=== PATIENT | male | born 1955 | race Caucasian/White ===

== ENCOUNTER 2024-06-14 09:12 | Emergency (ER) | payer BC, MEDICARE, SELFPAY ==
[2024-06-14 09:16] VITALS: BP 156/95; PULSE 83; PULSE 86; RESP 19; TEMP 36.5; O2SAT 95; O2SAT 98; BMI 27.3
--- NOTE | 2024-06-14 09:51 | PD.EDAMS ---
Altered Mental Status RME/HPI General Chief Complaint: Altered Mental Status Stated Complaint: AMS Arrival date/time: 06/14/24 09:12 RME / HPI RME / HPI narrative: 69 year old male with history of vascular dementia, CVA 01/2021, heart attack in 2015, s/p 3 stents presents to the ED BIBA from home for evaluation of altered mental status. Per , patient was at his usual state of health Thursday and went to visit his sisters for the weekend. states the patient returned home and noticed the patient was congested, coughing, complained of body aches and chills otherwise conversive. Also noted patient at baseline patient shuffles however noted 2 days ago Thursday he was walking very slowly. states this morning the patient appeared very confused and couldn't remember her name, prompting calling 911. Denies any falls or head injury. No other symptoms reported. Related Data Home Medications ?Medication ?Instructions ?Recorded ?Confirmed atorvastatin 80 mg tablet 80 mg PO QDAY 06/02/19 11/25/19 carvedilol 6.25 mg tablet 6.25 mg PO BID 06/02/19 11/25/19 clopidogrel 75 mg tablet (Plavix) 75 mg PO QDAY 06/02/19 11/25/19 empagliflozin 10 mg tablet 10 mg PO QDAY 06/02/19 11/25/19 (Jardiance) glipizide 2.5 mg tablet, extended 2.5 mg PO QDAY 06/02/19 11/25/19 release 24 hr insulin glargine 100 unit/mL (3 10 unit subcut QDAY 06/02/19 11/25/19 mL) subcutaneous pen (Lantus Solostar U-100 Insulin) lisinopril 10 mg tablet 10 mg PO QDAY 06/02/19 11/25/19 metformin 500 mg tablet 500 mg PO BID 06/02/19 11/25/19 tamsulosin 0.4 mg capsule 0.4 mg PO QDAY 06/02/19 11/25/19 Allergies Allergy/AdvReac Type Severity Reaction Status Date / Time NKA* Allergy Uncoded 06/14/24 09:22 Review of Systems Review of Systems ROS Unobtainable: unobtainable due to mental status (Patient confused ) Past Medical History Past Medical History CARDIAC: Negative Congestive Heart Failure RESPIRATORY: Negative Chronic Obstructive Pulmonary Disease (COPD) GENITOURINARY: Negative Renal Disease ENDOCRINE: Positive Diabetes Mellitus Type 2; Negative Diabetes Mellitus Type 1 Social History SMOKING STATUS: Former smoker ED Exam Narrative Physical exam: Physical Exam: General: The vital signs were reviewed. Patient alert awake cooperative does know his age date and does not recognize or is unable to call his by her name. Otherwise the patient is non-toxic, in no apparent distress and appears healthy with a patent airway, no respiratory distress and has no apparent circulatory problems. Head & Scalp: Normocephalic, atraumatic. Face: Appears normal and is without lesions, deformity. Ears: Left external pinna appears normal. Right external pinna appears normal. Eyes: The sclera is anicteric. No obvious photophobia. The Left and Right Orbit/Lid/Conjunctiva appears normal without swelling, discoloration or injection. Nose: The nose is without deformity, discharge or tenderness; Throat: Appears normal. The mucous membranes are pink and moist without exudates, redness or mass seen. The tongue appears normal. Neck: The neck is supple and no apparent mass or adenopathy. Chest: The chest wall is normal in size and symmetry and has no chest wall tenderness or crepitus. The patient displays normal ventilator effort without retractions, accessory muscle use and has adequate air movement bilaterally with no wheezes and no rales. Cardiovascular: Regular rate and rhythm; No murmurs, rubs, or gallops; Gastrointestinal: The abdomen appears normal. No obvious hernias or mass. The abdomen is soft and benign, non-distended, with no pain, no guarding and no rebound tenderness. Bowel sounds are present and normal sounding. No CVA tenderness. Genitourinary: Back/Spine: Normal Spektor nontender Extremities/Musculoskeletal/lymphatic: The bilateral upper and lower extremities are warm. There is no evidence of arterial insufficiency. There is no evidence of venous insufficiency/edema. The patient spontaneously moves bilateral upper and lower extremities with no pain and no limitation of movement. There is no apparent, injury or trauma. Skin: The skin is warm, dry and intact. No rashes. No petechia. No purpura. No abnormal bruising. The color is appropriate with no cyanosis. Mental status/Psychiatric: Mental status is appropriate for age. The patient has no apparent delusions, visual hallucinations, no apparent audible hallucinations. The patient has no apparent suicidal thoughts/ideation and no apparent homicidal thoughts/ideation. Neurological: The patient is awake, alert, interactive, cordial, cooperative and is oriented to name and situation. The patient follows commands and answers historical question with no impairment. There is no visual disturbance apparent. The pupils are equal and reactive bilaterally with normal eye movements and no diplopia The bilateral upper and lower extremities have normal strength, normal range of motion and normal functioning. The gait, station and balance appear to be baseline with no acute change Course Quality Measures none Orders Category Date Time Status Bedside COVID-19 Antigen Test NOW Care 06/14/24 10:18 Active Bedside Influenza A&B Antigen Test NOW Care 06/14/24 10:18 Completed EKG (ED ONLY) *Do not use* NOW Care 06/14/24 10:13 Completed Home Health Referral Routine Cons 06/14/24 16:[address] head/brain wo con Stat Exams 06/14/24 10:13 Completed EKG (ED Only) Stat Exams 06/14/24 10:13 Draft XR chest 1V portable Stat Exams 06/14/24 10:13 Completed Alcohol, Blood Medical Stat Lab 06/14/24 10:41 Completed Ammonia Stat Lab 06/14/24 10:41 Completed B-Type Natriuretic Peptide Stat Lab 06/14/24 10:41 Completed Blood Culture (Lab) Stat Lab 06/14/24 10:35 Received CBC Stat Lab 06/14/24 10:41 Completed Comprehensive Metabolic Panel Stat Lab 06/14/24 10:41 Completed Drug Screen,Urine Stat Lab 06/14/24 11:20 Completed Lactate (Lactic Acid) Stat Lab 06/14/24 10:41 Completed Procalcitonin Stat Lab 06/14/24 10:41 Completed Prothrombin Time with INR Stat Lab 06/14/24 10:41 Completed RSV [Respiratory Syncytial Virus Ag] Stat Lab 06/14/24 11:41 Completed Strep A Rapid Stat Lab 06/14/24 11:41 Completed Troponin I Stat Lab 06/14/24 10:41 Completed Troponin I Stat Lab 06/14/24 15:28 Completed Type and Screen Stat Lab 06/14/24 10:41 Completed Urinalysis Stat Lab 06/14/24 12:20 Completed Urinalysis, C/S if Indicated Stat Lab 06/14/24 12:20 Completed Venous Blood Gas Stat Lab 06/14/24 10:41 Completed Vital Signs Vital signs: Vital Signs Temperature 97.7 F 06/14/24 09:16 Pulse Rate 83 06/14/24 09:16 Respiratory Rate 19 06/14/24 09:16 Blood Pressure 156/95 H 06/14/24 09:16 Pulse Oximetry (%) 95 06/14/24 09:16 Oxygen Delivery Method Room Air 06/14/24 09:16 Pulse ox is 95% on room air which is adequate. Altered Mental Status MDM Narrative MDM Narrative:: IJulita, am scribing for and in the presence of Dr. Ag. Patient is 69-year-old who is brought in by per EMS as also was noted to be walking funny for the last 2 days. Got history of CVA in 2020 has a history of vascular dementia diagnosed in January [address] Amador's been involved in his care. Has history of stents. Also noted 2 days ago he had some cough and congestion and bodyaches uncertain if he is coming down with the flu per the . Patient has no complaints or problems is cordial smiling Patient had extensive workup and actually has improved his mental status with a sense he recognizes and knows his name clearly has a fluctuating characteristic to the cognition. Medical workup reveals a white count of 7.4 hemoglobin of 16.5 PT/INR normal venous blood gas was normal electrolytes were normal BUN 21 creatinine 1.3. Sugar was elevated 394. Lactic acid was 1.9. Total bilirubin was slightly elevated 2.5 of unknown etiology. No transaminases were negative. There is no liver injury does not drink. Ammonia was negative troponin first only slightly above the negative range the second 1 was done and is normal at 0.037. BNP slightly elevated to 55 there is a known history of some mild congestive heart failure. Procalcitonin was negative. Urinalysis came back with 3 red cells and 1 white cells essentially negative. Urine drug screen was negative ethyl alcohol is negative RSV and group A strep were negative influenza was negative COVID was negative. Despite the mental status fluctuating returning back to baseline he still demented. Head CT was done which essentially is negative there is no acute chest x-ray reveals a big heart some vascular redistribution no consolidating pneumonia is seen. And the bilateral nodular appearances are probably chronic. 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 Son came and was concern for the patient and there is a little disagreement between the and the son who is a stepson for the current and that she thinks she needs more help in the home was wonder if the patient could be admitted to rehab. Or at least daycare so she could work and then have someone watch him because it is clear he should not be left alone. I spoke with manager social work several times they went in 1 time and did an assessment and were going arrange for home health services which were ordered. But went back in and when the son was gone and she still feeling a little overwhelmed social service can go back and and discussed with them other options. Also the brought up going to the daycare center that can open up in [place] this next week. Patient data External records reviewed:: [facility] previous records (I reviewed outpatient chart from 11/25/2019) and EMS form Clinical information provided by:: EMS and spouse Social determinants that could affect healthcare access:: none Patient has the following chronic illnesses:: vascular dementia, CVA 01/2021, heart attack in 2016, s/p 3 stents How is presenting disease/condition affected by chronic disease/condition?: exacerbated by Evaluation data The following diagnostics were reviewed and interpreted by me:: lab results, radiology exam(s) and EKG tracing(s) (Sinus rhythm, rate 87, no STEMI) Lab and/or radiology exams considered but not ordered:: None Interpretation Summary: Ordering Physician: Erwin Ag MD Date of Service: 06/14/24 Procedure(s): XR chest 1V portable Accession Number(s): [id number] cc: Francois Thompson MD; Erwin Ag MD; Kendrick Rose MD~ EXAMINATION: XR chest 1V portable ORDERING PROVIDER: Erwin Ag MD HISTORY: CHEST PAIN TECHNIQUE: Single portable AP radiograph of the chest. COMPARISON: None. FINDINGS: Lines and Tubes: Overlying monitoring leads. Lungs: Mildly hyperinflated. Reticular nodular interstitial markings. No consolidation. Pleura: No pneumothorax or large pleural effusion. Cardiomediastinal Silhouette: Moderate cardiomegaly. Uncoiled aorta. Calcifications aortic arch. Soft Tissues/Bones: Moderate bony degenerative changes. IMPRESSION: Reticular nodular interstitial markings favored to represent chronic lung disease on background emphysematous changes. Viral or atypical pneumonia could have a similar appearance. Dictated By: Francois Thompson MD Signed By: <Electronically signed by Francois Thompson MD in OV> 06/14/24 1124 Ordering Physician: Erwin Ag MD Date of Service: 06/14/24 Procedure(s): CT head/brain wo con Accession Number(s): [id number] cc: Erwin Ag MD; César Dela Cruz MD; Kendrick Rose MD~ Examination: CT brain head without contrast. 2-D sagittal coronal reconstructions Date and time of exam:June 14, 2024 1019 hrs. Indications: Loss of consciousness episode today CTDI: vol (mGy):51 DLP: (mGycm):1074 Technique: Multiple CT axial sections of the brain have been obtained, 5 mm slice thickness. Contrast has not been administered. 2-D sagittal, coronal reconstructions have been obtained Low dose protocols were performed. One or more of the following dose reduction techniques were used; automated exposure control, adjustment of the mA and/or KV according to patient size, use of iterative reconstruction technique. Findings: No significant ventricular enlargement. Encephalomalacia left temporal left occipital lobe Intra-axial or extra-axial hemorrhage density is not seen. No mass effect or midline shift Basal cisterns are not remarkable. Fourth ventricle is midline. Cranial vault intact. Impression: Negative for acute hemorrhage, mass effect or midline shift As clinically warranted, consider brain MRI follow-up without contrast Dictated By: César Dela Cruz MD Signed By: <Electronically signed by César Dela Cruz MD in OV> 06/14/24 1050 Medications / Prescriptions Medications or Prescriptions considered but not ordered:: None Medication administrations:: None Consultations Consultation(s) initiated? (list below): Yes Consultation #1 (Physician, Specialty, Details): I spoke with patients neurologist Dr. Amador as noted above. Diagnosis Differential diagnosis altered mental status: altered mental status, delirium, dementia, hypoglycemia, hyponatremia, subarachnoid hemorrhage, sepsis and other (Viral illness) Most likely diagnosis given after review of the tests above:: Exacerbation of dementia and fluctuating mental status associated with it. No acute illness was found. Brain MRI may be needed as an outpatient. Admission Indicated Admission indicated?: not indicated Admission Request Was there a request for admission?: No Disposition Plan Disposition Plan: Discharge ( and son are going arrange for further in-home services and/or daycare as the patient has reached a point it is caught in a client where he needs more supervision. Also they were instructed the patient should not be driving.) Discharge Attestation Discharge Attestation: The patient and all family members were given an opportunity to ask questions and understood the discharge instructions. Discharge instructions specifically effects, indications for sooner follow up or return to the emergency department, and the expected course of current diagnosis. Patient condition: Stable Discharge Plan Plan Patient Disposition: HOME (Self Care) Prescriptions/Referrals Prescriptions/Med Rec: No Action atorvastatin 80 mg tablet 80 mg PO QDAY clopidogrel [Plavix] 75 mg tablet 75 mg PO QDAY carvedilol 6.25 mg tablet 6.25 mg PO BID metformin 500 mg tablet 500 mg PO BID lisinopril 10 mg tablet 10 mg PO QDAY glipizide 2.5 mg tablet extended release 24hr 2.5 mg PO QDAY Jardiance 10 mg tablet 10 mg PO QDAY tamsulosin 0.4 mg capsule 0.4 mg PO QDAY Lantus Solostar U-100 Insulin 100 unit/mL (3 mL) insulin pen 10 unit SC QDAY Referrals: Kendrick Rose MD [Primary Care Provider] - In 1 week Problem List Clinical Impression: Cognitive decline, Dementia, Congestive heart failure, Elevated bilirubin Patient/Caregiver Discharge Instructions Additional Instructions: As we discussed there are multiple issues going on today. She we know the medical workup today revealed a head CT which was negative chest x-ray with evidence of mild congestive heart failure. Swabs for influenza COVID and RSV were negative. Your CBC and CHEM panels were essentially negative other than the bilirubin slightly elevated. Continue to get care for your diabetes as the sugar was somewhat elevated today and have your doctor address the medical management for the diabetes. Initially the cognitive that was observed in the confusion is most likely related to his dementia as we see no evidence of infection or any delirium at this time. As we know he spontaneously improved without us doing anything. Dr. Amador needs to follow-up as we discussed and she is aware and make an appointment get seen in the next 3 to 5 days. If you are getting worse before then please return for reevaluation. It is clear the patient should not be driving and should be accompanied 24 hours a day as he clearly has cognitive and confusional issues related to the dementia As we discussed his total bilirubin slightly elevated at 2.5 and it is unclear why this is elevated. As we discussed we will have this follow-up with the regular doctor for recheck and if it is continuing to go up then further medical workup can be done as an outpatient. Talk with your neurologist and seek daycare and/or home health as was discussed. Dr. Amador can facilitate that for you. Again if you are getting worse in any way please return for reevaluation. Print Language: New Zealander Stand Alone Forms: [facility] Award Info., Patient Portal Info Letter
--- NOTE | 2024-06-14 10:13 | EKG_ITS ---
[facility] Test Date: 2024-06-14 Pat Name: MATTHEW JOHNSON Department: Room: - Gender: Male Development Lead: : 1955 Requested By: Erwin Ag Order Number: [id number] Reading MD: Erwin Ag Measurements Intervals [place] Rate: 87 P: 87 OR: 159 QRS: 3 QRSD: 133 T: 64 QT: 393 QTc: 474 Interpretive Statements SINUS RHYTHM INTRAVENTRICULAR CONDUCTION DELAY [130+ ms QRS DURATION] No previous ECG available for comparison /store/S0/[id number].pdf
--- NOTE | 2024-06-14 10:13 | XR_ITS ---
Examination: CT brain head without contrast. 2-D sagittal coronal reconstructions Date and time of exam:June 14, 2024 1019 hrs. Indications: Loss of consciousness episode today CTDI: vol (mGy):51 DLP: (mGycm):1074 Technique: Multiple CT axial sections of the brain have been obtained, 5 mm slice thickness. Contrast has not been administered. 2-D sagittal, coronal reconstructions have been obtained Low dose protocols were performed. One or more of the following dose reduction techniques were used; automated exposure control, adjustment of the mA and/or KV according to patient size, use of iterative reconstruction technique. Findings: No significant ventricular enlargement. Encephalomalacia left temporal left occipital lobe Intra-axial or extra-axial hemorrhage density is not seen. No mass effect or midline shift Basal cisterns are not remarkable. Fourth ventricle is midline. Cranial vault intact. Impression: Negative for acute hemorrhage, mass effect or midline shift As clinically warranted, consider brain MRI follow-up without contrast
--- NOTE | 2024-06-14 10:13 | XR_ITS ---
EXAMINATION: XR chest 1V portable ORDERING PROVIDER: Erwin Ag MD HISTORY: CHEST PAIN TECHNIQUE: Single portable AP radiograph of the chest. COMPARISON: None. FINDINGS: Lines and Tubes: Overlying monitoring leads. Lungs: Mildly hyperinflated. Reticular nodular interstitial markings. No consolidation. Pleura: No pneumothorax or large pleural effusion. Cardiomediastinal Silhouette: Moderate cardiomegaly. Uncoiled aorta. Calcifications aortic arch. Soft Tissues/Bones: Moderate bony degenerative changes. IMPRESSION: Reticular nodular interstitial markings favored to represent chronic lung disease on background emphysematous changes. Viral or atypical pneumonia could have a similar appearance.
[2024-06-14 10:56] LABS: Base Excess, Venous 0 (-3-3); Lactate (Lactic Acid) 1.9 mMol/L (0.4-2.0); O2 Saturation, Venous 54 % (96-97); PCO2, Venous 42 mmHg (36-56); PO2, Venous 27 mmHg (15-58); pH, Venous 7.39 (7.33-7.66)
[2024-06-14 11:01] LABS: Basophils % (Auto) 0 % (0-2.5); Eosinophils # (Auto) 0.1 Thou/mm3 (0.0-0.5); Eosinophils % (Auto) 1 % (0-10); Hematocrit 48.6 % (41.0-53.0); Hemoglobin 16.5 g/dL (13.5-16.0); Immature Granulocytes % (Auto) 0 % (0-0); Immature Granulocytes Auto 0.02 Thou/mm3 (0.00-0.00); Lymphocytes # (Auto) 0.8 Thou/mm3 (1.0-4.8); Lymphocytes % (Auto) 11 % (10-50); Mean Corpuscular Volume 91 fL (80-100); Monocytes # (Auto) 0.6 Thou/mm3 (0.0-0.8); Monocytes % (Auto) 9 % (0-12); Neutrophils # (Auto) 5.8 Thou/mm3 (1.8-7.7); Neutrophils % (Auto) 79 % (37-80); Nucleated Red Blood Cell % 0 /100 WBC (0); Platelet Count 208 Thou/mm3 (140-440); RDW Standard Deviation 44.1 fL (35.1-43.9); Red Blood Count 5.33 Miln/mm3 (4.50-5.90); White Blood Count 7.4 Thou/mm3 (3.8-10.6)
[2024-06-14 11:13] LABS: Prothrombin Time 10.7 Seconds (9.0-12.2)
--- NOTE | 2024-06-14 11:14 | PC.NURSE ---
PT AMBULATED WELL W/THIS RN AND FELLOW LIEUTENANT FIRE FIGHTER
[2024-06-14 11:20] LABS: Ammonia < 10 uMol/L (11-32)
[2024-06-14 11:23] LABS: B-Type Natriuretic Peptide 255 pg/mL (0-100)
[2024-06-14 11:38] LABS: Alanine Aminotransferase 13 U/L (10-49); Albumin, Serum 4.5 gm/dL (3.4-4.8); Albumin/Globulin Ratio 1.5 (1.2-2.2); Alcohol, Blood Medical < 3.0 mg/dL (0-10.0); Alkaline Phosphatase 80 U/L (46-116); Anion Gap 11 (7-16); Aspartate Amino Transferase < 8 U/L (0-34); BUN/Creatinine Ratio 16 Ratio (12-20); Bilirubin,Total 2.5 mg/dL (0.3-1.2); Blood Urea Nitrogen 21 mg/dL (9-23); Calcium 9.8 mg/dL (8.3-10.6); Calcium (Corrected) 9.8 mg/dL (8.5-10.1); Carbon Dioxide 26.1 mMol/L (20.0-31.0); Chloride 100 mMol/L (98-107); Creatinine (Component) 1.3 mg/dL (0.6-1.3); Estimated Creatinine Clearance 53.4 mL/min (>60); Glucose 394 mg/dL (74-106); Osmolality,Calculated 292 (275-295); Potassium 4.9 mMol/L (3.4-5.1); Procalcitonin 0.21 ng/ml (0.0-0.49); Sodium 137 mMol/L (136-145); Total Protein 7.5 gm/dL (5.7-8.2); eGFR 59 See Note
[2024-06-14 11:44] LABS: Troponin I 0.046 ng/mL (0.0-0.045)
[2024-06-14 12:02] LABS: Respiratory Syncytial Virus Ag Negative (Negative); Strep A Rapid Negative (Negative)
--- NOTE | 2024-06-14 12:05 | PC.NURSE ---
PT TIFFANIE FROM HOME, SON CALLED BECAUSE PT SOUNDED CONFUSED ON THE PHONE. PER PT WAS AT HIS SISTERS HOUSE THURSDAY AND THURSDAY, AND ON THURSDAY HE WAS WALKING SLOWER, NORMALLY SHUFFLES AT BASELINE, AND WAS COMPLAINING OF A HEADACHE, BUT THOUGHT HE HAD THE FLU BECAUSE ACCORDING TO HER HE NEVER HAS HEADACHES AND HAD SOME CONGESTION. PT DOES HAVE HX OF STROKE, PER NO RESIDUAL, PT DOES HAVE VASCULAR DEMENTIA
[2024-06-14 12:34] LABS: Collection Type, Urine Clean Catch; Squamous Epithelial Cell,Urine 0 /hpf (0-5)
[2024-06-14 12:49] LABS: Bacteria,Urine Rare; Bilirubin,Urine Negative (Negative); Blood,Urine Negative (Negative); Clarity,Urine Clear (Clear/Hazy); Color,Urine Lt-Yellow (Lt Yel-Yel); Culture Indicated,Urine Not Indicated; Glucose, Urine 4+ (Negative); Hyaline Casts,Urine < 1 /hpf (0-1); Ketones,Urine 1+ (Negative); Leukocyte Esterase,Urine Negative (Negative); Nitrite,Urine Negative (Negative); Protein,Urine 1+ (Neg - Trace); RBC,Urine 3 /hpf (0-3); Specific Gravity,Urine 1.021 (1.001-1.035); Urobilinogen,Urine Negative mg/dL (0.0-1.0); WBC,Urine < 1 /hpf (0-5)
[2024-06-14 12:50] LABS: Amphetamine/Methamp Scrn,U Negative (Negative); Barbiturate Screen,Urine Negative (Negative); Benzodiazepines Screen,Urine Negative (Negative); Benzoylecgonine Screen, Ur Negative (Negative); Fentanyl Screen,Urine Negative (Negative); Opiate Screen,Urine Negative (Negative); THC Screen,Urine Negative (Negative)
--- NOTE | 2024-06-14 13:22 | PC.NURSE ---
SPOKE WITH SON TUAN WHO IS AT BEDSIDE CURRENTLY, SON REQUEST THAT WE CALL HIM WITH UPDATES, OR THAT WE CAN UPDATE HIM IF HE CALLS. THIS RN ASKED PT IF THAT IS OK WITH HIM AND HE CONFIRMED HE WOULD LIKE HIM TO HAVE ACCESS TO HIS INFORMATION
--- NOTE | 2024-06-14 13:23 | PC.NURSE ---
TONY GOLD PHONE NUMBER IS [phone], SPOKE W/REGISTRATION TO FIX SONS NUMBER IN CONTACTS.
--- NOTE | 2024-06-14 13:34 | PC.NURSE ---
SON CAME UP TO THIS RN AND REQUEST THAT CARDIAC CATH TECHNICIAN TALK TO THEM ABOUT POSSIBLE HOME HEALTH, CONTACTED SW, WHO WILL COME TALK TO PT AND SON.
--- NOTE | 2024-06-14 14:20 | PC.SS ---
Addendum entered by LIANE Beckman 06/14/24 17:05: ASW met at bed side with patient and Talisha to discuss the discharge plan. Patient's , Talisha informs she and patient would like to return home and decline home health needs at this time. Patient's informs she will be home to help patient with his home care. Talisha also considering connecting the patient to halfway, however informed she will do so following patient's discharge. Updated Dr. Hemphill. Original Note: ASW met at bed side with patient and patient's , Talisha Palacio and patient's son Aidan. Family is requesting home health to follow up with patient for nursing needs. No preferred agency. Confirmed home address and emergency contact number for Talisha. Notified MD of need for home health order.
[2024-06-14 15:53] LABS: Troponin I 0.037 ng/mL (0.0-0.045)
--- NOTE | 2024-06-14 17:05 | PC.NURSE ---
ATTEMPTED TO CALL SON AT THIS TIME TO NOTIFY OF DISCHARGE AND PROVIDE UPDATE ON RESULTS, NO ANSWER AT THIS TIME, PT IS DISCHARGED
--- NOTE | 2024-06-15 16:20 | PC.CC ---
Addendum entered by Larisa Vega RN 06/15/24 16:29: SOC is 06/17/24 Addendum entered by Larisa Vega RN 06/15/24 16:28: Pt is booked with [facility] Note: Referrals sent to all agencies
== END 2024-06-14 17:07 | disposition home health service (06) ==
PROVIDERS: Emergency Provider Emergency Medicine; PCP Urology
DX: F01.50 Vascular dementia, unspecified severity, without behavioral disturbance, psychotic disturbance, mood disturbance, and anxiety (principal); I50.9 Heart failure, unspecified; R41.89 Other symptoms and signs involving cognitive functions and awareness; I25.2 Old myocardial infarction
CPT/HCPCS: 36415; 70450; 71045; 80053; 80307; 80320; 81001; 82140; 82803; 83605; 83880; 84145; 84484; 85025; 85610; 86850; 86900; 86901; 87040; 87400; 87634; 87651; 87811; 93005; 99284; G0480

== ENCOUNTER 2024-06-16 14:19 | Inpatient (IN) | payer MEDICARE, BC, SELFPAY ==
[2024-06-16] VITALS (8 sets, daily range): BP systolic 124–153; BP diastolic 72–96; PULSE 71–90; RESP 16–96; TEMP 36.6–36.8; O2SAT 94–98; BMI 27.8
--- NOTE | 2024-06-16 14:34 | PC.NURSE ---
PT COMES FROM MRI, RADIOLOGIST CALLED AND SAID MRI IS SUSPICIOUS FOR STROKE. PT HERE THURSDAY FOR CONFUSION, PER AT BEDSIDE STATES LAST KNOWN WELL WAS 1000PM ON THURSDAY NIGHT. PER PATIENT HAS PROGRESSIVELY GOTTEN WORSE, NOW SLURRED SPEECH, CAN'T FEED HIMSELF, AND HAS INCREASED CONFUSION, GARBLED SPEECH. PATIENT HAVING TROUBLE GETTING INTO GURNEY WHEN TRANSFERRING TO GURNEY FROM WHEELCHAIR. DR. AZEVEDO AWARE OF PATIENT STATUS,.
--- NOTE | 2024-06-16 15:41 | PD.EDAMS ---
Altered Mental Status RME/HPI General Chief Complaint: Altered Mental Status Stated Complaint: ABNORMAL MRI Arrival date/time: 06/16/24 14:19 RME / HPI RME / HPI narrative: DR. JURADO MAIN ED EVALUATION: 69 year old male with past medical history significant for previous stroke 01/2021 and vascular dementia presents to the Emergency Department accompanied by his sent by Dr. Amador for abnormal MRI. Per , they were seen here 06/14/24 for the same symptoms of altered mental status, face numbness, and slurred speech. Patient unable to provide information, history from . Related Data Home Medications ?Medication ?Instructions ?Recorded ?Confirmed atorvastatin 80 mg tablet 80 mg PO QDAY 06/02/19 11/25/19 carvedilol 6.25 mg tablet 6.25 mg PO BID 06/02/19 11/25/19 clopidogrel 75 mg tablet (Plavix) 75 mg PO QDAY 06/02/19 11/25/19 empagliflozin 10 mg tablet 10 mg PO QDAY 06/02/19 11/25/19 (Jardiance) glipizide 2.5 mg tablet, extended 2.5 mg PO QDAY 06/02/19 11/25/19 release 24 hr insulin glargine 100 unit/mL (3 10 unit subcut QDAY 06/02/19 11/25/19 mL) subcutaneous pen (Lantus Solostar U-100 Insulin) lisinopril 10 mg tablet 10 mg PO QDAY 06/02/19 11/25/19 metformin 500 mg tablet 500 mg PO BID 06/02/19 11/25/19 tamsulosin 0.4 mg capsule 0.4 mg PO QDAY 06/02/19 11/25/19 Allergies Allergy/AdvReac Type Severity Reaction Status Date / Time No Known Allergies Allergy Unverified 06/16/24 16:40 Review of Systems Review of Systems ROS Unobtainable: unobtainable due to mental status Past Medical History Past Medical History NEUROLOGIC: Positive Cerebrovascular Accident (2020, NO DEFICITS) CARDIAC: Positive Myocardial Infarction, Hypercholesterolemia and Hypertension GENITOURINARY: Positive Benign Prostatic Hyperplasia ENDOCRINE: Positive Diabetes Mellitus Type 2 Surgical History SURGICAL: Positive Coronary Stent (3 STENTS) Social History SMOKING STATUS: Former smoker SUBSTANCE USE: does not use ALCOHOL: Never ED Exam Narrative Physical exam: GENERAL APPEARANCE: Patient appears confused, nonsensical speech VITALS: All vitals were reviewed and the pulse ox is 94% on room air, which is normal according to my interpretation. HEENT: Normocephalic, atraumatic; pupils equal, round, reactive to light; EOMI; mucous membranes pink, moist; oropharynx clear NECK: Supple LUNGS: CTABL; no wheezes, no rales, no rhonchi HEART: Regular rate, regular rhythm; normal S1, S2; no murmurs ABDOMEN: non distended; normal BS; soft, no tenderness, no guarding, no rebound; no masses, no organomegaly, no hernia BACK: no CVA tenderness EXTREMITIES: atraumatic; no edema NEUROLOGIC: Patient appears confused, nonsensical speech SKIN: warm, dry, normal color; no rashes Course Quality Measures none Orders Category Date Time Status Customer Experience Analyst Q2HR Care 06/16/24 14:32 Active CBC AM DRAW Lab 06/17/24 05:00 Ordered CBC AM DRAW Lab 06/18/24 05:00 Ordered CBC AM DRAW Lab 06/19/24 05:00 Ordered CBC AM DRAW Lab 06/20/24 05:00 Ordered CBC Routine Lab 06/16/24 15:45 Completed CMP [Comprehensive Metabolic Panel] AM DRAW Lab 06/17/24 05:00 Ordered CMP [Comprehensive Metabolic Panel] AM DRAW Lab 06/18/24 05:00 Ordered CMP [Comprehensive Metabolic Panel] AM DRAW Lab 06/19/24 05:00 Ordered CMP [Comprehensive Metabolic Panel] AM DRAW Lab 06/20/24 05:00 Ordered CMP [Comprehensive Metabolic Panel] Routine Lab 06/16/24 15:45 Completed Mag [Magnesium] AM DRAW Lab 06/17/24 05:00 Ordered Mag [Magnesium] AM DRAW Lab 06/18/24 05:00 Ordered Mag [Magnesium] AM DRAW Lab 06/19/24 05:00 Ordered Mag [Magnesium] AM DRAW Lab 06/20/24 05:00 Ordered Magnesium Routine Lab 06/16/24 15:45 Completed Phosphorous AM DRAW Lab 06/17/24 05:00 Ordered Phosphorous AM DRAW Lab 06/18/24 05:00 Ordered Phosphorous AM DRAW Lab 06/19/24 05:00 Ordered Phosphorous AM DRAW Lab 06/20/24 05:00 Ordered Phosphorous Routine Lab 06/16/24 15:45 Completed Prothrombin Time with INR Stat Lab 06/16/24 15:45 Completed Urinalysis Stat Lab 06/16/24 16:09 Completed Vital Signs Vital signs: Vital Signs Temperature 98.1 F 06/16/24 14:25 Pulse Rate 73 06/16/24 14:25 Respiratory Rate 16 06/16/24 14:25 Blood Pressure 124/72 06/16/24 14:25 Pulse Oximetry (%) 98 06/16/24 14:25 Oxygen Delivery Method Room Air 06/16/24 14:25 Altered Mental Status MDM Narrative MDM Narrative:: IMamie am scribing for and in the presence of Dr. Jurado. Patient data External records reviewed:: [facility] previous records (Reviewed last ED visit dated 06/14/24, discharged with the following: Cognitive decline) Clinical information provided by:: spouse () Social determinants that could affect healthcare access:: none Patient has the following chronic illnesses:: previous stroke 01/2021 and vascular dementia How is presenting disease/condition affected by chronic disease/condition?: exacerbated by Evaluation data The following diagnostics were reviewed and interpreted by me:: lab results Lab and/or radiology exams considered but not ordered:: none Interpretation Summary: Procedure(s): MR brain wwo MRA brn wo mario galeano Accession Number(s): [id number] cc: Francois Thompson MD; DAVID HENRY; Kristofer Amador MD~ EXAMINATION: MR brain wwo MRA ramez galeano ORDERING PROVIDER: Kristofer Amador MD HISTORY: Headaches, dizziness, right-sided numbness and weakness, right-sided vision loss x3 days. History of cerebrovascular incident 2020. TECHNIQUE: Multiplanar multisequence magnetic resonance images were obtained of the brain and neck with and without IV contrast. Vascular imaging was performed of the neck and head through the [place]. Imaging is motion degraded. COMPARISON: 06/14/2024, CT head. FINDINGS: Large area of restricted diffusion involving most of the remaining left occipital lobe, with extension into the posterior medial inferior temporal lobe. Additional foci of restricted diffusion involving the left thalamus and internal capsule. Again seen is significant encephalomalacia involving the peripheral aspect of the left occipital and temporal lobes, with associated cortical/subcortical susceptibility and cortical enhancement. There is an additional focus of abnormal susceptibility involving the right semicentrum ovale, likely representing an area of microhemorrhage. There is prominence of the right parieto-occipital sulcus, without adjacent abnormal T2 signal, which may be due to atrophy. There is no mass effect or midline shift. No extra-axial fluid collection is identified. There is advanced global cerebral atrophy with resultant prominence of the sulci and ventricles. Extensive periventricular and subcortical white matter T2/FLAIR hyperintensities are seen. No enhancing mass is identified. Orbits are grossly unremarkable. There is extensive mucosal paranasal inflammatory sinus disease primarily affecting a common sphenoid paranasal sinus. There is a moderate amount of fluid in the right mastoid air cells. Anterior, middle, and right posterior cerebral arteries are proximally patent without large aneurysm visualized. Anterior communicating artery is seen. The patient's right posterior communicating artery is dominant. Small left posterior communicating artery is present. The left posterior cerebral artery is not visible from its origin (P1) distally. Bilateral superior cerebellar arteries are proximally patent. Anterior inferior cerebral arteries are proximally identified. The patient is left vertebral artery dominant, with the right vertebral artery being extremely diminutive, and possibly terminating as a posterior inferior cerebellar artery. The proximal left posterior inferior cerebellar artery is identified. No basilar tip aneurysm is seen. Imaging of the neck is limited due to patient motion and coronal views only. Cervical vertebral and carotid arteries are tortuous. Left vertebral artery is again seen to be dominant. Potential stenosis is not well evaluated given lack of axial and sagittal imaging. IMPRESSION: 1. Proximal occlusion of the left posterior cerebral artery resulting in ischemia of most of the remaining left occipital and posterior medial temporal lobes, as well as portions of the left thalamus and internal capsule. 2. Encephalomalacia from old left occipital/temporal infarction. 3. Extensive global parenchymal volume loss and chronic small vessel ischemic changes. 4. Small focus of susceptibility right semicentrum ovale may represent area of microhemorrhage. 5. Partial right mastoid air cell effusion. Recommend correlation with history and physical exam to exclude mastoiditis. This case was discussed with the emergency room at 2:08 PM 06/16/2024, and patient was taken to the emergency room by radiology staff at 2:10 PM 06/16/2024. Dictated By: Francois Thompson MD Medications / Prescriptions Medications or Prescriptions considered but not ordered:: none Medication administrations:: Medication Administration History Acetaminophen (Acetaminophen 325 Mg Tablet) 650 mg PO Q6H PRN PRN Reason: Fever >100.3 or pain 1-3 Stop: 07/16/24 16:32 Albuterol/Ipratropium (Albuterol/Ipratropium (Duoneb) Rt [place]thea 3 Ml Nebu) 3 ml INH Q6HR PRN PRN Reason: SHORTNESS OF BREATH OR WHEEZE Stop: 07/16/24 16:32 Dextrose (Dextrose 50%-Water Inj 50 Ml Syringe) 25 ml IV Q15MIN PRN PRN Reason: BG 50-70 responsive npo pt Stop: 07/16/24 17:03 Dextrose (Dextrose 50%-Water Inj 50 Ml Syringe) 50 ml IV Q15MIN PRN PRN Reason: BG <50 OR BG <70 & pt unresponsive Stop: 07/16/24 17:03 Glucagon (Glucagon Inj 1 Mg Vial) 1 mg IM Q15MIN PRN PRN Reason: BG <70, and no IV access Heparin Sodium (Porcine) (Heparin Sod Inj 5000 Unit/Ml Vial) 5,000 unit SC Q12HR RAYMON Stop: 06/30/24 20:59 Insulin Human Lispro (Insulin Lispro (Admelog) 1 Unit/0.01 Ml Unit) 0 unit SC AC RAYMON; Protocol Stop: 07/17/24 07:29 Ondansetron HCl (Ondansetron Inj 2 Mg/Ml Inj 2 Ml) 4 mg IV Q6H PRN; Protocol PRN Reason: NAUSEA OR VOMITING Stop: 07/16/24 16:32 Sennosides (Senna Tablet) 1 tab PO BID PRN; Protocol PRN Reason: CONSTIPATION Stop: 07/16/24 16:32 see above Consultations Consultation(s) initiated? (list below): Yes Consultation #1 (Physician, Specialty, Details): Discussed test HPI, PMHx, lab, radiology results and/or management with hospitalist. Will admit for further evaluation and management. Accepts patient for admission. Time: 16:30 Diagnosis Most likely diagnosis given after review of the tests above:: Acute CVA Admission Indicated Admission indicated?: indicated Admission Request Was there a request for admission?: Yes Admission Attestation Admission request attestation: Discussed case with [] from Hospitalist service regarding admission. Discussed patients ED course, exam findings, labs, and radiology results. The Hospitalist [agrees,declines] to accept the patient for admission. Disposition Plan Disposition Plan: Admit Discharge Plan Plan Patient Disposition: Admit Acute Care w/in Hospital Problem List Clinical Impression: Acute cerebrovascular accident (CVA)
[2024-06-16 16:11] LABS: Basophils # (Auto) 0.1 Thou/mm3 (0.0-0.2); Basophils % (Auto) 1 % (0-2.5); Eosinophils # (Auto) 0.1 Thou/mm3 (0.0-0.5); Eosinophils % (Auto) 2 % (0-10); Hematocrit 44.6 % (41.0-53.0); Hemoglobin 15.1 g/dL (13.5-16.0); Immature Granulocytes % (Auto) 0 % (0-0); Immature Granulocytes Auto 0.02 Thou/mm3 (0.00-0.00); Lymphocytes # (Auto) 1.1 Thou/mm3 (1.0-4.8); Lymphocytes % (Auto) 16 % (10-50); Mean Corpuscular HGB Conc 33.9 g/dl (31.0-37.0); Mean Corpuscular Hemoglobin 30.8 pg (25.0-35.0); Mean Corpuscular Volume 91 fL (80-100); Monocytes # (Auto) 0.7 Thou/mm3 (0.0-0.8); Monocytes % (Auto) 10 % (0-12); Neutrophils # (Auto) 4.7 Thou/mm3 (1.8-7.7); Neutrophils % (Auto) 71 % (37-80); Nucleated Red Blood Cell % 0 /100 WBC (0); Platelet Count 202 Thou/mm3 (140-440); White Blood Count 6.6 Thou/mm3 (3.8-10.6)
[2024-06-16 16:34] LABS: Prothrombin Time 10.9 Seconds (9.0-12.2)
[2024-06-16 16:38] LABS: Collection Type, Urine Clean Catch
[2024-06-16 16:52] LABS: Bilirubin,Urine Negative (Negative); Blood,Urine Negative (Negative); Clarity,Urine Clear (Clear/Hazy); Color,Urine Yellow (Lt Yel-Yel); Glucose, Urine 4+ (Negative); Ketones,Urine 1+ (Negative); Leukocyte Esterase,Urine Negative (Negative); Nitrite,Urine Negative (Negative); Protein,Urine 2+ (Neg - Trace); RBC,Urine 1 /hpf (0-3); Specific Gravity,Urine 1.037 (1.001-1.035); Squamous Epithelial Cell,Urine < 1 /hpf (0-5); Urobilinogen,Urine Negative mg/dL (0.0-1.0); WBC,Urine 2 /hpf (0-5)
[2024-06-16 16:56] LABS: Alanine Aminotransferase 11 U/L (10-49); Albumin, Serum 4.2 gm/dL (3.4-4.8); Albumin/Globulin Ratio 1.3 (1.2-2.2); Alkaline Phosphatase 68 U/L (46-116); Anion Gap 14 (7-16); Aspartate Amino Transferase 17 U/L (0-34); BUN/Creatinine Ratio 18 Ratio (12-20); Bilirubin,Total 1.6 mg/dL (0.3-1.2); Blood Urea Nitrogen 23 mg/dL (9-23); Calcium 9.8 mg/dL (8.3-10.6); Calcium (Corrected) 9.8 mg/dL (8.5-10.1); Carbon Dioxide 22.9 mMol/L (20.0-31.0); Chloride 99 mMol/L (98-107); Creatinine (Component) 1.3 mg/dL (0.6-1.3); Estimated Creatinine Clearance 60.9 mL/min (>60); Globulin 3.2 gm/dL (2.3-3.5); Glucose 356 mg/dL (74-106); Osmolality,Calculated 289 (275-295); Phosphorous 3.2 mg/dL (2.4-5.1); Potassium 4.1 mMol/L (3.4-5.1); Sodium 136 mMol/L (136-145); Total Protein 7.4 gm/dL (5.7-8.2); eGFR 59 See Note
--- NOTE | 2024-06-16 16:57 | ESHP_ITS ---
<Statement entered by Mariella Rosario MD - 06/17/24 08:03> Patient was seen and examined by me personally. I have directly supervised and reviewed documentation by the team resident and agree with its findings with any exceptions or additional findings as below. Plan of care was discussed with the attending, Dr. Barnhart. New admission today. Patient is a 69-year-old male with a previous medical history of vascular dementia, status post CVA, multiple TIAs, hypertension, diabetes, hyperlipidemia, CAD status post PCI with stent placement, BPH who was brought to the ED 06/16/2024 due to altered mental status, LKN time on Tuesday 06/13 at 10 pm. Patient was seen in ED on 06/14 and discharged to follow with Dr. Amador. While he was getting outpatient MRI today he was instructed to go to the ED based on findings. Patient is confused, appears to lack some language comprehension. Otherwise no other focal neurological deficits. Patient will be admitted for further management and treatment of subacute stroke, with Dr. Amador to follow, repeat head CT in AM to monitor for hemorrhagic conversion, continue Plavix, statin, physical therapy and speech evaluation, and CHARMAINE. Mariella Rosario, PGY-2 Documentation for date of: 06/16/24 HPI History of Present Illness Chief complaint: altered mental status History of present illness: The patient is a 69-year-old male with a previous medical history of vascular dementia, status post CVA, multiple TIAs, hypertension, diabetes, hyperlipidemia, CAD status post PCI with stent placement, BPH who was brought to the ED due to altered mental status, LKN time >24 hours. Due to patient confusion history taken is limited. History was received from the patient's and from chart review. According to the patient had a stroke in 2020, from which she recovered and was able to write, do calculations, cooks his own food and drive. He also had multiple TIAs. He is following up with Dr. Amador for vascular dementia. The symptoms started on Thursday morning when he became more confused, he was not able to swallow liquid food, started having altered mental status, slurred speech, face numbness, to walk slowly and could not remember her name. She called 911 and he was brought to the ED on 06/14/2024. Head CT was negative for acute hemorrhage, mass effect or midline shift. Encephalomalacia of left temporal and left occipital lobe was noted. Patient was discharged from the ED. 06/[address] patient had visit with Dr[address] Amador and he was referred back to the ED again. MRI of the brain was done, showed a proximal occlusion of the left posterior cerebral artery and ischemia of the remaining left occipital and posterior medial temporal lobes, portions of the left thalamus and internal capsule. Small focus of susceptibility right in the centrum semiovale?possible microhemorrhage. EKG showed sinus rhythm. 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 She was not sure about him being diagnosed with Afib earlier. Dr. Amador was consulted, recommended repeat CT in the morning, CHARMAINE and starting anticoagulation therapy, aggressive blood pressure control. Social history: reports living with his , reports smoking for 20 years, quit 10 years ago, reports drinking alcohol 2-3 times a week. Med rec is pending. Review of Systems Review of Systems ROS Unobtainable: unobtainable due to mental status Past Medical History Past Medical History NEUROLOGIC: Positive Cerebrovascular Accident (2020, NO DEFICITS) CARDIAC: Positive Myocardial Infarction, Hypercholesterolemia and Hypertension GENITOURINARY: Positive Benign Prostatic Hyperplasia ENDOCRINE: Positive Diabetes Mellitus Type 2 Surgical History SURGICAL: Positive Coronary Stent (3 STENTS) Social History SMOKING STATUS: Former smoker SUBSTANCE USE: does not use ALCOHOL: Never Exam Vital Signs Temp Pulse Resp BP Pulse Ox O2 Del Method 97.8 F 77 18 135/72 H 94 L Room Air 06/16/24 16:26 06/16/24 16:26 06/16/24 16:26 06/16/24 16:26 06/16/24 16:26 06/16/24 16:26 Narrative Exam Physical Exam General: Awake and in no acute distress. Conversational and non-toxic appearing. Elements of motor and receptive aphasia. HEENT: Normocephalic, atraumatic, mucous membranes moist. Heart: Regular rate and rhythm, no murmurs. Lungs: Clear to auscultation with no wheezing or crackles. Abdomen: Soft, nondistended, nontender, positive bowel sounds. ?No guarding or rebound tenderness. Neurologic: Alert and oriented x2 (not oriented in place), right hemianopsia, negative frontal release signs, strength 5/5, finger to nose probe: apraxia, and patient able to move all 4 extremities. Extremities: No edema. Skin: No rash or ecchymoses. Results: Labs 06/17/24 05:35 06/17/24 05:35 Labs: Short CBC 06/16/24 Range/Units 15:45 WBC 6.6 (3.8-10.6) Thou/mm3 Hgb 15.1 (13.5-16.0) g/dL Hct 44.6 (41.0-53.0) % Plt Count 202 (140-440) Thou/mm3 Quality Measures Quality Measures VTE prophylaxis Advance care planning discussed with:: spouse Medications Home Medications and Allergies Home Medications ?Medication ?Instructions ?Recorded ?Confirmed ?Type atorvastatin 80 mg tablet 80 mg PO QDAY 06/02/1911/24 History carvedilol 6.25 mg tablet 6.25 mg PO BID 06/02/1911/05 History clopidogrel 75 mg tablet (Plavix) 75 mg PO QDAY 11/25/19 History empagliflozin 10 mg tablet 10 mg PO QDAY 06/02/1911/05 History (Jardiance) glipizide 2.5 mg tablet, extended 2.5 mg PO QDAY 06/0211/25/19 History release 24 hr insulin glargine 100 unit/mL (3 10 unit subcut QDAY 11/25/19 History mL) subcutaneous pen (Lantus Solostar U-100 Insulin) lisinopril 10 mg tablet 10 mg PO QDAY 06/02/1911/24 History metformin 500 mg tablet 500 mg PO BID 06/02/1911/24 History tamsulosin 0.4 mg capsule 0.4 mg PO QDAY 06/02/1911/05 History Allergies Allergy/AdvReac Type Severity Reaction Status Date / Time No Known Allergies Allergy Unverified 06/16/24 16:40 Visit Medications Acetaminophen (Acetaminophen 325 Mg Tablet) 650 mg PO Q6H PRN PRN Reason: Fever >100.3 or pain 1-3 Stop: 07/16/24 16:32 Albuterol/Ipratropium (Albuterol/Ipratropium (Duoneb) Rt [place] 3 Ml Nebu) 3 ml INH Q6HR PRN PRN Reason: SHORTNESS OF BREATH OR WHEEZE Stop: 07/16/24 16:32 Heparin Sodium (Porcine) (Heparin Sod Inj 5000 Unit/Ml Vial) 5,000 unit SC Q12HR RAYMON Stop: 06/30/24 20:59 Ondansetron HCl (Ondansetron Inj 2 Mg/Ml Inj 2 Ml) 4 mg IV Q6H PRN; Protocol PRN Reason: NAUSEA OR VOMITING Stop: 07/16/24 16:32 Sennosides (Senna Tablet) 1 tab PO BID PRN; Protocol PRN Reason: CONSTIPATION Stop: 07/16/24 16:32 Assessment & Plan Plan The patient is a 69-year-old male with a previous medical history of vascular dementia, status post CVA, multiple TIAs, hypertension, diabetes, hyperlipidemia, CAD status post PCI with stent placement, BPH who was brought to the ED due to altered mental status and was admitted for the acute stroke. #Acute CVA #Valcular dementia #Cognitive deficit #Right sided hemianopsia? Patient's reported that on Thursday morning patient started having altered mental status, slurred speech, face numbness. He has a history of previous stroke, TIAs and diagnosed with vascular dementia. DDx: Atherothrombotic versus embolic stroke Plan: ?Telemetry ? Head of bed elevation 30 degrees ? Maintain euthymia and euglycemia ? Speech eval ? PT eval ? Neurologist consulted, appreciate recommendations ? Plavix 75 mg daily ? Blood pressure control ? Repeat CT head tomorrow ? TSH ordered ? A1c ordered ?Neurochecks every 4 hours ?TTE and CHARMAINE ordered ?Continue home atorvastatin 80 mg daily - will start PO medication after passing swallow screen #History of CAD, status post multiple stent placement #History of CHF #History if hypertension At this moment of time no signs on CHF exacerbation. Plan: - med rec is pending ?Continue home atorvastatin 80 mg daily - will start PO medication after passing swallow screen - labetalol 10 mg IV PRN if BP>160, hold if HR<60 #BPH - continue home tamsulosin Health maintenance: FEN: NPO until passing swallow screen DVT prophylaxis: heparin sc GI prophylaxis: none Dispo: telemetry CODE STATUS: DNR/DNI Plan of care discussed with attending Dr. Barnhart, PGY-[address] Rosario and PGY-[address] Grier. Cheryl Wallace MD, PGY 1. Attending Provider Attestation/Addendum I reviewed labs, imaging, EKG, home medications and prior available records. Face to face evaluation was performed by me. I have personally examined the patient and discussed assessment and plan with the IM team. I reviewed the resident note and agree with the plan with exceptions as below. Acute encephalopathy Acute CVA Vascular dementia CAD status post stenting Type 2 diabetes mellitus with hyperglycemia BPH Started Plavix and atorvastatin Every 4 hour neurochecks Obtain echocardiogram Consulted neurology Start sliding scale insulin and monitor fingersticks
[2024-06-16] MEDS: INSULIN GLARGINE (Lantus) 5 UNIT/0.05 ML (PER 5 UNITS) SC (18:21)
--- NOTE | 2024-06-16 18:53 | PD.RESCONSUL ---
HPI Data of Consult Requesting Physician: Alexandre Barnhart MD Admitting Provider: Alexandre Barnhart MD Attending Provider: Alexandre Barnhart MD Primary Care Provider: Physician No Primary/Family Consult Narrative History of present illness: Mr. Herzog is a 69-year-old male with past medical history of vascular dementia, status post CVA, multiple TIAs, hypertension, diabetes mellitus, hyperlipidemia, coronary artery disease status post PCI with stent placement and BPH who presented to [facility] emergency department accompanied by his , patient was sent by Dr. Amador secondary to abnormal MRI. Most of the history is obtained from patient's chart as patient is confused unable to provide history has difficulty word finding. According to patient's patient had a stroke in 2020 from which he recovered and was able to write, do calculation cook and drive. Patient has multiple TIAs and is following neurology for vascular dementia. Per patient's his symptoms started on Thursday when he was more confused unable to swallow had altered mental status slurred speech facial numbness was walking slowly and could not remember her name. During emergency department on 06/14/2024, per patient's he was in his usual state of health on Thursday, went to visit his sister over the weekend, post returning home patient was congested coughing complaining of bodyaches and chills, per patient was confused could not remember her name and she called EMS. Eventually in the ED patient had improved mentation recognized ED workup was unremarkable and was discharged home with a diagnosis of exacerbation of dementia/fluctuating mentation. Patient was instructed to follow-up with neurologist post ED discharge. Post ED discharge patient was seen by neurologist and patient was referred back to emergency department post MRI of the brain was done which showed proximal occlusion of left posterior cerebral artery and ischemia of remaining left occipital and posterior medial temporal lobes, portions of the left thalamus and internal capsule. Small focus of susceptibility right and the centrum semiovale?possible microhemorrhage. Hence patient was admitted for acute CVA workup. 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 ED Course: ED Vitals: On presentation in ED vitals significant for blood pressure 124/72, heart rate 73, respiratory rate 16, temp 98.1, O2 sat 98 ED Labs: ED labs significant for WBC 6.6, hemoglobin 15.1, platelet 222, PT 10.9, INR 1.0, sodium 136, potassium 4.1, chloride 99, venous CO2 22.9, BUN 23, creatinine 1.3, GFR 59, glucose 256, calcium 9.8, phosphorus 3.2, magnesium 2.0, bilirubin 1.6, AST 17, ALT 11, total protein 7.4, albumin 4.2. Urine analysis shows specific gravity 1.037, urine protein 2+, urine glucose 4+, urine ketones 1+, negative for bacteria urine nitrite and leukocyte esterase ED Imaging: No imaging done in ED, MRI ordered outpatient by neurologist done earlier in a.m. today showed Proximal occlusion of the left posterior cerebral artery resulting in ischemia of most of the remaining left occipital and posterior medial temporal lobes, as well as portions of the left thalamus and internal capsule. Encephalomalacia from old left occipital/temporal infarction. Extensive global parenchymal volume loss and chronic small vessel ischemic changes. Small focus of susceptibility right semicentrum ovale may represent area of microhemorrhage. ED Treatment: ED physician discussed case with radiology and neurologist who recommended admission for further workup. Patient admitted for acute CVA workup, cardiology consulted for TTE and possible CHARMAINE due to concern of embolic stroke to complete workup. cc:: cc: Alexandre Barnhart MD Review of Systems Review of Systems ROS Unobtainable: unobtainable due to mental status Past Medical History Past Medical History Comments PMH COMMENT: PMH: Positive for vascular dementia, status post CVA, multiple TIAs, hypertension, diabetes mellitus, hyperlipidemia, coronary artery disease status post PCI with stent placement and BPH PSHx: Status post PCI Allergies: No known drug and food allergies Social history: -Smoking:Positive smoking for 20 years, quit 10 years ago -Alcohol Use: Alcohol use 2-3 times a week -Illicit Drug Use: Denies -Martial Status: lives with Family History: Unremarkable family history Exam Vital Signs Temp Pulse Resp BP Pulse Ox O2 Del Method 97.8 F 88 16 142/84 H 96 Room Air 06/16/24 16:26 06/16/24 18:24 06/16/24 18:24 06/16/24 18:24 06/16/24 18:24 06/16/24 18:24 Narrative Exam Physical Exam General: Awake and in no acute distress. Conversational and non-toxic appearing. Confused at times, difficulty word finding. HEENT: Normocephalic, atraumatic, mucous membranes moist. Heart: Regular rate and rhythm, positive for systolic murmur. Lungs: Clear to auscultation with no wheezing or crackles. Abdomen: Soft, nondistended, nontender, positive bowel sounds. ?No guarding or rebound tenderness. Neurologic: Alert and oriented x2, patient able to move all 4 extremities. Extremities: No edema. Skin: No rash or ecchymoses. Results Labs 06/17/24 05:35 06/17/24 05:35 Labs: Short CBC 06/16/24 Range/Units 15:45 WBC 6.6 (3.8-10.6) Thou/mm3 Hgb 15.1 (13.5-16.0) g/dL Hct 44.6 (41.0-53.0) % Plt Count 202 (140-440) Thou/mm3 BMP 06/16/24 15:45 Sodium 136 Potassium 4.1 D Chloride 99 Carbon Dioxide 22.9 BUN 23 Creatinine 1.3 Glucose 356 H Calcium 9.8 Liver Function 06/16/24 Range/Units 15:45 Total Bilirubin 1.6 H D (0.3-1.2) mg/dL AST 17 (0-34) U/L ALT 11 (10-49) U/L Alkaline Phosphatase 68 (46-116) U/L Albumin 4.2 (3.4-4.8) gm/dL Urine 06/16/24 Range/Units 16:09 Urine Color Yellow (Lt Yel-Yel) Urine Clarity Clear (Clear/Hazy) Urine pH 6.0 (5.0-7.0) Ur Specific [place] 1.037 H (1.001-1.035) Urine Protein 2+ A (Neg - Trace) Urine Glucose (UA) 4+ A (Negative) Quality Measures Quality Measures VTE prophylaxis Advance care planning discussed with:: patient Medications Home Medications and Allergies Home Medications ?Medication ?Instructions ?Recorded ?Confirmed ?Type atorvastatin 80 mg tablet 80 mg PO QDAY 06/02/19 11/25/19 History carvedilol 6.25 mg tablet 6.25 mg PO BID 06/02/19 11/25/19 History clopidogrel 75 mg tablet (Plavix) 75 mg PO QDAY 06/02/19 11/25/19 History empagliflozin 10 mg tablet 10 mg PO QDAY 06/02/19 11/25/19 History (Jardiance) glipizide 2.5 mg tablet, extended 2.5 mg PO QDAY 06/02/19 11/25/19 History release 24 hr insulin glargine 100 unit/mL (3 10 unit subcut QDAY 06/02/19 11/25/19 History mL) subcutaneous pen (Lantus Solostar U-100 Insulin) lisinopril 10 mg tablet 10 mg PO QDAY 06/02/19 11/25/19 History metformin 500 mg tablet 500 mg PO BID 06/02/19 11/25/19 History tamsulosin 0.4 mg capsule 0.4 mg PO QDAY 06/02/19 11/25/19 History Allergies Allergy/AdvReac Type Severity Reaction Status Date / Time No Known Allergies Allergy Unverified 06/16/24 16:40 Visit Medications Acetaminophen (Acetaminophen 325 Mg Tablet) 650 mg PO Q6H PRN PRN Reason: Fever >100.3 or pain 1-3 Stop: 07/16/24 16:32 Albuterol/Ipratropium (Albuterol/Ipratropium (Duoneb) Rt Althea 3 Ml Nebu) 3 ml INH Q6HR PRN PRN Reason: SHORTNESS OF BREATH OR WHEEZE Stop: 07/16/24 16:32 Atorvastatin Calcium (Atorvastatin Calcium 20 Mg Tablet) 80 mg PO HS RAYMON Stop: 07/16/24 20:59 Clopidogrel Bisulfate (Clopidogrel Bisulfate 75 Mg Tablet) 75 mg PO QDAY RAYMON Stop: 07/17/24 08:59 Dextrose (Dextrose 50%-Water Inj 50 Ml Syringe) 25 ml IV Q15MIN PRN PRN Reason: BG 50-70 responsive npo pt Stop: 07/16/24 17:03 Dextrose (Dextrose 50%-Water Inj 50 Ml Syringe) 50 ml IV Q15MIN PRN PRN Reason: BG <50 OR BG <70 & pt unresponsive Stop: 07/16/24 17:03 Glucagon (Glucagon Inj 1 Mg Vial) 1 mg IM Q15MIN PRN PRN Reason: BG <70, and no IV access Heparin Sodium (Porcine) (Heparin Sod Inj 5000 Unit/Ml Vial) 5,000 unit SC Q12HR RAYMON Stop: 06/30/24 20:59 Insulin Human Lispro (Insulin Lispro (Admelog) 1 Unit/0.01 Ml Unit) 0 unit SC AC RAYMON; Protocol Stop: 07/17/24 07:29 Labetalol HCl (Labetalol Inj 5 Mg/Ml Vial 20 Ml) 10 mg IVP Q2HR PRN PRN Reason: SBP >160, hold if HR<60 Stop: 07/16/24 19:59 Ondansetron HCl (Ondansetron Inj 2 Mg/Ml Inj 2 Ml) 4 mg IV Q6H PRN; Protocol PRN Reason: NAUSEA OR VOMITING Stop: 07/16/24 16:32 Sennosides (Senna Tablet) 1 tab PO BID PRN; Protocol PRN Reason: CONSTIPATION Stop: 07/16/24 16:32 Tamsulosin HCl (Tamsulosin Hcl 0.4 Mg Capsule) 0.4 mg PO QDAY RAYMON Stop: 07/17/24 08:59 Discontinued Medications Insulin Glargine (Insulin Glargine (Lantus) 5 Unit/0.05 Ml (Per 5 Units)) 5 unit SC X1 ONE Stop: 06/16/24 17:25 Last Admin: 06/16/24 18:21 Dose: 5 unit Labetalol HCl (Labetalol Inj 5 Mg/Ml Vial 20 Ml) 10 mg IVP Q2HR PRN PRN Reason: SBP>180, hold if HR<60 Stop: 07/16/24 19:59 Assessment & Plan Plan Assessment and plan: Summary: Mr. Herzog is a 69-year-old male with past medical history of vascular dementia, status post CVA, multiple TIAs, hypertension, diabetes mellitus, hyperlipidemia, coronary artery disease status post PCI with stent placement and BPH who presented to [facility] emergency department accompanied by his , patient was sent by Dr. Amador secondary to abnormal MRI. Most of the history is obtained from patient's chart as patient is confused unable to provide history has difficulty word finding. MRI ordered outpatient by neurologist done earlier in a.m. today showed Proximal occlusion of the left posterior cerebral artery resulting in ischemia of most of the remaining left occipital and posterior medial temporal lobes, as well as portions of the left thalamus and internal capsule. Encephalomalacia from old left occipital/temporal infarction. Extensive global parenchymal volume loss and chronic small vessel ischemic changes. Small focus of susceptibility right semicentrum ovale may represent area of microhemorrhage. Patient admitted for acute CVA workup, cardiology consulted for TTE and possible CHARMAINE due to concern of embolic stroke to complete workup. #Acute CVA #Vascular dementia #History of CVA, multiple TIAs Patient initially evaluated in ED on 06/14 for acute confusion, symptoms resolved per ED physician's note and patient was discharged home with a diagnosis of exacerbation of dementia, underlying vascular dementia. Patient followed neurology outpatient for vascular dementia, was scheduled for a MRI earlier this morning which showed proximal occlusion of the left posterior cerebral artery resulting in ischemia of most of the remaining left occipital and posterior medial temporal lobes, as well as portions of the left thalamus and internal capsule. Encephalomalacia from old left occipital/temporal infarction. Extensive global parenchymal volume loss and chronic small vessel ischemic changes. Small focus of susceptibility right semicentrum ovale may represent area of microhemorrhage. Patient admitted for further workup per neurology recommendations for acute CVA, last known well time more than 24 hours. Patient does have history of CVA in the past, last one in 2020 and does endorse history of multiple TIAs. CT scan of the head was negative in ED on 06/14. Patient denies any kind of swallowing problems or any kind of esophageal interventions or previous surgeries. Patient denies any kind of gastric ulcers bleeding and any other hematemesis or hematochezia. Patient denies any issues with anesthesia previously. Patient explained all the risks, benefits and alternatives of CHARMAINE including the risk of perforation, bleeding, respiratory failure secondary to sedation, injury to teeth gums esophagus and stomach. Patient understands all risks and benefits and provided consent for the procedure. We will keep him n.p.o. overnight and plan for CHARMAINE in the morning. Recommendations: -Will obtain transthoracic echocardiogram, will consider transesophageal echocardiogram post TTE -Keep patient n.p.o. after midnight -Will discuss risks and benefits again with family in a.m., considering patient's waxing and waning mentation -Neurology is following patient closely for CVA continue management per neurology #Coronary artery disease, status post PCI History of CAD per chart review, patient follows Dr. Mejia Fitzgerald outpatient. Patient was prescribed Plavix per medication review. Continue Plavix #Hyperlipidemia Continue atorvastatin 80 mg at bedtime #Hypertension Pending med reconciliation, was prescribed metoprolol succinate recently per medication review. Currently on labetalol as needed for blood pressure control #Diabetes mellitus type 2 Patient on metformin and glipizide per medication review, pending med rec Follow hemoglobin A1c in a.m., management per primary team recommended strict glycemic control Patient's blood glucose on presentation was 356 #Benign prostate hyperplasia Management per primary team Thank you for the consult and allowing to participate in the care of the patient. Cardiology will continue to follow. Case discussed with Attending Dr. Vega. Lizzy Benjamin PGY1 Disclaimer: This note was dictated by speech recognition. Minor errors in director health may be present due to voice recognition software. Attending Provider Attestation/Addendum I have personally seen and examined the patient separately on the above date of service and discussed the plan of care with the resident. I reviewed the resident Dr. Lizzy Benjamin consultation progress note and agree with the resident findings and plan in the note above and have also edited the documentation to reflect my findings and plan. A 69-year-old male with a past medical history of CAD status post PCI to LCx as well as RCA in 2013 [STEMI presentation], history of CHF previously with an EF of around 40%, vascular dementia with history of stroke, multiple TIAs, uncontrolled type 2 diabetes mellitus, essential hypertension, hyper anemia, BPH, mild cognitive decline initially presented to the emergency department for abnormal MRI. Patient apparently presented to the hospital a few days ago for acute confusion and altered mental status as well as slurred speech and facial lumbar stenosis, was walking slowly and could not remember his name. Patient was apparently discharged from the ED in the CHARMAINE had an MRI of the brain done as outpatient which showed proximal occlusion of the left posterior cerebral artery and ischemia of remaining left occipital and posterior medial temporal lobes and portions of left thalamus and internal capsule. There was also small focus of susceptibility of right and centrum semiovale with possible microhemorrhage and patient was sent back to the hospital by neurologist for admission and requested for CHARMAINE given his recurrent CVA and CHARMAINE. Cardiology consulted for the workup of the CVA with CHARMAINE. No transthoracic echo was done at this point of time and is already ordered and will follow-up the results. Appropriate indication for CHARMAINE. Patient denies any kind of swallowing problems or any kind of esophageal interventions or previous surgeries. Patient denies any kind of gastric ulcers bleeding and any other hematemesis or hematochezia. Patient denies any issues with anesthesia previously. Patient explained all the risks, benefits and alternatives of CHARMAINE including the risk of perforation, bleeding, respiratory failure secondary to sedation, injury to teeth gums esophagus and stomach. Patient understands all risks and benefits and provided consent for the procedure. We will keep him n.p.o. overnight and plan for CHARMAINE in the morning. Aortic history of CAD status post PCI to LCx and RCA in 2013. Patient presented as a STEMI and had 100% occlusion of the proximal to mid LCx and as well as 90% occlusion of the distal RCA and had 2 stents placed. He did have a repeat cardiac cath in 2014 at [facility] did show moderate residual disease diffuse in the LAD, OM1 as well as the mid RCA. No other cardiac catheterization since then. Patient used to follow-up with Dr. Leena Cline. I reviewed the notes and he last followed up with them in 2021 looks like patient has been lost to follow-up since then. Recommend to continue Plavix 75 mg once daily along with aspirin 81 mg once daily given his CAD as well as CVA. Beta-susanne and high intensity statin to keep LDL less than 80. Regarding his CHF patient does have a history of EF of 40% but no new recent echo that has been noted. As per Recommendation from the last cardiology notes in 2021 he had mild systolic CHF. He was on Entresto and goal-directed medical therapy at that point of time but patient is not oriented the present point of time and unclear why. Strict input output Daily weights and 2 g sodium diet. Does not appear to be fluid overloaded at the present point of time and is not on any kind of diuretics. Will need GDMT with Entresto, beta-susanne, SGLT inhibitors. Uncontrolled diabetes mellitus-A1c elevated-30.6 and recommend aggressive control of diabetes mellitus given his moderate CAD and history of PCI previously. Aggressive control of blood pressure also recommended. Management of rest of the medical conditions as per primary team and other consultants. Thank you for the consult and allowing me to participate in the care of the patient. Cardiology will continue to follow. Darren Vega M.D. Interventional Cardiology
--- NOTE | 2024-06-16 19:47 | PC.NURSE ---
Admitting MD at the bedside.
--- NOTE | 2024-06-16 21:10 | PC.NURSE ---
MD Power notifed that patient passed his swallow screen in the ER. He said he will put a diet order in
[2024-06-16] MEDS: ATORVASTATIN CALCIUM 20 MG TABLET 80 MG PO (21:23)
[2024-06-16] MEDS: HEPARIN SOD INJ 5000 UNIT/ML VIAL SC (21:27)
--- NOTE | 2024-06-16 22:00 | PC.NURSE ---
Patient is confused. Unable to do med rec as patient does not know
[2024-06-16] MEDS: INSULIN LISPRO (AdmeLOG) 1 UNIT/0.01 ML UNIT SC (22:17)
--- NOTE | 2024-06-16 23:40 | PC.NURSE ---
MD Summers notified that patient is trying to get out of bed and combative with staff. He is also very confused and kept taking his shiftman off. said he will order a medication for him
[2024-06-16] MEDS: QUEtiapine FUMARATE 25 MG TABLET PO (23:52)
[2024-06-17] VITALS (23 sets, daily range): BP systolic 94–161; BP diastolic 64–85; PULSE 65–91; RESP 11–98; TEMP 36.1–37.2; O2SAT 92–98; BMI 27.8
--- NOTE | 2024-06-17 00:16 | PC.NURSE ---
Gilbert chandra was called at approximately 0016 due to patient being combative to staff. He removed all his clothing and ran out his room threatening staff. MD Summers was called to come to bedside. corporate tax managerDANNY Rodriguez and Substation Operator Apprentice Mai came to bedside.
[2024-06-17] MEDS: LORazepam 2 MG/ML VIAL 1 MG IVP ×2 (00:44→14:57)
--- NOTE | 2024-06-17 04:50 | PC.NURSE ---
MD Summers notified that patient is starting to get agitated and taking his leads off and clothes off. He is not letting me put his leads back on. said to give the standing order of 2.5 mg haldol
[2024-06-17] MEDS: HALOPERIDOL LACT INJ 5 MG/ML VIAL 2.5 MG IM (04:57)
[2024-06-17] MEDS: INSULIN LISPRO (AdmeLOG) 1 UNIT/0.01 ML UNIT SC ×4 (05:17→21:36)
[2024-06-17 06:22] LABS: Basophils % (Auto) 1 % (0-2.5); Eosinophils # (Auto) 0.1 Thou/mm3 (0.0-0.5); Eosinophils % (Auto) 1 % (0-10); Hematocrit 42.6 % (41.0-53.0); Hemoglobin 14.4 g/dL (13.5-16.0); Immature Granulocytes % (Auto) 0 % (0-0); Immature Granulocytes Auto 0.02 Thou/mm3 (0.00-0.00); Lymphocytes # (Auto) 1.3 Thou/mm3 (1.0-4.8); Lymphocytes % (Auto) 20 % (10-50); Mean Corpuscular HGB Conc 33.8 g/dl (31.0-37.0); Mean Corpuscular Volume 92 fL (80-100); Monocytes # (Auto) 0.8 Thou/mm3 (0.0-0.8); Monocytes % (Auto) 12 % (0-12); Neutrophils # (Auto) 4.3 Thou/mm3 (1.8-7.7); Neutrophils % (Auto) 66 % (37-80); Nucleated Red Blood Cell % 0 /100 WBC (0); Platelet Count 205 Thou/mm3 (140-440); RDW Standard Deviation 42.9 fL (35.1-43.9); Red Blood Count 4.65 Miln/mm3 (4.50-5.90); White Blood Count 6.6 Thou/mm3 (3.8-10.6)
[2024-06-17 06:49] LABS: Glucose Estimated Average 346 mg/dL (80-131); Hemoglobin A1C 13.7 % Hgb (4.8-6.0)
[2024-06-17 07:23] LABS: Alanine Aminotransferase 8 U/L (10-49); Albumin, Serum 3.9 gm/dL (3.4-4.8); Albumin/Globulin Ratio 1.3 (1.2-2.2); Alkaline Phosphatase 62 U/L (46-116); Anion Gap 14 (7-16); Aspartate Amino Transferase 10 U/L (0-34); BUN/Creatinine Ratio 17 Ratio (12-20); Bilirubin,Total 1.4 mg/dL (0.3-1.2); Blood Urea Nitrogen 17 mg/dL (9-23); Calcium 9.3 mg/dL (8.3-10.6); Calcium (Corrected) 9.4 mg/dL (8.5-10.1); Carbon Dioxide 23.4 mMol/L (20.0-31.0); Chloride 102 mMol/L (98-107); Estimated Creatinine Clearance 77.6 mL/min (>60); Globulin 2.9 gm/dL (2.3-3.5); Glucose 230 mg/dL (74-106); Magnesium 1.9 mg/dL (1.6-2.6); Osmolality,Calculated 286 (275-295); Phosphorous 3.2 mg/dL (2.4-5.1); Potassium 3.4 mMol/L (3.4-5.1); Sodium 139 mMol/L (136-145); Total Protein 6.8 gm/dL (5.7-8.2); eGFR > 60 See Note
--- NOTE | 2024-06-17 08:00 | XR_ITS ---
EXAMINATION: CT head/brain wo con ORDERING PROVIDER: Cheryl Wallace MD HISTORY: hemorrhagic transformation rule out TECHNIQUE: CT scanner was used in the volumetric, helical non-contrast acquisition of the head with 2-D and 3-D reformats created on a separate workstation and submitted for interpretation. Institutional dose reducing protocols were utilized. RADIATION DOSE: DLP 1064 mGy-cm COMPARISON: 06/16/2024, MR brain. 06/14/2024, CT head. FINDINGS: No acute intracranial hemorrhage, mass effect, or midline shift. There is evolving area of previously defined areas of ischemia involving the left occipital and posterior medial temporal lobes, as well as the left thalamus. Findings in the setting of known left posterior communicating artery occlusion seen 06/16/2024 MRA. This is on background of similar old encephalomalacia changes of the lateral aspects of the occipital lobe. Ventricles and basal cisterns preserved. Again seen are moderate to severe global parenchymal volume loss with extensive periventricular and subcortical white matter hypodensities. Orbits grossly unremarkable. Extensive paranasal inflammatory mucosal sinus disease in the paranasal sphenoid sinus with bony thickening indicative of chronic process. Again seen trace right mastoid air cell effusion. Moderate perivascular calcifications. Probable evolving small left posterior parietal scalp hematoma. Moderate right mild left temporomandibular joint degenerative changes. IMPRESSION: Evolving left posterior communicating artery distribution ischemic changes without acute intracranial hemorrhage, mass effect, or midline shift.
--- NOTE | 2024-06-17 08:05 | ECHO_ITS ---
Transesophageal Echo Report Ht (in): 71 Wt (lb): 200 Exam Location: [facility] Status: Inpatient Wildlife Control Agent: Orquidea Horan Indications: Procedure Performed: BP: 146 / 85 HR: 75 Technical Quality: Good MEASUREMENTS 2D ECHO LVOT Diameter 2.5 cm Aortic Root Diameter 3.5 cm DOPPLER AV Peak Velocity 281.0 cm/s AV Peak Gradient 31.6 mmHg MR Peak Velocity 532.0 cm/s MR Peak Gradient 113.2 mmHg TR Peak Velocity 200.0 cm/s TR Peak Gradient 16.0 mmHg (Male / Female) Normal Values Medications fentanyl & Versed FINDINGS Left Ventricle The left ventricular ejection fraction is severely decreased, estimated at 25-30%. Right Ventricle The right ventricle is normal in size and systolic function. Left Atrium The left atrium is normal by two-dimensional, color flow and Doppler imaging with no structural abnormalities, no thrombus formation present. Right Atrium The right atrium is normal by two-dimensional imaging, color flow and Doppler imaging with no structural abnormalities, no thrombus formation present. Atrial Appendages The left atrial appendage appears normal with no evidence for thrombus. appears normal with no evidence for thrombus. Atrial Septum The interatrial septum is normal to color flow Doppler and agitated saline imaging. Aorta The aorta is normal by two-dimensional, color flow and Doppler interrogation. Mitral Valve Moderate mitral regurgitation. Mitral annular calcification. Aortic Valve Moderate aortic valve stenosis. Tricuspid Valve There is mild tricuspid valve regurgitation. Pulmonic Valve The pulmonic valve is normal by two-dimensional, color flow and Doppler interrogation. There is no significant pulmonic valve regurgitation. Vessels The pulmonary artery appears normal. The inferior vena cava pulmonary and hepatic veins appear normal. Pericardium The pericardium is normal by two-dimensional imaging. There is no significant pericardial effusion. CONCLUSIONS Indication: Stroke-embolic Bubble study negative. No evidence of any PFO or ASD. No LA/AYAZ thrombus Severely reduced LV function with an EF of around 30 to 35%. Global hypokinesis. Mildly dilated LV. Normal RV size and function. Moderate aortic stenosis. Possibly underestimated due to the low ejection fraction and mostly low-flow low gradient severe aortic stenosis . Moderately calcified aortic valve. Mild MAC with moderate MR as well as mild TR. systolic blunting of pulmonary vein flow Darren Bellaumanbrennan (Electronically Signed) Final Date: 17 June 2024 20:05
[2024-06-17] MEDS: fentaNYL CIT INJ 50 mCg/ML AMP 2ML 75 MCG IVP (09:05)
[2024-06-17] MEDS: MIDAZOLAM INJ 1 MG/ML VIAL 2 ML 3 MG IV (09:05)
--- NOTE | 2024-06-17 09:35 | PC.SS ---
Follow up note: Neuro evalutation pending. CHARMAINE pending. Repeat head CT.
--- NOTE | 2024-06-17 10:27 | PCS.ST ---
Swallow evaluation attempted at 8:00, pt getting ready for procedure; at 10:20 pt has not come back yet from procedure.
[2024-06-17] MEDS: HEPARIN SOD INJ 5000 UNIT/ML VIAL SC ×2 (11:11→20:40)
[2024-06-17] MEDS: CLOPIDOGREL BISULFATE 75 MG TABLET PO (12:38)
[2024-06-17] MEDS: TAMSULOSIN HCL 0.4 MG CAPSULE PO (12:38)
--- NOTE | 2024-06-17 13:11 | PD.RESCONSUL ---
HPI Data of Consult Requesting Physician: Alexandre Barnhart MD Admitting Provider: Alexandre Barnhart MD Attending Provider: Alexandre Barnhart MD Primary Care Provider: Physician No Primary/Family Consult Narrative History of present illness: Patient is a 69-year-old male with a previous medical history of vascular dementia, status post CVA, multiple TIAs, hypertension, diabetes, hyperlipidemia, CAD status post PCI with stent placement, BPH who was brought to the ED due to altered mental status. Neurology consulted due to acute ischemic stroke noted on imaging. Patient seen and assessed at bedside this morning and is able to move all 4 extremities and ambulates with dragging his right lower extremity. Patient showing signs of aphasia, alexia, and agraphia. cc:: cc: Alexandre Barnhart MD Exam Vital Signs Temp Pulse Resp BP Pulse Ox O2 Del Method O2 Flow Rate 97.7 F 75 12 113/70 94 L Room Air 2 06/17/24 10:15 06/17/24 10:15 06/17/24 10:15 06/17/24 10:06/17/24 10:06/17/24 10:06/17/24 10:00 Narrative Exam General: Awake and in no acute distress. Conversational and non-toxic appearing. Confused at times, difficulty with word finding, reading, and writing. HEENT: Normocephalic, atraumatic, anicteric, EOMI Heart: Regular rate and rhythm, possible systolic murmur on auscultation. Lungs: Chest clear to auscultation bilaterally. Frequent coughs. Abdomen: Soft, nondistended, nontender, positive bowel sounds. ?No guarding or rebound tenderness. Neurologic: Alert and oriented x2, equal upper extremity strength. Slight weakness right lower extremity. Ambulates with right lower extremity dragging. Very slow [id number]. Patient able to move all 4 extremities. Extremities: No edema. Skin: No rash or ecchymoses. Results Labs 06/18/24 05:42 06/18/24 05:42 Labs: Short CBC 06/16/24 06/17/24 Range/Units 15:45 05:35 WBC 6.6 6.6 (3.8-10.6) Thou/mm3 Hgb 15.1 14.4 (13.5-16.0) g/dL Hct 44.6 42.6 (41.0-53.0) % Plt Count 202 205 (140-440) Thou/mm3 BMP 06/16/24 06/17/24 15:45 05:35 Sodium 136 139 Potassium 4.1 D 3.4 D Chloride 99 102 Carbon Dioxide 22.9 23.4 BUN 23 17 Creatinine 1.3 1.0 Glucose 356 H 230 H D Calcium 9.8 9.3 Liver Function 06/16/24 06/17/24 Range/Units 15:45 05:35 Total Bilirubin 1.6 H D 1.4 H (0.3-1.2) mg/dL AST 17 10 (0-34) U/L ALT 11 8 L (10-49) U/L Alkaline Phosphatase 68 62 (46-116) U/L Albumin 4.2 3.9 (3.4-4.8) gm/dL Urine 06/16/24 Range/Units 16:09 Urine Color Yellow (Lt Yel-Yel) Urine Clarity Clear (Clear/Hazy) Urine pH 6.0 (5.0-7.0) Ur Specific [place] 1.037 H (1.001-1.035) Urine Protein 2+ A (Neg - Trace) Urine Glucose (UA) 4+ A (Negative) Quality Measures Quality Measures VTE prophylaxis Advance care planning discussed with:: patient Medications Home Medications and Allergies Home Medications ?Medication ?Instructions ?Recorded ?Confirmed ?Type atorvastatin 80 mg tablet 80 mg PO QDAY 06/02/19 11/25/19 History carvedilol 6.25 mg tablet 6.25 mg PO BID 06/02/19 11/25/19 History clopidogrel 75 mg tablet (Plavix) 75 mg PO QDAY 06/02/19 11/25/19 History empagliflozin 10 mg tablet 10 mg PO QDAY 06/02/19 11/25/19 History (Jardiance) glipizide 2.5 mg tablet, extended 2.5 mg PO QDAY 06/02/19 11/25/19 History release 24 hr insulin glargine 100 unit/mL (3 10 unit subcut QDAY 06/02/19 11/25/19 History mL) subcutaneous pen (Lantus Solostar U-100 Insulin) lisinopril 10 mg tablet 10 mg PO QDAY 06/02/19 11/25/19 History metformin 500 mg tablet 500 mg PO BID 06/02/19 11/25/19 History tamsulosin 0.4 mg capsule 0.4 mg PO QDAY 06/02/19 11/25/19 History Allergies Allergy/AdvReac Type Severity Reaction Status Date / Time No Known Allergies Allergy Unverified 06/16/24 16:40 Visit Medications Acetaminophen (Acetaminophen 325 Mg Tablet) 650 mg PO Q6H PRN PRN Reason: Fever >100.3 or pain 1-3 Stop: 07/16/24 16:32 Albuterol/Ipratropium (Albuterol/Ipratropium (Duoneb) Rt [place] 3 Ml Nebu) 3 ml INH Q6HR PRN PRN Reason: SHORTNESS OF BREATH OR WHEEZE Stop: 07/16/24 16:32 Atorvastatin Calcium (Atorvastatin Calcium 20 Mg Tablet) 80 mg PO HS [facility] Stop: 07/16/24 20:59 Last Admin: 06/16/24 21:23 Dose: 80 mg Clopidogrel Bisulfate (Clopidogrel Bisulfate 75 Mg Tablet) 75 mg PO QDAY [facility] Stop: 07/17/24 08:59 Last Admin: 06/17/24 12:38 Dose: 75 mg Dextrose (Dextrose 50%-Water Inj 50 Ml Syringe) 25 ml IV Q15MIN PRN PRN Reason: BG 50-70 responsive npo pt Stop: 07/16/24 17:03 Dextrose (Dextrose 50%-Water Inj 50 Ml Syringe) 50 ml IV Q15MIN PRN PRN Reason: BG <50 OR BG <70 & pt unresponsive Stop: 07/16/24 17:03 Glucagon (Glucagon Inj 1 Mg Vial) 1 mg IM Q15MIN PRN PRN Reason: BG <70, and no IV access Heparin Sodium (Porcine) (Heparin Sod Inj 5000 Unit/Ml Vial) 5,000 unit SC Q12HR [facility] Stop: 06/30/24 20:59 Last Admin: 06/17/24 11:11 Dose: 5,000 unit Insulin Human Lispro (Insulin Lispro (Admelog) 1 Unit/0.01 Ml Unit) 0 unit SC Q6HR [facility]; Protocol Stop: 07/17/24 05:59 Last Admin: 06/17/24 11:21 Dose: 3 unit Labetalol HCl (Labetalol Inj 5 Mg/Ml Vial 20 Ml) 10 mg IVP Q2HR PRN PRN Reason: SBP >160, hold if HR<60 Stop: 07/16/24 19:59 Ondansetron HCl (Ondansetron Inj 2 Mg/Ml Inj 2 Ml) 4 mg IV Q6H PRN; Protocol PRN Reason: NAUSEA OR VOMITING Stop: 07/16/24 16:32 Sennosides (Senna Tablet) 1 tab PO BID PRN; Protocol PRN Reason: CONSTIPATION Stop: 07/16/24 16:32 Tamsulosin HCl (Tamsulosin Hcl 0.4 Mg Capsule) 0.4 mg PO QDAY [facility] Stop: 07/17/24 08:59 Last Admin: 06/17/24 12:38 Dose: 0.4 mg Discontinued Medications Fentanyl Citrate (Fentanyl Cit Inj 50 Mcg/Ml Amp 2ml) 75 mcg IVP X1 ONE Stop: 06/17/24 09:06 Last Admin: 06/17/24 09:05 Dose: 75 mcg Haloperidol Lactate (Haloperidol Lact Inj 5 Mg/Ml Vial) 2.5 mg IM X1 ONE Stop: 06/17/24 00:28 Last Admin: 06/17/24 04:57 Dose: 2.5 mg Insulin Glargine (Insulin Glargine (Lantus) 5 Unit/0.05 Ml (Per 5 Units)) 5 unit SC X1 ONE Stop: 06/16/24 17:25 Last Admin: 06/16/24 18:21 Dose: 5 unit Insulin Human Lispro (Insulin Lispro (Admelog) 1 Unit/0.01 Ml Unit) 0 unit SC AC [facility]; Protocol Stop: 07/17/24 07:29 Insulin Human Lispro (Insulin Lispro (Admelog) 1 Unit/0.01 Ml Unit) 0 unit SC ACHS [facility]; Protocol Stop: 07/16/24 21:44 Last Admin: 06/16/24 22:17 Dose: 4 unit Labetalol HCl (Labetalol Inj 5 Mg/Ml Vial 20 Ml) 10 mg IVP Q2HR PRN PRN Reason: SBP>180, hold if HR<60 Stop: 07/16/24 19:59 Lorazepam (Lorazepam 2 Mg/Ml Vial) 1 mg IVP X1 ONE Stop: 06/17/24 00:39 Last Admin: 06/17/24 00:44 Dose: 1 mg Lorazepam (Lorazepam 2 Mg/Ml Vial) 1 mg IVP X1 ONE Stop: 06/17/24 07:34 Midazolam HCl (Midazolam Inj 1 Mg/Ml Vial 2 Ml) 3 mg IV X1 ONE Stop: 06/17/24 09:06 Last Admin: 06/17/24 09:05 Dose: 3 mg Quetiapine Fumarate (Quetiapine Fumarate 25 Mg Tablet) 25 mg PO X1 ONE Stop: 06/16/24 23:43 Last Admin: 06/16/24 23:52 Dose: 25 mg Quetiapine Fumarate (Quetiapine Fumarate 25 Mg Tablet) 12.5 mg PO X1 ONE Stop: 06/17/24 00:46 Assessment & Plan Plan Patient is a 69-year-old male with a previous medical history of vascular dementia, status post CVA, multiple TIAs, hypertension, diabetes, hyperlipidemia, CAD status post PCI with stent placement, BPH who was brought to the ED due to altered mental status. Neurology consulted due to acute ischemic stroke noted on imaging. #Acute left occipital and posterior medial temporal lobes stroke, as well as portions of the left thalamus and internal capsule stroke Acute stroke noted on MRI Repeat CT shows no acute hemorrhages Patient needs better glycemic control, A1c 13.7 Continue with high-dose statin, aspirin 81 mg, and Plavix 75 mg for 21 days of dual antiplatelets Continue with PT and speech therapy CHARMAINE read pending #History of CAD, status post multiple stent placement #History of CHF #History if hypertension #BPH #Diabetes mellitus Continue management per primary team Case discussed with attending Dr Marjorie Bai MD PGY3 Attending Provider Attestation/Addendum I personally have seen and examined the patient at the bedside and I agree with resident's findings, assessment and plan of care. Continue to monitor his language and cognitive function closely. Follow-up with the transesophageal echocardiogram as it becomes available. Continue with aspirin Plavix and statin. Repeat CT head did not show any hemorrhagic transformation. Patient might need short-term rehab as an inpatient.
--- NOTE | 2024-06-17 13:30 | PCS.ST ---
Swallowing evaluation completed. Recommending dysphagia 2, thin liquids okay. 1:[address] to follow. See report for details.
--- NOTE | 2024-06-17 14:00 | PD.RESPRO ---
Documentation for date of: 06/17/24 Subjective Subjective Interval history: Patient was seen and examined by the bedside. Overnight patient was agitated, received quetiapine, lorazepam, haloperidol. In the morning patient patient was drowzy, alert, consent for CHARMAINE obtained from , discussed risks and benefits. Scheduled for CHARMAINE later today, will obtain TTE prior. reported mild dysphagia 2/2 stroke otherwise no stricture, ulcers. Will perform CHARMAINE later today. Exam Vital Signs Temp Pulse Resp BP Pulse Ox O2 Del Method O2 Flow Rate 97.0 F 78 19 161/80 H 94 L Room Air 2 06/17/24 12:00 06/17/24 12:00 06/17/24 12:00 06/17/24 12:00 06/17/24 12:00 06/17/24 12:06/17/24 10:00 Narrative Exam Physical Exam General: Awake and in no acute distress. Conversational and non-toxic appearing. Confused at times, difficulty word finding. HEENT: Normocephalic, atraumatic, mucous membranes moist. Heart: Regular rate and rhythm, positive for systolic murmur. Lungs: Clear to auscultation with no wheezing or crackles. Abdomen: Soft, nondistended, nontender, positive bowel sounds. ?No guarding or rebound tenderness. Neurologic: Alert and oriented x2, patient able to move all 4 extremities. Extremities: No edema. Skin: No rash or ecchymoses. Objective Labs 06/17/24 05:35 06/17/24 05:35 Labs: Laboratory Results - last 24 hr 06/16/24 06/16/24 06/17/24 15:45 16:09 05:35 WBC 6.6 6.6 RBC 4.90 4.65 Hgb 15.1 14.4 Hct 44.6 42.6 MCV 91 92 MCH 30.8 31.0 MCHC 33.9 33.8 RDW Std Deviation 43.0 42.9 Plt Count 202 205 Neut % (Auto) 71 66 Lymph % (Auto) 16 20 [place] % (Auto) 10 12 Eos % (Auto) 2 1 Baso % (Auto) 1 1 Neut # (Auto) 4.7 4.3 Lymph # (Auto) 1.1 1.3 [place] # (Auto) 0.7 0.8 Eos # (Auto) 0.1 0.1 Baso # (Auto) 0.1 0.0 Immature Gran # (Auto) 0.02 H 0.02 H Absolute Nucleated RBC 0.00 0.00 Immature Gran % 0 0 Nucleated RBC % 0 0 PT 10.9 INR 1.0 Sodium 136 139 Potassium 4.1 D 3.4 D Chloride 99 102 Carbon Dioxide 22.9 23.4 Anion Gap 14 14 BUN 23 17 Creatinine 1.3 1.0 Estim Creat Clear Calc 60.9 L 77.6 eGFR 59 L > 60 BUN/Creatinine Ratio 18 17 Glucose [address] Glu mg/dL 346 H Hemoglobin A1c 13.7 H Calculated Osmolality 289 286 Calcium 9.8 9.3 Corrected Calcium 9.8 9.4 Phosphorus 3.2 3.2 Magnesium 2.0 1.9 Total Bilirubin 1.6 H D 1.4 H AST 17 10 ALT 11 8 L Alkaline Phosphatase 68 62 Total Protein 7.4 6.8 Albumin 4.2 3.9 Globulin 3.2 2.9 Albumin/Globulin Ratio 1.3 1.3 TSH 0.90 Ur Collection Type Clean Catch Urine Color Yellow Urine Clarity Clear Urine pH 6.0 Ur Specific [place] 1.037 H Urine Protein 2+ A Urine Glucose (UA) 4+ A Urine Ketones 1+ A Urine Blood Negative Urine Nitrite Negative Urine Bilirubin Negative Urine Urobilinogen (Auto) Negative Ur Leukocyte Esterase Negative Urine RBC 1 Urine WBC 2 Ur Squamous Epith Cells < 1 Urine Bacteria None Quality Measures Quality Measures VTE prophylaxis Advance care planning discussed with:: patient Assessment & Plan Assessment Current Active Medications: Generic Name Dose Route Start Last Admin Trade Name Freq PRN Reason Stop Dose Admin Acetaminophen 650 mg 06/16/24 16:33 Acetaminophen 325 Mg Tablet PO 07/16/24 16:32 Q6H PRN Fever >100.3 or pain 1-3 Albuterol/Ipratropium 3 ml 06/16/24 16:33 Albuterol/Ipratropium (Duoneb) Rt Althea 3 Ml Nebu INH 07/16/24 16:32 Q6HR PRN SHORTNESS OF BREATH OR WHEEZE Atorvastatin Calcium 80 mg 06/16/24 21:00 06/16/24 21:23 Atorvastatin Calcium 20 Mg Tablet PO 07/16/24 20:59 80 mg HS RAYMON Administration Clopidogrel Bisulfate 75 mg 06/17/24 09:00 06/17/24 12:38 Clopidogrel Bisulfate 75 Mg Tablet PO 07/17/24 08:59 75 mg QDAY RAYMON Administration Dextrose 25 ml 06/16/24 17:04 Dextrose 50%-Water Inj 50 Ml Syringe IV 07/16/24 17:03 Q15MIN PRN BG 50-70 responsive npo pt Dextrose 50 ml 06/16/24 17:04 Dextrose 50%-Water Inj 50 Ml Syringe IV 07/16/24 17:03 Q15MIN PRN BG <50 OR BG <70 & pt unresponsive Glucagon 1 mg 06/16/24 17:04 Glucagon Inj 1 Mg Vial IM Q15MIN PRN BG <70, and no IV access Heparin Sodium (Porcine) 5,000 unit 06/16/24 21:00 06/17/24 11:11 Heparin Sod Inj 5000 Unit/Ml Vial SC 06/30/24 20:59 5,000 unit Q12HR RAYMON Administration Insulin Human Lispro 0 unit 06/17/24 06:00 06/17/24 11:21 Insulin Lispro (Admelog) 1 Unit/0.01 Ml Unit SC 07/17/24 05:59 3 unit Q6HR RAYMON Administration Protocol Labetalol HCl 10 mg 06/16/24 18:27 Labetalol Inj 5 Mg/Ml Vial 20 Ml IVP 07/16/24 19:59 Q2HR PRN SBP >160, hold if HR<60 Ondansetron HCl 4 mg 06/16/24 16:33 Ondansetron Inj 2 Mg/Ml Inj 2 Ml IV 07/16/24 16:32 Q6H PRN NAUSEA OR VOMITING Protocol Sennosides 1 tab 06/16/24 16:33 Senna Tablet PO 07/16/24 16:32 BID PRN CONSTIPATION Protocol Tamsulosin HCl 0.4 mg 06/17/24 09:00 06/17/24 12:38 Tamsulosin Hcl 0.4 Mg Capsule PO 07/17/24 08:59 0.4 mg QDAY RAYMON Administration Plan Assessment and plan: Summary: Mr. Herzog is a 69-year-old male with past medical history of vascular dementia, status post CVA, multiple TIAs, hypertension, diabetes mellitus, hyperlipidemia, coronary artery disease status post PCI with stent placement and BPH who presented to [facility] emergency department accompanied by his , patient was sent by Dr. Amador secondary to abnormal MRI. Most of the history is obtained from patient's chart as patient is confused unable to provide history has difficulty word finding. MRI ordered outpatient by neurologist done earlier in a.m. today showed Proximal occlusion of the left posterior cerebral artery resulting in ischemia of most of the remaining left occipital and posterior medial temporal lobes, as well as portions of the left thalamus and internal capsule. Encephalomalacia from old left occipital/temporal infarction. Extensive global parenchymal volume loss and chronic small vessel ischemic changes. Small focus of susceptibility right semicentrum ovale may represent area of microhemorrhage. Patient admitted for acute CVA workup, cardiology consulted for TTE and possible CHARMAINE due to concern of embolic stroke to complete workup. #Acute CVA #Vascular dementia #History of CVA, multiple TIAs Patient initially evaluated in ED on 06/14 for acute confusion, symptoms resolved per ED physician's note and patient was discharged home with a diagnosis of exacerbation of dementia, underlying vascular dementia. Patient followed neurology outpatient for vascular dementia, was scheduled for a MRI earlier this morning which showed proximal occlusion of the left posterior cerebral artery resulting in ischemia of most of the remaining left occipital and posterior medial temporal lobes, as well as portions of the left thalamus and internal capsule. Encephalomalacia from old left occipital/temporal infarction. Extensive global parenchymal volume loss and chronic small vessel ischemic changes. Small focus of susceptibility right semicentrum ovale may represent area of microhemorrhage. Patient admitted for further workup per neurology recommendations for acute CVA, last known well time more than 24 hours. Patient does have history of CVA in the past, last one in 2020 and does endorse history of multiple TIAs. CT scan of the head was negative in ED on 06/14. Patient denies any kind of swallowing problems or any kind of esophageal interventions or previous surgeries. Patient denies any kind of gastric ulcers bleeding and any other hematemesis or hematochezia. Patient denies any issues with anesthesia previously. Patient explained all the risks, benefits and alternatives of CHARMAINE including the risk of perforation, bleeding, respiratory failure secondary to sedation, injury to teeth gums esophagus and stomach. Patient understands all risks and benefits and provided consent for the procedure. Keep n.p.o. Recommendations: -Will obtain transthoracic echocardiogram, will consider transesophageal echocardiogram post TTE -Keep patient n.p.o. -Discussed risks and benefits with , provided consent for CHARMAINE -Neurology is following patient closely for CVA continue management per neurology #Coronary artery disease, status post PCI #Systolic Congestive heart failure, mild to moderate by history Per review of patient's records from [facility], patient has not seen Dr. Mejia Fitzgerald in the last 3 years, patient's last echocardiogram showed mild to moderate congestive heart failure. Patient presented with STEMI to [facility] in 2013 had two stents placed in left circumflex and two stents in RCA. Had follow up angiogram in 2014. Patient was on entersto initailly lost to follow up, currently on lisinopril 10mg Qday, Coreg 6.25 BIDWM, continue Recommendations: -Switch patient to enteresto for GDMT -Continue Coreg 6.25 BIDWM -Continue Aspirin and Plavix -Follow Echocardiogram results -Patient has acute CVA, will follow up outpatient in clinic post discharge in 1 week. #Hyperlipidemia Continue atorvastatin 80 mg at bedtime #Hypertension Patient on lisinopril 10mg Qday, Coreg 6.25 BIDWM, currently Transition from lisinopril to enteresto for GDMT #Diabetes mellitus type 2 Patient on metformin and glipizide per medication review, pending med rec A1c 13.7%, management per primary team recommended strict glycemic control Patient's blood glucose on presentation was 356 #Benign prostate hyperplasia Management per primary team Thank you for the consult and allowing to participate in the care of the patient. Cardiology will continue to follow. Case discussed with Attending Dr. Vega. Lizzy Benjamin PGY1 Disclaimer: This note was dictated by speech recognition. Minor errors in osteopathic physician may be present due to voice recognition software. Attending Provider Attestation/Addendum I have personally seen and examined the patient separately on the above date of service and discussed the plan of care with the resident. I reviewed the resident Dr. Lizzy Benjamin consultation progress note and agree with the resident findings and plan in the note above and have also edited the documentation to reflect my findings and plan. A 69-year-old male with a past medical history of CAD status post PCI to LCx as well as RCA in 2013 [STEMI presentation], history of CHF previously with an EF of around 40%, vascular dementia with history of stroke, multiple TIAs, uncontrolled type 2 diabetes mellitus, essential hypertension, hyper anemia, BPH, mild cognitive decline initially presented to the emergency department for abnormal MRI. Patient apparently presented to the hospital a few days ago for acute confusion and altered mental status as well as slurred speech and facial lumbar stenosis, was walking slowly and could not remember his name. Patient was apparently discharged from the ED in the CHARMAINE had an MRI of the brain done as outpatient which showed proximal occlusion of the left posterior cerebral artery and ischemia of remaining left occipital and posterior medial temporal lobes and portions of left thalamus and internal capsule. There was also small focus of susceptibility of right and centrum semiovale with possible microhemorrhage and patient was sent back to the hospital by neurologist for admission and requested for CHARMAINE given his recurrent CVA and CHARMAINE. Cardiology consulted for the workup of the CVA with CHARMAINE. No transthoracic echo was done at this point of time and is already ordered and will follow-up the results. Appropriate indication for CHARMAINE. Echo completed this morning showed severely reduced LV function with an EF of around 30% with severe global hypokinesis and mildly dilated LV with with diastolic dysfunction stage II. Normal RV size and function and RVSP mildly elevated at 35 mm of 3. Moderate aortic stenosis with a mean PG of 22 mmHg but is underestimated due to the low ejection fraction and mostly low-flow low gradient severe aortic stenosis with valve area of less than 1 cm?. Mild MAC with moderate MR as well as mild TR. CHARMAINE was also completed later today to rule out the embolic stroke that showed similar findings as the echocardiogram. Study was performed and was no evidence of PFO or ASD. There was no LA or AYAZ thrombus. Regarding his aortic stenosis-echo and CHARMAINE showed at least moderate aortic stenosis by pressure gradient but the valve area was less than 1 cm? indicating possibly underestimation of the attic stenosis and given the low ejection fraction. Patient mostly has low-flow low gradient severe . Will do further workup for the same which can be continued as outpatient. For now recommend afterload reduction. RegardingI have personally seen and examined the patient separately on the above date of service and discussed the plan of care with the resident. I reviewed the resident Dr. Lizzy Benjamin consultation progress note and agree with the resident findings and plan in the note above and have also edited the documentation to reflect my findings and plan. A 69-year-old male with a past medical history of CAD status post PCI to LCx as well as RCA in 2014 [STEMI presentation], history of CHF previously with an EF of around 40%, vascular dementia with history of stroke, multiple TIAs, uncontrolled type 2 diabetes mellitus, essential hypertension, hyper anemia, BPH, mild cognitive decline initially presented to the emergency department for abnormal MRI. Patient apparently presented to the hospital a few days ago for acute confusion and altered mental status as well as slurred speech and facial lumbar stenosis, was walking slowly and could not remember his name. Patient was apparently discharged from the ED in the CHARMAINE had an MRI of the brain done as outpatient which showed proximal occlusion of the left posterior cerebral artery and ischemia of remaining left occipital and posterior medial temporal lobes and portions of left thalamus and internal capsule. There was also small focus of susceptibility of right and centrum semiovale with possible microhemorrhage and patient was sent back to the hospital by neurologist for admission and requested for CHARMAINE given his recurrent CVA and CHARMAINE. Cardiology consulted for the workup of the CVA with CHARMAINE. No transthoracic echo was done at this point of time and is already ordered and will follow-up the results. Appropriate indication for CHARMAINE. Patient denies any kind of swallowing problems or any kind of esophageal interventions or previous surgeries. Patient denies any kind of gastric ulcers bleeding and any other hematemesis or hematochezia. Patient denies any issues with anesthesia previously. Patient explained all the risks, benefits and alternatives of CHARMAINE including the risk of perforation, bleeding, respiratory failure secondary to sedation, injury to teeth gums esophagus and stomach. Patient understands all risks and benefits and provided consent for the procedure. We will keep him n.p.o. overnight and plan for CHARMAINE in the morning. Aortic history of CAD status post PCI to LCx and RCA in 2013. Patient presented as a STEMI and had 100% occlusion of the proximal to mid LCx and as well as 90% occlusion of the distal RCA and had 2 stents placed. He did have a repeat cardiac cath in 2014 at [facility] did show moderate residual disease diffuse in the LAD, OM1 as well as the mid RCA. No other cardiac catheterization since then. Patient used to follow-up with Dr. Leena Cline. I reviewed the notes and he last followed up with them in 2021 looks like patient has been lost to follow-up since then. Recommend to continue Plavix 75 mg once daily along with aspirin 81 mg once daily given his CAD as well as CVA. Beta-susanne and high intensity statin to keep LDL less than 80. Patient now has severe systolic congestive heart failure with an EF of around 30% in June 2024. As per recommendation from the last cardiology notes in 2021 he had mild systolic CHF. He was on Entresto and goal-directed medical therapy at that point of time but patient is not oriented the present point of time and unclear why. Strict input output Daily weights and 2 g sodium diet. Does not appear to be fluid overloaded at the present point of time and is not on any kind of diuretics. Will need GDMT with Entresto, beta-susanne, SGLT inhibitors. Uncontrolled diabetes mellitus-A1c elevated-30.6 and recommend aggressive control of diabetes mellitus given his moderate CAD and history of PCI previously. Aggressive control of blood pressure also recommended. Management of rest of the medical conditions as per primary team and other consultants. Thank you for the consult and allowing me to participate in the care of the patient. Cardiology will continue to follow. Darren Vega M.D. Interventional Cardiology history of CAD status post PCI to LCx and RCA in 2013. Patient presented as a STEMI and had 100% occlusion of the proximal to mid LCx and as well as 90% occlusion of the distal RCA and had 2 stents placed. He did have a repeat cardiac cath in 2014 at [facility] did show moderate residual disease diffuse in the LAD, OM1 as well as the mid RCA. No other cardiac catheterization since then. Patient used to follow-up with Dr. Leena Cline. I reviewed the notes and he last followed up with them in 2021 looks like patient has been lost to follow-up since then. Recommend to continue Plavix 75 mg once daily along with aspirin 81 mg once daily given his CAD as well as CVA. Beta-susanne and high intensity statin to keep LDL less than 80. Regarding his CHF patient does have a history of EF of 40% but no new recent echo that has been noted. As per Recommendation from the last cardiology notes in 2021 he had mild systolic CHF. He was on Entresto and goal-directed medical therapy at that point of time but patient is not oriented the present point of time and unclear why. Strict input output Daily weights and 2 g sodium diet. Does not appear to be fluid overloaded at the present point of time and is not on any kind of diuretics. Will need GDMT with Entresto, beta-susanne, SGLT inhibitors. Uncontrolled diabetes mellitus-A1c elevated-30.6 and recommend aggressive control of diabetes mellitus given his moderate CAD and history of PCI previously. Aggressive control of blood pressure also recommended. Management of rest of the medical conditions as per primary team and other consultants. Thank you for the consult and allowing me to participate in the care of the patient. Cardiology will continue to follow. Darren Vega M.D. Interventional Cardiology
--- NOTE | 2024-06-17 16:29 | ESPR_ITS ---
<Statement entered by Mariella Rosario MD - 06/18/24 06:22> Patient was seen and examined by me personally. I have directly supervised and reviewed documentation by the team resident and agree with its findings with any exceptions or additional findings as below. Plan of care was discussed with the attending, Dr. Barnhart. Overnight, the patient was very confused and agitated, unable to be redirected. He was given quetiapine 25 mg, lorazepam 1 mg, and haloperidol 2.5 mg at different points through the night. This morning patient was found sleeping in bed, slightly restless when aroused and confused. No new focal neurologic deficits. CHARMAINE was completed this morning, awaiting report. Repeat CT head was done which showed some interval ischemic change of the posterior communicating artery distribution. Pending Neuro recommendations for discharge. Patient to continue aspirin, Plavix, statin. Restarted patient's home carvedilol and lisinopril today. Mariella Rosario, PGY-2 Documentation for date of: 06/17/24 Subjective Subjective Interval history: Patient was seen and examined by the bedside. Overnight patient was agitated, received quetiapine, lorazepam, haloperidol. In the morning patient had a CHARMAINE done and head CT. Head CT was negative for acute bleeding, showed posterior communicating artery distribution ischemic changes. Pending CHARMAINE report. Patient was seen sleeping in the bed. Exam Vital Signs Temp Pulse Resp BP Pulse Ox O2 Del Method O2 Flow Rate 97.0 F 78 19 161/80 H 94 L Room Air 2 06/17/24 12:00 06/17/24 12:00 06/17/24 12:06/17/24 12:00 06/17/24 12:00 06/17/24 12:06/17/24 10:00 Narrative Exam Physical Exam General: Sleeping in the bed. HEENT: Normocephalic, atraumatic, mucous membranes moist. Heart: Regular rate and rhythm, no murmurs. Lungs: Diffuse wheezing. Abdomen: Soft, nondistended, nontender, positive bowel sounds. ?No guarding or rebound tenderness. Neurologic: Restricted due to patient sleeping. Extremities: No edema. Skin: No rash or ecchymoses. Objective Labs 06/18/24 05:42 06/18/24 05:42 Labs: Laboratory Results - last 24 hr 03/06/16/24 06/17/24 15:45 16:09 05:35 WBC 6.6 6.6 RBC 4.90 4.65 Hgb 15.1 14.4 Hct 44.6 42.6 MCV 91 92 MCH 30.8 31.0 MCHC 33.9 33.8 RDW Std Deviation 43.0 42.9 Plt Count 202 205 Neut % (Auto) 71 66 Lymph % (Auto) 16 20 [place] % (Auto) 10 12 Eos % (Auto) 2 1 Baso % (Auto) 1 1 Neut # (Auto) 4.7 4.3 Lymph # (Auto) 1.1 1.3 [place] # (Auto) 0.7 0.8 Eos # (Auto) 0.1 0.1 Baso # (Auto) 0.1 0.0 Immature Gran # (Auto) 0.02 H 0.02 H Absolute Nucleated RBC 0.00 0.00 Immature Gran % 0 0 Nucleated RBC % 0 0 PT 10.9 INR 1.0 Sodium 136 139 Potassium 4.1 D 3.4 D Chloride 99 102 Carbon Dioxide 22.9 23.4 Anion Gap 14 14 BUN 23 17 Creatinine 1.3 1.0 Estim Creat Clear Calc 60.9 L 77.6 eGFR 59 L > 60 BUN/Creatinine Ratio 18 17 Glucose [address] Glu mg/dL 346 H Hemoglobin A1c 13.7 H Calculated Osmolality 289 286 Calcium 9.8 9.3 Corrected Calcium 9.8 9.4 Phosphorus 3.2 3.2 Magnesium 2.0 1.9 Total Bilirubin 1.6 H D 1.4 H AST 17 10 ALT 11 8 L Alkaline Phosphatase 68 62 Total Protein 7.4 6.8 Albumin 4.2 3.9 Globulin 3.2 2.9 Albumin/Globulin Ratio 1.3 1.3 TSH 0.90 Ur Collection Type Clean Catch Urine Color Yellow Urine Clarity Clear Urine pH 6.0 Ur Specific [place] 1.037 H Urine Protein 2+ A Urine Glucose (UA) 4+ A Urine Ketones 1+ A Urine Blood Negative Urine Nitrite Negative Urine Bilirubin Negative Urine Urobilinogen (Auto) Negative Ur Leukocyte Esterase Negative Urine RBC 1 Urine WBC 2 Ur Squamous Epith Cells < 1 Urine Bacteria None Quality Measures Quality Measures VTE prophylaxis Advance care planning discussed with:: spouse Assessment & Plan Assessment Current Active Medications: Generic Name Dose Route Start Last Admin Trade Name Freq PRN Reason Stop Dose Admin Acetaminophen 650 mg 03/13/25 16:33 Acetaminophen 325 Mg Tablet PO 07/16/24 16:32 Q6H PRN Fever >100.3 or pain 1-3 Albuterol/Ipratropium 3 ml 06/16/24 16:33 Albuterol/Ipratropium (Duoneb) Rt Althea 3 Ml Nebu INH 07/16/24 16:32 Q6HR PRN SHORTNESS OF BREATH OR WHEEZE Atorvastatin Calcium 80 mg 06/16/24 21:00 06/16/24 21:23 Atorvastatin Calcium 20 Mg Tablet PO 07/16/24 20:59 80 mg HS RAYMON Administration Clopidogrel Bisulfate 75 mg 06/17/24 09:00 06/17/24 12:38 Clopidogrel Bisulfate 75 Mg Tablet PO 07/17/24 08:59 75 mg QDAY RAYMON Administration Dextrose 25 ml 06/16/24 17:04 Dextrose 50%-Water Inj 50 Ml Syringe IV 07/16/24 17:03 Q15MIN PRN BG 50-70 responsive npo pt Dextrose 50 ml 06/16/24 17:04 Dextrose 50%-Water Inj 50 Ml Syringe IV 07/16/24 17:03 Q15MIN PRN BG <50 OR BG <70 & pt unresponsive Glucagon 1 mg 06/16/24 17:04 Glucagon Inj 1 Mg Vial IM Q15MIN PRN BG <70, and no IV access Heparin Sodium (Porcine) 5,000 unit 06/16/24 21:00 06/17/24 11:11 Heparin Sod Inj 5000 Unit/Ml Vial SC 06/30/24 20:59 5,000 unit Q12HR RAYMON Administration Insulin Human Lispro 0 unit 06/17/24 06:00 06/17/24 11:21 Insulin Lispro (Admelog) 1 Unit/0.01 Ml Unit SC 07/17/24 05:59 3 unit Q6HR RAYMON Administration Protocol Labetalol HCl 10 mg 06/16/24 18:27 Labetalol Inj 5 Mg/Ml Vial 20 Ml IVP 07/16/24 19:59 Q2HR PRN SBP >160, hold if HR<60 Ondansetron HCl 4 mg 06/16/24 16:33 Ondansetron Inj 2 Mg/Ml Inj 2 Ml IV 07/16/24 16:32 Q6H PRN NAUSEA OR VOMITING Protocol Sennosides 1 tab 06/16/24 16:33 Senna Tablet PO 07/16/24 16:32 BID PRN CONSTIPATION Protocol Tamsulosin HCl 0.4 mg 06/17/24 09:00 06/17/24 12:38 Tamsulosin Hcl 0.4 Mg Capsule PO 07/17/24 08:59 0.4 mg QDAY RAYMON Administration Plan The patient is a 69-year-old male with a previous medical history of vascular dementia, status post CVA, multiple TIAs, hypertension, diabetes, hyperlipidemia, CAD status post PCI with stent placement, BPH who was brought to the ED due to altered mental status and was admitted for the acute stroke. #Acute CVA #Valcular dementia #Cognitive deficit #Right sided hemianopsia? Patient's reported that on Thursday morning patient started having altered mental status, slurred speech, face numbness. He has a history of previous stroke, TIAs and diagnosed with vascular dementia. DDx: Atherothrombotic versus embolic stroke 06/17/2024: A1c 13.7% TSH 0.90. Head CT was negative for acute bleeding, showed posterior communicating artery distribution ischemic changes. Speech eval recommended dysphagia 2 diet. Plan: ?Telemetry ? Head of bed elevation 30 degrees ? Maintain euthermia and euglycemia ? PT eval pending ? Neurologist consulted, appreciate recommendations ? Blood pressure control ?Neurochecks every 4 hours ?TTE and CHARMAINE ordered ?Continue home atorvastatin 80 mg daily ? Plavix 75 mg daily - Aspirin 81 mg qday #History of CAD, status post multiple stent placement #History of CHF #History if hypertension At this moment of time no signs on CHF exacerbation. Plan: - med rec is pending ?Continue home atorvastatin 80 mg daily - labetalol 10 mg IV PRN if BP>160, hold if HR<60 - carvedilol 6.25 mg BID - Lisinopril 10 mg qday #BPH - continue home tamsulosin #Type 2 diabetes 06/17/2024: A1c 13.7% Plan: - sliding scale insulin - hypoglycemia protocol in place Health maintenance: FEN: Dysphagia 2 cardiac DVT prophylaxis: heparin sc GI prophylaxis: none Dispo: telemetry CODE STATUS: DNR/DNI Plan of care discussed with attending Dr. Barnhart, PGY-[address] Rosario. Cheryl Wallace MD, PGY 1. Attending Provider Attestation/Addendum I reviewed labs, imaging, EKG, home medications and prior available records. Face to face evaluation was performed by me. I have personally examined the patient and discussed assessment and plan with the IM team. I reviewed the resident note and agree with the plan with exceptions as below. Acute encephalopathy Acute CVA Vascular dementia CAD status post stenting Type 2 diabetes mellitus with hyperglycemia BPH Repeat CT head showed evolving CVA but no interval bleeding Started Plavix and atorvastatin Every 4 hour neurochecks Obtain echocardiogram Consulted cardiology for CHARMAINE Consulted neurology Start sliding scale insulin and monitor fingersticks
--- NOTE | 2024-06-17 16:37 | ECHO_ITS ---
Transthoracic Echo Report Ht (in): 71 Wt (lb): 200 Exam Location: [employer] [facility] Status: Inpatient School Services Officer: JALEN Esqueda^^^^ Indications: Procedure Performed: BP: 146 / 71 HR: 75 Technical Quality: Fair MEASUREMENTS (Male / Female) Normal Values 2D ECHO LV Diastolic Diameter PLAX 5.9 cm 4.2 - 5.9 / 3.9 - 5.3 cm LV Systolic Diameter PLAX 5.4 cm IVS Diastolic Thickness 1.0 cm 0.6 - 1.0 / 0.6 - 0.9 cm LVPW Diastolic Thickness 0.8 cm 0.6 - 1.0 / 0.6 - 0.9 cm LV Relative Wall Thickness 0.3 LVOT Diameter 1.8 cm Aortic Root Diameter 3.5 cm LA Systolic Diameter LX 2.7 cm 3.0 - 4.0 / 2.7 - 3.8 cm LV Ejection Fraction MOD BP 30.4 % >= 55 % LV Cardiac Index MOD BP 2443.6 cm?/min?m? LV Ejection Fraction MOD 4C 30.1 % LV Cardiac Index MOD 4C 2792.7 cm?/min?m? LV Ejection Fraction 4C AL 31.9 % LV Cardiac Index 4C AL 3069.8 cm?/min?m? LV Ejection Fraction MOD 2C 34.2 % LV Cardiac Index MOD 2C 2338.8 cm?/min?m? LV Ejection Fraction 2C AL 35.0 % LV Cardiac Index 2C AL 2481.7 cm?/min?m? LA Volume Index 38.9 cm?/m? 16 - 28 cm?/m? DOPPLER AV Peak Velocity 240.8 cm/s AV Peak Gradient 23.2 mmHg AV Mean Gradient 16.8 mmHg AV Velocity Time Integral 57.6 cm LVOT Peak Velocity 72.4 cm/s LVOT Peak Gradient 2.1 mmHg LVOT Velocity Time Integral 16.7 cm LVOT Cardiac Index 1483.5 cm?/min?m? AV Area Cont Eq vti 0.7 cm? AV Area Cont Eq pk 0.8 cm? MV Area PHT 4.7 cm? MR Peak Velocity 513.0 cm/s MR Peak Gradient 105.3 mmHg Mitral E Point Velocity 64.2 cm/s Mitral A Point Velocity 53.9 cm/s Mitral E to A Ratio 1.2 LV E' Lateral Velocity 6.8 cm/s Mitral E to LV E' Lateral Ratio 9.4 LV E' Septal Velocity 4.3 cm/s Mitral E to LV E' Septal Ratio 14.8 TR Peak Velocity 361.0 cm/s TR Peak Gradient 52.1 mmHg PV Peak Velocity 112.0 cm/s PV Peak Gradient 5.0 mmHg RVOT Peak Velocity 65.0 cm/s FINDINGS Left Ventricle The left ventricular ejection fraction is severely decreased, estimated at 25- 30%. There is grade II diastolic dysfunction of the left ventricle (pseudonormal filling pattern). Right Ventricle The right ventricle is normal in size and systolic function. The estimated right ventricular systolic pressure, 20 mmHg. Left Atrium The left atrium is normal by two-dimensional, color flow and Doppler imaging with no structural abnormalities, no thrombus formation present. Right Atrium The right atrium is normal by two-dimensional imaging, color flow and Doppler imaging with no structural abnormalities, no thrombus formation present. Atrial Septum The interatrial septum appears normal with no evidence of a shunt. Aorta The aorta is normal by two-dimensional, color flow and Doppler interrogation. Mitral Valve Moderate mitral regurgitation. Mild mitral annular calcification. Aortic Valve Moderate aortic valve stenosis, mean gradient 16.8 mmHg, DANTE 0.74 cm?. Tricuspid Valve There is mild tricuspid valve regurgitation. Pulmonic Valve Mild pulmonic valve regurgitation. Vessels The pulmonary artery appears normal. The inferior vena cava pulmonary and hepatic veins appear normal. Pericardium The pericardium is normal by two-dimensional imaging. There is no significant pericardial effusion. CONCLUSIONS Indication: Stroke-embolic No bubble study done. CHARMAINE recommended to rule out any cardiac source. Severely reduced LV function with an EF of around 30 to 35%. Global hypokinesis. Mildly dilated LV. Diastolic dysfunction stage II. Normal RV size and function. RVSP mildly elevated at 35 mmHg. Moderate aortic stenosis with a mean PG of 22 mm hg. Possibly underestimated due to the low ejection fraction and mostly low-flow low gradient severe aortic stenosis as a DANTE is less than 1 cm?. Moderately calcified aortic valve. Mild MAC with moderate MR as well as mild TR. Darren Vega (Electronically Signed) Final Date: 17 June 2024 19:58
--- NOTE | 2024-06-17 19:41 | PC.NURSE ---
Notified Dr Randolph that patient was becoming more agitated and combative with the sitter. Dr Randolph wants to wait until patients pm order of Seroquel. Dr Randolph also aware that patient is refusing heart monitor. No new orders given, other than contacting MD if patient refuses Seroquel or agitation increases.
--- NOTE | 2024-06-17 20:30 | PC.NURSE ---
PT TRANSFERRED FROM ROOM 278 TO 270. PT IS CALM AND COOPERATIVE AT THIS TIME. SITTER REMAINS
[2024-06-17] MEDS: ATORVASTATIN CALCIUM 20 MG TABLET 80 MG PO (20:40)
[2024-06-17] MEDS: QUEtiapine FUMARATE 25 MG TABLET PO (20:40)
[2024-06-18] VITALS (13 sets, daily range): BP systolic 101–131; BP diastolic 60–86; PULSE 80–87; RESP 16–92; TEMP 36.1–36.8; O2SAT 91–95
[2024-06-18 06:13] LABS: Basophils # (Auto) 0.1 Thou/mm3 (0.0-0.2); Basophils % (Auto) 1 % (0-2.5); Eosinophils # (Auto) 0.1 Thou/mm3 (0.0-0.5); Eosinophils % (Auto) 2 % (0-10); Hematocrit 44.7 % (41.0-53.0); Immature Granulocytes % (Auto) 0 % (0-0); Immature Granulocytes Auto 0.03 Thou/mm3 (0.00-0.00); Lymphocytes # (Auto) 1.7 Thou/mm3 (1.0-4.8); Lymphocytes % (Auto) 23 % (10-50); Mean Corpuscular HGB Conc 33.6 g/dl (31.0-37.0); Mean Corpuscular Hemoglobin 30.6 pg (25.0-35.0); Mean Corpuscular Volume 91 fL (80-100); Monocytes # (Auto) 0.8 Thou/mm3 (0.0-0.8); Monocytes % (Auto) 11 % (0-12); Neutrophils # (Auto) 4.7 Thou/mm3 (1.8-7.7); Neutrophils % (Auto) 64 % (37-80); Nucleated Red Blood Cell % 0 /100 WBC (0); Platelet Count 219 Thou/mm3 (140-440); White Blood Count 7.4 Thou/mm3 (3.8-10.6)
[2024-06-18 07:07] LABS: Alanine Aminotransferase < 7 U/L (10-49); Albumin/Globulin Ratio 1.3 (1.2-2.2); Alkaline Phosphatase 69 U/L (46-116); Anion Gap 12 (7-16); Aspartate Amino Transferase 17 U/L (0-34); BUN/Creatinine Ratio 9 Ratio (12-20); Bilirubin,Total 1.5 mg/dL (0.3-1.2); Blood Urea Nitrogen 12 mg/dL (9-23); Calcium 9.7 mg/dL (8.3-10.6); Calcium (Corrected) 9.7 mg/dL (8.5-10.1); Chloride 103 mMol/L (98-107); Creatinine (Component) 1.3 mg/dL (0.6-1.3); Estimated Creatinine Clearance 59.7 mL/min (>60); Globulin 3.1 gm/dL (2.3-3.5); Glucose 234 mg/dL (74-106); Magnesium 1.9 mg/dL (1.6-2.6); Osmolality,Calculated 285 (275-295); Potassium 3.6 mMol/L (3.4-5.1); Sodium 139 mMol/L (136-145); Total Protein 7.1 gm/dL (5.7-8.2); eGFR 59 See Note
[2024-06-18] MEDS: CLOPIDOGREL BISULFATE 75 MG TABLET PO (08:15)
[2024-06-18] MEDS: ASPIRIN EC 81 MG TABEC PO (08:15)
[2024-06-18] MEDS: Lisinopril 2.5 MG TABLET 10 MG PO (08:16)
[2024-06-18] MEDS: TAMSULOSIN HCL 0.4 MG CAPSULE PO (08:16)
[2024-06-18] MEDS: carVEDILOL 3.125 MG TABLET 6.25 MG PO ×2 (08:17→17:45)
[2024-06-18] MEDS: HEPARIN SOD INJ 5000 UNIT/ML VIAL SC ×2 (08:18→20:44)
[2024-06-18] MEDS: INSULIN LISPRO (AdmeLOG) 1 UNIT/0.01 ML UNIT SC ×4 (08:23→20:45)
--- NOTE | 2024-06-18 09:49 | PD.RESPRO ---
Documentation for date of: 06/18/24 Subjective Subjective Interval history: Patient seen and examined at bedside. Repeat CT scan of head showed evolving left posterior communicating artery distribution ischemic changes. TTE shows severely reduced LV function with an EF of around 30 to 35%. Global hypokinesis. Mildly dilated LV. Diastolic dysfunction stage II. Normal RV size and function. RVSP mildly elevated at 35 mmHg. Moderate aortic stenosis with a mean PG of 22 mm hg. Possibly underestimated due to the low ejection fraction and mostly low-flow low gradient severe aortic stenosis as a DANTE is less than 1 cm?. Moderately calcified aortic valve.Mild MAC with moderate MR as well as mild TR. CHARMAINE shows severely reduced LV function with an EF of around 30 to 35%. Global hypokinesis. Mildly dilated LV. Normal RV size and function. Moderate aortic stenosis. Possibly underestimated due to the low ejection fraction and mostly low-flow low gradient severe aortic stenosis . Moderately calcified aortic valve. Mild MAC with moderate MR as well as mild TR. systolic blunting of pulmonary vein flow. Patient has significant HFrEF, EF 30 to 35%, diastolic dysfunction, combined systolic and diastolic heart failure, has poor outpatient follow ups, patient needs to be on GDMT outpatient and needs close cardiology follow up. Exam Vital Signs Temp Pulse Resp BP Pulse Ox O2 Del Method O2 Flow Rate 97.7 F 87 17 131/80 H 94 L Room Air 2 06/18/24 07:45 06/18/24 08:39 06/18/24 08:39 06/18/24 08:17 06/18/24 07:45 06/18/24 07:45 06/17/24 10:00 Narrative Exam Physical Exam General: Awake and in no acute distress. Conversational and non-toxic appearing. Confused at times, difficulty word finding. HEENT: Normocephalic, atraumatic, mucous membranes moist. Heart: Regular rate and rhythm, positive for systolic murmur. Lungs: Clear to auscultation with no wheezing or crackles. Abdomen: Soft, nondistended, nontender, positive bowel sounds. ?No guarding or rebound tenderness. Neurologic: Alert and oriented x2, patient able to move all 4 extremities. Extremities: No edema. Skin: No rash or ecchymoses. Objective Labs 06/19/24 05:13 06/19/24 05:13 Labs: Laboratory Results - last 24 hr 06/18/24 05:42 WBC 7.4 RBC 4.90 Hgb 15.0 Hct 44.7 MCV 91 MCH 30.6 MCHC 33.6 RDW Std Deviation 43.0 Plt Count 219 Neut % (Auto) 64 Lymph % (Auto) 23 [place] % (Auto) 11 Eos % (Auto) 2 Baso % (Auto) 1 Neut # (Auto) 4.7 Lymph # (Auto) 1.7 [place] # (Auto) 0.8 Eos # (Auto) 0.1 Baso # (Auto) 0.1 Immature Gran # (Auto) 0.03 H Absolute Nucleated RBC 0.00 Immature Gran % 0 Nucleated RBC % 0 Sodium 139 Potassium 3.6 Chloride 103 Carbon Dioxide 24.0 Anion Gap 12 BUN 12 Creatinine 1.3 Estim Creat Clear Calc 59.7 L eGFR 59 L BUN/Creatinine Ratio 9 L Glucose 234 H Calculated Osmolality 285 Calcium 9.7 Corrected Calcium 9.7 Phosphorus 4.0 Magnesium 1.9 Total Bilirubin 1.5 H AST 17 ALT < 7 L Alkaline Phosphatase 69 Total Protein 7.1 Albumin 4.0 Globulin 3.1 Albumin/Globulin Ratio 1.3 Quality Measures Quality Measures VTE prophylaxis Advance care planning discussed with:: patient Assessment & Plan Assessment Current Active Medications: Generic Name Dose Route Start Last Admin Trade Name Freq PRN Reason Stop Dose Admin Acetaminophen 650 mg 06/16/24 16:33 Acetaminophen 325 Mg Tablet PO 07/16/24 16:32 Q6H PRN Fever >100.3 or pain 1-3 Aspirin 81 mg 06/17/24 17:00 06/18/24 08:15 Aspirin Ec 81 Mg Tabec PO 07/17/24 16:59 81 mg QDAY RAYMON Administration Atorvastatin Calcium 80 mg 06/16/24 21:00 06/17/24 20:40 Atorvastatin Calcium 20 Mg Tablet PO 07/16/24 20:59 80 mg HS RAYMON Administration Carvedilol 6.25 mg 06/17/24 16:45 06/18/24 08:17 Carvedilol 3.125 Mg Tablet PO 07/17/24 16:44 6.25 mg BIDWM RAYMON Administration Clopidogrel Bisulfate 75 mg 06/17/24 09:00 06/18/24 08:15 Clopidogrel Bisulfate 75 Mg Tablet PO 07/17/24 08:59 75 mg QDAY RAYMON Administration Dextrose 25 ml 06/16/24 17:04 Dextrose 50%-Water Inj 50 Ml Syringe IV 07/16/24 17:03 Q15MIN PRN BG 50-70 responsive npo pt Dextrose 50 ml 06/16/24 17:04 Dextrose 50%-Water Inj 50 Ml Syringe IV 07/16/24 17:03 Q15MIN PRN BG <50 OR BG <70 & pt unresponsive Glucagon 1 mg 06/16/24 17:04 Glucagon Inj 1 Mg Vial IM Q15MIN PRN BG <70, and no IV access Heparin Sodium (Porcine) 5,000 unit 06/16/24 21:00 06/18/24 08:18 Heparin Sod Inj 5000 Unit/Ml Vial SC 06/30/24 20:59 5,000 unit Q12HR RAYMON Administration Insulin Human Lispro 0 unit 06/18/24 08:30 06/18/24 08:23 Insulin Lispro (Admelog) 1 Unit/0.01 Ml Unit SC 07/17/24 21:29 3 unit ACHS RAYMON Administration Protocol Labetalol HCl 10 mg 06/16/24 18:27 Labetalol Inj 5 Mg/Ml Vial 20 Ml IVP 07/16/24 19:59 Q2HR PRN SBP >160, hold if HR<60 Levalbuterol HCl 0.63 mg 06/17/24 16:43 Levalbuterol Rt 0.63 Mg/3 Ml Nebu INH 07/17/24 16:42 Q8HR PRN WHEEZING Lisinopril 10 mg 06/17/24 16:45 06/18/24 08:16 Lisinopril 2.5 Mg Tablet PO 07/17/24 16:44 10 mg QDAY RAYMON Administration Ondansetron HCl 4 mg 06/16/24 16:33 Ondansetron Inj 2 Mg/Ml Inj 2 Ml IV 07/16/24 16:32 Q6H PRN NAUSEA OR VOMITING Protocol Quetiapine Fumarate 25 mg 06/17/24 21:00 06/17/24 20:40 Quetiapine Fumarate 25 Mg Tablet PO 07/17/24 20:59 25 mg HS RAYMON Administration Sennosides 1 tab 06/16/24 16:33 Senna Tablet PO 07/16/24 16:32 BID PRN CONSTIPATION Protocol Tamsulosin HCl 0.4 mg 06/17/24 09:00 06/18/24 08:16 Tamsulosin Hcl 0.4 Mg Capsule PO 07/17/24 08:59 0.4 mg QDAY RAYMON Administration Plan Assessment and plan: Summary: Mr. 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 Amador secondary to abnormal MRI. Most of the history is obtained from patient's chart as patient is confused unable to provide history has difficulty word finding. MRI ordered outpatient by neurologist done earlier in a.m. today showed Proximal occlusion of the left posterior cerebral artery resulting in ischemia of most of the remaining left occipital and posterior medial temporal lobes, as well as portions of the left thalamus and internal capsule. Encephalomalacia from old left occipital/temporal infarction. Extensive global parenchymal volume loss and chronic small vessel ischemic changes. Small focus of susceptibility right semicentrum ovale may represent area of microhemorrhage. Patient admitted for acute CVA workup, cardiology consulted for TTE and possible CHARMAINE due to concern of embolic stroke to complete workup. #Acute CVA #Vascular dementia #History of CVA, multiple TIAs Patient initially evaluated in ED on 06/14 for acute confusion, symptoms resolved per ED physician's note and patient was discharged home with a diagnosis of exacerbation of dementia, underlying vascular dementia. Patient followed neurology outpatient for vascular dementia, was scheduled for a MRI earlier this morning which showed proximal occlusion of the left posterior cerebral artery resulting in ischemia of most of the remaining left occipital and posterior medial temporal lobes, as well as portions of the left thalamus and internal capsule. Encephalomalacia from old left occipital/temporal infarction. Extensive global parenchymal volume loss and chronic small vessel ischemic changes. Small focus of susceptibility right semicentrum ovale may represent area of microhemorrhage. Patient admitted for further workup per neurology recommendations for acute CVA, last known well time more than 24 hours. Patient does have history of CVA in the past, last one in 2020 and does endorse history of multiple TIAs. CT scan of the head was negative in ED on 06/14. Repeat CT scan of head showed evolving left posterior communicating artery distribution ischemic changes. TTE shows severely reduced LV function with an EF of around 30 to 35%. Global hypokinesis. Mildly dilated LV. Diastolic dysfunction stage II. Normal RV size and function. RVSP mildly elevated at 35 mmHg. Moderate aortic stenosis with a mean PG of 22 mm hg. Possibly underestimated due to the low ejection fraction and mostly low-flow low gradient severe aortic stenosis as a DANTE is less than 1 cm?. Moderately calcified aortic valve.Mild MAC with moderate MR as well as mild TR. CHARMAINE shows severely reduced LV function with an EF of around 30 to 35%. Global hypokinesis. Mildly dilated LV. Normal RV size and function. Moderate aortic stenosis. Possibly underestimated due to the low ejection fraction and mostly low-flow low gradient severe aortic stenosis . Moderately calcified aortic valve. Mild MAC with moderate MR as well as mild TR. systolic blunting of pulmonary vein flow. Recommendations: -Bubble study negative. No evidence of any PFO or ASD. 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 Patient presented as a STEMI and had 100% occlusion of the proximal to mid LCx and as well as 90% occlusion of the distal RCA and had 2 stents placed. He did have a repeat cardiac cath in 2014 at [facility] did show moderate residual disease diffuse in the LAD, OM1 as well as the mid RCA. No other cardiac catheterization since then. Patient used to follow-up with Dr. Fitzgerald in [place]. Per chart review he last followed up with them in 2021 looks like patient has been lost to follow-up since then. Regarding his CHF patient does have a history of EF of 40% but no new recent echo that has been noted. As per Recommendation from the last cardiology notes in 2021 he had mild systolic CHF. He was on Entresto and goal-directed medical therapy at that point of time but patient is not oriented the present point of time and unclear why. Strict input output Daily weights and 2 g sodium diet. Does not appear to be fluid overloaded at the present point of time and is not on any kind of diuretics. Will need GDMT with Entresto, beta-susanne, SGLT inhibitors. Aortic stenosis-echo and CHARMAINE showed at least moderate aortic stenosis by pressure gradient but the valve area was less than 1 cm? indicating possibly underestimation of the aortic stenosis and given the low ejection fraction. Patient mostly has low-flow low gradient severe . TTE shows severely reduced LV function with an EF of around 30 to 35%. Global hypokinesis. Mildly dilated LV. Diastolic dysfunction stage II. Normal RV size and function. RVSP mildly elevated at 35 mmHg. Moderate aortic stenosis with a mean PG of 22 mm hg. Possibly underestimated due to the low ejection fraction and mostly low-flow low gradient severe aortic stenosis as a DANTE is less than 1 cm?. Moderately calcified aortic valve.Mild MAC with moderate MR as well as mild TR. CHARMAINE shows severely reduced LV function with an EF of around 30 to 35%. Global hypokinesis. Mildly dilated LV. Normal RV size and function. Moderate aortic stenosis. Possibly underestimated due to the low ejection fraction and mostly low-flow low gradient severe aortic stenosis . Moderately calcified aortic valve. Mild MAC with moderate MR as well as mild TR. systolic blunting of pulmonary vein flow. Recommendations: -Switch patient to Enteresto for GDMT -Continue Coreg 6.25 BIDWM -Continue Atorvastatin, Aspirin and Plavix -Patient has acute CVA, will follow up outpatient in clinic post discharge in 1 week. -For aortic stenosis, will do further workup for the same which can be continued as outpatient. For now recommend afterload reduction. -Strict input output Daily weights and 2 g sodium diet. #Hyperlipidemia Lipid panel shows triglycerides 147, cholesterol 131, LDL 64, HDL 38 Continue atorvastatin 80 mg at bedtime #Hypertension Patient on lisinopril 10mg qday, Coreg 6.25 BIDWM, currently Transition from lisinopril to enteresto for GDMT. #Diabetes mellitus type 2 Patient on metformin and glipizide per medication review, pending med rec Hgb A1c 13.7%, management per primary team recommended strict glycemic control Patient's blood glucose on presentation was 356 #Benign prostate hyperplasia Management per primary team Thank you for the consult and allowing to participate in the care of the patient. Cardiology will continue to follow. Case discussed with Attending Dr. Vega. Lizzy Benjamin PGY1 Disclaimer: This note was dictated by speech recognition. Minor errors in recovery assistant may be present due to voice recognition software. Attending Provider Attestation/Addendum I have personally seen and examined the patient separately on the above date of service and discussed the plan of care with the resident. I reviewed the resident Dr. Lizzy Benjamin consultation progress note and agree with the resident findings and plan in the note above and have also edited the documentation to reflect my findings and plan. Darren Vega M.D. Interventional Cardiology
[2024-06-18] MEDS: INSULIN GLARGINE (Lantus) 5 UNIT/0.05 ML (PER 5 UNITS) 10 UNIT SC (12:37)
--- NOTE | 2024-06-18 15:30 | ESPR_ITS ---
Documentation for date of: 06/18/24 Subjective Subjective Interval history: Patient was seen and examined by the bedside. No acute overnight events. Patient continues to have elements of aphasia, right sided hemianopsia. follow-commands. Resting comfortably in the bed. Pending PT recommendations. Due to condition, patient will need SNF placement. Exam Vital Signs Temp Pulse Resp BP Pulse Ox O2 Del Method O2 Flow Rate 97.8 F 80 22 H 101/60 95 Room Air 2 06/18/24 12:00 06/18/24 12:00 06/18/24 12:00 06/18/24 12:06/18/24 12:06/18/24 12:06/18/24 12:00 Narrative Exam Physical Exam General: Awake and in no acute distress. Conversational and non-toxic appearing. Elements of aphasia. HEENT: Normocephalic, atraumatic, mucous membranes moist. Heart: Regular rate and rhythm, no murmurs. Lungs: Clear to auscultation with no wheezing or crackles. Abdomen: Soft, nondistended, nontender, positive bowel sounds. ?No guarding or rebound tenderness. Neurologic: Alert and oriented x1, right sided hemianopsia, and patient able to move all 4 extremities. Extremities: No edema. Skin: No rash or ecchymoses. Objective Labs 06/19/24 05:13 06/19/24 05:13 Labs: Laboratory Results - last 24 hr 06/18/24 05:42 WBC 7.4 RBC 4.90 Hgb 15.0 Hct 44.7 MCV 91 MCH 30.6 MCHC 33.6 RDW Std Deviation 43.0 Plt Count 219 Neut % (Auto) 64 Lymph % (Auto) 23 [place] % (Auto) 11 Eos % (Auto) 2 Baso % (Auto) 1 Neut # (Auto) 4.7 Lymph # (Auto) 1.7 [place] # (Auto) 0.8 Eos # (Auto) 0.1 Baso # (Auto) 0.1 Immature Gran # (Auto) 0.03 H Absolute Nucleated RBC 0.00 Immature Gran % 0 Nucleated RBC % 0 Sodium 139 Potassium 3.6 Chloride 103 Carbon Dioxide 24.0 Anion Gap 12 BUN 12 Creatinine 1.3 Estim Creat Clear Calc 59.7 L eGFR 59 L BUN/Creatinine Ratio 9 L Glucose 234 H Calculated Osmolality 285 Calcium 9.7 Corrected Calcium 9.7 Phosphorus 4.0 Magnesium 1.9 Total Bilirubin 1.5 H AST 17 ALT < 7 L Alkaline Phosphatase 69 Total Protein 7.1 Albumin 4.0 Globulin 3.1 Albumin/Globulin Ratio 1.3 Quality Measures Quality Measures VTE prophylaxis Advance care planning discussed with:: spouse Assessment & Plan Assessment Current Active Medications: Generic Name Dose Route Start Last Admin Trade Name Freq PRN Reason Stop Dose Admin Acetaminophen 650 mg 06/16/24 16:33 Acetaminophen 325 Mg Tablet PO 07/16/24 16:32 Q6H PRN Fever >100.3 or pain 1-3 Aspirin 81 mg 06/17/24 17:00 06/18/24 08:15 Aspirin Ec 81 Mg Tabec PO 07/17/24 16:59 81 mg QDAY RAYMON Administration Atorvastatin Calcium 80 mg 06/16/24 21:00 06/17/24 20:40 Atorvastatin Calcium 20 Mg Tablet PO 07/16/24 20:59 80 mg HS RAYMON Administration Carvedilol 6.25 mg 06/17/24 16:45 06/18/24 08:17 Carvedilol 3.125 Mg Tablet PO 07/17/24 16:44 6.25 mg BIDWM RAYMON Administration Clopidogrel Bisulfate 75 mg 06/17/24 09:00 06/18/24 08:15 Clopidogrel Bisulfate 75 Mg Tablet PO 07/17/24 08:59 75 mg QDAY RAYMON Administration Dextrose 25 ml 06/16/24 17:04 Dextrose 50%-Water Inj 50 Ml Syringe IV 07/16/24 17:03 Q15MIN PRN BG 50-70 responsive npo pt Dextrose 50 ml 06/16/24 17:04 Dextrose 50%-Water Inj 50 Ml Syringe IV 07/16/24 17:03 Q15MIN PRN BG <50 OR BG <70 & pt unresponsive Glucagon 1 mg 06/16/24 17:04 Glucagon Inj 1 Mg Vial IM Q15MIN PRN BG <70, and no IV access Heparin Sodium (Porcine) 5,000 unit 06/16/24 21:00 06/18/24 08:18 Heparin Sod Inj 5000 Unit/Ml Vial SC 06/30/24 20:59 5,000 unit Q12HR RAYMON Administration Insulin Human Lispro 0 unit 06/18/24 08:30 06/18/24 12:38 Insulin Lispro (Admelog) 1 Unit/0.01 Ml Unit SC 07/17/24 21:29 4 unit ACHS RAYMON Administration Protocol Labetalol HCl 10 mg 06/16/24 18:27 Labetalol Inj 5 Mg/Ml Vial 20 Ml IVP 07/16/24 19:59 Q2HR PRN SBP >160, hold if HR<60 Levalbuterol HCl 0.63 mg 06/17/24 16:43 Levalbuterol Rt 0.63 Mg/3 Ml Nebu INH 07/17/24 16:42 Q8HR PRN WHEEZING Lisinopril 10 mg 06/17/24 16:45 06/18/24 08:16 Lisinopril 2.5 Mg Tablet PO 07/17/24 16:44 10 mg QDAY RAYMON Administration Ondansetron HCl 4 mg 06/16/24 16:33 Ondansetron Inj 2 Mg/Ml Inj 2 Ml IV 07/16/24 16:32 Q6H PRN NAUSEA OR VOMITING Protocol Quetiapine Fumarate 25 mg 06/17/24 21:00 06/17/24 20:40 Quetiapine Fumarate 25 Mg Tablet PO 07/17/24 20:59 25 mg HS RAYMON Administration Sennosides 1 tab 06/16/24 16:33 Senna Tablet PO 07/16/24 16:32 BID PRN CONSTIPATION Protocol Tamsulosin HCl 0.4 mg 06/17/24 09:00 06/18/24 08:16 Tamsulosin Hcl 0.4 Mg Capsule PO 07/17/24 08:59 0.4 mg QDAY RAYMON Administration Plan The patient is a 69-year-old male with a previous medical history of vascular dementia, status post CVA, multiple TIAs, hypertension, diabetes, hyperlipidemia, CAD status post PCI with stent placement, BPH who was brought to the ED due to altered mental status and was admitted for the acute stroke. #Acute CVA #Valcular dementia #Cognitive deficit #Right sided hemianopsia Patient's reported that on Thursday morning patient started having altered mental status, slurred speech, face numbness. He has a history of previous stroke, TIAs and diagnosed with vascular dementia. DDx: Atherothrombotic versus embolic stroke 06/17/2024: A1c 13.7% TSH 0.90. Head CT was negative for acute bleeding, showed posterior communicating artery distribution ischemic changes. Speech eval recommended dysphagia 2 diet. TTE showed ejection fraction 50 to 55%. Global hypokinesis. Stage II diastolic dysfunction. Moderate aortic stenosis. CHARMAINE: Ejection fraction 30 to 35%. No evidence for PFO or ASD. No left atrial or left atrial appendage thrombus. Moderate aortic stenosis. Plan: ?Telemetry ? Head of bed elevation 30 degrees ? Maintain euthermia and euglycemia ? Neurologist consulted, appreciate recommendations ? Blood pressure control ?Neurochecks every 4 hours ?Continue home atorvastatin 80 mg daily ? Plavix 75 mg daily - Aspirin 81 mg qday - After discharge, follow-up with Dr. Amador in 2 weeks #History of CAD, status post multiple stent placement #History of CHF #History if hypertension At this moment of time no signs on CHF exacerbation. Plan: - med rec is pending ?Continue home atorvastatin 80 mg daily - labetalol 10 mg IV PRN if BP>160, hold if HR<60 - carvedilol 6.25 mg BID - Lisinopril 10 mg qday #BPH - continue home tamsulosin #Type 2 diabetes 06/17/2024: A1c 13.7% Plan: - sliding scale insulin - Glargine 10 U sc once - hypoglycemia protocol in place Health maintenance: FEN: Dysphagia 2 cardiac DVT prophylaxis: heparin sc GI prophylaxis: none Dispo: telemetry CODE STATUS: DNR/DNI Plan of care discussed with attending Dr. Barnhart, PGY-[address] Grier. Cheryl Wallace MD, PGY 1. --- ATTESTATION: I saw and examined the patient this morning, and I agree with current management stated by the resident. Will continue to monitor patient during their stay. Disclaimer: Despite multiple revisions, due to the dictation software being used, the document bellow may not be free of grammatical errors including phonetic/typographic errors. However, this does not deter from our commitment to providing health care in the patient's best interest in mind. Dr. Obed Grier, PGY-3 Attending Provider Attestation/Addendum I reviewed labs, imaging, EKG, home medications and prior available records. Face to face evaluation was performed by me. I have personally examined the patient and discussed assessment and plan with the IM team. I reviewed the resident note and agree with the plan with exceptions as below. Acute encephalopathy Acute CVA Vascular dementia CAD status post stenting Type 2 diabetes mellitus with hyperglycemia BPH Repeat CT head showed evolving CVA but no interval bleeding Started Plavix and atorvastatin Every 4 hour neurochecks Obtain echocardiogram: Showed reduced EF of 35% and negative bubble study. Also showed moderate Consulted cardiology for CHARMAINE: Also showed reduced EF of about 30 to 35%. No thrombus found in LA or AYAZ Consulted neurology Start sliding scale insulin and monitor fingersticks Follow-up PT evaluation
[2024-06-18] MEDS: SENNA TABLET 1 TAB PO (17:45)
--- NOTE | 2024-06-18 19:00 | PC.NURSE ---
AT BEDSIDE, UPSET THAT PT'S SON TUAN IS POC. STATES THAT SHE IS HIS , LIVES WITH HIM, AND PROVIDES HIS INSURANCE AND STATES THAT SHE SHOULD BE POC BEFORE SON. DISPENSARY CLERK, ABDI AND ARTURO AT BEDSIDE SPEAKING WITH . POC UPDATED TO VIVIAN.
[2024-06-18] MEDS: ATORVASTATIN CALCIUM 20 MG TABLET 80 MG PO (20:44)
[2024-06-18] MEDS: QUEtiapine FUMARATE 25 MG TABLET PO (20:45)
--- NOTE | 2024-06-18 20:51 | VVPN_ITS ---
Telemedicine visit statement This visit was conducted with the use of phone was obtained on 06/18/24 at 2051. Documentation for date of: 06/18/24 Subjective Subjective Interval history: Patient is in telemetry. His mental status and language function and coordination on the right hemibody all have improved, close to baseline. Virtual exam Vital Signs Temp Pulse Resp BP Pulse Ox O2 Del Method O2 Flow Rate 97.8 F 84 18 122/74 95 Room Air 2 06/18/24 20:00 06/18/24 20:00 06/18/24 20:00 06/18/24 20:00 06/18/24 20:00 06/18/24 20:00 06/18/24 12:00 Objective Labs 06/18/24 05:42 06/18/24 05:42 Labs: Laboratory Results - last 24 hr 06/18/24 05:42 WBC 7.4 RBC 4.90 Hgb 15.0 Hct 44.7 MCV 91 MCH 30.6 MCHC 33.6 RDW Std Deviation 43.0 Plt Count 219 Neut % (Auto) 64 Lymph % (Auto) 23 [place] % (Auto) 11 Eos % (Auto) 2 Baso % (Auto) 1 Neut # (Auto) 4.7 Lymph # (Auto) 1.7 [place] # (Auto) 0.8 Eos # (Auto) 0.1 Baso # (Auto) 0.1 Immature Gran # (Auto) 0.03 H Absolute Nucleated RBC 0.00 Immature Gran % 0 Nucleated RBC % 0 Sodium 139 Potassium 3.6 Chloride 103 Carbon Dioxide 24.0 Anion Gap 12 BUN 12 Creatinine 1.3 Estim Creat Clear Calc 59.7 L eGFR 59 L BUN/Creatinine Ratio 9 L Glucose 234 H Calculated Osmolality 285 Calcium 9.7 Corrected Calcium 9.7 Phosphorus 4.0 Magnesium 1.9 Total Bilirubin 1.5 H AST 17 ALT < 7 L Alkaline Phosphatase 69 Total Protein 7.1 Albumin 4.0 Globulin 3.1 Albumin/Globulin Ratio 1.3 Assessment & Plan Assessment Patient is a 69-year-old male with a previous medical history of vascular dementia, status post CVA, multiple TIAs, hypertension, diabetes, hyperlipidemia, CAD status post PCI with stent placement, BPH who was brought to the ED due to altered mental status. Neurology consulted due to acute ischemic stroke noted on imaging. #Acute left occipital and posterior medial temporal lobes stroke, as well as portions of the left thalamus and internal capsule stroke he does have vascular dementia at baseline from the previous left MCA ischemic infarction Acute stroke noted on MRI Repeat CT shows no acute hemorrhages Patient needs better glycemic control, A1c 13.7 Continue with high-dose statin, aspirin 81 mg, and Plavix 75 mg for 21 days of dual antiplatelets Continue with PT and speech therapy CHARMAINE: Bubble study negative. No evidence of any PFO or ASD. No LA/AYAZ thrombus Severely reduced LV function with an EF of around 30 to 35%. Global hypokinesis. Mildly dilated LV. Normal RV size and function. Moderate aortic stenosis. Possibly underestimated due to the low ejection fraction and mostly low-flow low gradient severe aortic stenosis . Moderately calcified aortic valve. Mild MAC with moderate MR as well as mild TR. systolic blunting of pulmonary vein flow Needs short-term rehab placement. #History of CAD, status post multiple stent placement #History of CHF #History if hypertension #BPH #Diabetes mellitus Continue management per primary team
[2024-06-18] MEDS: LEVALBUTEROL RT 0.63 MG/3 ML NEBU INH (20:55)
[2024-06-19] VITALS (11 sets, daily range): BP systolic 92–125; BP diastolic 54–76; PULSE 67–80; RESP 15–20; TEMP 36.1–36.4; O2SAT 95–97
[2024-06-19 05:59] LABS: Basophils % (Auto) 1 % (0-2.5); Eosinophils # (Auto) 0.2 Thou/mm3 (0.0-0.5); Eosinophils % (Auto) 3 % (0-10); Hematocrit 43.5 % (41.0-53.0); Hemoglobin 14.5 g/dL (13.5-16.0); Immature Granulocytes % (Auto) 0 % (0-0); Immature Granulocytes Auto 0.03 Thou/mm3 (0.00-0.00); Lymphocytes # (Auto) 1.8 Thou/mm3 (1.0-4.8); Lymphocytes % (Auto) 24 % (10-50); Mean Corpuscular HGB Conc 33.3 g/dl (31.0-37.0); Mean Corpuscular Hemoglobin 30.6 pg (25.0-35.0); Mean Corpuscular Volume 92 fL (80-100); Monocytes # (Auto) 0.8 Thou/mm3 (0.0-0.8); Monocytes % (Auto) 11 % (0-12); Neutrophils # (Auto) 4.5 Thou/mm3 (1.8-7.7); Neutrophils % (Auto) 61 % (37-80); Nucleated Red Blood Cell % 0 /100 WBC (0); Platelet Count 217 Thou/mm3 (140-440); RDW Standard Deviation 42.6 fL (35.1-43.9); Red Blood Count 4.74 Miln/mm3 (4.50-5.90); White Blood Count 7.4 Thou/mm3 (3.8-10.6)
[2024-06-19 06:39] LABS: Alanine Aminotransferase 9 U/L (10-49); Albumin, Serum 3.8 gm/dL (3.4-4.8); Albumin/Globulin Ratio 1.4 (1.2-2.2); Alkaline Phosphatase 63 U/L (46-116); Anion Gap 12 (7-16); Aspartate Amino Transferase 17 U/L (0-34); BUN/Creatinine Ratio 15 Ratio (12-20); Bilirubin,Total 1.4 mg/dL (0.3-1.2); Blood Urea Nitrogen 19 mg/dL (9-23); Calcium 9.5 mg/dL (8.3-10.6); Calcium (Corrected) 9.7 mg/dL (8.5-10.1); Carbon Dioxide 25.9 mMol/L (20.0-31.0); Chloride 101 mMol/L (98-107); Creatinine (Component) 1.3 mg/dL (0.6-1.3); Estimated Creatinine Clearance 59.7 mL/min (>60); Globulin 2.8 gm/dL (2.3-3.5); Glucose 228 mg/dL (74-106); Magnesium 1.8 mg/dL (1.6-2.6); Osmolality,Calculated 286 (275-295); Potassium 3.8 mMol/L (3.4-5.1); Sodium 139 mMol/L (136-145); Total Protein 6.6 gm/dL (5.7-8.2); eGFR 59 See Note
--- NOTE | 2024-06-19 07:33 | PC.NURSE ---
DR. COWAN MADE AWARE OF BLADDER SCAN OF 560 ML. PREVIOUS SHIFT, PT DID NOT VOID THROUGHOUT THE NIGHT AND VOIDED BY [id number]. ATTEMTED TO HAVE PT VOID IN URINAL BUT STATED GIVE ME A MINUTE, I'LL PEE IN A BIT . WOULD LIKE TO WAIT TO SEE IF PT VOIDS ON HIS OWN FOR NOW
[2024-06-19] MEDS: INSULIN LISPRO (AdmeLOG) 1 UNIT/0.01 ML UNIT SC ×4 (07:44→21:08)
[2024-06-19] MEDS: CLOPIDOGREL BISULFATE 75 MG TABLET PO (08:26)
[2024-06-19] MEDS: TAMSULOSIN HCL 0.4 MG CAPSULE PO (08:26)
[2024-06-19] MEDS: carVEDILOL 3.125 MG TABLET 6.25 MG PO ×2 (08:26→17:13)
[2024-06-19] MEDS: SACUBITRIL 24 MG/VALSARTAN 26 MG TABLET 1 TAB PO ×2 (08:26→21:08)
[2024-06-19] MEDS: HEPARIN SOD INJ 5000 UNIT/ML VIAL SC ×2 (08:26→21:08)
[2024-06-19] MEDS: ASPIRIN EC 81 MG TABEC PO (08:26)
--- NOTE | 2024-06-19 09:40 | PD.RESPRO ---
Documentation for date of: 06/19/24 Subjective Subjective Interval history: Patient seen and examined at bedside. Resting comfortably in bed. Patient on sacubitril/valsartan twice daily, Coreg 6.25 twice daily aspirin 81 mg, Plavix 75 mg currently. Considering patient's uncontrolled diabetes can be started on SGLT2 inhibitor will follow patient outpatient to optimize GDMT. Patient recommended to follow-up with cardiology in 1 week post discharge. Patient is anticipated discharge to rehab facility today. Exam Vital Signs Temp Pulse Resp BP Pulse Ox O2 Del Method O2 Flow Rate 97.0 F 79 20 125/76 96 Room Air 2 06/19/24 08:00 06/19/24 08:26 06/19/24 08:00 06/19/24 08:26 06/19/24 08:00 06/19/24 08:00 06/18/24 12:00 Narrative Exam Physical Exam General: Awake and in no acute distress. Conversational and non-toxic appearing. HEENT: Normocephalic, atraumatic, mucous membranes moist. Heart: Regular rate and rhythm, positive for systolic murmur. Lungs: Clear to auscultation with no wheezing or crackles. Abdomen: Soft, nondistended, nontender, positive bowel sounds. ?No guarding or rebound tenderness. Neurologic: Alert and oriented x3, patient able to move all 4 extremities. Extremities: No edema. Skin: No rash or ecchymoses. Objective Labs 06/19/24 05:13 06/19/24 05:13 Labs: Laboratory Results - last 24 hr 06/19/24 05:13 WBC 7.4 RBC 4.74 Hgb 14.5 Hct 43.5 MCV 92 MCH 30.6 MCHC 33.3 RDW Std Deviation 42.6 Plt Count 217 Neut % (Auto) 61 Lymph % (Auto) 24 [place] % (Auto) 11 Eos % (Auto) 3 Baso % (Auto) 1 Neut # (Auto) 4.5 Lymph # (Auto) 1.8 [place] # (Auto) 0.8 Eos # (Auto) 0.2 Baso # (Auto) 0.0 Immature Gran # (Auto) 0.03 H Absolute Nucleated RBC 0.00 Immature Gran % 0 Nucleated RBC % 0 Sodium 139 Potassium 3.8 Chloride 101 Carbon Dioxide 25.9 Anion Gap 12 BUN 19 Creatinine 1.3 Estim Creat Clear Calc 59.7 L eGFR 59 L BUN/Creatinine Ratio 15 Glucose 228 H Calculated Osmolality 286 Calcium 9.5 Corrected Calcium 9.7 Phosphorus 4.0 Magnesium 1.8 Total Bilirubin 1.4 H AST 17 ALT 9 L Alkaline Phosphatase 63 Total Protein 6.6 Albumin 3.8 Globulin 2.8 Albumin/Globulin Ratio 1.4 Quality Measures Quality Measures VTE prophylaxis Advance care planning discussed with:: patient Assessment & Plan Assessment Current Active Medications: Generic Name Dose Route Start Last Admin Trade Name Freq PRN Reason Stop Dose Admin Acetaminophen 650 mg 06/16/24 16:33 Acetaminophen 325 Mg Tablet PO 07/16/24 16:32 Q6H PRN Fever >100.3 or pain 1-3 Aspirin 81 mg 06/17/24 17:00 06/19/24 08:26 Aspirin Ec 81 Mg Tabec PO 07/17/24 16:59 81 mg QDAY RAYMON Administration Atorvastatin Calcium 80 mg 06/16/24 21:00 06/18/24 20:44 Atorvastatin Calcium 20 Mg Tablet PO 07/16/24 20:59 80 mg HS RAYMON Administration Carvedilol 6.25 mg 06/17/24 16:45 06/19/24 08:26 Carvedilol 3.125 Mg Tablet PO 07/17/24 16:44 6.25 mg BIDWM RAYMON Administration Clopidogrel Bisulfate 75 mg 06/17/24 09:00 06/19/24 08:26 Clopidogrel Bisulfate 75 Mg Tablet PO 07/17/24 08:59 75 mg QDAY RAYMON Administration Dextrose 25 ml 06/16/24 17:04 Dextrose 50%-Water Inj 50 Ml Syringe IV 07/16/24 17:03 Q15MIN PRN BG 50-70 responsive npo pt Dextrose 50 ml 06/16/24 17:04 Dextrose 50%-Water Inj 50 Ml Syringe IV 07/16/24 17:03 Q15MIN PRN BG <50 OR BG <70 & pt unresponsive Glucagon 1 mg 06/16/24 17:04 Glucagon Inj 1 Mg Vial IM Q15MIN PRN BG <70, and no IV access Heparin Sodium (Porcine) 5,000 unit 06/16/24 21:00 06/19/24 08:26 Heparin Sod Inj 5000 Unit/Ml Vial SC 06/30/24 20:59 5,000 unit Q12HR RAYMON Administration Insulin Human Lispro 0 unit 06/18/24 08:30 06/19/24 07:44 Insulin Lispro (Admelog) 1 Unit/0.01 Ml Unit SC 07/17/24 21:29 4 unit ACHS RAYMON Administration Protocol Labetalol HCl 10 mg 06/16/24 18:27 Labetalol Inj 5 Mg/Ml Vial 20 Ml IVP 07/16/24 19:59 Q2HR PRN SBP >160, hold if HR<60 Levalbuterol HCl 0.63 mg 06/17/24 16:43 06/18/24 20:55 Levalbuterol Rt 0.63 Mg/3 Ml Nebu INH 07/17/24 16:42 0.63 mg Q8HR PRN Administration WHEEZING Ondansetron HCl 4 mg 06/16/24 16:33 Ondansetron Inj 2 Mg/Ml Inj 2 Ml IV 07/16/24 16:32 Q6H PRN NAUSEA OR VOMITING Protocol Quetiapine Fumarate 25 mg 06/17/24 21:00 06/18/24 20:45 Quetiapine Fumarate 25 Mg Tablet PO 07/17/24 20:59 25 mg HS RAYMON Administration Sacubitril/Valsartan 1 tab 06/19/24 09:00 06/19/24 08:26 Sacubitril 24 Mg/Valsartan 26 Mg Tablet PO 07/19/24 08:59 1 tab BID RAYMON Administration Sennosides 1 tab 06/16/24 16:33 06/18/24 17:45 Senna Tablet PO 07/16/24 16:32 1 tab BID PRN Administration CONSTIPATION Protocol Tamsulosin HCl 0.4 mg 06/17/24 09:00 06/19/24 08:26 Tamsulosin Hcl 0.4 Mg Capsule PO 07/17/24 08:59 0.4 mg QDAY RAYMON Administration Plan Assessment and plan: Summary: Mr. 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 Thiagarajan secondary to abnormal MRI. Most of the history is obtained from patient's chart as patient is confused unable to provide history has difficulty word finding. MRI ordered outpatient by neurologist done earlier in a.m. today showed Proximal occlusion of the left posterior cerebral artery resulting in ischemia of most of the remaining left occipital and posterior medial temporal lobes, as well as portions of the left thalamus and internal capsule. Encephalomalacia from old left occipital/temporal infarction. Extensive global parenchymal volume loss and chronic small vessel ischemic changes. Small focus of susceptibility right semicentrum ovale may represent area of microhemorrhage. Patient admitted for acute CVA workup, cardiology consulted for TTE and possible CHARMAINE due to concern of embolic stroke to complete workup. #Acute CVA #Vascular dementia #History of CVA, multiple TIAs Patient initially evaluated in ED on 06/14 for acute confusion, symptoms resolved per ED physician's note and patient was discharged home with a diagnosis of exacerbation of dementia, underlying vascular dementia. Patient followed neurology outpatient for vascular dementia, was scheduled for a MRI earlier this morning which showed proximal occlusion of the left posterior cerebral artery resulting in ischemia of most of the remaining left occipital and posterior medial temporal lobes, as well as portions of the left thalamus and internal capsule. Encephalomalacia from old left occipital/temporal infarction. Extensive global parenchymal volume loss and chronic small vessel ischemic changes. Small focus of susceptibility right semicentrum ovale may represent area of microhemorrhage. Patient admitted for further workup per neurology recommendations for acute CVA, last known well time more than 24 hours. Patient does have history of CVA in the past, last one in 2020 and does endorse history of multiple TIAs. CT scan of the head was negative in ED on 06/14. Repeat CT scan of head showed evolving left posterior communicating artery distribution ischemic changes. TTE shows severely reduced LV function with an EF of around 30 to 35%. Global hypokinesis. Mildly dilated LV. Diastolic dysfunction stage II. Normal RV size and function. RVSP mildly elevated at 35 mmHg. Moderate aortic stenosis with a mean PG of 22 mm hg. Possibly underestimated due to the low ejection fraction and mostly low-flow low gradient severe aortic stenosis as a DANTE is less than 1 cm?. Moderately calcified aortic valve.Mild MAC with moderate MR as well as mild TR. CHARMAINE shows severely reduced LV function with an EF of around 30 to 35%. Global hypokinesis. Mildly dilated LV. Normal RV size and function. Moderate aortic stenosis. Possibly underestimated due to the low ejection fraction and mostly low-flow low gradient severe aortic stenosis . Moderately calcified aortic valve. Mild MAC with moderate MR as well as mild TR. systolic blunting of pulmonary vein flow. Recommendations: -Bubble study negative. No evidence of any PFO or ASD. 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 Patient presented as a STEMI and had 100% occlusion of the proximal to mid LCx and as well as 90% occlusion of the distal RCA and had 2 stents placed. He did have a repeat cardiac cath in 2014 at [facility] did show moderate residual disease diffuse in the LAD, OM1 as well as the mid RCA. No other cardiac catheterization since then. Patient used to follow-up with Dr. Fitzgerald in [place]. Per chart review he last followed up with them in 2021 looks like patient has been lost to follow-up since then. Regarding his CHF patient does have a history of EF of 40% but no new recent echo that has been noted. As per Recommendation from the last cardiology notes in 2021 he had mild systolic CHF. He was on Entresto and goal-directed medical therapy at that point of time but patient is not oriented the present point of time and unclear why. Strict input output Daily weights and 2 g sodium diet. Does not appear to be fluid overloaded at the present point of time and is not on any kind of diuretics. Will need GDMT with Entresto, beta-susanne, SGLT inhibitors. Aortic stenosis-echo and CHARMAINE showed at least moderate aortic stenosis by pressure gradient but the valve area was less than 1 cm? indicating possibly underestimation of the aortic stenosis and given the low ejection fraction. Patient mostly has low-flow low gradient severe . TTE shows severely reduced LV function with an EF of around 30 to 35%. Global hypokinesis. Mildly dilated LV. Diastolic dysfunction stage II. Normal RV size and function. RVSP mildly elevated at 35 mmHg. Moderate aortic stenosis with a mean PG of 22 mm hg. Possibly underestimated due to the low ejection fraction and mostly low-flow low gradient severe aortic stenosis as a DANTE is less than 1 cm?. Moderately calcified aortic valve.Mild MAC with moderate MR as well as mild TR. CHARMAINE shows severely reduced LV function with an EF of around 30 to 35%. Global hypokinesis. Mildly dilated LV. Normal RV size and function. Moderate aortic stenosis. Possibly underestimated due to the low ejection fraction and mostly low-flow low gradient severe aortic stenosis . Moderately calcified aortic valve. Mild MAC with moderate MR as well as mild TR. systolic blunting of pulmonary vein flow. Recommendations: -Switch patient to [facility] for GDMT -Continue Coreg 6.25 BIDWM -Continue Atorvastatin, Aspirin and Plavix -Patient has acute CVA, will follow up outpatient in clinic post discharge in 1 week. -Will consider starting patient on SGLT2 inhibitors for GDMT -For aortic stenosis, will do further workup for the same which can be continued as outpatient. For now recommend afterload reduction. -Strict input output Daily weights and 2 g sodium diet. #Hyperlipidemia Lipid panel shows triglycerides 147, cholesterol 131, LDL 64, HDL 38 Continue atorvastatin 80 mg at bedtime #Hypertension Patient on lisinopril 10mg qday, Coreg 6.25 BIDWM, currently Transition from lisinopril to enteresto for GDMT. #Diabetes mellitus type 2 Patient on metformin and glipizide per medication review, pending med rec Hgb A1c 13.7%, management per primary team recommended strict glycemic control Patient's blood glucose on presentation was 356 #Benign prostate hyperplasia Management per primary team Thank you for the consult and allowing to participate in the care of the patient. Cardiology will continue to follow. Case discussed with Attending Dr. Vega. Lizzy Benjamin PGY1 Disclaimer: This note was dictated by speech recognition. Minor errors in rock worker may be present due to voice recognition software. Attending Provider Attestation/Addendum I reviewed the resident Dr. Lizzy Benjamin consultation progress note and agree with the resident findings and plan in the note above and have also edited the documentation to reflect my findings and plan. Darren Vega M.D. Interventional Cardiology
--- NOTE | 2024-06-19 16:21 | ESPR_ITS ---
<Statement entered by Mariella Rosario MD - 06/20/24 07:43> Patient was seen and examined by me personally. I have directly supervised and reviewed documentation by the team resident and agree with its findings with any exceptions or additional findings as below. Plan of care was discussed with the attending, Dr. Barnhart. Patient remained calm overnight. Pending PT evaluation and patient will need SNF placement for discharge. Mariella Rosario, PGY-2 Documentation for date of: 06/19/24 Subjective Subjective Interval history: Patient was seen and examined by the bedside. No acute overnight events. Patient is AOx2, not oriented in place, resting comfortable in bed. Elements of aphasia. Blood pressure is in the normal range. Bladder scan in the AM showed 500 ml of fluid, patient was able to urinate 200 ml. Ordered straight cath a needed. Neurologist Dr. Amador is following the patient. PT assessment pending for SNF placement. Exam Vital Signs Temp Pulse Resp BP Pulse Ox O2 Del Method O2 Flow Rate 96.9 F 69 15 109/60 95 Room Air 2 06/19/24 15:58 06/19/24 15:58 06/19/24 15:58 06/19/24 15:58 06/19/24 15:58 06/19/24 15:58 06/18/24 12:00 Narrative Exam Physical Exam General: Awake and in no acute distress. Conversational and non-toxic appearing. Elements of aphasia. HEENT: Normocephalic, atraumatic, mucous membranes moist. Heart: Regular rate and rhythm, no murmurs. Lungs: Clear to auscultation with no wheezing or crackles. Abdomen: Soft, nondistended, nontender, positive bowel sounds. ?No guarding or rebound tenderness. Neurologic: Alert and oriented x1, right sided hemianopsia, and patient able to move all 4 extremities. Extremities: No edema. Skin: No rash or ecchymoses. Objective Labs 06/20/24 05:17 06/20/24 05:17 Labs: Laboratory Results - last 24 hr 06/19/24 05:13 WBC 7.4 RBC 4.74 Hgb 14.5 Hct 43.5 MCV 92 MCH 30.6 MCHC 33.3 RDW Std Deviation 42.6 Plt Count 217 Neut % (Auto) 61 Lymph % (Auto) 24 [place] % (Auto) 11 Eos % (Auto) 3 Baso % (Auto) 1 Neut # (Auto) 4.5 Lymph # (Auto) 1.8 [place] # (Auto) 0.8 Eos # (Auto) 0.2 Baso # (Auto) 0.0 Immature Gran # (Auto) 0.03 H Absolute Nucleated RBC 0.00 Immature Gran % 0 Nucleated RBC % 0 Sodium 139 Potassium 3.8 Chloride 101 Carbon Dioxide 25.9 Anion Gap 12 BUN 19 Creatinine 1.3 Estim Creat Clear Calc 59.7 L eGFR 59 L BUN/Creatinine Ratio 15 Glucose 228 H Calculated Osmolality 286 Calcium 9.5 Corrected Calcium 9.7 Phosphorus 4.0 Magnesium 1.8 Total Bilirubin 1.4 H AST 17 ALT 9 L Alkaline Phosphatase 63 Total Protein 6.6 Albumin 3.8 Globulin 2.8 Albumin/Globulin Ratio 1.4 Quality Measures Quality Measures VTE prophylaxis Advance care planning discussed with:: spouse Assessment & Plan Assessment Current Active Medications: Generic Name Dose Route Start Last Admin Trade Name Freq PRN Reason Stop Dose Admin Acetaminophen 650 mg 06/16/24 16:33 Acetaminophen 325 Mg Tablet PO 07/16/24 16:32 Q6H PRN Fever >100.3 or pain 1-3 Aspirin 81 mg 06/17/24 17:00 06/19/24 08:26 Aspirin Ec 81 Mg Tabec PO 07/17/24 16:59 81 mg QDAY RAYMON Administration Atorvastatin Calcium 80 mg 06/16/24 21:00 06/18/24 20:44 Atorvastatin Calcium 20 Mg Tablet PO 07/16/24 20:59 80 mg HS RAYMON Administration Carvedilol 6.25 mg 06/17/24 16:45 06/19/24 08:26 Carvedilol 3.125 Mg Tablet PO 07/17/24 16:44 6.25 mg BIDWM RAYMON Administration Clopidogrel Bisulfate 75 mg 06/17/24 09:00 06/19/24 08:26 Clopidogrel Bisulfate 75 Mg Tablet PO 07/17/24 08:59 75 mg QDAY RAYMON Administration Dextrose 25 ml 06/16/24 17:04 Dextrose 50%-Water Inj 50 Ml Syringe IV 07/16/24 17:03 Q15MIN PRN BG 50-70 responsive npo pt Dextrose 50 ml 06/16/24 17:04 Dextrose 50%-Water Inj 50 Ml Syringe IV 07/16/24 17:03 Q15MIN PRN BG <50 OR BG <70 & pt unresponsive Glucagon 1 mg 06/16/24 17:04 Glucagon Inj 1 Mg Vial IM Q15MIN PRN BG <70, and no IV access Heparin Sodium (Porcine) 5,000 unit 06/16/24 21:00 06/19/24 08:26 Heparin Sod Inj 5000 Unit/Ml Vial SC 06/30/24 20:59 5,000 unit Q12HR RAYMON Administration Insulin Human Lispro 0 unit 06/18/24 08:30 06/19/24 12:02 Insulin Lispro (Admelog) 1 Unit/0.01 Ml Unit SC 07/17/24 21:29 4 unit ACHS RAYMON Administration Protocol Labetalol HCl 10 mg 06/16/24 18:27 Labetalol Inj 5 Mg/Ml Vial 20 Ml IVP 07/16/24 19:59 Q2HR PRN SBP >160, hold if HR<60 Levalbuterol HCl 0.63 mg 06/17/24 16:43 06/18/24 20:55 Levalbuterol Rt 0.63 Mg/3 Ml Nebu INH 07/17/24 16:42 0.63 mg Q8HR PRN Administration WHEEZING Ondansetron HCl 4 mg 06/16/24 16:33 Ondansetron Inj 2 Mg/Ml Inj 2 Ml IV 07/16/24 16:32 Q6H PRN NAUSEA OR VOMITING Protocol Quetiapine Fumarate 25 mg 06/17/24 21:00 06/18/24 20:45 Quetiapine Fumarate 25 Mg Tablet PO 07/17/24 20:59 25 mg HS RAYMON Administration Sacubitril/Valsartan 1 tab 06/19/24 09:00 06/19/24 08:26 Sacubitril 24 Mg/Valsartan 26 Mg Tablet PO 07/19/24 08:59 1 tab BID RAYMON Administration Sennosides 1 tab 06/16/24 16:33 06/18/24 17:45 Senna Tablet PO 07/16/24 16:32 1 tab BID PRN Administration CONSTIPATION Protocol Tamsulosin HCl 0.4 mg 06/17/24 09:00 06/19/24 08:26 Tamsulosin Hcl 0.4 Mg Capsule PO 07/17/24 08:59 0.4 mg QDAY RAYMON Administration Plan The patient is a 69-year-old male with a previous medical history of vascular dementia, status post CVA, multiple TIAs, hypertension, diabetes, hyperlipidemia, CAD status post PCI with stent placement, BPH who was brought to the ED due to altered mental status and was admitted for the acute stroke. #Acute CVA #Valcular dementia #Cognitive deficit #Right sided hemianopsia Patient's reported that on Thursday morning patient started having altered mental status, slurred speech, face numbness. He has a history of previous stroke, TIAs and diagnosed with vascular dementia. DDx: Atherothrombotic versus embolic stroke 06/17/2024: A1c 13.7% TSH 0.90. Head CT was negative for acute bleeding, showed posterior communicating artery distribution ischemic changes. Speech eval recommended dysphagia 2 diet. TTE showed ejection fraction 50 to 55%. Global hypokinesis. Stage II diastolic dysfunction. Moderate aortic stenosis. CHARMAINE: Ejection fraction 30 to 35%. No evidence for PFO or ASD. No left atrial or left atrial appendage thrombus. Moderate aortic stenosis. Plan: ?Telemetry ? Head of bed elevation 30 degrees ? Maintain euthermia and euglycemia ? Neurologist consulted, appreciate recommendations ? Blood pressure control ?Neurochecks every 4 hours ?Continue home atorvastatin 80 mg daily ? Plavix 75 mg daily - Aspirin 81 mg qday - After discharge, follow-up with Dr. Amador in 2 weeks - Physical therapy eval pending #History of CAD, status post multiple stent placement #History of CHF #History if hypertension At this moment of time no signs on CHF exacerbation. Plan: - med rec is pending ?Continue home atorvastatin 80 mg daily - labetalol 10 mg IV PRN if BP>160, hold if HR<60 - carvedilol 6.25 mg BID - Lisinopril 10 mg qday #BPH - continue home tamsulosin #Type 2 diabetes 06/17/2024: A1c 13.7% Plan: - sliding scale insulin - Glargine 10 U sc once - hypoglycemia protocol in place - patient will require insulin regimen adjustment on discharge Health maintenance: FEN: Dysphagia 2 cardiac DVT prophylaxis: heparin sc GI prophylaxis: none Dispo: telemetry CODE STATUS: DNR/DNI Plan of care discussed with attending Dr. Rosario, PGY-[address] Rosario and PGY-[address] Grier. Cheryl Wallace MD, PGY 1. Attending Provider Attestation/Addendum I reviewed labs, imaging, EKG, home medications and prior available records. Face to face evaluation was performed by me. I have personally examined the patient and discussed assessment and plan with the IM team. I reviewed the resident note and agree with the plan with exceptions as below. Acute encephalopathy Acute CVA Vascular dementia CAD status post stenting Type 2 diabetes mellitus with hyperglycemia BPH Repeat CT head showed evolving CVA but no interval bleeding Started Plavix and atorvastatin Every 4 hour neurochecks Obtain echocardiogram: Showed reduced EF of 35% and negative bubble study. Also showed moderate Consulted cardiology for CHARMAINE: Also showed reduced EF of about 30 to 35%. No thrombus found in LA or AYAZ Consulted neurology Start insulin therapy. Continue upon discharge along with oral agents. Monitor fingersticks Follow-up PT evaluation
--- NOTE | 2024-06-19 16:36 | PC.SS ---
Addendum entered by Donna Gaines 06/19/24 16:41: SS received call from patient's son Aidan. He requested SS contact [facility] at the time of discharge. He was unable to provide direct contact number for [facility] and explained patient has open case with [facility]PS. Primary medical surrogate decision maker: Talisha Palacio, spouse [phone]. Original Note: SS contacted patient?s spouse Talisha Palacio [phone] to complete initial assessment. Patient?s spouse Talisha confirmed patient?s demographic information. Talisha stated she is patient?s primary medical surrogate decision maker. Talisha explained patient resides with her in a house. Patient has been independent with ADL completion and utilized a walker to ambulate. Talisha stated patient?s right leg is weak and his knee twyla. Talisha stated patient struggles to ambulate due to losing vision on his right eye. [facility]acy[facility]. PCP: Brennen Rodriguez. Patient?s spouse Talisha is requesting patient be placed in SNF if he is weak; preferred choice is [facility]. Talisha expressed concern with patient?s safety, as he is confused and altered. Talisha stated if [facility] is unable to accept patient she is open to SNFs in [place]. SS informed Talisha referrals will be submitted and she will be notified with accepting SNFs. Discharge plan: SNF- preferred [facility] Primary medical surrogarte decision maker: Wayne
[2024-06-19] MEDS: ATORVASTATIN CALCIUM 20 MG TABLET 80 MG PO (21:08)
[2024-06-19] MEDS: QUEtiapine FUMARATE 25 MG TABLET PO (21:08)
[2024-06-20] VITALS (9 sets, daily range): BP systolic 95–119; BP diastolic 60–74; PULSE 66–81; RESP 16–94; TEMP 36.2–36.7; O2SAT 94–98; BMI 15.0; BMI 27.8
--- NOTE | 2024-06-20 00:13 | ESPR_ITS ---
Documentation for date of: 06/20/24 Subjective Subjective Interval history: Patient was seen in telemetry at the bedside with his family at the bedside. His mental status and language function has improved compared to admission to some extent but he still has aphasia, alexia and agraphia. Exam - Neurology Vital Signs Temp Pulse Resp BP Pulse Ox O2 Del Method O2 Flow Rate 97.0 F 76 20 100/54 L 97 Room Air 2 06/19/24 19:56 06/19/24 20:00 06/19/24 19:56 06/19/24 19:56 06/19/24 19:56 06/19/24 19:56 06/18/24 12:00 Narrative Exam GENERAL APPEARANCE: Well hydrated, well-nourished in no acute distress. HEENT: Normocephalic, atraumatic, extraocular movements intact. Pupils: Equal reacting to light and accommodation, tympanic membranes are bilaterally intact. There is no bulge or retraction. Throat without erythema or exudate. Moist oral mucosa. NECK: Supple, no JVD or bruits. CARDIOVASULAR: Heart: S1, S2 heard, regular without S3-S4 or murmur no rubs or gallops. LUNGS/CHEST: Clear to auscultation bilaterally. No rails, rhonchi, or wheezing. Normal inspection. ABDOMEN: Soft, nontender, with normal bowel sounds. No pulsatile masses. No rebound, rigidity, or guarding. Normal inspection and palpation. EXTREMITIES: Normal inspection and palpation. No edema, clubbing or cyanosis. SKIN: Warm and dry without rashes. Normal inspection. MUSCULOSKELETAL: No cervical, thoracic, lumbar or midline bony tenderness. Normal inspection. NEURO: Alert, awake and oriented x1. Cranial nerves: II through XII grossly intact. Speech and language: Significant aphasia noted. motor system: Tone and bulk: Normal: Strength: 5 out of 5 in all 4 extremities; No pronator drift noted. Deep tendon reflexes: 2+ bilaterally symmetrical. Plantar reflex: Downgoing bilaterally. Sensory system: Intact to all modalities of sensation bilaterally. Coordination: Intact to [id number] and [id number] test bilaterally. No ataxia, no dysmetria, or dysdiadochokinesia noted. No intention tremors noted. Gait: Not tested. No signs of meningeal irritation noted. PSYCHIATRIC: Normal mood and affect. Objective Labs 06/19/24 05:13 06/19/24 05:13 Labs: Laboratory Results - last 24 hr 06/19/24 05:13 WBC 7.4 RBC 4.74 Hgb 14.5 Hct 43.5 MCV 92 MCH 30.6 MCHC 33.3 RDW Std Deviation 42.6 Plt Count 217 Neut % (Auto) 61 Lymph % (Auto) 24 [place] % (Auto) 11 Eos % (Auto) 3 Baso % (Auto) 1 Neut # (Auto) 4.5 Lymph # (Auto) 1.8 [place] # (Auto) 0.8 Eos # (Auto) 0.2 Baso # (Auto) 0.0 Immature Gran # (Auto) 0.03 H Absolute Nucleated RBC 0.00 Immature Gran % 0 Nucleated RBC % 0 Sodium 139 Potassium 3.8 Chloride 101 Carbon Dioxide 25.9 Anion Gap 12 BUN 19 Creatinine 1.3 Estim Creat Clear Calc 59.7 L eGFR 59 L BUN/Creatinine Ratio 15 Glucose 228 H Calculated Osmolality 286 Calcium 9.5 Corrected Calcium 9.7 Phosphorus 4.0 Magnesium 1.8 Total Bilirubin 1.4 H AST 17 ALT 9 L Alkaline Phosphatase 63 Total Protein 6.6 Albumin 3.8 Globulin 2.8 Albumin/Globulin Ratio 1.4 Assessment & Plan Additional Assessment & Plan Additional Plan: Patient is a 69-year-old male with a previous medical history of vascular dementia, status post CVA, multiple TIAs, hypertension, diabetes, hyperlipidemia, CAD status post PCI with stent placement, BPH who was brought to the ED due to altered mental status. Neurology consulted due to acute ischemic stroke noted on imaging. #Acute left occipital and posterior medial temporal lobes stroke, as well as portions of the left thalamus and internal capsule stroke he does have vascular dementia at baseline from the previous left MCA ischemic infarction Acute stroke noted on MRI Repeat CT shows no acute hemorrhages Patient needs better glycemic control, A1c 13.7 Continue with high-dose statin, aspirin 81 mg, and Plavix 75 mg for 21 days of dual antiplatelets Continue with PT and speech therapy CHARMAINE: Bubble study negative. No evidence of any PFO or ASD. No LA/AYAZ thrombus Severely reduced LV function with an EF of around 30 to 35%. Global hypokinesis. Mildly dilated LV. Normal RV size and function. Moderate aortic stenosis. Possibly underestimated due to the low ejection fraction and mostly low-flow low gradient severe aortic stenosis . Moderately calcified aortic valve. Mild MAC with moderate MR as well as mild TR. systolic blunting of pulmonary vein flow Needs short-term rehab placement. #History of CAD, status post multiple stent placement #History of CHF #History if hypertension #BPH #Diabetes mellitus Continue management per primary team
--- NOTE | 2024-06-20 00:48 | PC.NURSE ---
CODE MARCIN INITIATED. PT OUT OF BED. AGITATED AND COMBATIVE, SWINGING HIS ARMS AT STAFF. ATTEMPTED TO REDIRECT PT BACK TO HIS ROOM. PT ATTEMPTING TO OPEN DOOR TO ROOM 271. SECURITY NOW AT BEDSIDE, GUIDED PT BACK TO BED. BILATERAL WRIST RESTRAINTS PLACED. DR. ZENDEJAS AT BEDSIDE ASSESSING PT. NEW ORDERS FOR IM HALDOL, WILL REASSESS AFTER MED GIVEN TO SEE IF PT REQUIRES RESTRAINTS POST ADMINISTRATIVE PROJECT COORDINATOR.
[2024-06-20] MEDS: HALOPERIDOL LACT INJ 5 MG/ML VIAL 2 MG IM (00:58)
[2024-06-20 05:49] LABS: Basophils % (Auto) 1 % (0-2.5); Eosinophils # (Auto) 0.2 Thou/mm3 (0.0-0.5); Eosinophils % (Auto) 4 % (0-10); Hematocrit 41.4 % (41.0-53.0); Hemoglobin 14.1 g/dL (13.5-16.0); Immature Granulocytes % (Auto) 0 % (0-0); Immature Granulocytes Auto 0.02 Thou/mm3 (0.00-0.00); Lymphocytes # (Auto) 1.5 Thou/mm3 (1.0-4.8); Lymphocytes % (Auto) 23 % (10-50); Mean Corpuscular HGB Conc 34.1 g/dl (31.0-37.0); Mean Corpuscular Hemoglobin 30.4 pg (25.0-35.0); Mean Corpuscular Volume 89 fL (80-100); Monocytes # (Auto) 0.7 Thou/mm3 (0.0-0.8); Monocytes % (Auto) 10 % (0-12); Neutrophils # (Auto) 4.2 Thou/mm3 (1.8-7.7); Neutrophils % (Auto) 63 % (37-80); Nucleated Red Blood Cell % 0 /100 WBC (0); Platelet Count 219 Thou/mm3 (140-440); RDW Standard Deviation 40.5 fL (35.1-43.9); Red Blood Count 4.64 Miln/mm3 (4.50-5.90); White Blood Count 6.7 Thou/mm3 (3.8-10.6)
[2024-06-20 06:40] LABS: Alanine Aminotransferase 8 U/L (10-49); Albumin, Serum 3.5 gm/dL (3.4-4.8); Albumin/Globulin Ratio 1.3 (1.2-2.2); Alkaline Phosphatase 58 U/L (46-116); Anion Gap 12 (7-16); Aspartate Amino Transferase 18 U/L (0-34); BUN/Creatinine Ratio 15 Ratio (12-20); Bilirubin,Total 1.5 mg/dL (0.3-1.2); Blood Urea Nitrogen 16 mg/dL (9-23); Calcium 8.7 mg/dL (8.3-10.6); Calcium (Corrected) 9.1 mg/dL (8.5-10.1); Carbon Dioxide 22.4 mMol/L (20.0-31.0); Chloride 101 mMol/L (98-107); Creatinine (Component) 1.1 mg/dL (0.6-1.3); Estimated Creatinine Clearance 70.5 mL/min (>60); Globulin 2.8 gm/dL (2.3-3.5); Glucose 277 mg/dL (74-106); Magnesium 1.6 mg/dL (1.6-2.6); Osmolality,Calculated 281 (275-295); Phosphorous 2.7 mg/dL (2.4-5.1); Potassium 3.6 mMol/L (3.4-5.1); Sodium 135 mMol/L (136-145); Total Protein 6.3 gm/dL (5.7-8.2); eGFR > 60 See Note
[2024-06-20] MEDS: INSULIN LISPRO (AdmeLOG) 1 UNIT/0.01 ML UNIT SC ×3 (07:26→20:09)
[2024-06-20] MEDS: carVEDILOL 3.125 MG TABLET 6.25 MG PO ×2 (07:31→17:04)
[2024-06-20] MEDS: CLOPIDOGREL BISULFATE 75 MG TABLET PO (08:10)
[2024-06-20] MEDS: TAMSULOSIN HCL 0.4 MG CAPSULE PO (08:10)
[2024-06-20] MEDS: ASPIRIN EC 81 MG TABEC PO (08:11)
[2024-06-20] MEDS: SACUBITRIL 24 MG/VALSARTAN 26 MG TABLET 1 TAB PO ×2 (08:11→20:13)
[2024-06-20] MEDS: HEPARIN SOD INJ 5000 UNIT/ML VIAL SC ×2 (08:11→20:10)
--- NOTE | 2024-06-20 09:21 | PD.RESPRO ---
Documentation for date of: 06/20/24 Subjective Subjective Interval history: Patient seen and examined at bedside. Patient is on GDMT, tolerating well, blood pressure is stable Patient is pending discharge to rehab facility. Exam Vital Signs Temp Pulse Resp BP Pulse Ox O2 Del Method O2 Flow Rate 97.7 F 81 18 119/74 94 L Room Air 2 06/20/24 08:00 06/20/24 08:00 06/20/24 08:00 06/20/24 08:00 06/20/24 08:00 06/20/24 08:00 06/18/24 12:00 Narrative Exam Physical Exam General: Awake and in no acute distress. Conversational and non-toxic appearing. HEENT: Normocephalic, atraumatic, mucous membranes moist. Heart: Regular rate and rhythm, positive for systolic murmur. Lungs: Clear to auscultation with no wheezing or crackles. Abdomen: Soft, nondistended, nontender, positive bowel sounds. ?No guarding or rebound tenderness. Neurologic: Alert and oriented x3, patient able to move all 4 extremities. Extremities: No edema. Skin: No rash or ecchymoses. Objective Labs 06/20/24 05:17 06/20/24 05:17 Labs: Laboratory Results - last 24 hr 06/20/24 05:17 WBC 6.7 RBC 4.64 Hgb 14.1 Hct 41.4 MCV 89 MCH 30.4 MCHC 34.1 RDW Std Deviation 40.5 Plt Count 219 Neut % (Auto) 63 Lymph % (Auto) 23 [place] % (Auto) 10 Eos % (Auto) 4 Baso % (Auto) 1 Neut # (Auto) 4.2 Lymph # (Auto) 1.5 [place] # (Auto) 0.7 Eos # (Auto) 0.2 Baso # (Auto) 0.0 Immature Gran # (Auto) 0.02 H Absolute Nucleated RBC 0.00 Immature Gran % 0 Nucleated RBC % 0 Sodium 135 L Potassium 3.6 Chloride 101 Carbon Dioxide 22.4 Anion Gap 12 BUN 16 Creatinine 1.1 Estim Creat Clear Calc 70.5 eGFR > 60 BUN/Creatinine Ratio 15 Glucose 277 H Calculated Osmolality 281 Calcium 8.7 Corrected Calcium 9.1 Phosphorus 2.7 Magnesium 1.6 Total Bilirubin 1.5 H AST 18 ALT 8 L Alkaline Phosphatase 58 Total Protein 6.3 Albumin 3.5 Globulin 2.8 Albumin/Globulin Ratio 1.3 Quality Measures Quality Measures VTE prophylaxis Advance care planning discussed with:: patient Assessment & Plan Assessment Current Active Medications: Generic Name Dose Route Start Last Admin Trade Name Freq PRN Reason Stop Dose Admin Acetaminophen 650 mg 06/16/24 16:33 Acetaminophen 325 Mg Tablet PO 07/16/24 16:32 Q6H PRN Fever >100.3 or pain 1-3 Aspirin 81 mg 06/17/24 17:00 06/20/24 08:11 Aspirin Ec 81 Mg Tabec PO 07/17/24 16:59 81 mg QDAY RAYMON Administration Atorvastatin Calcium 80 mg 06/16/24 21:00 06/19/24 21:08 Atorvastatin Calcium 20 Mg Tablet PO 07/16/24 20:59 80 mg HS RAYMON Administration Carvedilol 6.25 mg 06/17/24 16:45 06/20/24 07:31 Carvedilol 3.125 Mg Tablet PO 07/17/24 16:44 6.25 mg BIDWM RAYMON Administration Clopidogrel Bisulfate 75 mg 06/17/24 09:00 06/20/24 08:10 Clopidogrel Bisulfate 75 Mg Tablet PO 07/17/24 08:59 75 mg QDAY RAYMON Administration Dextrose 25 ml 06/16/24 17:04 Dextrose 50%-Water Inj 50 Ml Syringe IV 07/16/24 17:03 Q15MIN PRN BG 50-70 responsive npo pt Dextrose 50 ml 06/16/24 17:04 Dextrose 50%-Water Inj 50 Ml Syringe IV 07/16/24 17:03 Q15MIN PRN BG <50 OR BG <70 & pt unresponsive Glucagon 1 mg 06/16/24 17:04 Glucagon Inj 1 Mg Vial IM Q15MIN PRN BG <70, and no IV access Heparin Sodium (Porcine) 5,000 unit 06/16/24 21:00 06/20/24 08:11 Heparin Sod Inj 5000 Unit/Ml Vial SC 06/30/24 20:59 5,000 unit Q12HR RAYMON Administration Insulin Human Lispro 0 unit 06/18/24 08:30 06/20/24 07:26 Insulin Lispro (Admelog) 1 Unit/0.01 Ml Unit SC 07/17/24 21:29 5 unit ACHS RAYMON Administration Protocol Labetalol HCl 10 mg 06/16/24 18:27 Labetalol Inj 5 Mg/Ml Vial 20 Ml IVP 07/16/24 19:59 Q2HR PRN SBP >160, hold if HR<60 Levalbuterol HCl 0.63 mg 06/17/24 16:43 06/18/24 20:55 Levalbuterol Rt 0.63 Mg/3 Ml Nebu INH 07/17/24 16:42 0.63 mg Q8HR PRN Administration WHEEZING Ondansetron HCl 4 mg 06/16/24 16:33 Ondansetron Inj 2 Mg/Ml Inj 2 Ml IV 07/16/24 16:32 Q6H PRN NAUSEA OR VOMITING Protocol Quetiapine Fumarate 25 mg 06/17/24 21:00 06/19/24 21:08 Quetiapine Fumarate 25 Mg Tablet PO 07/17/24 20:59 25 mg HS RAYMON Administration Sacubitril/Valsartan 1 tab 06/19/24 09:00 06/20/24 08:11 Sacubitril 24 Mg/Valsartan 26 Mg Tablet PO 07/19/24 08:59 1 tab BID RAYMON Administration Sennosides 1 tab 06/16/24 16:33 06/18/24 17:45 Senna Tablet PO 07/16/24 16:32 1 tab BID PRN Administration CONSTIPATION Protocol Tamsulosin HCl 0.4 mg 06/17/24 09:00 06/20/24 08:10 Tamsulosin Hcl 0.4 Mg Capsule PO 07/17/24 08:59 0.4 mg QDAY RAYMON Administration Plan Assessment and plan: Summary: Mr. 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 Amador secondary to abnormal MRI. Most of the history is obtained from patient's chart as patient is confused unable to provide history has difficulty word finding. MRI ordered outpatient by neurologist done earlier in a.m. today showed Proximal occlusion of the left posterior cerebral artery resulting in ischemia of most of the remaining left occipital and posterior medial temporal lobes, as well as portions of the left thalamus and internal capsule. Encephalomalacia from old left occipital/temporal infarction. Extensive global parenchymal volume loss and chronic small vessel ischemic changes. Small focus of susceptibility right semicentrum ovale may represent area of microhemorrhage. Patient admitted for acute CVA workup, cardiology consulted for TTE and possible CHARMAINE due to concern of embolic stroke to complete workup. #Acute CVA #Vascular dementia #History of CVA, multiple TIAs Patient initially evaluated in ED on 06/14 for acute confusion, symptoms resolved per ED physician's note and patient was discharged home with a diagnosis of exacerbation of dementia, underlying vascular dementia. Patient followed neurology outpatient for vascular dementia, was scheduled for a MRI earlier this morning which showed proximal occlusion of the left posterior cerebral artery resulting in ischemia of most of the remaining left occipital and posterior medial temporal lobes, as well as portions of the left thalamus and internal capsule. Encephalomalacia from old left occipital/temporal infarction. Extensive global parenchymal volume loss and chronic small vessel ischemic changes. Small focus of susceptibility right semicentrum ovale may represent area of microhemorrhage. Patient admitted for further workup per neurology recommendations for acute CVA, last known well time more than 24 hours. Patient does have history of CVA in the past, last one in 2020 and does endorse history of multiple TIAs. CT scan of the head was negative in ED on 06/14. Repeat CT scan of head showed evolving left posterior communicating artery distribution ischemic changes. TTE shows severely reduced LV function with an EF of around 30 to 35%. Global hypokinesis. Mildly dilated LV. Diastolic dysfunction stage II. Normal RV size and function. RVSP mildly elevated at 35 mmHg. Moderate aortic stenosis with a mean PG of 22 mm hg. Possibly underestimated due to the low ejection fraction and mostly low-flow low gradient severe aortic stenosis as a DANTE is less than 1 cm?. Moderately calcified aortic valve.Mild MAC with moderate MR as well as mild TR. CHARMAINE shows severely reduced LV function with an EF of around 30 to 35%. Global hypokinesis. Mildly dilated LV. Normal RV size and function. Moderate aortic stenosis. Possibly underestimated due to the low ejection fraction and mostly low-flow low gradient severe aortic stenosis . Moderately calcified aortic valve. Mild MAC with moderate MR as well as mild TR. systolic blunting of pulmonary vein flow. Recommendations: -Bubble study negative. No evidence of any PFO or ASD. 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 Patient presented as a STEMI and had 100% occlusion of the proximal to mid LCx and as well as 90% occlusion of the distal RCA and had 2 stents placed. He did have a repeat cardiac cath in 2014 at [facility] did show moderate residual disease diffuse in the LAD, OM1 as well as the mid RCA. No other cardiac catheterization since then. Patient used to follow-up with Dr. Fitzgerald in [place]. Per chart review he last followed up with them in 2021 looks like patient has been lost to follow-up since then. Regarding his CHF patient does have a history of EF of 40% but no new recent echo that has been noted. As per Recommendation from the last cardiology notes in 2021 he had mild systolic CHF. He was on Entresto and goal-directed medical therapy at that point of time but patient is not oriented the present point of time and unclear why. Strict input output Daily weights and 2 g sodium diet. Does not appear to be fluid overloaded at the present point of time and is not on any kind of diuretics. Will need GDMT with Entresto, beta-susanne, SGLT inhibitors. Aortic stenosis-echo and CHARMAINE showed at least moderate aortic stenosis by pressure gradient but the valve area was less than 1 cm? indicating possibly underestimation of the aortic stenosis and given the low ejection fraction. Patient mostly has low-flow low gradient severe . TTE shows severely reduced LV function with an EF of around 30 to 35%. Global hypokinesis. Mildly dilated LV. Diastolic dysfunction stage II. Normal RV size and function. RVSP mildly elevated at 35 mmHg. Moderate aortic stenosis with a mean PG of 22 mm hg. Possibly underestimated due to the low ejection fraction and mostly low-flow low gradient severe aortic stenosis as a DANTE is less than 1 cm?. Moderately calcified aortic valve.Mild MAC with moderate MR as well as mild TR. CHARMAINE shows severely reduced LV function with an EF of around 30 to 35%. Global hypokinesis. Mildly dilated LV. Normal RV size and function. Moderate aortic stenosis. Possibly underestimated due to the low ejection fraction and mostly low-flow low gradient severe aortic stenosis . Moderately calcified aortic valve. Mild MAC with moderate MR as well as mild TR. systolic blunting of pulmonary vein flow. Recommendations: -Switch patient to Enteresto for GDMT -Continue Coreg 6.25 BIDWM -Continue Atorvastatin, Aspirin and Plavix -Patient has acute CVA, will follow up outpatient in clinic post discharge in 1 week. -Will consider starting patient on SGLT2 inhibitors for GDMT -For aortic stenosis, will do further workup for the same which can be continued as outpatient. For now recommend afterload reduction. -Strict input output Daily weights and 2 g sodium diet. #Hyperlipidemia Lipid panel shows triglycerides 147, cholesterol 131, LDL 64, HDL 38 Continue atorvastatin 80 mg at bedtime #Hypertension Patient on lisinopril 10mg qday, Coreg 6.25 BIDWM, currently Transition from lisinopril to enteresto for GDMT. #Diabetes mellitus type 2 Patient on metformin and glipizide per medication review, pending med rec Hgb A1c 13.7%, management per primary team recommended strict glycemic control Patient's blood glucose on presentation was 356 #Benign prostate hyperplasia Management per primary team Thank you for the consult and allowing to participate in the care of the patient. Cardiology will continue to follow. Case discussed with Attending Dr. Vega. Lizzy Benjamin PGY1 Disclaimer: This note was dictated by speech recognition. Minor errors in software applications specialist may be present due to voice recognition software. Attending Provider Attestation/Addendum I have personally seen and examined the patient separately on the above date of service and discussed the plan of care with the resident. I reviewed the resident Dr. Lizzy Benjamin consultation progress note and agree with the resident findings and plan in the note above and have also edited the documentation to reflect my findings and plan. Darren Vega M.D. Interventional Cardiology
--- NOTE | 2024-06-20 09:27 | PD.RESPRO ---
Documentation for date of: 06/20/24 Subjective Subjective Interval history: Patient seen and assessed at bedside. Patient appears to be doing better. Still with aphasia, not able to read/write and answer questions Exam Vital Signs Temp Pulse Resp BP Pulse Ox O2 Del Method O2 Flow Rate 97.7 F 81 18 119/74 94 L Room Air 2 06/20/24 08:00 06/20/24 08:00 06/20/24 08:00 06/20/24 08:00 06/20/24 08:00 06/20/24 08:00 06/18/24 12:00 Narrative Exam General: Awake and in no acute distress. Conversational and non-toxic appearing. AO x 2 to self and president. Still aphasic. Heart: Regular rate and rhythm, possible systolic murmur on auscultation. Lungs: Chest clear to auscultation bilaterally. Frequent coughs. Abdomen: Soft, nondistended, nontender, positive bowel sounds. ?No guarding or rebound tenderness. Neurologic: Alert and oriented x2, equal upper extremity strength. Patient able to move all 4 extremities. Extremities: No edema. Skin: No rash or ecchymoses. Objective Labs 06/20/24 05:17 06/20/24 05:17 Labs: Laboratory Results - last 24 hr 06/20/24 05:17 WBC 6.7 RBC 4.64 Hgb 14.1 Hct 41.4 MCV 89 MCH 30.4 MCHC 34.1 RDW Std Deviation 40.5 Plt Count 219 Neut % (Auto) 63 Lymph % (Auto) 23 [place] % (Auto) 10 Eos % (Auto) 4 Baso % (Auto) 1 Neut # (Auto) 4.2 Lymph # (Auto) 1.5 [place] # (Auto) 0.7 Eos # (Auto) 0.2 Baso # (Auto) 0.0 Immature Gran # (Auto) 0.02 H Absolute Nucleated RBC 0.00 Immature Gran % 0 Nucleated RBC % 0 Sodium 135 L Potassium 3.6 Chloride 101 Carbon Dioxide 22.4 Anion Gap 12 BUN 16 Creatinine 1.1 Estim Creat Clear Calc 70.5 eGFR > 60 BUN/Creatinine Ratio 15 Glucose 277 H Calculated Osmolality 281 Calcium 8.7 Corrected Calcium 9.1 Phosphorus 2.7 Magnesium 1.6 Total Bilirubin 1.5 H AST 18 ALT 8 L Alkaline Phosphatase 58 Total Protein 6.3 Albumin 3.5 Globulin 2.8 Albumin/Globulin Ratio 1.3 Quality Measures Quality Measures VTE prophylaxis Advance care planning discussed with:: patient Assessment & Plan Assessment Current Active Medications: Generic Name Dose Route Start Last Admin Trade Name Freq PRN Reason Stop Dose Admin Acetaminophen 650 mg 06/16/24 16:33 Acetaminophen 325 Mg Tablet PO 07/16/24 16:32 Q6H PRN Fever >100.3 or pain 1-3 Aspirin 81 mg 06/17/24 17:00 06/20/24 08:11 Aspirin Ec 81 Mg Tabec PO 07/17/24 16:59 81 mg QDAY RAYMON Administration Atorvastatin Calcium 80 mg 06/16/24 21:00 06/19/24 21:08 Atorvastatin Calcium 20 Mg Tablet PO 07/16/24 20:59 80 mg HS RAYMON Administration Carvedilol 6.25 mg 06/17/24 16:45 06/20/24 07:31 Carvedilol 3.125 Mg Tablet PO 07/17/24 16:44 6.25 mg BIDWM RAYMON Administration Clopidogrel Bisulfate 75 mg 06/17/24 09:00 06/20/24 08:10 Clopidogrel Bisulfate 75 Mg Tablet PO 07/17/24 08:59 75 mg QDAY RAYMON Administration Dextrose 25 ml 06/16/24 17:04 Dextrose 50%-Water Inj 50 Ml Syringe IV 07/16/24 17:03 Q15MIN PRN BG 50-70 responsive npo pt Dextrose 50 ml 06/16/24 17:04 Dextrose 50%-Water Inj 50 Ml Syringe IV 07/16/24 17:03 Q15MIN PRN BG <50 OR BG <70 & pt unresponsive Glucagon 1 mg 06/16/24 17:04 Glucagon Inj 1 Mg Vial IM Q15MIN PRN BG <70, and no IV access Heparin Sodium (Porcine) 5,000 unit 06/16/24 21:00 06/20/24 08:11 Heparin Sod Inj 5000 Unit/Ml Vial SC 06/30/24 20:59 5,000 unit Q12HR RAYMON Administration Insulin Human Lispro 0 unit 06/18/24 08:30 06/20/24 07:26 Insulin Lispro (Admelog) 1 Unit/0.01 Ml Unit SC 07/17/24 21:29 5 unit ACHS RAYMON Administration Protocol Labetalol HCl 10 mg 06/16/24 18:27 Labetalol Inj 5 Mg/Ml Vial 20 Ml IVP 07/16/24 19:59 Q2HR PRN SBP >160, hold if HR<60 Levalbuterol HCl 0.63 mg 06/17/24 16:43 06/18/24 20:55 Levalbuterol Rt 0.63 Mg/3 Ml Nebu INH 07/17/24 16:42 0.63 mg Q8HR PRN Administration WHEEZING Ondansetron HCl 4 mg 06/16/24 16:33 Ondansetron Inj 2 Mg/Ml Inj 2 Ml IV 07/16/24 16:32 Q6H PRN NAUSEA OR VOMITING Protocol Quetiapine Fumarate 25 mg 06/17/24 21:00 06/19/24 21:08 Quetiapine Fumarate 25 Mg Tablet PO 07/17/24 20:59 25 mg HS RAYMON Administration Sacubitril/Valsartan 1 tab 06/19/24 09:00 06/20/24 08:11 Sacubitril 24 Mg/Valsartan 26 Mg Tablet PO 07/19/24 08:59 1 tab BID RAYMON Administration Sennosides 1 tab 06/16/24 16:33 06/18/24 17:45 Senna Tablet PO 07/16/24 16:32 1 tab BID PRN Administration CONSTIPATION Protocol Tamsulosin HCl 0.4 mg 06/17/24 09:00 06/20/24 08:10 Tamsulosin Hcl 0.4 Mg Capsule PO 07/17/24 08:59 0.4 mg QDAY RAYMON Administration Plan #Acute left occipital and posterior medial temporal lobes stroke, as well as portions of the left thalamus and internal capsule stroke Acute stroke noted on MRI Repeat CT shows no acute hemorrhages Patient needs better glycemic control, A1c 13.7 Continue with high-dose statin, aspirin 81 mg, and Plavix 75 mg for 21 days of dual antiplatelets Continue with PT and speech therapy CHARMAINE negative for any thrombus Patient will likely benefit from rehab for further PT #History of CAD, status post multiple stent placement #History of CHF #History if hypertension #BPH #Diabetes mellitus Continue management per primary team Case discussed with attending Dr Marjorie Bai MD PGY3 Attending Provider Attestation/Addendum I personally have seen and examined the patient at the bedside and I agree with resident's findings, assessment and plan of care. Continue with the current management He would need speech therapy, PT and OT and cognitive therapy, waiting for placement.
[2024-06-20] MEDS: INSULIN GLARGINE (Lantus) 5 UNIT/0.05 ML (PER 5 UNITS) 10 UNIT SC (11:29)
[2024-06-20] MEDS: SENNA TABLET 1 TAB PO (12:07)
--- NOTE | 2024-06-20 15:05 | PC.SS ---
Referral submitted on behalf of the patient. Preferred facility [facility]. If patient is declined by Acute Rehab, local SNF's to be considered for placement.
--- NOTE | 2024-06-20 15:06 | PC.SS ---
Addendum entered and electronically signed by LIANE Barboza 06/20/24 16:02: [facility] [place]: Dana Original Note: director of radio services will need to contact [facility] Office upon the patient's discharge. Reference report #[id number].
[2024-06-20] MEDS: Milk Of Magnesia Susp 30 ML UDC PO (15:36)
[2024-06-20] MEDS: INSULIN LISPRO (AdmeLOG) 1 UNIT/0.01 ML UNIT 7 UNIT SC (17:02)
--- NOTE | 2024-06-20 17:14 | PD.ADDPROG ---
Addendum Progress Note Addendum Date of report being addended: 06/20/24 Narrative: I reviewed labs, imaging, EKG, home medications and prior available records. Face to face evaluation was performed by me. I have personally examined the patient and discussed assessment and plan with the IM team. I reviewed the resident note and agree with the plan with exceptions as below. Acute encephalopathy Acute CVA Vascular dementia CAD status post stenting Type 2 diabetes mellitus with hyperglycemia BPH MRI showed left occipital and posterior temporal lobe infarct Repeat CT head showed evolving CVA but no interval bleeding Started Plavix and atorvastatin Every 4 hour neurochecks Obtain echocardiogram: Showed reduced EF of 35% and negative bubble study. Also showed moderate . Continue Entresto and Coreg. Continue empagliflozin Consulted cardiology for CHARMAINE: Also showed reduced EF of about 30 to 35%. No thrombus found in LA or AYAZ Consulted neurology Start insulin therapy. Continue upon discharge along with empagliflozin and metformin. Monitor fingersticks Follow-up PT evaluation: Recommended SNF placement. turn out worker is working on that
--- NOTE | 2024-06-20 17:50 | PC.SS ---
[facility] requesting another PT evaluation on the patient for placement consideration. H[employer] MANAGER contacted resident to submit PT order.
[2024-06-20] MEDS: QUEtiapine FUMARATE 25 MG TABLET PO ×2 (20:13→22:37)
[2024-06-20] MEDS: ATORVASTATIN CALCIUM 20 MG TABLET 80 MG PO (20:14)
[2024-06-20] MEDS: LORazepam 2 MG/ML VIAL 1 MG IVP (21:38)
--- NOTE | 2024-06-20 23:09 | PD.RESPRO ---
Documentation for date of: 06/20/24 Subjective Subjective Interval history: Overnight, patient was agitated, getting up and trying to go to other rooms therefore had a dose of Haldol given.?Patient seen and examined at bedside this AM. Patient denies any new symptoms.?Labs and vitals were reviewed and normal. However blood sugars remain uncontrolled, started insulin glargine 10 U qday and will continue to adjust insulin regimen. No further complaints at this time. PT worked with patient today and recommended placement. Pending acute rehab placement. Review of systems otherwise negative except what is mentioned above. Exam Vital Signs Temp Pulse Resp BP Pulse Ox O2 Del Method O2 Flow Rate 98.0 F 76 19 95/61 97 Room Air 2 06/20/24 20:00 06/20/24 20:00 06/20/24 20:00 06/20/24 20:00 06/20/24 20:00 06/20/24 20:00 06/20/24 16:00 Narrative Exam Physical Exam General: Awake and in no acute distress. Conversational and non-toxic appearing. Elements of aphasia. HEENT: Normocephalic, atraumatic, mucous membranes moist. Heart: Regular rate and rhythm, no murmurs. Lungs: Clear to auscultation with no wheezing or crackles. Abdomen: Soft, nondistended, nontender, positive bowel sounds. ?No guarding or rebound tenderness. Neurologic: Alert and oriented x1, right sided hemianopsia, and patient able to move all 4 extremities. Extremities: No edema. Skin: No rash or ecchymoses. Objective Labs 06/20/24 05:17 06/20/24 05:17 Labs: Laboratory Results - last 24 hr 06/20/24 05:17 WBC 6.7 RBC 4.64 Hgb 14.1 Hct 41.4 MCV 89 MCH 30.4 MCHC 34.1 RDW Std Deviation 40.5 Plt Count 219 Neut % (Auto) 63 Lymph % (Auto) 23 [place] % (Auto) 10 Eos % (Auto) 4 Baso % (Auto) 1 Neut # (Auto) 4.2 Lymph # (Auto) 1.5 [place] # (Auto) 0.7 Eos # (Auto) 0.2 Baso # (Auto) 0.0 Immature Gran # (Auto) 0.02 H Absolute Nucleated RBC 0.00 Immature Gran % 0 Nucleated RBC % 0 Sodium 135 L Potassium 3.6 Chloride 101 Carbon Dioxide 22.4 Anion Gap 12 BUN 16 Creatinine 1.1 Estim Creat Clear Calc 70.5 eGFR > 60 BUN/Creatinine Ratio 15 Glucose 277 H Calculated Osmolality 281 Calcium 8.7 Corrected Calcium 9.1 Phosphorus 2.7 Magnesium 1.6 Total Bilirubin 1.5 H AST 18 ALT 8 L Alkaline Phosphatase 58 Total Protein 6.3 Albumin 3.5 Globulin 2.8 Albumin/Globulin Ratio 1.3 Quality Measures Quality Measures VTE prophylaxis Advance care planning discussed with:: patient Assessment & Plan Assessment Current Active Medications: Generic Name Dose Route Start Last Admin Trade Name Freq PRN Reason Stop Dose Admin Acetaminophen 650 mg 06/16/24 16:33 Acetaminophen 325 Mg Tablet PO 07/16/24 16:32 Q6H PRN Fever >100.3 or pain 1-3 Aspirin 81 mg 06/17/24 17:00 06/20/24 08:11 Aspirin Ec 81 Mg Tabec PO 07/17/24 16:59 81 mg QDAY RAYMON Administration Atorvastatin Calcium 80 mg 06/16/24 21:00 06/20/24 20:14 Atorvastatin Calcium 20 Mg Tablet PO 07/16/24 20:59 80 mg HS RAYMON Administration Carvedilol 6.25 mg 06/17/24 16:45 06/20/24 17:04 Carvedilol 3.125 Mg Tablet PO 07/17/24 16:44 6.25 mg BIDWM RAYMON Administration Clopidogrel Bisulfate 75 mg 06/17/24 09:00 06/20/24 08:10 Clopidogrel Bisulfate 75 Mg Tablet PO 07/17/24 08:59 75 mg QDAY RAYMON Administration Dextrose 25 ml 06/16/24 17:04 Dextrose 50%-Water Inj 50 Ml Syringe IV 07/16/24 17:03 Q15MIN PRN BG 50-70 responsive npo pt Dextrose 50 ml 06/16/24 17:04 Dextrose 50%-Water Inj 50 Ml Syringe IV 07/16/24 17:03 Q15MIN PRN BG <50 OR BG <70 & pt unresponsive Glucagon 1 mg 06/16/24 17:04 Glucagon Inj 1 Mg Vial IM Q15MIN PRN BG <70, and no IV access Heparin Sodium (Porcine) 5,000 unit 06/16/24 21:00 06/20/24 20:10 Heparin Sod Inj 5000 Unit/Ml Vial SC 06/30/24 20:59 5,000 unit Q12HR RAYMON Administration Insulin Glargine 10 unit 06/21/24 09:00 Insulin Glargine (Lantus) 5 Unit/0.05 Ml (Per 5 Units) SC 07/21/24 08:59 QDAY RAYMON Insulin Human Lispro 0 unit 06/18/24 08:30 06/20/24 20:09 Insulin Lispro (Admelog) 1 Unit/0.01 Ml Unit SC 07/17/24 21:29 5 unit ACHS RAYMON Administration Protocol Labetalol HCl 10 mg 06/16/24 18:27 Labetalol Inj 5 Mg/Ml Vial 20 Ml IVP 07/16/24 19:59 Q2HR PRN SBP >160, hold if HR<60 Levalbuterol HCl 0.63 mg 06/17/24 16:43 06/18/24 20:55 Levalbuterol Rt 0.63 Mg/3 Ml Nebu INH 07/17/24 16:42 0.63 mg Q8HR PRN Administration WHEEZING Magnesium Hydroxide 30 ml 06/20/24 14:06 06/20/24 15:36 Milk Of Magnesia Susp 30 Ml Udc PO 07/20/24 14:05 30 ml QDAY PRN Administration CONSTIPATION Protocol Ondansetron HCl 4 mg 06/16/24 16:33 Ondansetron Inj 2 Mg/Ml Inj 2 Ml IV 07/16/24 16:32 Q6H PRN NAUSEA OR VOMITING Protocol Quetiapine Fumarate 25 mg 06/17/24 21:00 06/20/24 20:13 Quetiapine Fumarate 25 Mg Tablet PO 07/17/24 20:59 25 mg HS RAYMON Administration Sacubitril/Valsartan 1 tab 06/19/24 09:00 06/20/24 20:13 Sacubitril 24 Mg/Valsartan 26 Mg Tablet PO 07/19/24 08:59 1 tab BID RAYMON Administration Sennosides 1 tab 06/16/24 16:33 06/20/24 12:07 Senna Tablet PO 07/16/24 16:32 1 tab BID PRN Administration CONSTIPATION Protocol Tamsulosin HCl 0.4 mg 06/17/24 09:00 06/20/24 08:10 Tamsulosin Hcl 0.4 Mg Capsule PO 07/17/24 08:59 0.4 mg QDAY RAYMON Administration Plan The patient is a 69-year-old male with a previous medical history of vascular dementia, status post CVA, multiple TIAs, hypertension, diabetes, hyperlipidemia, CAD status post PCI with stent placement, BPH who was brought to the ED due to altered mental status and was admitted for the acute stroke. #Acute CVA #Valcular dementia #Cognitive deficit #Right sided hemianopsia Patient's reported that on Thursday morning patient started having altered mental status, slurred speech, face numbness. He has a history of previous stroke, TIAs and diagnosed with vascular dementia. Patient was getting outpatient MRI when he was recommended by radiologist to go to the ED. MRI/MRA brain without contrast showed: Proximal occlusion of the left posterior cerebral artery resulting in ischemia of most of the remaining left occipital and posterior medial temporal lobes, as well as portions of the left thalamus and internal capsule. Encephalomalacia from old left occipital/temporal infarction. DDx: Atherothrombotic versus embolic stroke 06/17/2024: A1c 13.7% TSH 0.90. Head CT was negative for acute bleeding, showed posterior communicating artery distribution ischemic changes. Speech eval recommended dysphagia 2 diet. TTE showed ejection fraction 30 to 35%. Global hypokinesis. Stage II diastolic dysfunction. Moderate aortic stenosis. CHARMAINE: Ejection fraction 30 to 35%. No evidence for PFO or ASD. No left atrial or left atrial appendage thrombus. Moderate aortic stenosis. Plan: ? Neurologist consulted, appreciate recommendations ? Blood pressure control ? Neurochecks every 4 hours ? Continue home atorvastatin 80 mg daily ? Continue home Plavix 75 mg daily - Continue aspirin 81 mg qday - After discharge, follow-up with Dr. Amador in 2 weeks - Physical therapy recommended SNF, pending placement #Hospital delirium - Seroquel 25 mg HS - Frequent reorientation - Family visitation - Natural sunlight during day hours - AVOID restraints as the patient will need to discharge to SNF - Ativan may be given prn breakthrough agitation #History of CAD, status post multiple stent placement #History of CHF (EF 30-35%) #History if hypertension At this moment of time no signs on CHF exacerbation. Plan: - Med rec is pending - Continue home atorvastatin 80 mg daily - Labetalol 10 mg IV PRN if BP>160, hold if HR<60 - Carvedilol 6.25 mg BID - Continue Entresto 24-26 mg qday. #BPH - Continue home tamsulosin 0.4 mg qday #Type 2 diabetes 06/17/2024: A1c 13.7% Plan: - Sliding scale insulin - Glargine 10 U qday - hypoglycemia protocol in place - patient will require insulin regimen adjustment on discharge Health maintenance: FEN: Dysphagia 2 cardiac DVT prophylaxis: heparin sc GI prophylaxis: none Dispo: telemetry CODE STATUS: DNR/DNI Patient plan of care was discussed with the attending physician, Dr. Barnhart. Mariella Rosario, PGY-2 Attending Provider Attestation/Addendum I reviewed labs, imaging, EKG, home medications and prior available records. Face to face evaluation was performed by me. I have personally examined the patient and discussed assessment and plan with the IM team. I reviewed the resident note and agree with the plan with exceptions as below. Acute encephalopathy Acute CVA Vascular dementia CAD status post stenting Type 2 diabetes mellitus with hyperglycemia BPH MRI showed left occipital and posterior temporal lobe infarct Repeat CT head showed evolving CVA but no interval bleeding Started Plavix and atorvastatin Every 4 hour neurochecks Obtain echocardiogram: Showed reduced EF of 35% and negative bubble study. Also showed moderate . Continue Entresto and Coreg. Continue empagliflozin Consulted cardiology for CHARMAINE: Also showed reduced EF of about 30 to 35%. No thrombus found in LA or AYAZ Consulted neurology Start insulin therapy. Continue upon discharge along with empagliflozin and metformin. Monitor fingersticks Follow-up PT evaluation: Recommended SNF placement. magazine worker is working on that
[2024-06-21] VITALS (10 sets, daily range): BP systolic 90–147; BP diastolic 55–84; PULSE 69–113; RESP 17–20; TEMP 36.1–37.4; O2SAT 90–97; BMI 27.8; BMI 15.0
[2024-06-21] MEDS: DiphenhydrAMINE INJ 50 MG/ML VIAL 12.5 MG IVP (04:30)
[2024-06-21] MEDS: HALOPERIDOL LACT INJ 5 MG/ML VIAL IM (04:44)
[2024-06-21] MEDS: HEPARIN SOD INJ 5000 UNIT/ML VIAL SC ×2 (08:50→20:27)
[2024-06-21] MEDS: INSULIN LISPRO (AdmeLOG) 1 UNIT/0.01 ML UNIT SC ×4 (08:50→20:26)
[2024-06-21] MEDS: INSULIN GLARGINE (Lantus) 5 UNIT/0.05 ML (PER 5 UNITS) 20 UNIT SC (09:00)
--- NOTE | 2024-06-21 09:03 | PC.SS ---
PASSR completed. Patient meets Level I criteria. No follow up pending.
--- NOTE | 2024-06-21 10:09 | ESPR_ITS ---
Documentation for date of: 06/21/24 Subjective Subjective Interval history: Patient seen and examined at bedside. Patient is sleeping in bed, was given Haldol and Ativan IV overnight for agitation. EKG from 06/15/2024 shows QTc 437, patient was given 7mg Haldol overnight, patient on Seroquel 50 mg at bedtime, was given additional 25 mg yesterday night, optimize potassium and magnesium more than 4 and more than 2. Consider repeating EKG if concern of QT prolongation Patient is on GDMT, tolerating well, blood pressure is stable Patient is pending discharge to rehab facility. Patient recommended to follow-up outpatient with cardiology closely, patient has significant HFrEF and low-flow aortic stenosis. Needs close outpatient follow-up to optimize GDMT and do further workup. Exam Vital Signs Temp Pulse Resp BP Pulse Ox O2 Del Method O2 Flow Rate 97.0 F 69 20 147/84 H 95 Room Air 2 06/21/24 08:00 06/21/24 08:00 06/21/24 08:00 06/21/24 08:00 06/21/24 08:00 06/21/24 08:00 06/20/24 16:00 Narrative Exam Physical Exam General: Awake and in no acute distress. Conversational and non-toxic appearing. HEENT: Normocephalic, atraumatic, mucous membranes moist. Heart: Regular rate and rhythm, positive for systolic murmur. Lungs: Clear to auscultation with no wheezing or crackles. Abdomen: Soft, nondistended, nontender, positive bowel sounds. ?No guarding or rebound tenderness. Neurologic: Alert and oriented x3, patient able to move all 4 extremities. Extremities: No edema. Skin: No rash or ecchymoses. Objective Labs 06/22/24 19:30 06/22/24 19:30 Quality Measures Quality Measures VTE prophylaxis Advance care planning discussed with:: patient Assessment & Plan Assessment Current Active Medications: Generic Name Dose Route Start Last Admin Trade Name Freq PRN Reason Stop Dose Admin Acetaminophen 650 mg 06/16/24 16:33 Acetaminophen 325 Mg Tablet PO 07/16/24 16:32 Q6H PRN Fever >100.3 or pain 1-3 Aspirin 81 mg 06/17/24 17:00 06/20/24 08:11 Aspirin Ec 81 Mg Tabec PO 07/17/24 16:59 81 mg QDAY RAYMON Administration Atorvastatin Calcium 80 mg 06/16/24 21:00 06/20/24 20:14 Atorvastatin Calcium 20 Mg Tablet PO 07/16/24 20:59 80 mg HS RAYMON Administration Carvedilol 6.25 mg 06/17/24 16:45 06/20/24 17:04 Carvedilol 3.125 Mg Tablet PO 07/17/24 16:44 6.25 mg BIDWM RAYMON Administration Clopidogrel Bisulfate 75 mg 06/17/24 09:00 06/20/24 08:10 Clopidogrel Bisulfate 75 Mg Tablet PO 07/17/24 08:59 75 mg QDAY RAYMON Administration Olanzapine 10 mg/ Sterile 0 mg 06/21/24 08:52 Water 2.1 ml IM 07/21/24 08:51 Q4H PRN AGITATION (SEVERE) Dextrose 25 ml 06/16/24 17:04 Dextrose 50%-Water Inj 50 Ml Syringe IV 07/16/24 17:03 Q15MIN PRN BG 50-70 responsive npo pt Dextrose 50 ml 06/16/24 17:04 Dextrose 50%-Water Inj 50 Ml Syringe IV 07/16/24 17:03 Q15MIN PRN BG <50 OR BG <70 & pt unresponsive Glucagon 1 mg 06/16/24 17:04 Glucagon Inj 1 Mg Vial IM Q15MIN PRN BG <70, and no IV access Heparin Sodium (Porcine) 5,000 unit 06/16/24 21:00 06/21/24 08:50 Heparin Sod Inj 5000 Unit/Ml Vial SC 06/30/24 20:59 5,000 unit Q12HR [facility] Administration Insulin Glargine 20 unit 06/21/24 09:00 06/21/24 09:00 Insulin Glargine (Lantus) 5 Unit/0.05 Ml (Per 5 Units) SC 07/21/24 08:59 20 unit QDAY [facility] Administration Insulin Human Lispro 0 unit 06/18/24 08:30 06/21/24 08:50 Insulin Lispro (Admelog) 1 Unit/0.01 Ml Unit SC 07/17/24 21:29 4 unit ACHS [facility] Administration Protocol Insulin Human Lispro 3 unit 06/21/24 11:30 Insulin Lispro (Admelog) 1 Unit/0.01 Ml Unit MA 07/21/24 11:29 ACHS RAYMON Labetalol HCl 10 mg 06/16/24 18:27 Labetalol Inj 5 Mg/Ml Vial 20 Ml IVP 07/16/24 19:59 Q2HR PRN SBP >160, hold if HR<60 Levalbuterol HCl 0.63 mg 06/17/24 16:43 06/18/24 20:55 Levalbuterol Rt 0.63 Mg/3 Ml Nebu INH 07/17/24 16:42 0.63 mg Q8HR PRN Administration WHEEZING Magnesium Hydroxide 30 ml 06/20/24 14:06 06/20/24 15:36 Milk Of Magnesia Susp 30 Ml Udc PO 07/20/24 14:05 30 ml QDAY PRN Administration CONSTIPATION Protocol Ondansetron HCl 4 mg 06/16/24 16:33 Ondansetron Inj 2 Mg/Ml Inj 2 Ml IV 07/16/24 16:32 Q6H PRN NAUSEA OR VOMITING Protocol Quetiapine Fumarate 50 mg 06/21/24 21:00 Quetiapine Fumarate 25 Mg Tablet PO 07/21/24 20:59 HS RAYMON Sacubitril/Valsartan 1 tab 06/19/24 09:00 06/20/24 20:13 Sacubitril 24 Mg/Valsartan 26 Mg Tablet PO 07/19/24 08:59 1 tab BID RAYMON Administration Sennosides 1 tab 06/16/24 16:33 06/20/24 12:07 Senna Tablet PO 07/16/24 16:32 1 tab BID PRN Administration CONSTIPATION Protocol Tamsulosin HCl 0.4 mg 06/17/24 09:00 06/20/24 08:10 Tamsulosin Hcl 0.4 Mg Capsule PO 07/17/24 08:59 0.4 mg QDAY RAYMON Administration Plan Assessment and plan: Summary: Mr. 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 Amador secondary to abnormal MRI. Most of the history is obtained from patient's chart as patient is confused unable to provide history has difficulty word finding. MRI ordered outpatient by neurologist done earlier in a.m. today showed P roximal occlusion of the left posterior cerebral artery resulting in ischemia of most of the remaining left occipital and posterior medial temporal lobes, as well as portions of the left thalamus and internal capsule. Encephalomalacia from old left occipital/temporal infarction. Extensive global parenchymal volume loss and chronic small vessel ischemic changes. Small focus of susceptibility right semicentrum ovale may represent area of microhemorrhage. Patient admitted for acute CVA workup, cardiology consulted for TTE and possible CHARMAINE due to concern of embolic stroke to complete workup. #Acute CVA #Vascular dementia #History of CVA, multiple TIAs Patient initially evaluated in ED on 06/14 for acute confusion, symptoms resolved per ED physician's note and patient was discharged home with a diagnosis of exacerbation of dementia, underlying vascular dementia. Patient followed neurology outpatient for vascular dementia, was scheduled for a MRI earlier this morning which showed proximal occlusion of the left posterior cerebral artery resulting in ischemia of most of the remaining left occipital and posterior medial temporal lobes, as well as portions of the left thalamus and internal capsule. Encephalomalacia from old left occipital/temporal infarction. Extensive global parenchymal volume loss and chronic small vessel ischemic changes. Small focus of susceptibility right semicentrum ovale may represent area of microhemorrhage. Patient admitted for further workup per neurology recommendations for acute CVA, last known well time more than 24 hours. Patient does have history of CVA in the past, last one in 2020 and does endorse history of multiple TIAs. CT scan of the head was negative in ED on 06/14. Repeat CT scan of head showed evolving left posterior communicating artery distribution ischemic changes. TTE shows severely reduced LV function with an EF of around 30 to 35%. Global hypokinesis. Mildly dilated LV. Diastolic dysfunction stage II. Normal RV size and function. RVSP mildly elevated at 35 mmHg. Moderate aortic stenosis with a mean PG of 22 mm hg. Possibly underestimated due to the low ejection fraction and mostly low-flow low gradient severe aortic stenosis as a DANTE is less than 1 cm?. Moderately calcified aortic valve.Mild MAC with moderate MR as well as mild TR. CHARMAINE shows severely reduced LV function with an EF of around 30 to 35%. Global hypokinesis. Mildly dilated LV. Normal RV size and function. Moderate aortic stenosis. Possibly underestimated due to the low ejection fraction and mostly low-flow low gradient severe aortic stenosis . Moderately calcified aortic valve. Mild MAC with moderate MR as well as mild TR. systolic blunting of pulmonary vein flow. Recommendations: -Bubble study negative. No evidence of any PFO or ASD. No LA/AYAZ thrombus -Neurology is following patient closely for CVA continue management per neurology #Combined systolic and diastolic heart failure with reduced heart fraction 30- 35% #Coronary Artery Disease status post PCI to LCx as well as RCA in 2013 [STEMI presentation] #Low-flow Low gradient severe aortic stenosis Patient has history of CAD status post PCI to LCx and RCA in 2013. Patient presented as a STEMI and had 100% occlusion of the proximal to mid LCx and as well as 90% occlusion of the distal RCA and had 2 stents placed. He did have a repeat cardiac cath in 2014 at [facility] did show moderate residual disease diffuse in the LAD, OM1 as well as the mid RCA. No other cardiac catheterization since then. Patient used to follow-up with Dr. Fitzgerald in [place]. Per chart review he last followed up with them in 2021 looks like patient has been lost to follow-up since then. Regarding his CHF patient does have a history of EF of 40% but no new recent echo that has been noted. As per Recommendation from the last cardiology notes in 2021 he had mild systolic CHF. He was on Entresto and goal-directed medical therapy at that point of time but patient is not oriented the present point of time and unclear why. Strict input output Daily weights and 2 g sodium diet. Does not appear to be fluid overloaded at the present point of time and is not on any kind of diuretics. Will need GDMT with Entresto, beta-susanne, SGLT inhibitors. Aortic stenosis-echo and CHARMAINE showed at least moderate aortic stenosis by pressure gradient but the valve area was less than 1 cm? indicating possibly underestimation of the aortic stenosis and given the low ejection fraction. Patient mostly has low-flow low gradient severe . TTE shows severely reduced LV function with an EF of around 30 to 35%. Global hypokinesis. Mildly dilated LV. Diastolic dysfunction stage II. Normal RV size and function. RVSP mildly elevated at 35 mmHg. Moderate aortic stenosis with a mean PG of 22 mm hg. Possibly underestimated due to the low ejection fraction and mostly low-flow low gradient severe aortic stenosis as a DANTE is less than 1 cm?. Moderately calcified aortic valve.Mild MAC with moderate MR as well as mild TR. CHARMAINE shows severely reduced LV function with an EF of around 30 to 35%. Global hypokinesis. Mildly dilated LV. Normal RV size and function. Moderate aortic stenosis. Possibly underestimated due to the low ejection fraction and mostly low-flow low gradient severe aortic stenosis . Moderately calcified aortic valve. Mild MAC with moderate MR as well as mild TR. systolic blunting of pulmonary vein flow. Recommendations: -Continue Entresto twice daily -Continue Coreg 6.25 BIDWM -Continue Atorvastatin, Aspirin and Plavix -Patient has acute CVA, will follow up outpatient in clinic post discharge in 1 week. -Will consider starting patient on SGLT2 inhibitors for GDMT -For aortic stenosis, will do further workup for the same which can be continued as outpatient. For now recommend afterload reduction. -Strict input output Daily weights and 2 g sodium diet. #Hyperlipidemia Lipid panel shows triglycerides 147, cholesterol 131, LDL 64, HDL 38 Continue atorvastatin 80 mg at bedtime #Hypertension Patient on lisinopril 10mg qday, Coreg 6.25 BIDWM, currently Transition from lisinopril to enteresto for GDMT. #Diabetes mellitus type 2 Patient on metformin and glipizide per medication review, pending med rec Hgb A1c 13.7%, management per primary team recommended strict glycemic control Patient's blood glucose on presentation was 356 #Benign prostate hyperplasia Management per primary team Thank you for the consult and allowing to participate in the care of the patient. Cardiology will continue to follow. Case discussed with Attending Dr. Vega. Lizzy Benjamin PGY1 Disclaimer: This note was dictated by speech recognition. Minor errors in political aide may be present due to voice recognition software. Attending Provider Attestation/Addendum I have personally seen and examined the patient separately on the above date of service and discussed the plan of care with the resident. I reviewed the resident Dr. Lizzy Benjamin consultation progress note and agree with the resident findings and plan in the note above and have also edited the documentation to reflect my findings and plan. Darren Vega M.D. Interventional Cardiology
[2024-06-21] MEDS: TAMSULOSIN HCL 0.4 MG CAPSULE PO (10:36)
[2024-06-21] MEDS: CLOPIDOGREL BISULFATE 75 MG TABLET PO (10:36)
[2024-06-21] MEDS: ASPIRIN EC 81 MG TABEC PO (10:36)
--- NOTE | 2024-06-21 10:42 | PC.SS ---
Addendum entered by Karma Molina 06/21/24 15:44: SS has sent updated PT and MRI notes to [facility] upon their request from [facility]. Addendum entered by Karma Molina 06/21/24 12:20: SS received call from who is still requesting [facility]. SS provided other d/c options for Acute Rehab in [place] and declined. is aware pt has been accepted to [facility] and [facility]. 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 states pt does not qualify for Medical due to receiving $3900.00 a month. is aware if [facility] declines the other options are SNF, Acute Rehab out of the area, or return home. states she is unable to care for pt at home at this time. explained pt was a [facility] in the past. [facility] is aware pt has behaviors and they are still agreeable in accepting. 2nd PT assessment is pending for Acute Rehab. Original Note: SS attempted to contact patient's by phone but was unsuccessful. SS left voicemail with SS contact information. SS spoke to Alize from [facility] who state they can accept pt and are able to assist with pt with Medical process for alf placement. Alize is aware pt has behaviors and has vascular Dementia.
[2024-06-21] MEDS: INSULIN LISPRO (AdmeLOG) 1 UNIT/0.01 ML UNIT 3 UNIT SC ×3 (12:28→20:27)
--- NOTE | 2024-06-21 12:58 | PD.ADDPROG ---
Addendum Progress Note Addendum Date of report being addended: 06/21/24 Narrative: I reviewed labs, imaging, EKG, home medications and prior available records. Face to face evaluation was performed by me. I have personally examined the patient and discussed assessment and plan with the IM team. I reviewed the resident note and agree with the plan with exceptions as below. Acute encephalopathy Hyperactive agitation, new complication Acute CVA Vascular dementia CAD status post stenting Type 2 diabetes mellitus with hyperglycemia BPH Patient was agitated overnight requiring 2 code dariusz and IM haloperidol/IV Ativan. Started the patient on Seroquel. Started olanzapine as needed. Haloperidol will be a third line. Avoid more Ativan. Reorientation therapy by family. MRI showed left occipital and posterior temporal lobe infarct Repeat CT head showed evolving CVA but no interval bleeding Started Plavix and atorvastatin Every 4 hour neurochecks Obtain echocardiogram: Showed reduced EF of 35% and negative bubble study. Also showed moderate . Continue Entresto and Coreg. Continue empagliflozin Consulted cardiology for CHARMAINE: Also showed reduced EF of about 30 to 35%. No thrombus found in LA or AYAZ Consulted neurology Start insulin therapy. Increased his Lantus. Continue upon discharge along with empagliflozin and metformin. Monitor fingersticks Follow-up PT evaluation: Recommended SNF placement. food preparation worker is working on that however we need to treat the hyperactive agitation first. Try to avoid restraints
--- NOTE | 2024-06-21 16:10 | ESPR_ITS ---
<Statement entered by Mariella Rosario MD - 06/22/24 08:15> Patient was seen and examined by me personally. I have directly supervised and reviewed documentation by the team resident and agree with its findings with any exceptions or additional findings as below. Plan of care was discussed with the attending, Dr. Barnhart. Patient had 2 Code Mendez called overnight. He was given Ativan which patient calmed at first for 4 hours then he was agitated again, therefore was given Haldol. He had to be restrained. Patient is pending SNF placement. Will increase the dose of night time Seroquel from 25 to 50 mg and add olanzapine 10 mg IM prn for breakthrough agitation. Encourage family at bedside, frequent reorientation, and anti-delirium measures. Mariella Rosario, PGY-2 Documentation for date of: 06/21/24 Subjective Subjective Interval history: Patient was seen and examined by the bedside. Overnight he was agitated, received quetiapine 25 mg twice, Haldol, Benadryl, lorazepam and was put on restraints. In the morning restraints were discontinued. At the moment of examination patient is sleeping in the bed. Exam Vital Signs Temp Pulse Resp BP Pulse Ox O2 Del Method O2 Flow Rate 99.4 F 78 20 90/62 94 L Room Air 2 06/21/24 12:00 06/21/24 14:18 06/21/24 14:18 06/21/24 12:00 06/21/24 14:18 06/21/24 12:00 06/20/24 16:00 Narrative Exam Physical Exam General: Sleeping in the bed. HEENT: Normocephalic, atraumatic, mucous membranes moist. Heart: Regular rate and rhythm, no murmurs. Lungs: CTABL Abdomen: Soft, nondistended, nontender, positive bowel sounds. ?No guarding or rebound tenderness. Neurologic: Restricted due to patient sleeping. Extremities: No edema. Skin: No rash or ecchymoses. Objective Labs 06/20/24 05:17 06/20/24 05:17 Quality Measures Quality Measures VTE prophylaxis Advance care planning discussed with:: spouse Assessment & Plan Assessment Current Active Medications: Generic Name Dose Route Start Last Admin Trade Name Freq PRN Reason Stop Dose Admin Acetaminophen 650 mg 06/16/24 16:33 Acetaminophen 325 Mg Tablet PO 07/16/24 16:32 Q6H PRN Fever >100.3 or pain 1-3 Aspirin 81 mg 06/17/24 17:00 06/21/24 10:36 Aspirin Ec 81 Mg Tabec PO 07/17/24 16:59 81 mg QDAY RAYMON Administration Atorvastatin Calcium 80 mg 06/16/24 21:00 06/20/24 20:14 Atorvastatin Calcium 20 Mg Tablet PO 07/16/24 20:59 80 mg HS RAYMON Administration Carvedilol 6.25 mg 06/17/24 16:45 06/21/24 10:33 Carvedilol 3.125 Mg Tablet PO 07/17/24 16:44 Not Given BIDWM RAYMON Clopidogrel Bisulfate 75 mg 06/17/24 09:00 06/21/24 10:36 Clopidogrel Bisulfate 75 Mg Tablet PO 07/17/24 08:59 75 mg QDAY RAYMON Administration Olanzapine 10 mg/ Sterile 0 mg 06/21/24 08:52 Water 2.1 ml IM 07/21/24 08:51 Q4H PRN AGITATION (SEVERE) Dextrose 25 ml 06/16/24 17:04 Dextrose 50%-Water Inj 50 Ml Syringe IV 07/16/24 17:03 Q15MIN PRN BG 50-70 responsive npo pt Dextrose 50 ml 06/16/24 17:04 Dextrose 50%-Water Inj 50 Ml Syringe IV 07/16/24 17:03 Q15MIN PRN BG <50 OR BG <70 & pt unresponsive Glucagon 1 mg 06/16/24 17:04 Glucagon Inj 1 Mg Vial IM Q15MIN PRN BG <70, and no IV access Heparin Sodium (Porcine) 5,000 unit 06/16/24 21:00 06/21/24 08:50 Heparin Sod Inj 5000 Unit/Ml Vial SC 06/30/24 20:59 5,000 unit Q12HR RAYMON Administration Insulin Glargine 20 unit 06/21/24 09:00 06/21/24 09:00 Insulin Glargine (Lantus) 5 Unit/0.05 Ml (Per 5 Units) SC 07/21/24 08:59 20 unit QDAY RAYMON Administration Insulin Human Lispro 0 unit 06/18/24 08:30 06/21/24 12:27 Insulin Lispro (Admelog) 1 Unit/0.01 Ml Unit SC 07/17/24 21:29 3 unit ACHS RAYMON Administration Protocol Insulin Human Lispro 3 unit 06/21/24 11:30 06/21/24 12:28 Insulin Lispro (Admelog) 1 Unit/0.01 Ml Unit SC 07/21/24 11:29 3 unit ACHS RAYMON Administration Labetalol HCl 10 mg 06/16/24 18:27 Labetalol Inj 5 Mg/Ml Vial 20 Ml IVP 07/16/24 19:59 Q2HR PRN SBP >160, hold if HR<60 Levalbuterol HCl 0.63 mg 06/17/24 16:43 06/18/24 20:55 Levalbuterol Rt 0.63 Mg/3 Ml Nebu INH 07/17/24 16:42 0.63 mg Q8HR PRN Administration WHEEZING Magnesium Hydroxide 30 ml 06/20/24 14:06 06/20/24 15:36 Milk Of Magnesia Susp 30 Ml Udc PO 07/20/24 14:05 30 ml QDAY PRN Administration CONSTIPATION Protocol Ondansetron HCl 4 mg 06/16/24 16:33 Ondansetron Inj 2 Mg/Ml Inj 2 Ml IV 07/16/24 16:32 Q6H PRN NAUSEA OR VOMITING Protocol Quetiapine Fumarate 50 mg 06/21/24 21:00 Quetiapine Fumarate 25 Mg Tablet PO 07/21/24 20:59 HS [facility] Sacubitril/Valsartan 1 tab 06/19/24 09:00 06/21/24 10:34 Sacubitril 24 Mg/Valsartan 26 Mg Tablet PO 07/19/24 08:59 Not Given BID RAYMON Sennosides 1 tab 06/16/24 16:33 06/20/24 12:07 Senna Tablet PO 07/16/24 16:32 1 tab BID PRN Administration CONSTIPATION Protocol Tamsulosin HCl 0.4 mg 06/17/24 09:00 06/21/24 10:36 Tamsulosin Hcl 0.4 Mg Capsule PO 07/17/24 08:59 0.4 mg QDAY RAYMON Administration Plan The patient is a 69-year-old male with a previous medical history of vascular dementia, status post CVA, multiple TIAs, hypertension, diabetes, hyperlipidemia, CAD status post PCI with stent placement, BPH who was brought to the ED due to altered mental status and was admitted for the acute stroke. #Acute CVA #Valcular dementia #Cognitive deficit #Right sided hemianopsia Patient's reported that on Thursday morning patient started having altered mental status, slurred speech, face numbness. He has a history of previous stroke, TIAs and diagnosed with vascular dementia. Patient was getting outpatient MRI when he was recommended by radiologist to go to the ED. MRI/MRA brain without contrast showed: Proximal occlusion of the left posterior cerebral artery resulting in ischemia of most of the remaining left occipital and posterior medial temporal lobes, as well as portions of the left thalamus and internal capsule. Encephalomalacia from old left occipital/temporal infarction. DDx: Atherothrombotic versus embolic stroke 06/17/2024: A1c 13.7% TSH 0.90. Head CT was negative for acute bleeding, showed posterior communicating artery distribution ischemic changes. Speech eval recommended dysphagia 2 diet. TTE showed ejection fraction 30 to 35%. Global hypokinesis. Stage II diastolic dysfunction. Moderate aortic stenosis. CHARMAINE: Ejection fraction 30 to 35%. No evidence for PFO or ASD. No left atrial or left atrial appendage thrombus. Moderate aortic stenosis. Plan: ? Neurologist consulted, appreciate recommendations ? Blood pressure control ? Neurochecks every 4 hours ? Continue home atorvastatin 80 mg daily ? Continue home Plavix 75 mg daily - Continue aspirin 81 mg qday - After discharge, follow-up with Dr. Amador in 2 weeks - Physical therapy recommended SNF, pending placement #Hospital delirium - Seroquel 50 mg HS - Olanzapine 10 mg IM q4h for agitations as needed - Frequent reorientation - Family visitation - Natural sunlight during day hours - AVOID restraints as the patient will need to discharge to SNF - Ativan may be given prn breakthrough agitation #History of CAD, status post multiple stent placement #History of CHF (EF 30-35%) #History if hypertension At this moment of time no signs on CHF exacerbation. Plan: - Med rec is pending - Continue home atorvastatin 80 mg daily - Labetalol 10 mg IV PRN if BP>160, hold if HR<60 - Carvedilol 6.25 mg BID - Continue Entresto 24-26 mg qday. #BPH - Continue home tamsulosin 0.4 mg qday #Type 2 diabetes 06/17/2024: A1c 13.7% Plan: - Sliding scale insulin - Glargine 20 U qday, lispro 3U ACHS - hypoglycemia protocol in place - patient will require insulin regimen adjustment on discharge Health maintenance: FEN: Dysphagia 2 cardiac DVT prophylaxis: heparin sc GI prophylaxis: none Dispo: telemetry CODE STATUS: DNR/DNI Plan of care discussed with attending Dr. Barnhart, PGY-[address] Rosario and PGY-[address] Grier. Cheryl Wallace MD, PGY 1. Attending Provider Attestation/Addendum I reviewed labs, imaging, EKG, home medications and prior available records. Face to face evaluation was performed by me. I have personally examined the patient and discussed assessment and plan with the IM team. I reviewed the resident note and agree with the plan with exceptions as below. Please refer to my addendum note for the same date
--- NOTE | 2024-06-21 16:25 | PC.SS ---
SS spoke to Gaby from [facility] who explained they are unable to accept pt due to being on 1:1 sitter, having aggressive behaviors at night, and being on Haldol. Per Gaby, Haldol is frowned upon at their SNF. SS has spoken to Carley at [facility] who has questions regarding pt taking Seroquel at home. SS attempted to contact but was unsuccessful. SS left voicemail.
[2024-06-21] MEDS: ACETAMINOPHEN 325 MG TABLET 650 MG PO (18:46)
[2024-06-21] MEDS: QUEtiapine FUMARATE 25 MG TABLET 50 MG PO (20:39)
[2024-06-21] MEDS: ATORVASTATIN CALCIUM 20 MG TABLET 80 MG PO (20:39)
[2024-06-21] MEDS: SODIUM CHLORIDE 0.9% 1000 ML 1,000 ML 75 ML IV (22:40)
--- NOTE | 2024-06-21 23:41 | PD.VPROG1 ---
Telemedicine visit statement This visit was conducted with the use of interactive audio and video telecommunications system that permits real time communication between the patient and the provider. Patient's verbal consent for virtual visit was obtained on 06/21/24 at 2341. Documentation for date of: 06/21/24 Subjective Subjective Interval history: Patient is in telemetry. His mental status and language function and coordination on the right hemibody all have improved, close to baseline. Virtual exam Vital Signs Temp Pulse Resp BP Pulse Ox O2 Del Method O2 Flow Rate 98.5 F 81 20 95/65 97 Room Air 2 06/21/24 20:00 06/21/24 20:00 06/21/24 20:00 06/21/24 20:00 06/21/24 20:00 06/21/24 16:00 06/20/24 16:00 Objective Labs 06/20/24 05:17 06/20/24 05:17 Assessment & Plan Assessment Patient is a 69-year-old male with a previous medical history of vascular dementia, status post CVA, multiple TIAs, hypertension, diabetes, hyperlipidemia, CAD status post PCI with stent placement, BPH who was brought to the ED due to altered mental status. Neurology consulted due to acute ischemic stroke noted on imaging. #Acute left occipital and posterior medial temporal lobes stroke, as well as portions of the left thalamus and internal capsule stroke he does have vascular dementia at baseline from the previous left MCA ischemic infarction Acute stroke noted on MRI Repeat CT shows no acute hemorrhages Patient needs better glycemic control, A1c 13.7 Continue with high-dose statin, aspirin 81 mg, and Plavix 75 mg for 21 days of dual antiplatelets Continue with PT and speech therapy CHARMAINE: Bubble study negative. No evidence of any PFO or ASD. No LA/AYAZ thrombus Severely reduced LV function with an EF of around 30 to 35%. Global hypokinesis. Mildly dilated LV. Normal RV size and function. Moderate aortic stenosis. Possibly underestimated due to the low ejection fraction and mostly low-flow low gradient severe aortic stenosis . Moderately calcified aortic valve. Mild MAC with moderate MR as well as mild TR. systolic blunting of pulmonary vein flow Needs short-term rehab placement. #History of CAD, status post multiple stent placement #History of CHF #History if hypertension #BPH #Diabetes mellitus Continue management per primary team
[2024-06-22] VITALS (10 sets, daily range): BP systolic 96–158; BP diastolic 56–103; PULSE 66–96; RESP 14–97; TEMP 36.2–36.9; O2SAT 94–97
[2024-06-22 07:37] LABS: Basophils % (Auto) 1 % (0-2.5); Eosinophils # (Auto) 0.3 Thou/mm3 (0.0-0.5); Eosinophils % (Auto) 3 % (0-10); Hematocrit 40.8 % (41.0-53.0); Hemoglobin 13.7 g/dL (13.5-16.0); Immature Granulocytes % (Auto) 0 % (0-0); Immature Granulocytes Auto 0.02 Thou/mm3 (0.00-0.00); Lymphocytes # (Auto) 1.6 Thou/mm3 (1.0-4.8); Lymphocytes % (Auto) 20 % (10-50); Mean Corpuscular HGB Conc 33.6 g/dl (31.0-37.0); Mean Corpuscular Hemoglobin 30.2 pg (25.0-35.0); Mean Corpuscular Volume 90 fL (80-100); Monocytes # (Auto) 0.7 Thou/mm3 (0.0-0.8); Monocytes % (Auto) 9 % (0-12); Neutrophils # (Auto) 5.3 Thou/mm3 (1.8-7.7); Neutrophils % (Auto) 67 % (37-80); Nucleated Red Blood Cell % 0 /100 WBC (0); Platelet Count 232 Thou/mm3 (140-440); RDW Standard Deviation 42.1 fL (35.1-43.9); Red Blood Count 4.54 Miln/mm3 (4.50-5.90); White Blood Count 7.9 Thou/mm3 (3.8-10.6)
[2024-06-22 07:53] LABS: Anion Gap 10 (7-16); BUN/Creatinine Ratio 12 Ratio (12-20); Blood Urea Nitrogen 13 mg/dL (9-23); Calcium 8.9 mg/dL (8.3-10.6); Carbon Dioxide 24.5 mMol/L (20.0-31.0); Chloride 104 mMol/L (98-107); Creatinine (Component) 1.1 mg/dL (0.6-1.3); Estimated Creatinine Clearance 70.5 mL/min (>60); Glucose 190 mg/dL (74-106); Osmolality,Calculated 280 (275-295); Potassium 4.1 mMol/L (3.4-5.1); Sodium 138 mMol/L (136-145); eGFR > 60 See Note
[2024-06-22] MEDS: SACUBITRIL 24 MG/VALSARTAN 26 MG TABLET 1 TAB PO (08:05)
[2024-06-22] MEDS: TAMSULOSIN HCL 0.4 MG CAPSULE PO (08:05)
[2024-06-22] MEDS: ASPIRIN EC 81 MG TABEC PO (08:05)
[2024-06-22] MEDS: CLOPIDOGREL BISULFATE 75 MG TABLET PO (08:05)
[2024-06-22] MEDS: ACETAMINOPHEN 325 MG TABLET 650 MG PO (08:05)
[2024-06-22] MEDS: carVEDILOL 3.125 MG TABLET 6.25 MG PO (08:06)
[2024-06-22] MEDS: HEPARIN SOD INJ 5000 UNIT/ML VIAL SC (08:06)
[2024-06-22] MEDS: INSULIN LISPRO (AdmeLOG) 1 UNIT/0.01 ML UNIT SC ×3 (08:06→16:50)
[2024-06-22] MEDS: INSULIN LISPRO (AdmeLOG) 1 UNIT/0.01 ML UNIT 3 UNIT SC ×4 (08:07→22:33)
[2024-06-22] MEDS: INSULIN GLARGINE (Lantus) 5 UNIT/0.05 ML (PER 5 UNITS) 20 UNIT SC (08:07)
--- NOTE | 2024-06-22 10:14 | ESPR_ITS ---
Documentation for date of: 06/22/24 Subjective Subjective Interval history: Patient seen and examined at bedside Sitting comfortably in bed eating breakfast, currently has no complaints Patient is alert and oriented x 3. Pending discharge to rehab facility Patient recommended to follow-up outpatient with cardiology closely, patient has significant HFrEF and low-flow aortic stenosis. Needs close outpatient follow-up to optimize GDMT and do further workup. Exam Vital Signs Temp Pulse Resp BP Pulse Ox O2 Del Method O2 Flow Rate 97.7 F 69 17 123/73 97 Room Air 2 06/22/24 08:00 06/22/24 08:12 06/22/24 08:12 06/22/24 08:06 06/22/24 08:12 06/22/24 08:00 06/20/24 16:00 Narrative Exam Physical Exam General: Awake and in no acute distress. Conversational and non-toxic appearing. HEENT: Normocephalic, atraumatic, mucous membranes moist. Heart: Regular rate and rhythm, positive for systolic murmur. Lungs: Clear to auscultation with no wheezing or crackles. Abdomen: Soft, nondistended, nontender, positive bowel sounds. ?No guarding or rebound tenderness. Neurologic: Alert and oriented x3, patient able to move all 4 extremities. Extremities: No edema. Skin: No rash or ecchymoses. Objective Labs 06/22/24 19:30 06/22/24 19:30 Labs: Laboratory Results - last 24 hr 06/22/24 07:02 WBC 7.9 RBC 4.54 Hgb 13.7 Hct 40.8 L MCV 90 MCH 30.2 MCHC 33.6 RDW Std Deviation 42.1 Plt Count 232 Neut % (Auto) 67 Lymph % (Auto) 20 Reagan % (Auto) 9 Eos % (Auto) 3 Baso % (Auto) 1 Neut # (Auto) 5.3 Lymph # (Auto) 1.6 Reagan # (Auto) 0.7 Eos # (Auto) 0.3 Baso # (Auto) 0.0 Immature Gran # (Auto) 0.02 H Absolute Nucleated RBC 0.00 Immature Gran % 0 Nucleated RBC % 0 Sodium 138 Potassium 4.1 D Chloride 104 Carbon Dioxide 24.5 Anion Gap 10 BUN 13 Creatinine 1.1 Estim Creat Clear Calc 70.5 eGFR > 60 BUN/Creatinine Ratio 12 Glucose 190 H D Calculated Osmolality 280 Calcium 8.9 Quality Measures Quality Measures VTE prophylaxis Advance care planning discussed with:: patient Assessment & Plan Assessment Current Active Medications: Generic Name Dose Route Start Last Admin Trade Name Marcello PRN Reason Stop Dose Admin Acetaminophen 650 mg 06/16/24 16:33 06/22/24 08:05 Acetaminophen 325 Mg Tablet PO 07/16/24 16:32 650 mg Q6H PRN Administration Fever >100.3 or pain 1-3 Aspirin 81 mg 06/17/24 17:00 06/22/24 08:05 Aspirin Ec 81 Mg Tabec PO 07/17/24 16:59 81 mg QDAY RAYMON Administration Atorvastatin Calcium 80 mg 06/16/24 21:00 06/21/24 20:39 Atorvastatin Calcium 20 Mg Tablet PO 07/16/24 20:59 80 mg HS RAYMON Administration Carvedilol 6.25 mg 06/17/24 16:45 06/22/24 08:06 Carvedilol 3.125 Mg Tablet PO 07/17/24 16:44 6.25 mg BIDWM RAYMON Administration Clopidogrel Bisulfate 75 mg 06/17/24 09:00 06/22/24 08:05 Clopidogrel Bisulfate 75 Mg Tablet PO 07/17/24 08:59 75 mg QDAY RAYMON Administration Olanzapine 10 mg/ Sterile 0 mg 06/21/24 08:52 Water 2.1 ml IM 07/21/24 08:51 Q4H PRN AGITATION (SEVERE) Dextrose 25 ml 06/16/24 17:04 Dextrose 50%-Water Inj 50 Ml Syringe IV 07/16/24 17:03 Q15MIN PRN BG 50-70 responsive npo pt Dextrose 50 ml 06/16/24 17:04 Dextrose 50%-Water Inj 50 Ml Syringe IV 07/16/24 17:03 Q15MIN PRN BG <50 OR BG <70 & pt unresponsive Glucagon 1 mg 06/16/24 17:04 Glucagon Inj 1 Mg Vial IM Q15MIN PRN BG <70, and no IV access Heparin Sodium (Porcine) 5,000 unit 06/16/24 21:00 06/22/24 08:06 Heparin Sod Inj 5000 Unit/Ml Vial SC 06/30/24 20:59 5,000 unit Q12HR RAYMON Administration Sodium Chloride 1,000 mls @ 75 mls/hr 06/21/24 22:20 06/21/24 22:40 Ns IV 07/21/24 22:19 75 mls/hr .[id number] RAYMON Administration Insulin Glargine 20 unit 06/21/24 09:00 06/22/24 08:07 Insulin Glargine (Lantus) 5 Unit/0.05 Ml (Per 5 Units) SC 07/21/24 08:59 20 unit QDAY RAYMON Administration Insulin Human Lispro 0 unit 06/18/24 08:30 06/22/24 08:06 Insulin Lispro (Admelog) 1 Unit/0.01 Ml Unit SC 07/17/24 21:29 2 unit ACHS RAYMON Administration Protocol Insulin Human Lispro 3 unit 06/21/24 11:30 06/22/24 08:07 Insulin Lispro (Admelog) 1 Unit/0.01 Ml Unit SC 07/21/24 11:29 3 unit ACHS RAYMON Administration Labetalol HCl 10 mg 06/16/24 18:27 Labetalol Inj 5 Mg/Ml Vial 20 Ml IVP 07/16/24 19:59 Q2HR PRN SBP >160, hold if HR<60 Levalbuterol HCl 0.63 mg 06/17/24 16:43 06/18/24 20:55 Levalbuterol Rt 0.63 Mg/3 Ml Nebu INH 07/17/24 16:42 0.63 mg Q8HR PRN Administration WHEEZING Magnesium Hydroxide 30 ml 06/20/24 14:06 06/20/24 15:36 Milk Of Magnesia Susp 30 Ml Udc PO 07/20/24 14:05 30 ml QDAY PRN Administration CONSTIPATION Protocol Ondansetron HCl 4 mg 06/16/24 16:33 Ondansetron Inj 2 Mg/Ml Inj 2 Ml IV 07/16/24 16:32 Q6H PRN NAUSEA OR VOMITING Protocol Quetiapine Fumarate 25 mg 06/22/24 21:00 Quetiapine Fumarate 25 Mg Tablet PO 07/22/24 20:59 HS RAYMON Sacubitril/Valsartan 1 tab 06/19/24 09:00 06/22/24 08:05 Sacubitril 24 Mg/Valsartan 26 Mg Tablet PO 07/19/24 08:59 1 tab BID RAYMON Administration Sennosides 1 tab 06/16/24 16:33 06/20/24 12:07 Senna Tablet PO 07/16/24 16:32 1 tab BID PRN Administration CONSTIPATION Protocol Tamsulosin HCl 0.4 mg 06/17/24 09:00 06/22/24 08:05 Tamsulosin Hcl 0.4 Mg Capsule PO 07/17/24 08:59 0.4 mg QDAY RAYMON Administration Plan Assessment and plan: Summary: Mr. Herzog is a 69-year-old male with past medical history of CAD status post PCI to LCx as well as RCA in 2013 [STEMI presentation], Combined systolic and diastolic heart failure with reduced heart fraction 30-35%, vascular dementia with history of stroke, multiple TIAs, uncontrolled type 2 diabetes mellitus, essential hypertension, hyperlipidemia, anemia, BPH and mild cognitive decline who presented to [facility] emergency department accompanied by his , patient was sent by Dr. Amador secondary to abnormal MRI. Most of the history is obtained from patient's chart as patient is confused unable to provide history has difficulty word finding. MRI ordered outpatient by neurologist done earlier in a.m. today showed P roximal occlusion of the left posterior cerebral artery resulting in ischemia of most of the remaining left occipital and posterior medial temporal lobes, as well as portions of the left thalamus and internal capsule. Encephalomalacia from old left occipital/temporal infarction. Extensive global parenchymal volume loss and chronic small vessel ischemic changes. Small focus of susceptibility right semicentrum ovale may represent area of microhemorrhage. Patient admitted for acute CVA workup, cardiology consulted for TTE and possible CHARMAINE due to concern of embolic stroke to complete workup. #Acute CVA #Vascular dementia #History of CVA, multiple TIAs Patient initially evaluated in ED on 06/14 for acute confusion, symptoms resolved per ED physician's note and patient was discharged home with a diagnosis of exacerbation of dementia, underlying vascular dementia. Patient followed neurology outpatient for vascular dementia, was scheduled for a MRI earlier this morning which showed proximal occlusion of the left posterior cerebral artery resulting in ischemia of most of the remaining left occipital and posterior medial temporal lobes, as well as portions of the left thalamus and internal capsule. Encephalomalacia from old left occipital/temporal infarction. Extensive global parenchymal volume loss and chronic small vessel ischemic changes. Small focus of susceptibility right semicentrum ovale may represent area of microhemorrhage. Patient admitted for further workup per neurology recommendations for acute CVA, last known well time more than 24 hours. Patient does have history of CVA in the past, last one in 2020 and does endorse history of multiple TIAs. CT scan of the head was negative in ED on 06/14. Repeat CT scan of head showed evolving left posterior communicating artery distribution ischemic changes. TTE shows severely reduced LV function with an EF of around 30 to 35%. Global hypokinesis. Mildly dilated LV. Diastolic dysfunction stage II. Normal RV size and function. RVSP mildly elevated at 35 mmHg. Moderate aortic stenosis with a mean PG of 22 mm hg. Possibly underestimated due to the low ejection fraction and mostly low-flow low gradient severe aortic stenosis as a DANTE is less than 1 cm?. Moderately calcified aortic valve.Mild MAC with moderate MR as well as mild TR. CHARMAINE shows severely reduced LV function with an EF of around 30 to 35%. Global hypokinesis. Mildly dilated LV. Normal RV size and function. Moderate aortic stenosis. Possibly underestimated due to the low ejection fraction and mostly low-flow low gradient severe aortic stenosis . Moderately calcified aortic valve. Mild MAC with moderate MR as well as mild TR. systolic blunting of pulmonary vein flow. Recommendations: -Bubble study negative. No evidence of any PFO or ASD. No LA/AYAZ thrombus -Neurology is following patient closely for CVA continue management per neurology #Combined systolic and diastolic heart failure with reduced heart fraction 30- 35% #Coronary Artery Disease status post PCI to LCx as well as RCA in 2013 [STEMI presentation] #Low-flow Low gradient severe aortic stenosis Patient has history of CAD status post PCI to LCx and RCA in 2013. Patient presented as a STEMI and had 100% occlusion of the proximal to mid LCx and as well as 90% occlusion of the distal RCA and had 2 stents placed. He did have a repeat cardiac cath in 2014 at [facility] did show moderate residual disease diffuse in the LAD, OM1 as well as the mid RCA. No other cardiac catheterization since then. Patient used to follow-up with Dr. Fitzgerald in [place]. Per chart review he last followed up with them in 2021 looks like patient has been lost to follow-up since then. Regarding his CHF patient does have a history of EF of 40% but no new recent echo that has been noted. As per Recommendation from the last cardiology notes in 2021 he had mild systolic CHF. He was on Entresto and goal-directed medical therapy at that point of time but patient is not oriented the present point of time and unclear why. Strict input output Daily weights and 2 g sodium diet. Does not appear to be fluid overloaded at the present point of time and is not on any kind of diuretics. Will need GDMT with Entresto, beta-susanne, SGLT inhibitors. Aortic stenosis-echo and CHARMAINE showed at least moderate aortic stenosis by pressure gradient but the valve area was less than 1 cm? indicating possibly underestimation of the aortic stenosis and given the low ejection fraction. Patient mostly has low-flow low gradient severe . TTE shows severely reduced LV function with an EF of around 30 to 35%. Global hypokinesis. Mildly dilated LV. Diastolic dysfunction stage II. Normal RV size and function. RVSP mildly elevated at 35 mmHg. Moderate aortic stenosis with a mean PG of 22 mm hg. Possibly underestimated due to the low ejection fraction and mostly low-flow low gradient severe aortic stenosis as a DANTE is less than 1 cm?. Moderately calcified aortic valve.Mild MAC with moderate MR as well as mild TR. CHARMAINE shows severely reduced LV function with an EF of around 30 to 35%. Global hypokinesis. Mildly dilated LV. Normal RV size and function. Moderate aortic stenosis. Possibly underestimated due to the low ejection fraction and mostly low-flow low gradient severe aortic stenosis . Moderately calcified aortic valve. Mild MAC with moderate MR as well as mild TR. systolic blunting of pulmonary vein flow. Recommendations: -Continue Entresto twice daily -Continue Coreg 6.25 BIDWM -Continue Atorvastatin, Aspirin and Plavix -Patient has acute CVA, will follow up outpatient in clinic post discharge in 1 week. -Will consider starting patient on SGLT2 inhibitors for GDMT -For aortic stenosis, will do further workup for the same which can be continued as outpatient. For now recommend afterload reduction. -Strict input output Daily weights and 2 g sodium diet. #Hyperlipidemia Lipid panel shows triglycerides 147, cholesterol 131, LDL 64, HDL 38 Continue atorvastatin 80 mg at bedtime #Hypertension Patient on lisinopril 10mg qday, Coreg 6.25 BIDWM, currently Transition from lisinopril to enteresto for GDMT. #Diabetes mellitus type 2 Patient on metformin and glipizide per medication review, pending med rec Hgb A1c 13.7%, management per primary team recommended strict glycemic control Patient's blood glucose on presentation was 356 #Benign prostate hyperplasia Management per primary team Thank you for the consult and allowing to participate in the care of the patient. Cardiology will continue to follow. Case discussed with Attending Dr. Vega. Lizzy Benjamin PGY1 Disclaimer: This note was dictated by speech recognition. Minor errors in corrugated fastener driver may be present due to voice recognition software. Attending Provider Attestation/Addendum I have personally seen and examined the patient separately on the above date of service and discussed the plan of care with the resident. I reviewed the resident Dr. Lizzy Benjamin consultation progress note and agree with the resident findings and plan in the note above and have also edited the documentation to reflect my findings and plan. Darren Vega M.D. Interventional Cardiology
--- NOTE | 2024-06-22 10:22 | PC.SS ---
SS spoke to Carley from [facility] who is aware pt is not on Haldol, has 1:1 sitter, and last night did not have behaviors. Carley from [facility] is requesting to do an onsite evaluation. SS spoke to Demetra at [facility] who explained pt has to be off 1:1 sitter for 24 hours and have proper diagnosis with medications. SS has spoken to Caroline from [facility] in [place] who confirmed she has received updated information and PT notes and will contact SS once information has been reviewed. Caroline explained they do not have sitter capability and sitter will have to be removed usually 24-48 hours before accepting pt. SS received call from who is aware and has agreed for SS to seek placement outside the area. prefers an Acute Rehab Facility. SS has sent inquiry using [facility] (70 mile radius from [facility]). [facility] SS spoke to Jossy from [facility], phone# [phone] who states they can accept pt after 1:1 sitter is removed for 24 hours. Per Jossy, if sitter is removed today then they can accept tomorrow after 10am. Dr. Evans is aware. Shaquille is aware pt is on Seroquel. SS has spoke to who is aware if pt is declined from SNF and Acute Rehab pt will have to return home. SS provided with the 24 hours home care phone# and website, [facility] phone#, and [facility] phone#.
[2024-06-22] MEDS: SODIUM CHLORIDE 0.9% 1000 ML 1,000 ML 75 ML IV (11:45)
--- NOTE | 2024-06-22 12:39 | PC.SS ---
SKIN PEELING MACHINE OPERATOR confirmed with bedside nurse that 1:1 sitter removed at approximately 10:00 am today.
--- NOTE | 2024-06-22 12:40 | PC.SS ---
Update: Patient to participate in PT evaluation today.
--- NOTE | 2024-06-22 14:13 | ESPR_ITS ---
<Statement entered by Mariella Rosario MD - 06/23/24 15:16> Patient was seen and examined by me personally. I have directly supervised and reviewed documentation by the team resident and agree with its findings with any exceptions or additional findings as below. Plan of care was discussed with the attending, Dr. Brandt. This morning the patient was seen and appeared more confused from his baseline. He received seroquel 50 mg at night and seemed calm through the rest of the night. However this morning he was unable to tell his name. He appears to interact in response to questions, but cannot answer them appropriately most of the time. He is not oriented to time or situation. The patient was moving all 4 extremities in this morning and laying in the bed, having a good strong lapping machine tender bilaterally. Patient continued to be intermittently agitated during the day. He was administered Haldol to calm him. Mariella Rosario, PGY-2 Documentation for date of: 06/22/24 Subjective Subjective Interval history: Patient was seen and examined by the bedside. Overnight no acute events, no agitation. In the morning patient appeared more confused, AAO x 1, per [employer] was not able to remember 's name. Will decrease the dose of Seroquel at bedtime and will hold olanzapine as needed. Will start Melatonin 3 mg at bedtime. One-on-one sitter was removed approximately at 10 AM today. Patient is pending SNF placement, facilities required patient be free of one-on-one sitter for 24 hours. During the day patient had become agitated and required olanzapine, haloperidole and was restrained. At 17:06 as patient continues to be contacted, I was informed that family wanted to have a conversation, social work administrator Art was present, patient continued to be agitated, had spontaneous movement in the non restrained expremities and was reaching out to grab with his left arm. He was AOx0, groaning. Had a conversation with the at the bedside regarding the placement, information was given regarding possible facilities for placement. Exam Vital Signs Temp Pulse Resp BP Pulse Ox O2 Del Method O2 Flow Rate 97.2 F 69 17 96/56 L 94 L Room Air 2 06/22/24 12:00 06/22/24 12:00 06/22/24 12:00 06/22/24 12:00 06/22/24 12:00 06/22/24 12:00 06/20/24 16:00 Narrative Exam Physical Exam General: Awake and in no acute distress. Conversational and non-toxic appearing. Elements of aphasia. HEENT: Normocephalic, atraumatic, mucous membranes moist. Heart: Regular rate and rhythm, no murmurs. Lungs: Clear to auscultation with no wheezing or crackles. Abdomen: Soft, nondistended, nontender, positive bowel sounds. ?No guarding or rebound tenderness. Neurologic: Alert and oriented x1, right sided hemianopsia, and patient able to move all 4 extremities. Extremities: No edema. Skin: No rash or ecchymoses. Objective Labs 06/23/24 05:48 06/23/24 05:48 Labs: Laboratory Results - last 24 hr 06/22/24 07:02 WBC 7.9 RBC 4.54 Hgb 13.7 Hct 40.8 L MCV 90 MCH 30.2 MCHC 33.6 RDW Std Deviation 42.1 Plt Count 232 Neut % (Auto) 67 Lymph % (Auto) 20 [place] % (Auto) 9 Eos % (Auto) 3 Baso % (Auto) 1 Neut # (Auto) 5.3 Lymph # (Auto) 1.6 [place] # (Auto) 0.7 Eos # (Auto) 0.3 Baso # (Auto) 0.0 Immature Gran # (Auto) 0.02 H Absolute Nucleated RBC 0.00 Immature Gran % 0 Nucleated RBC % 0 Sodium 138 Potassium 4.1 D Chloride 104 Carbon Dioxide 24.5 Anion Gap 10 BUN 13 Creatinine 1.1 Estim Creat Clear Calc 70.5 eGFR > 60 BUN/Creatinine Ratio 12 Glucose 190 H D Calculated Osmolality 280 Calcium 8.9 Quality Measures Quality Measures VTE prophylaxis Advance care planning discussed with:: spouse Assessment & Plan Assessment Current Active Medications: Generic Name Dose Route Start Last Admin Trade Name Freq PRN Reason Stop Dose Admin Acetaminophen 650 mg 06/16/24 16:33 06/22/24 08:05 Acetaminophen 325 Mg Tablet PO 07/16/24 16:32 650 mg Q6H PRN Administration Fever >100.3 or pain 1-3 Aspirin 81 mg 06/17/24 17:00 06/22/24 08:05 Aspirin Ec 81 Mg Tabec PO 07/17/24 16:59 81 mg QDAY RAYMON Administration Atorvastatin Calcium 80 mg 06/16/24 21:00 06/21/24 20:39 Atorvastatin Calcium 20 Mg Tablet PO 07/16/24 20:59 80 mg HS RAYMON Administration Carvedilol 6.25 mg 06/17/24 16:45 06/22/24 08:06 Carvedilol 3.125 Mg Tablet PO 07/17/24 16:44 6.25 mg BIDWM RAYMON Administration Clopidogrel Bisulfate 75 mg 06/17/24 09:00 06/22/24 08:05 Clopidogrel Bisulfate 75 Mg Tablet PO 07/17/24 08:59 75 mg QDAY RAYMON Administration Olanzapine 10 mg/ Sterile 0 mg 06/21/24 08:52 Water 2.1 ml IM 07/21/24 08:51 Q4H PRN AGITATION (SEVERE) Dextrose 25 ml 06/16/24 17:04 Dextrose 50%-Water Inj 50 Ml Syringe IV 07/16/24 17:03 Q15MIN PRN BG 50-70 responsive npo pt Dextrose 50 ml 06/16/24 17:04 Dextrose 50%-Water Inj 50 Ml Syringe IV 07/16/24 17:03 Q15MIN PRN BG <50 OR BG <70 & pt unresponsive Glucagon 1 mg 06/16/24 17:04 Glucagon Inj 1 Mg Vial IM Q15MIN PRN BG <70, and no IV access Heparin Sodium (Porcine) 5,000 unit 06/16/24 21:00 06/22/24 08:06 Heparin Sod Inj 5000 Unit/Ml Vial SC 06/30/24 20:59 5,000 unit Q12HR [facility] Administration Insulin Glargine 20 unit 06/21/24 09:00 06/22/24 08:07 Insulin Glargine (Lantus) 5 Unit/0.05 Ml (Per 5 Units) SC 07/21/24 08:59 20 unit QDAY [facility] Administration Insulin Human Lispro 0 unit 06/18/24 08:30 06/22/24 11:45 Insulin Lispro (Admelog) 1 Unit/0.01 Ml Unit SC 07/17/24 21:29 4 unit ACHS [facility] Administration Protocol Insulin Human Lispro 3 unit 06/21/24 11:30 06/22/24 11:45 Insulin Lispro (Admelog) 1 Unit/0.01 Ml Unit SC 07/21/24 11:29 3 unit ACHS [facility] Administration Labetalol HCl 10 mg 06/16/24 18:27 Labetalol Inj 5 Mg/Ml Vial 20 Ml IVP 07/16/24 19:59 Q2HR PRN SBP >160, hold if HR<60 Levalbuterol HCl 0.63 mg 06/17/24 16:43 06/18/24 20:55 Levalbuterol Rt 0.63 Mg/3 Ml Nebu INH 07/17/24 16:42 0.63 mg Q8HR PRN Administration WHEEZING Magnesium Hydroxide 30 ml 06/20/24 14:06 06/20/24 15:36 Milk Of Magnesia Susp 30 Ml Udc PO 07/20/24 14:05 30 ml QDAY PRN Administration CONSTIPATION Protocol Ondansetron HCl 4 mg 06/16/24 16:33 Ondansetron Inj 2 Mg/Ml Inj 2 Ml IV 07/16/24 16:32 Q6H PRN NAUSEA OR VOMITING Protocol Quetiapine Fumarate 25 mg 06/22/24 21:00 Quetiapine Fumarate 25 Mg Tablet PO 07/22/24 20:59 HS RAYMON Sacubitril/Valsartan 1 tab 06/19/24 09:00 06/22/24 08:05 Sacubitril 24 Mg/Valsartan 26 Mg Tablet PO 07/19/24 08:59 1 tab BID RAYMON Administration Sennosides 1 tab 06/16/24 16:33 06/20/24 12:07 Senna Tablet PO 07/16/24 16:32 1 tab BID PRN Administration CONSTIPATION Protocol Tamsulosin HCl 0.4 mg 06/17/24 09:00 06/22/24 08:05 Tamsulosin Hcl 0.4 Mg Capsule PO 07/17/24 08:59 0.4 mg QDAY RAYMON Administration Plan The patient is a 69-year-old male with a previous medical history of vascular dementia, status post CVA, multiple TIAs, hypertension, diabetes, hyperlipidemia, CAD status post PCI with stent placement, BPH who was brought to the ED due to altered mental status and was admitted for the acute stroke. #Acute CVA #Valcular dementia #Cognitive deficit #Right sided hemianopsia Patient's reported that on Thursday morning patient started having altered mental status, slurred speech, face numbness. He has a history of previous stroke, TIAs and diagnosed with vascular dementia. Patient was getting outpatient MRI when he was recommended by radiologist to go to the ED. MRI/MRA brain without contrast showed: Proximal occlusion of the left posterior cerebral artery resulting in ischemia of most of the remaining left occipital and posterior medial temporal lobes, as well as portions of the left thalamus and internal capsule. Encephalomalacia from old left occipital/temporal infarction. DDx: Atherothrombotic versus embolic stroke 06/17/2024: A1c 13.7% TSH 0.90. Head CT was negative for acute bleeding, showed posterior communicating artery distribution ischemic changes. Speech eval recommended dysphagia 2 diet. TTE showed ejection fraction 30 to 35%. Global hypokinesis. Stage II diastolic dysfunction. Moderate aortic stenosis. CHARMAINE: Ejection fraction 30 to 35%. No evidence for PFO or ASD. No left atrial or left atrial appendage thrombus. Moderate aortic stenosis. Plan: ? Neurologist consulted, appreciate recommendations ? Blood pressure control ? Neurochecks every 4 hours ? Continue home atorvastatin 80 mg daily ? Continue home Plavix 75 mg daily - Continue aspirin 81 mg qday - After discharge, follow-up with Dr. Amador in 2 weeks - Physical therapy recommended SNF, pending placement #Hospital delirium In the setting of stroke, vascular dementia and hospital admission. - Seroquel 25 mg HS - Discontinued Olanzapine 10 mg IM q4h for agitations as needed - Melatonin 3 mg HS - Frequent reorientation - Family visitation - Natural sunlight during day hours - AVOID restraints as the patient will need to discharge to SNF - Ativan may be given prn breakthrough agitation - Trazodone HS #History of CAD, status post multiple stent placement #History of CHF (EF 30-35%) #History if hypertension At this moment of time no signs on CHF exacerbation. Plan: - Med rec is pending - Continue home atorvastatin 80 mg daily - Labetalol 10 mg IV PRN if BP>160, hold if HR<60 - Carvedilol 6.25 mg BID - Continue Entresto 24-26 mg qday - Follow-up with cardiology in 1 week after discharge #BPH - Continue home tamsulosin 0.4 mg qday #Type 2 diabetes 06/17/2024: A1c 13.7% Plan: - Sliding scale insulin - Glargine 20 U qday, lispro 3U ACHS - hypoglycemia protocol in place - patient will require insulin regimen adjustment on discharge Health maintenance: FEN: Dysphagia 2 cardiac DVT prophylaxis: heparin sc GI prophylaxis: none Dispo: telemetry CODE STATUS: DNR/DNI Plan of care discussed with attending Dr. Brandt, PGY-[address] Rosario and PGY-[address] Grier. Cheryl Wallace MD, PGY 1. Attending Provider Attestation/Addendum Radha Parra DO, attest that I was physically present for the ballard portions of the service and evaluated the patient with the resident and I reviewed and discussed the case with the resident and agree with the resident's findings and plans of care as documented above Patient seen and evaluated this AM. Patient is much calmer this morning. He is A&Ox1 and able to tell us his full name. Patient thinks it is 1993 and unsure where he is. Patient is otherwise directable and moving all four extremities. Patient is able to follow simple commands. Per PGY1, patient appeared more somnolent this AM. Will decrease seroquel dose and DC any sedating medications at this time. Pending arrangements for SNF placement.
--- NOTE | 2024-06-22 15:00 | PC.SS ---
SS spoke to Carley from [facility] who states they are able to accept pt if Seroquel is 25 mg as needed at night and pt does not require a 1:1 sitter for 24 hours.
[2024-06-22] MEDS: OLANZapine INJ 10 MG, Sterile Water 2.1 ML IM (15:18)
--- NOTE | 2024-06-22 15:51 | PC.NURSE ---
Notified Dr Gustafson that patient was becoming increasingly agitated, taking clothes and heart monitor off. Per order, 10mg of Olanzapine was given. After administration, notified that patient was still behaving erratic. Dr Gustafson stated that primary team would assess patient.
[2024-06-22] MEDS: HALOPERIDOL LACT INJ 5 MG/ML VIAL 2.5 MG IV (16:24)
--- NOTE | 2024-06-22 16:44 | PC.SS ---
Rounding Note: Patient off 1:1 sitter. Neurology is consulting. Plan is to d/c to SNF tomorrow if patient remains off 1:1 sitter for 24 hrs.
--- NOTE | 2024-06-22 17:00 | PC.NURSE ---
Patient is not moving left extremeties and appears flaccid. Patient remains agitated, and is reaching and grabbing objects with right hand. Dr Wallace is assessing patient at bedside.
--- NOTE | 2024-06-22 17:00 | PC.NURSE ---
Dr Wallace notified that patient has increased agitation, which hasn't resolved with medication. MD will assess patient at bedside.
--- NOTE | 2024-06-22 17:20 | PC.SS ---
COTTON CONVERTER conducted bedside contact with the patient?s spouse, Talisha Palacio; to provided update on discharge plan.? COTTON CONVERTER discussed plan to transition the patient to SNF upon discharge.? COTTON CONVERTER informed spouse that [facility] has accepted the patient for placement.? COTTON CONVERTER shared with patient?s spouse that patient would have to be free from 1:1 sitter assignment for 24 hours before discharge to SNF.? COTTON CONVERTER stated that 1:1 sitter assignment removed at approximately 10:00 am this morning.? Patient?s spouse acknowledged discharge plan.?
--- NOTE | 2024-06-22 18:35 | PC.NURSE ---
I was notified by patient's that patient was not moving left extremeties. Upon assessment patient left extremetes appeared flacid.
--- NOTE | 2024-06-22 19:14 | PC.NURSE ---
Notified Dr Summers that patient left upper and lower extremety were remaining flacid, Dr to see patient at bedside.
--- NOTE | 2024-06-22 19:15 | PC.NURSE ---
REPORT RECEIVED FROM DANNY CABA. NEW ONSET LEFT SIDED WEAKNESS NOTED. [facility] AT 1518. DR. ZENDEJAS CALLED TO BEDSIDE FOR CHANGE IN NEUROLOGICAL STATUS BY DANNY CABA 1919. DR. ZENDEJAS AT BEDSIDE. INITIATED STROKE ALERT. ORTHOPEDIC SHOE FITTER CALLED FOR STROKE ALERT. 1999-PT SENT DOWN TO CT BRAIN, CTA HEAD. BENADRYL 12.5 MG IV X1. 2019-IV INIFILTRATED, NEW 20G PLACED TO LEFT AC. DR. ZENDEJAS NOTIFIED. SPOKE WITH TELE NEUROLOGIST FOR RECS ON SEDATION. D/T PT CONTINUES TO BE RESTLESS, ATIVAN 1 MG IV X1 GIVEN. UNABLE TO GET A CLEAR SCAN OF BRAIN. 2039-DR. ZENDEJAS NOTIFIED REGARDING RESTLESSNESS. 2ND DOSE OF ATIVAN 1MG IV X1 GIVEN. 2049-PT BACK TO ROOM. 2110 SON AND DAUGHTER IN LAW AT BEDSIDE. DR. ZENDEJAS IN AT BEDSIDE, UPDATING SON. PHONE NUMBER FOR VIVIAN () GIVEN TO DR. ZENDEJAS TO PLAN FOR UPDATE AND POSSIBLE [facility] VS REPEAT CT HEAD SCANS D/T MOTION 2039-DR. PEREZ STATING PT WILL BE TRANSFERRED [facility] AND [facility]ER [facility] IS WORKING ON IT.
--- NOTE | 2024-06-22 19:23 | EKG_ITS ---
[facility] Test Date: 2024-06-22 Pat Name: MATTHEW JOHNSON Department: Room: [facility] Gender: Male Claims Specialist: [place] : [id number] Requested By: Ranjeet Summers Order Number: [id number] Reading MD: Ranjeet Summers Measurements Intervals [place] Rate: 90 P: 229 AR: 118 QRS: 176 QRSD: 125 T: 125 QT: 364 QTc: 446 Interpretive Statements SINUS RHYTHM WITH SHORT AR INTERVAL POSSIBLE RIGHT VENTRICULAR HYPERTROPHY LATERAL MYOCARDIAL INFARCTION , OF INDETERMINATE AGE Compared to ECG 06/14/2024 10:47:22 Short AR interval now present Myocardial infarct finding now present Intraventricular conduction delay no longer present /store/S0/[id number]/ecg/[id number].pdf
[2024-06-22 19:37] LABS: Lactate (Lactic Acid) 1.5 mMol/L (0.4-2.0)
--- NOTE | 2024-06-22 19:40 | PD.NEUROPROG ---
Documentation for date of: 06/22/24 Subjective Subjective Interval history: Patient was seen in telemetry at the bedside with his family at the bedside. His mental status and language function has improved compared to admission to some extent but he still has aphasia, alexia and agraphia. Exam - Neurology Vital Signs Temp Pulse Resp BP Pulse Ox O2 Del Method O2 Flow Rate 97.4 F 85 18 153/91 H 94 L Room Air 2 06/22/24 16:00 06/22/24 17:17 06/22/24 16:00 06/22/24 17:17 06/22/24 16:00 06/22/24 16:00 06/20/24 16:00 Narrative Exam GENERAL APPEARANCE: Well hydrated, well-nourished in no acute distress. HEENT: Normocephalic, atraumatic, extraocular movements intact. Pupils: Equal reacting to light NECK: Supple, no JVD or bruits. CARDIOVASULAR: Heart: S1, S2 heard, regular without S3-S4 or murmur no rubs or gallops. LUNGS/CHEST: Clear to auscultation bilaterally. No rails, rhonchi, or wheezing. Normal inspection. ABDOMEN: Soft, nontender, with normal bowel sounds. No pulsatile masses. No rebound, rigidity, or guarding. Normal inspection and palpation. EXTREMITIES: Normal inspection and palpation. No edema, clubbing or cyanosis. SKIN: Warm and dry without rashes. Normal inspection. MUSCULOSKELETAL: No cervical, thoracic, lumbar or midline bony tenderness. Normal inspection. NEURO: Alert, awake and oriented x1. Cranial nerves: II through XII grossly intact. Speech and language: Significant aphasia noted. motor system: Tone and bulk: Normal: Strength: 5 out of 5 in all 4 extremities; No pronator drift noted. Deep tendon reflexes: 2+ bilaterally symmetrical. Plantar reflex: Downgoing bilaterally. Sensory system: Intact to all modalities of sensation bilaterally. Coordination: Intact to [id number] and [id number]-[id number] test bilaterally. No ataxia, no dysmetria, or dysdiadochokinesia noted. No intention tremors noted. Gait: Not tested. No signs of meningeal irritation noted. PSYCHIATRIC: Normal mood and affect. Objective Labs 06/22/24 07:02 06/22/24 07:02 Labs: Laboratory Results - last 24 hr 06/22/24 07:02 WBC 7.9 RBC 4.54 Hgb 13.7 Hct 40.8 L MCV 90 MCH 30.2 MCHC 33.6 RDW Std Deviation 42.1 Plt Count 232 Neut % (Auto) 67 Lymph % (Auto) 20 [place] % (Auto) 9 Eos % (Auto) 3 Baso % (Auto) 1 Neut # (Auto) 5.3 Lymph # (Auto) 1.6 [place] # (Auto) 0.7 Eos # (Auto) 0.3 Baso # (Auto) 0.0 Immature Gran # (Auto) 0.02 H Absolute Nucleated RBC 0.00 Immature Gran % 0 Nucleated RBC % 0 Sodium 138 Potassium 4.1 D Chloride 104 Carbon Dioxide 24.5 Anion Gap 10 BUN 13 Creatinine 1.1 Estim Creat Clear Calc 70.5 eGFR > 60 BUN/Creatinine Ratio 12 Glucose 190 H D Calculated Osmolality 280 Calcium 8.9 Assessment & Plan Additional Assessment & Plan Additional Plan: Patient is a 69-year-old male with a previous medical history of vascular dementia, status post CVA, multiple TIAs, hypertension, diabetes, hyperlipidemia, CAD status post PCI with stent placement, BPH who was brought to the ED due to altered mental status. Neurology consulted due to acute ischemic stroke noted on imaging. #Acute left occipital and posterior medial temporal lobes stroke, as well as portions of the left thalamus and internal capsule stroke he does have vascular dementia at baseline from the previous left MCA ischemic infarction Acute stroke noted on MRI Repeat CT shows no acute hemorrhages Patient needs better glycemic control, A1c 13.7 Continue with high-dose statin, aspirin 81 mg, and Plavix 75 mg for 21 days of dual antiplatelets Continue with PT and speech therapy CHARMAINE: Bubble study negative. No evidence of any PFO or ASD. No LA/AYAZ thrombus Severely reduced LV function with an EF of around 30 to 35%. Global hypokinesis. Mildly dilated LV. Normal RV size and function. Moderate aortic stenosis. Possibly underestimated due to the low ejection fraction and mostly low-flow low gradient severe aortic stenosis . Moderately calcified aortic valve. Mild MAC with moderate MR as well as mild TR. systolic blunting of pulmonary vein flow Needs short-term rehab placement. Will DC Seroquel and try trazodone to help with the sleep at night #History of CAD, status post multiple stent placement #History of CHF #History if hypertension #BPH #Diabetes mellitus Continue management per primary team
[2024-06-22 19:46] LABS: Basophils # (Auto) 0.1 Thou/mm3 (0.0-0.2); Basophils % (Auto) 1 % (0-2.5); Eosinophils # (Auto) 0.2 Thou/mm3 (0.0-0.5); Eosinophils % (Auto) 2 % (0-10); Hematocrit 45.1 % (41.0-53.0); Hemoglobin 15.2 g/dL (13.5-16.0); Immature Granulocytes % (Auto) 0 % (0-0); Immature Granulocytes Auto 0.03 Thou/mm3 (0.00-0.00); Lymphocytes # (Auto) 1.7 Thou/mm3 (1.0-4.8); Lymphocytes % (Auto) 16 % (10-50); Mean Corpuscular HGB Conc 33.7 g/dl (31.0-37.0); Mean Corpuscular Hemoglobin 30.8 pg (25.0-35.0); Mean Corpuscular Volume 92 fL (80-100); Monocytes # (Auto) 0.8 Thou/mm3 (0.0-0.8); Monocytes % (Auto) 8 % (0-12); Neutrophils # (Auto) 7.5 Thou/mm3 (1.8-7.7); Neutrophils % (Auto) 73 % (37-80); Nucleated Red Blood Cell % 0 /100 WBC (0); RDW Standard Deviation 42.7 fL (35.1-43.9); Red Blood Count 4.93 Miln/mm3 (4.50-5.90); White Blood Count 10.2 Thou/mm3 (3.8-10.6)
--- NOTE | 2024-06-22 19:59 | XR_ITS ---
Examination: CTA carotids with intravenous contrast CTA brain, head with intravenous contrast. 2-D sagittal, coronal reconstructions. 3-D reconstructions. Exam date and time: June 14, 2024 at 1019 hours INDICATIONS: Stroke alert, onset left hemiparesis beginning 1900 hours CTDI: vol (mGy) 11.1 DLP: (mGycm) 457 Technique: Multiple CTA axial brain, head carotid images post intravenous contrast injection 100 cc, [id number]. 2-D sagittal, coronal reconstructions. 3-D reconstructions, 3-D post processing including vascular maximum intensity projection images. Low dose protocols were performed. One or more of the following dose reduction techniques were used; automated exposure control, adjustment of the mA and/or KV according to patient size, use of iterative reconstruction technique. Findings: Patient motion severely degrades neck imaging Heavy calcification bilateral carotid bifurcations which are distorted again, by patient motion No significant internal carotid artery stenoses Dominant left vertebral artery in the neck, images of the vertebral arteries degraded by patient motion Cerebral images are also degraded by patient motion There is occlusion of the M1 segment right middle cerebral artery with lack of filling of right middle cerebral artery trifurcation vessels Anterior cerebral arteries do fill The basilar artery is diffusely attenuated , lack of filling of the proximal left posterior cerebral artery. IMPRESSION: The entire study is significantly limited by patient motion Heavy calcification bilateral carotid bifurcations Occlusion of the M1 segment right middle cerebral artery with lack of filling of right middle cerebral artery trifurcation vessels Basilar artery is diffusely attenuated, lack of filling left posterior cerebral artery
--- NOTE | 2024-06-22 19:59 | XR_ITS ---
Examination: CT brain head without contrast. 2-D sagittal coronal reconstructions Date and time of exam:April 24, 20242008 hours Comparison June 17, 2024 INDICATIONS: Stroke alert, onset left hemiparesis last known well 1900 hours CTDI: vol (mGy):172.4 DLP: (mGycm):3857 Technique: Multiple CT axial sections of the brain have been obtained, 5 mm slice thickness. Contrast has not been administered. 2-D sagittal, coronal reconstructions have been obtained Low dose protocols were performed. One or more of the following dose reduction techniques were used; automated exposure control, adjustment of the mA and/or KV according to patient size, use of iterative reconstruction technique. Findings: Images severely degraded by patient motion Again noted acute subacute large infarct left posterior temporal left occipital lobe, left internal capsule Mild ventricular enlargement No gross hemorrhage IMPRESSION: Images severely degraded by patient motion Unchanged acute subacute infarct left posterior temporal and left occipital lobe, left internal capsule No interval gross hemorrhage
[2024-06-22] MEDS: DiphenhydrAMINE INJ 50 MG/ML VIAL 12.5 MG IVP (20:00)
[2024-06-22 20:09] LABS: Alanine Aminotransferase 17 U/L (10-49); Albumin, Serum 3.9 gm/dL (3.4-4.8); Albumin/Globulin Ratio 1.2 (1.2-2.2); Alkaline Phosphatase 61 U/L (46-116); Anion Gap 10 (7-16); Aspartate Amino Transferase 44 U/L (0-34); BUN/Creatinine Ratio 12 Ratio (12-20); Bilirubin,Total 0.9 mg/dL (0.3-1.2); Blood Urea Nitrogen 13 mg/dL (9-23); Calcium 9.7 mg/dL (8.3-10.6); Calcium (Corrected) 9.8 mg/dL (8.5-10.1); Carbon Dioxide 21.5 mMol/L (20.0-31.0); Chloride 109 mMol/L (98-107); Creatinine (Component) 1.1 mg/dL (0.6-1.3); Estimated Creatinine Clearance 70.5 mL/min (>60); Globulin 3.2 gm/dL (2.3-3.5); Glucose 137 mg/dL (74-106); Osmolality,Calculated 281 (275-295); Potassium 4.7 mMol/L (3.4-5.1); Sodium 140 mMol/L (136-145); Total Protein 7.1 gm/dL (5.7-8.2); eGFR > 60 See Note
[2024-06-22 20:10] LABS: Partial Thromboplastin Time 20.5 Seconds (22.0-36.0); Prothrombin Time 10.7 Seconds (9.0-12.2)
[2024-06-22] MEDS: LORazepam 2 MG/ML VIAL 1 MG IVP ×2 (20:20→21:17)
--- NOTE | 2024-06-22 21:14 | PD.TNEURO ---
Tele Neuro Consultation Consultation Date 06/22/24 Most Recent Vital Signs Last Vital Signs Temp 97.4 F 06/22/24 16:00 Pulse 85 06/22/24 17:17 Resp 18 06/22/24 16:00 BP 153/91 H 06/22/24 17:17 Pulse Ox 94 L 06/22/24 16:00 O2 Del Method Room Air 06/22/24 16:00 O2 Flow Rate 2 06/20/24 16:00 Laboratory-Coagulation Panel PT 10.7 Seconds (9.0-12.2) 06/22/24 19:30 INR 1.0 (0.9-1.3) 06/22/24 19:30 APTT 20.5 Seconds (22.0-36.0) L 06/22/24 19:30 Consultation Narrative [facility] TeleNeurology Consult Services Patient Name:???Mejia Herzog Date of :???1955 Identification Number:??? Date of Service:???06/22/2024 19:26:18 Diagnosis:?I63.411 - Cerebrovascular accident (CVA) due to embolism of right middle cerebral artery (HCCC) Impression: ?Mejia Herzog is a 69 y.o. 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 MRA head showed a L B[employer]ICKER MACHINE OPERATOR occlusion. TTE showed LVEF 30-35%, negative bubble study, normal atria, and no thrombus. Mechanism of stroke is ESUS (embolic stroke of undetermined source). Patient was pending discharge. Per Neurology's exam today, patient is oriented x 1 with aphasia. No other focal findings on exam. LKW is 1518. Stroke alert activated this evening because patient now has L flaccid hemiplegia. He is also non-verbal. NIHSS 31, notable for decreased level of consciousness, global aphasia, R gaze preference, L facial droop, L arm plegia, L leg weakness. He has more movements of the RUE and RLE, but not antigravity. Non contrast head CT shows a large L BERR[employer] P[employer]ACHINE OPERATOR territory infarct but also seems to show loss of chandra white differentiation throughout the R MCA territory. CTA head/neck shows a distal R M1 occlusion. Patient is not a candidate for TNK as he just had a L BERR[employer] PICK[employer] MACHINE OPERATOR infarct. Based upon my review of his non contrast head CT, he is unlikely to be a candidate for thrombectomy as it looks like he has infarcted most of the R MCA territory. Mechanism of stroke is still unclear. ? ? ?Recommendations: ?- would review CT and CTA with radiology if possible; if they say ASPECTS Score is < = 6, would not recommend calling Neuro IR as the ischemic changes on CT would be too extensive ?- if ASPECTS score is >6, call transfer center to speak to Neuro IR for potential transfer for thrombectomy ?- if patient does not get transferred, continue DAPT with aspirin 81 mg daily and Plavix 75 mg daily for now ?- consider hypercoagulable workup or potential malignancy workup as patient has had 2 large vessel territory strokes in the past week without clear source ?- continue atorvastatin 80 mg daily for stroke prevention, goal LDL <70 ?- Permissive hypertension up to 220/120 x 24 hours; then goal BP normotensive ?- can order repeat MRI brain without contrast to further evaluate the extent of new ischemia ?- Send routine stroke labs including HbA1c, fasting lipid panel ?- PT/OT/ST evaluation when able ? ? Our recommendations are outlined below. Recommendations: ? Stroke/Telemetry Floor ? Neuro Checks ? Bedside Swallow Eval ? DVT Prophylaxis ? IV Fluids, Normal Saline ? Head of Bed 30 Degrees ? Euglycemia and Avoid Hyperthermia (PRN Acetaminophen) ? Initiate or continue Aspirin 81 MG daily ? Initiate Clopidogrel 75 mg daily ? Antihypertensives PRN if Blood pressure is greater than 220/120 or there is a concern for End organ damage/contraindications for permissive HTN. If blood pressure is greater than 220/120 give labetalol PO or IV or Vasotec IV with a goal of 15% reduction in BP during the first 24 hours. Sign Out: ? Discussed with Primary Attending Advanced Imaging:CTA Head and Neck Completed. LVO:Yes Discussed with MONICA :No Metrics: Last Known Well: 06/22/2024 15:18:00 Dispatch Time: 06/22/2024 19:26:18 Initial Response Time: 06/22/2024 19:34:01Symptoms: L hemiparesis. Initial patient interaction: 06/22/2024 19:42:53 NIHSS Assessment Completed: 06/22/2024 19:53:11Patient is not a candidate for Thrombolytic. Thrombolytic Medical Decision: 06/22/2024 19:53:13Patient was not deemed candidate for Thrombolytic because of following reasons: Significant head trauma or stroke in previous 3 months . I personally Reviewed the CT Head and it Showed a large L BERR[employer]ATOR territory infarct. There also seems to be diffuse loss of chandra white differentiation in the R MCA territory. I personally reviewed the CTA head/neck. There is occlusion of the distal R M1. Primary Provider Notified of Diagnostic Impression and Management Plan on: 06/22/2024 21:04:14 Spoke With: Dr. Summers Able to Reach 06/22/2024 21:04:14 History of Present Illness:Patient is a 69 year old Male. Inpatient stroke alert was called for symptoms of L hemiparesis. Mejia Herzog is a 69 y.o. 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 MRA head showed a L BERR[employer]ICK[employer] MACHINE OPERATOR occlusion. TTE showed LVEF 30-35%, negative bubble study, normal atria, and no thrombus. Mechanism of stroke is ESUS (embolic stroke of undetermined source). Patient was pending discharge. Per Neurology's exam today, patient is oriented x 1 with aphasia. No other focal findings on exam. LKW is 1518. Stroke alert activated this evening because patient now has L flaccid hemiplegia. He is also non-verbal. ? Past Medical History: Other PMH:? vascular dementia, prior stroke, multiple TIAs, hypertension, diabetes, hyperlipidemia, CAD s/p stenting, BPH Medications: Anticoagulant use:??Yes?heparin 5000 units SC q12 Antiplatelet use:?Yes?aspirin 81 mg daily, Plavix 75 mg daily Reviewed EMR for current medications Allergies:? Reviewed,NKDA Social History: Smoking: Former Alcohol Use: Yes Family History: There is no family history of premature cerebrovascular disease pertinent to this consultation ROS : 14 Points Review of Systems was performed and was negative except mentioned in HPI. Past Surgical History: There Is No Surgical History Contributory To Today?s Visit NIHSS may not be reliable due to: altered mental status Examination: BP(153/91),?Pulse(85), 1A: Level of Consciousness - Requires repeated stimulation to arouse?+ 2 1B: Ask Month and Age - Aphasic?+ 2 1C: Blink Eyes & Squeeze Hands - Performs 0 Tasks?+ 2 2: Test Horizontal Extraocular Movements - Partial Gaze Palsy: Can Be Overcome?+ 1 3: Test Visual Fuller - Patient is Bilaterally Blind?+ 3 4: Test Facial Palsy (Use Grimace if Obtunded) - Minor paralysis (flat nasolabial fold, smile asymmetry)?+ 1 5A: Test Left Arm Motor Drift - No Movement?+ 4 5B: Test Right Arm Motor Drift - No Effort Against Irving?+ 3 6A: Test Left Leg Motor Drift - No Effort Against Irving?+ 3 6B: Test Right Leg Motor Drift - No Effort Against Irving?+ 3 7: Test Limb Ataxia (FNF/Heel-Elizalde) - No Ataxia?+ 0 8: Test Sensation - Complete Loss: Cannot Sense Being Touched At All?+ 2 9: Test Language/Aphasia - Mute/Global Aphasia: No Usable Speech/Auditory Comprehension?+ 3 10: Test Dysarthria - Mute/Anarthric?+ 2 11: Test Extinction/Inattention - No abnormality?+ 0 NIHSS Score:?31 NIHSS Free Text :?no response to nailbed pressure LUE Pre-Morbid Modified [place] Scale:3 Points = Moderate disability; requiring some help, but able to walk without assistance Spoke with :?Dr. Summers This consult was conducted in real time using interactive audio and video technology. Patient was informed of the technology being used for this visit and agreed to proceed. Patient located in hospital and provider located at home/office setting. Patient is being evaluated for possible acute neurologic impairment and high probability of imminent or life-threatening deterioration. I spent total of 90 minutes providing care to this patient, including time for face to face visit via telemedicine, review of medical records, imaging studies and discussion of findings with providers, the patient and/or family. Dr Latisha Vanessa [facility] For Inpatient follow-up with [facility] physician please call [facility] at . As we are not an outpatient service for any post hospital discharge needs please contact the hospital for assistance. If you have any questions for the [facility] physicians or need to reconsult for clinical or diagnostic changes please contact us via [facility] at .
--- NOTE | 2024-06-22 21:20 | PC.NURSE ---
SON, TUAN AND DAUGHTER IN LAW AT BEDSIDE, INFORMED RN THAT THEY HAVE OPENED AN APS CASE AGAINST , VIVIAN, FOR NEGLECT, CONTROLLING BEHAVIOR, AND VERBAL ABUSE. HE STATES THAT HE INFORMED SS, GABBY AND JARED BUT NOT HAVE HEARD BACK FROM THEM. HE IS ATTEMPTING TO BE A MEDICATION SURROGACY WHILE HE IS IN THE HOSPITAL BC HE FEELS LIKE VIVIAN IS INCOMPETENT . OF NOW, VIVIAN IS POINT OF CONTACT AND DECISION MAKER. WILL HAVE DAY SHIFT RN FOLLOW UP WITH SS.
--- NOTE | 2024-06-22 22:01 | PC.NURSE ---
PER DR. ZENDEJAS, HOLD PO MEDS AND HEPARIN SQ D/T PT CHANGE IN CONDITION. OK TO CONTINUE TO GIVE LISPRO 3 UNITS SQ FOR A FSBS 133.
--- NOTE | 2024-06-22 22:12 | PC.NURSE ---
Spoke to Augustin at [facility], patient information given and said a nurse will call back with patient review.
--- NOTE | 2024-06-22 23:15 | ESDS_ITS ---
<Statement entered by Sergio Snyder MD - 06/23/24 06:01> Attending Attestation: 69-year-old male with multiple comorbidities including hypertension, hyperlipidemia, type 2 diabetes mellitus, CAD status post stent placement with subsequent heart failure with reduced EF with EF 30%, and multiple ischemic CVA who was admitted to our hospital on 06/16/2024 for proximal occlusion of left posterior cerebral artery and ischemia of the remaining left occipital and posterior medial temporal lobe seen on MRI. At around 7 PM, patient rapid response was called as patient was noted to have flaccid paralysis of the left upper extremity. As a result, stroke alert was activated and patient underwent CT head and CTA with findings of right middle cerebral artery M1 segment occlusi on. Currently with neurology was consulted and did not recommend tPA however recommended transfer for thrombectomy. As of now, plan to initiate transfer for mechanical thrombectomy..I reviewed above note and agree with findings and plans. I have also personally examined the patient with medicine team and went over assessment and plan with medical team including internal control specialist and resident ph ysician. Planned Discharge Date 06/22/24 DS: Providers Provider Date of admission: 06/16/24 16:30 Primary care physician: Physician No Primary/Family Admitting Provider: Alexandre Barnhart MD Attending Provider on Admission: Radha Brandt DO Consults: 06/16/24 16:39 Referral Speech Therapy Stat Comment: 06/16/24 17:15 Consult to Neurology / Tele-Neurology Routine Comment: acute/subacute stroke Consulting Provider: Kristofer Amador 06/16/24 17:21 Consult to Cardiology Routine Comment: susp thromboembolic stroke Consulting Provider: Darren Vega Instructions: Patient has a history of CAD s/p stent placement, HTN, HLP 06/20/24 07:50 Referral Physical Therapy Stat Comment: Physician Instructions: Attending Provider on DC: Sergio Snyder MD Discharging Provider: Sergio Snyder MD DS: Diagnosis Problem List Completed Was Problem List Reviewed/Reconciled?: Yes Hospital Course Hospital Course Hospital course: Mejia Herzog is a 69 y/o male with PMHx of vascular dementia, status post CVA, multiple TIAs, hypertension, diabetes, hyperlipidemia, CAD status post PCI with stent placement, BPH who was admitted to [facility] on 06/16 for proximal occlusion of L posterior cerebral artery and ischemia of the remaining L occipital and posterior medial temporal lobes seen on MRA brain. On admission pt appeared to have AMS, slurred speech, face numbness and was walking slowly and was not oriented to person. Pt has hx of vascular dementia and is following neurology, Dr. Amador. Pt did not appear to have significant residual deficits follo wing the CVA. Pt continued to have agitation and hospital delirium throughout the admission in which he was medically managed with antipsychotics. No bubble study was done for the patient, however it was found for patient to have HFrEF with severe systolic dysfunction EF ~30%. Today, pt began to have L sided UE flaccid paralysis. Stroke alert was initiated and CTA Head neck showed LVO in the M1 segment of R MCA. Transfer for patient was initiated for thrombectomy and patient was accepted for transfer to [facility]. Pt was then urgently transferred for thrombectomy to [facility]. Problem list #Acute CVA, R MCA and L posterior cerebral artery #Vascular dementia #Cognitive deficit #Right sided hemianopsia #Hospital delirium #History of CAD, status post multiple stent placement #History of CHF (EF 30-35%) #History if hypertension #BPH #Type 2 diabetes Patient seen and care discussed with my attending physician, Dr. Lillian Power, PGY-1 Time Spent with Patient Time attestation: Total time spent providing and/or coordinating discharge services: Exam Vital Signs Temp Pulse Resp BP Pulse Ox O2 Del Method O2 Flow Rate 97.1 F 96 20 153/94 H 96 Room Air 2 06/22/24 20:00 06/22/24 20:00 06/22/24 20:00 06/22/24 20:00 06/22/24 20:00 06/22/24 20:00 06/20/24 16:00 Narrative Exam General: Awake and in no acute distress. Conversational and non-toxic appearing. Elements of aphasia. HEENT: Normocephalic, atraumatic, mucous membranes moist. Heart: Regular rate and rhythm, no murmurs. Lungs: Clear to auscultation with no wheezing or crackles. Abdomen: Soft, nondistended, nontender, positive bowel sounds. ?No guarding or rebound tenderness. Neurologic: Alert and oriented x1, right sided hemianopsia, and flaccid para lysis of L UE Extremities: No edema. Skin: No rash or ecchymoses. Discharge Plan Problem List Was Problem List Reviewed/Reconciled?: Yes Plan Patient Disposition: Admit Acute Care w/in Hospital Facility Pt Being Transferred to: [facility] Patient condition on transfer: Stable Care Plan Goals: Please schedule the following appointments: - Follow-up with your PCP in 1-2 weeks - Follow-up with Neurology Dr. Amador in 1-2 weeks for stroke management - Follow-up with Cardiology Dr. Vega in 2 weeks for heart failure management For diabetes: - Increase metformin to 1000 mg twice a week - Continue insulin glargine (Lantus) 10 U once daily - Start insulin aspart sliding scale with meal times, 3 times a day according to the following scale: BG 150-200: Administer 2 units. BG 201-250: Administer 3 units. BG 251-300: Administer 4 units. BG >300: Administer 5 units. - Continue glipizide 2.5 mg once daily - Continue empagliflozin (Jardiance) 10 mg once daily For stroke prevention: - Continue aspirin 81 mg once daily for 17 more days (21 days total of dual- antiplatelet therapy) - Continue clopidogrel (Plavix) 75 mg once daily indefinitely For cholesterol: - Continue atorvastatin 80 mg once daily For heart failure: - Continue sacubitril-valsartan 24-26 mg once daily - Please ensure you have a weighing scale, 2 gram sodium restriction, 2L fluid restriction - Please note your weight on the discharge paperwork prior to leaving - Every morning after you wake up and urinate, please weigh yourself, and document the date and the weight. - If your weight increases by 2 pounds in 1 day or by 5 pounds in a week, call your Laboratory Supervisor. - If you notice shortness of breath, having to use more pillows to prop your head up when you sleep, waking up short of breath, clothes fitting tighter, swelling your legs, decreased urination, please call. If any symptoms are severe, go to the Emergency Department. - Avoid using medications called NSAIDs (also known as nonsteroidal anti-inf lammatory drugs), such as ibuprofen, Motrin, Aleve, Advil, naproxen. - Avoid using canned vegetables, canned soups, frozen dinners as these tend to have a lot of salt. For blood pressure: - Continue carvedilol 6.25 mg twice daily with meals For BPH: - Continue tamsulosin 0.4 mg once daily Prescriptions/Referrals Prescriptions/Med Rec: New aspirin 81 mg capsule 81 mg PO QDAY 30 Days Qty: 30 2RF Entresto 24-26 mg tablet 1 tab PO BID 30 Days Qty: 60 0RF insulin aspart U-100 100 unit/mL (3 mL) insulin pen 1 sliding scale dose subcut USEASDIRECTD Qty: 15 0RF Continued atorvastatin 80 mg tablet 80 mg PO QDAY clopidogrel [Plavix] 75 mg tablet 75 mg PO QDAY carvedilol 6.25 mg tablet 6.25 mg PO BID glipizide 2.5 mg tablet extended release 24hr 2.5 mg PO QDAY Jardiance 10 mg tablet 10 mg PO QDAY tamsulosin 0.4 mg capsule 0.4 mg PO QDAY Lantus Solostar U-100 Insulin 100 unit/mL (3 mL) insulin pen 10 unit SC QDAY Changed metformin 500 mg tablet 1,000 mg PO BID 30 Days Qty: 120 0RF Discontinued lisinopril 10 mg tablet 10 mg PO QDAY Referrals: Darren Vega MD [Physician] - No Primary/Family,Physician [Primary Care Provider] - Kristofer Amador MD [Physician] - 07/04/24 Patient/Caregiver Discharge Instructions Print Language: Chilean Stand Alone Forms: [facility]ah Award Info., Patient Portal Info Letter Discharge Order Discharge Orders: Discharge (Routine); Ordered 06/20/24 Ordered By: Mariella Rosario Quality Discharge Quality Measures VTE prophylaxis (Heparin)
--- NOTE | 2024-06-22 23:41 | PC.NURSE ---
DR. ZENDEJAS ON FLOOR. SPEAKING WITH SON REGARDING UPDATES. [facility] STATED PT IS AT HIGH RISK FOR HEMORRHAGIC CONVERSION POST THROMBECTOMY, PT HAS POOR PROGNOSIS AND MD RECOMMENDS MEDICAL MANAGEMENT HERE. WILL SPEAK WITH VIVIAN AND HAVE HER DECIDE IF SHE WOULD LIKE TO PROCEED WITH SURGICAL INTERVENTION AT THIS TIME.
[2024-06-23] VITALS (9 sets, daily range): BP systolic 124–153; BP diastolic 78–98; PULSE 69–96; RESP 16–97; TEMP 36.4–36.9; O2SAT 94–99; BMI 27.8
--- NOTE | 2024-06-23 | XR_ITS ---
Examinations: MRI Brain without intravenous contrast. MRA brain without intravenous contrast. MRA carotids without intravenous contrast 3-D vascular reconstructions Date and time of exam: June 23, 2024 1203 hours INDICATIONS: Onset confusion beginning yesterday, CT stroke alert yesterday brain MRI June 16, 2024 large acute infarct left occipital lobe left posterior temporal lobe left basal ganglia Technique: Multiple axial and sagittal images of the brain have been obtained MRA brain carotid images without contrast obtained, including 3-D postprocessing, vascular maximum intensity projection images Findings: Sellaturcica is not enlarged. The optic chiasm and infundibular stalk are not remarkable. Prepontine and interpeduncular cisterns are not enlarged. No localized enlargement of the medulla or iraida. Fourth ventricle and cerebellar tonsils normal in position. Subacute hemorrhage is not seen. Fourth ventricle is midline. Mass in the cerebellopontine angle region is not evident. 7th and 8th nerve complexes exhibits symmetry. Globes are symmetrical with no retro-orbital mass. Increased white matter signal prominent bilaterally Diffusion-weighted images demonstrate no focus restricted diffusion right middle cerebral artery distribution, very extensive Restricted diffusion in the left occipital lobe left posterior temporal lobe and left basal ganglia again noted Mass-effect upon the ventricular system is not identified. MRA carotid images degraded by patient motion. MRA brain images occlusion M1 segment right middle cerebral artery Impression: Interval very large acute infarct in the right middle cerebral artery distribution
--- NOTE | 2024-06-23 00:13 | PD.RESEVENT ---
Documentation for date of: 06/23/24 Event Note Event Note: At 7 PM a rapid response was called as the patient was noticed to have flaccid paralysis of the left upper extremity. On evaluation patient was noticed to be given haloperidol and Zyprexa at 4:30 PM, for that reason patient was mildly sedated and not responsive. He was noticed that he can move all his right side of the body however noticed to have severe weakness on his left upper extremity, left lower extremity there is some movement however not against gravity. For that reason, a stroke alert was initiated and patient was sent for CT scan for the brain and head and neck CT angio. Head and neck CT angio showed The entire study is significantly limited by patient motion, Heavy calcification bilateral carotid bifurcations. Occlusion of the M1 segment right middle cerebral artery with lack of filling of right middle cerebral artery trifurcation vessels. Basilar artery is diffusely attenuated, lack of filling left posterior cerebral artery. His brain CT Report mentioned that images severely degraded by patient motion Unchanged acute subacute infarct left posterior temporal and left occipital lobe, left internal capsule. No interval gross hemorrhage. Teleneurologist was consulted she mentioned that if we were able to reach out to the radiologist for further specification of the repeat images that was done for the patient to get the ASPECTS score for possible thrombectomy. However, when I reached out to Dr Dela Cruz mentioned that he cannot get an ASPECTS score due to the poor quality of the images. Spoke with the Talisha in which she mentioned that she did not want everything to be done for her for that reason we contacted the transfer nurse for possible interventional neurologist consultation, I was connected with an interventional neurologist from [facility] Crockettana cristina Urban she reviewed the images and reported that the patient at high risk of hemorrhagic conversion if embolectomy was done. Furthermore, the long-term benefits and recovery for the patient is not guaranteed due to the severity of the stroke and the acuity of the radiological changes. Discussed with the family the Talisha and his son and they agreed to continue with the conservative management for the patient at this time and will follow-up with Dr. Marjorie mullins as she is known for the family. Of note, teleneurologist recommended consider hypercoagulable workup or potential malignancy workup as patient has had 2 large vessel territory strokes in the past week without clear source, repeat MRI brain without contrast to further evaluate the extent of new ischemia. And also allow permissive hypertension at this time. Was switched the patient to n.p.o., insulin sliding scale every 6 hours and will hold the scheduled insulin 3 units. Will order also for the patient speech and physical therapy evaluation. - Patient's plan and care discussed with my attending, Dr. Lillian Summers MD Internal Medicine PGY-2 Attending Attestation: 69-year-old male with multiple comorbidities including hypertension, hyperlipidemia, type 2 diabetes mellitus, CAD status post stent placement with subsequent heart failure with reduced EF with EF 30%, and multiple ischemic CVA who was admitted to our hospital on 06/16/2024 for proximal occlusion of left posterior cerebral artery and ischemia of the remaining left occipital and posterior medial temporal lobe seen on MRI. At around 7 PM, patient rapid response was called as patient was noted to have flaccid paralysis of the left upper extremity. As a result, stroke alert was activated and patient underwent CT head and CTA with findings of right middle cerebral artery M1 segment occlusion. Currently with neurology was consulted and did not recommend tPA however recommended transfer for thrombectomy. Discussed case with [facility] regarding emergent transfer for thrombectomy however did not recommend transfer or thrombectomy given patient is at high risk for hemorrhagic conversion as embolectomy was done and recommended close monitoring. Discussed these findings with patient's Talisha and his son and agreed to continue close monitoring and overall prognosis seems to be guarded given these multiple ischemic strokes.I reviewed above note and agree with findings and plans. I have also personally examined the patient with medicine team and went over assessment and plan with medical team including technology risk intern and resident physician.
--- NOTE | 2024-06-23 00:30 | PC.NURSE ---
MD Summers called this RN to cancel transfer per neurology recommendations. [facility] and [facility] called to update that transfer has been cancelled.
[2024-06-23] MEDS: INSULIN LISPRO (AdmeLOG) 1 UNIT/0.01 ML UNIT SC (05:12)
[2024-06-23 05:19] LABS: Platelet Count 237 Thou/mm3 (140-440)
[2024-06-23 06:09] LABS: Basophils # (Auto) 0.1 Thou/mm3 (0.0-0.2); Basophils % (Auto) 1 % (0-2.5); Eosinophils # (Auto) 0.1 Thou/mm3 (0.0-0.5); Eosinophils % (Auto) 1 % (0-10); Hematocrit 44.8 % (41.0-53.0); Hemoglobin 15.2 g/dL (13.5-16.0); Immature Granulocytes % (Auto) 0 % (0-0); Immature Granulocytes Auto 0.03 Thou/mm3 (0.00-0.00); Lymphocytes # (Auto) 1.2 Thou/mm3 (1.0-4.8); Lymphocytes % (Auto) 12 % (10-50); Mean Corpuscular HGB Conc 33.9 g/dl (31.0-37.0); Mean Corpuscular Volume 91 fL (80-100); Monocytes # (Auto) 0.8 Thou/mm3 (0.0-0.8); Monocytes % (Auto) 8 % (0-12); Neutrophils # (Auto) 8.2 Thou/mm3 (1.8-7.7); Neutrophils % (Auto) 79 % (37-80); Nucleated Red Blood Cell % 0 /100 WBC (0); Platelet Count 263 Thou/mm3 (140-440); RDW Standard Deviation 42.2 fL (35.1-43.9); White Blood Count 10.4 Thou/mm3 (3.8-10.6)
[2024-06-23 06:47] LABS: Ammonia < 10 uMol/L (11-32)
--- NOTE | 2024-06-23 07:11 | PC.SS ---
SERVICE CONSULTANT informed by nursing staff that patient had rapid response (stroke alert) generated on evening of 06-22-24.
[2024-06-23 07:24] LABS: Anion Gap 12 (7-16); BUN/Creatinine Ratio 10 Ratio (12-20); Blood Urea Nitrogen 11 mg/dL (9-23); Calcium 8.9 mg/dL (8.3-10.6); Carbon Dioxide 21.8 mMol/L (20.0-31.0); Chloride 105 mMol/L (98-107); Creatinine (Component) 1.1 mg/dL (0.6-1.3); Estimated Creatinine Clearance 70.7 mL/min (>60); Glucose 167 mg/dL (74-106); Osmolality,Calculated 280 (275-295); Potassium 4.3 mMol/L (3.4-5.1); Sodium 139 mMol/L (136-145); eGFR > 60 See Note
[2024-06-23 08:59] LABS: Phosphorous 3.2 mg/dL (2.4-5.1)
[2024-06-23] MEDS: HEPARIN SOD INJ 5000 UNIT/ML VIAL SC (08:59)
[2024-06-23] MEDS: INSULIN GLARGINE (Lantus) 5 UNIT/0.05 ML (PER 5 UNITS) 20 UNIT SC (08:59)
[2024-06-23] MEDS: HALOPERIDOL LACT INJ 5 MG/ML VIAL 2.5 MG IV ×2 (09:31→12:29)
[2024-06-23] MEDS: SCOPOLAMINE 1 MG TDSY TOP (09:58)
--- NOTE | 2024-06-23 10:25 | PD.RESPRO ---
Documentation for date of: 06/23/24 Subjective Subjective Interval history: Patient seen and examined at bedside, overnight patient had stroke alert called, patient has new deficits, CTA head and neck showed showed heavy calcification of bilateral carotid arteries, occlusion of M1 segment right middle cerebral artery with lack of filling of right middle cerebral artery trifurcation vessels. Basilar artery is diffusely attenuated, lack of filling left posterior cerebral artery. His brain CT Report mentioned that images severely degraded by patient motion Unchanged acute subacute infarct left posterior temporal and left occipital lobe, left internal capsule. No interval gross hemorrhage. Teleneurology was consulted, recommended transferring patient if aspect scores is more than 6 Case was discussed with Dr. Urban interventional neurologist at [facility] who reviewed the images and reported that the patient has a high risk of hemorrhagic conversion if embolectomy was done. Furthermore the long-term benefits and recovery for the patient is not guaranteed due to the severity of the stroke and the acuity of the radiological changes. Discussed with the family the Talisha and his son and they agreed to continue with the conservative management for the patient at this time and will follow-up with Dr. Marjorie mullins as she is known for the family. Patient's repeat MRI shows interval very large acute infarct in the right middle cerebral artery, primary team discussing shelter goals of care today Exam Vital Signs Temp Pulse Resp BP Pulse Ox O2 Del Method O2 Flow Rate 97.6 F 84 18 128/79 98 Nasal Cannula 2 06/23/24 08:00 06/23/24 08:00 06/23/24 08:00 06/23/24 08:00 06/23/24 08:00 06/23/24 08:00 06/23/24 08:00 Narrative Exam Gen: Well-developed and well-nourished. Total aphasia. HEENT: NCAT, PERRLA, EOMI, MMM, anicteric conjunctivae. CVS: normal S1 and S2. RRR. Positive systolic murmur Resp: CTA B/L. No rhonchi, rales, crackles or wheezing. Abd: soft, non-tender, non-distended. BS+ in all 4 quadrants. MSK: Good ROM in BUE & BLE. No edema or rash. Neuro: AOx0, strength on the right extremities 0/5, left 5/5, Babinski negative bilaterally. Objective Labs 06/23/24 05:48 06/23/24 05:48 Labs: Laboratory Results - last 24 hr 06/22/24 06/23/24 19:30 05:48 WBC 10.2 10.4 RBC 4.93 4.90 Hgb 15.2 15.2 Hct 45.1 44.8 MCV 92 91 MCH 30.8 31.0 MCHC 33.7 33.9 RDW Std Deviation 42.7 42.2 Plt Count 237 263 Neut % (Auto) 73 79 Lymph % (Auto) 16 12 [place] % (Auto) 8 8 Eos % (Auto) 2 1 Baso % (Auto) 1 1 Neut # (Auto) 7.5 8.2 H Lymph # (Auto) 1.7 1.2 [place] # (Auto) 0.8 0.8 Eos # (Auto) 0.2 0.1 Baso # (Auto) 0.1 0.1 Immature Gran # (Auto) 0.03 H 0.03 H Absolute Nucleated RBC 0.00 0.00 Immature Gran % 0 0 Nucleated RBC % 0 0 PT 10.7 INR 1.0 APTT 20.5 L Sodium 140 139 Potassium 4.7 D 4.3 Chloride 109 H 105 Carbon Dioxide 21.5 21.8 Anion Gap 10 12 BUN 13 11 Creatinine 1.1 1.1 Estim Creat Clear Calc 70.5 70.7 eGFR > 60 > 60 BUN/Creatinine Ratio 12 10 L Glucose 137 H D 167 H Calculated Osmolality 281 280 Lactic Acid 1.5 Calcium 9.7 8.9 Corrected Calcium 9.8 Phosphorus 3.2 Magnesium 2.0 Total Bilirubin 0.9 D AST 44 H ALT 17 Alkaline Phosphatase 61 Ammonia < 10 L Troponin I 0.020 Total Protein 7.1 Albumin 3.9 Globulin 3.2 Albumin/Globulin Ratio 1.2 Quality Measures Quality Measures VTE prophylaxis (Heparin) Advance care planning discussed with:: patient Assessment & Plan Assessment Current Active Medications: Generic Name Dose Route Start Last Admin Trade Name Freq PRN Reason Stop Dose Admin Acetaminophen 650 mg 06/16/24 16:33 06/22/24 08:05 Acetaminophen 325 Mg Tablet PO 07/16/24 16:32 650 mg Q6H PRN Administration Fever >100.3 or pain 1-3 Aspirin 81 mg 06/17/24 17:00 06/23/24 09:02 Aspirin Ec 81 Mg Tabec PO 07/17/24 16:59 Not Given QDAY RAMYON Atorvastatin Calcium 80 mg 06/16/24 21:00 06/22/24 21:57 Atorvastatin Calcium 20 Mg Tablet PO 07/16/24 20:59 Not Given HS RAYMON Carvedilol 6.25 mg 06/17/24 16:45 06/23/24 09:02 Carvedilol 3.125 Mg Tablet PO 07/17/24 16:44 Not Given BIDWM RAYMON Clopidogrel Bisulfate 75 mg 06/17/24 09:00 06/23/24 09:02 Clopidogrel Bisulfate 75 Mg Tablet PO 07/17/24 08:59 Not Given QDAY RAYMON Dextrose 25 ml 06/16/24 17:04 Dextrose 50%-Water Inj 50 Ml Syringe IV 07/16/24 17:03 Q15MIN PRN BG 50-70 responsive npo pt Dextrose 50 ml 06/16/24 17:04 Dextrose 50%-Water Inj 50 Ml Syringe IV 07/16/24 17:03 Q15MIN PRN BG <50 OR BG <70 & pt unresponsive Glucagon 1 mg 06/16/24 17:04 Glucagon Inj 1 Mg Vial IM Q15MIN PRN BG <70, and no IV access Haloperidol Lactate 2.5 mg 06/22/24 17:46 06/23/24 09:31 Haloperidol Lact Inj 5 Mg/Ml Vial IV 06/27/24 17:45 2.5 mg Q6HR PRN Administration AGITATION (SEVERE) Heparin Sodium (Porcine) 5,000 unit 06/16/24 21:00 06/23/24 08:59 Heparin Sod Inj 5000 Unit/Ml Vial SC 06/30/24 20:59 5,000 unit Q12HR RAYMON Administration Insulin Glargine 20 unit 06/21/24 09:00 06/23/24 08:59 Insulin Glargine (Lantus) 5 Unit/0.05 Ml (Per 5 Units) SC 07/21/24 08:59 20 unit QDAY RAYMON Administration Insulin Human Lispro 3 unit 06/21/24 11:30 06/22/24 22:33 Insulin Lispro (Admelog) 1 Unit/0.01 Ml Unit SC 07/21/24 11:29 3 unit ACHS RAYMON Administration Insulin Human Lispro 0 unit 06/23/24 06:00 06/23/24 05:12 Insulin Lispro (Admelog) 1 Unit/0.01 Ml Unit SC 07/23/24 05:59 2 unit Q6HR RAYMON Administration Protocol Labetalol HCl 10 mg 06/16/24 18:27 Labetalol Inj 5 Mg/Ml Vial 20 Ml IVP 07/16/24 19:59 Q2HR PRN SBP >160, hold if HR<60 Levalbuterol HCl 0.63 mg 06/17/24 16:43 06/18/24 20:55 Levalbuterol Rt 0.63 Mg/3 Ml Nebu INH 07/17/24 16:42 0.63 mg Q8HR PRN Administration WHEEZING Magnesium Hydroxide 30 ml 06/20/24 14:06 06/20/24 15:36 Milk Of Magnesia Susp 30 Ml Udc PO 07/20/24 14:05 30 ml QDAY PRN Administration CONSTIPATION Protocol Melatonin 3 mg 06/22/24 21:00 06/22/24 21:57 Melatonin 3 Mg Tablet PO 07/22/24 20:59 Not Given HS RAYMON Ondansetron HCl 4 mg 06/16/24 16:33 Ondansetron Inj 2 Mg/Ml Inj 2 Ml IV 07/16/24 16:32 Q6H PRN NAUSEA OR VOMITING Protocol Quetiapine Fumarate 25 mg 06/22/24 21:00 06/22/24 21:57 Quetiapine Fumarate 25 Mg Tablet PO 07/22/24 20:59 Not Given HS RAYMON Sacubitril/Valsartan 1 tab 06/19/24 09:00 06/23/24 09:02 Sacubitril 24 Mg/Valsartan 26 Mg Tablet PO 07/19/24 08:59 Not Given BID RAYMON Scopolamine 1 mg 06/23/24 10:00 06/23/24 09:58 Scopolamine 1 Mg Tdsy TOP 07/23/24 09:59 1 mg Q3D@0900 RAYMON Administration Sennosides 1 tab 06/16/24 16:33 06/20/24 12:07 Senna Tablet PO 07/16/24 16:32 1 tab BID PRN Administration CONSTIPATION Protocol Tamsulosin HCl 0.4 mg 06/17/24 09:00 06/23/24 09:02 Tamsulosin Hcl 0.4 Mg Capsule PO 07/17/24 08:59 Not Given QDAY RAYOMN Trazodone HCl 50 mg 06/22/24 21:00 06/22/24 21:57 Trazodone Hcl 50 Mg Tablet PO 07/22/24 20:59 Not Given HS [facility] Plan Assessment and plan: Summary: Mr. 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 Amador secondary to abnormal MRI. Most of the history is obtained from patient's chart as patient is confused unable to provide history has difficulty word finding. MRI ordered outpatient by neurologist done earlier in a.m. today showed Proximal occlusion of the left posterior cerebral artery resulting in ischemia of most of the remaining left occipital and posterior medial temporal lobes, as well as portions of the left thalamus and internal capsule. Encephalomalacia from old left occipital/temporal infarction. Extensive global parenchymal volume loss and chronic small vessel ischemic changes. Small focus of susceptibility right semicentrum ovale may represent area of microhemorrhage. Patient admitted for acute CVA workup, cardiology consulted for TTE and possible CHARMAINE due to concern of embolic stroke to complete workup. #Large MCA infarct #Acute CVA #Vascular dementia #History of CVA, multiple TIAs Patient initially evaluated in ED on 06/14 for acute confusion, symptoms resolved per ED physician's note and patient was discharged home with a diagnosis of exacerbation of dementia, underlying vascular dementia. Patient followed neurology outpatient for vascular dementia, was scheduled for a MRI earlier this morning which showed proximal occlusion of the left posterior cerebral artery resulting in ischemia of most of the remaining left occipital and posterior medial temporal lobes, as well as portions of the left thalamus and internal capsule. Encephalomalacia from old left occipital/temporal infarction. Extensive global parenchymal volume loss and chronic small vessel ischemic changes. Small focus of susceptibility right semicentrum ovale may represent area of microhemorrhage. Patient admitted for further workup per neurology recommendations for acute CVA, last known well time more than 24 hours. Patient does have history of CVA in the past, last one in 2020 and does endorse history of multiple TIAs. CT scan of the head was negative in ED on 06/14. Repeat CT scan of head showed evolving left posterior communicating artery distribution ischemic changes. 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 Patient presented as a STEMI and had 100% occlusion of the proximal to mid LCx and as well as 90% occlusion of the distal RCA and had 2 stents placed. He did have a repeat cardiac cath in 2014 at [facility] did show moderate residual disease diffuse in the LAD, OM1 as well as the mid RCA. No other cardiac catheterization since then. Patient used to follow-up with Dr. Fitzgerald in [place]. Per chart review he last followed up with them in 2021 looks like patient has been lost to follow-up since then. Regarding his CHF patient does have a history of EF of 40% but no new recent echo that has been noted. As per Recommendation from the last cardiology notes in 2021 he had mild systolic CHF. He was on Entresto and goal-directed medical therapy at that point of time but patient is not oriented the present point of time and unclear why. Strict input output Daily weights and 2 g sodium diet. Does not appear to be fluid overloaded at the present point of time and is not on any kind of diuretics. Will need GDMT with Entresto, beta-susanne, SGLT inhibitors. Aortic stenosis-echo and CHARMAINE showed at least moderate aortic stenosis by pressure gradient but the valve area was less than 1 cm? indicating possibly underestimation of the aortic stenosis and given the low ejection fraction. Patient mostly has low-flow low gradient severe . TTE shows severely reduced LV function with an EF of around 30 to 35%. Global hypokinesis. Mildly dilated LV. Diastolic dysfunction stage II. Normal RV size and function. RVSP mildly elevated at 35 mmHg. Moderate aortic stenosis with a mean PG of 22 mm hg. Possibly underestimated due to the low ejection fraction and mostly low-flow low gradient severe aortic stenosis as a DANTE is less than 1 cm?. Moderately calcified aortic valve.Mild MAC with moderate MR as well as mild TR. CHARMAINE shows severely reduced LV function with an EF of around 30 to 35%. Global hypokinesis. Mildly dilated LV. Normal RV size and function. Moderate aortic stenosis. Possibly underestimated due to the low ejection fraction and mostly low-flow low gradient severe aortic stenosis . Moderately calcified aortic valve. Mild MAC with moderate MR as well as mild TR. systolic blunting of pulmonary vein flow. Patient's repeat MRI shows interval very large acute infarct in the right middle cerebral artery, primary team discussing shelter goals of care today #Hyperlipidemia #Hypertension #Diabetes mellitus type 2 #Benign prostate hyperplasia Case discussed with Attending Dr. Vega. Lizzy Benjamin PGY1 Disclaimer: This note was dictated by speech recognition. Minor errors in senior wind energy consultant may be present due to voice recognition software. Attending Provider Attestation/Addendum I have personally seen and examined the patient separately on the above date of service and discussed the plan of care with the resident. I reviewed the resident Dr. Lizzy Benjamin consultation progress note and agree with the resident findings and plan in the note above and have also edited the documentation to reflect my findings and plan. Darren Vega M.D. Interventional Cardiology
[2024-06-23] MEDS: LORazepam 2 MG/ML VIAL 1 MG IVP (12:06)
--- NOTE | 2024-06-23 15:09 | PD.RESPRO ---
Documentation for date of: 06/23/24 Subjective Subjective Interval history: Patient was seen and examined by the bedside. Yesterday a stroke alert was called circa 7 pm due to new onset left sided weakness, teleneuro was consulted, patient was not a candidate for thrombectomy due to high risk of hemorrhagic conversion, CT angiogram showed occlusion of the M1 right MCA feeling of right MCA trifurcation, head CT showed unchanged acute/subacute infarct in the left posterior temporal and left occipital lobe, left internal capsule. Brain MRI showed large MCA stroke. Patient is AOx0, total aphasia, right sided hemiplegia. Speech therapy assessed him, recommended NPO and alternative types of nutrition, family declined artificial nutrition. was updated and family came to the bedside. Considering severe disability and poor prognosis, family decided to proceed with comfort care. Exam Vital Signs Temp Pulse Resp BP Pulse Ox O2 Del Method O2 Flow Rate 97.6 F 84 19 141/83 H 96 Nasal Cannula 2 06/23/24 11:40 06/23/24 11:40 06/23/24 11:40 06/23/24 11:40 06/23/24 11:40 06/23/24 11:40 06/23/24 11:40 Narrative Exam Gen: Well-developed and well-nourished. Total aphasia. Agitated. HEENT: NCAT, PERRLA, EOMI, MMM, anicteric conjunctivae. CVS: normal S1 and S2. RRR. No M/R/G. Resp: CTA B/L. No rhonchi, rales, crackles or wheezing. Abd: soft, non-tender, non-distended. BS+ in all 4 quadrants. MSK: Good ROM in left extremities. No edema or rash. Neuro: AOx0, strength on the right extremities 0/5, left 5/5, Babinski negative bilaterally. Psych: impossible to assess. Objective Labs 06/23/24 05:48 06/23/24 05:48 Labs: Laboratory Results - last 24 hr 06/22/24 06/23/24 19:30 05:48 WBC 10.2 10.4 RBC 4.93 4.90 Hgb 15.2 15.2 Hct 45.1 44.8 MCV 92 91 MCH 30.8 31.0 MCHC 33.7 33.9 RDW Std Deviation 42.7 42.2 Plt Count 237 263 Neut % (Auto) 73 79 Lymph % (Auto) 16 12 [place] % (Auto) 8 8 Eos % (Auto) 2 1 Baso % (Auto) 1 1 Neut # (Auto) 7.5 8.2 H Lymph # (Auto) 1.7 1.2 [place] # (Auto) 0.8 0.8 Eos # (Auto) 0.2 0.1 Baso # (Auto) 0.1 0.1 Immature Gran # (Auto) 0.03 H 0.03 H Absolute Nucleated RBC 0.00 0.00 Immature Gran % 0 0 Nucleated RBC % 0 0 PT 10.7 INR 1.0 APTT 20.5 L Sodium 140 139 Potassium 4.7 D 4.3 Chloride 109 H 105 Carbon Dioxide 21.5 21.8 Anion Gap 10 12 BUN 13 11 Creatinine 1.1 1.1 Estim Creat Clear Calc 70.5 70.7 eGFR > 60 > 60 BUN/Creatinine Ratio 12 10 L Glucose 137 H D 167 H Calculated Osmolality 281 280 Lactic Acid 1.5 Calcium 9.7 8.9 Corrected Calcium 9.8 Phosphorus 3.2 Magnesium 2.0 Total Bilirubin 0.9 D AST 44 H ALT 17 Alkaline Phosphatase 61 Ammonia < 10 L Troponin I 0.020 Total Protein 7.1 Albumin 3.9 Globulin 3.2 Albumin/Globulin Ratio 1.2 Quality Measures Quality Measures none (comfort care) Advance care planning discussed with:: other Assessment & Plan Assessment Current Active Medications: Generic Name Dose Route Start Last Admin Trade Name Freq PRN Reason Stop Dose Admin Acetaminophen 650 mg 06/16/24 16:33 06/22/24 08:05 Acetaminophen 325 Mg Tablet PO 07/16/24 16:32 650 mg Q6H PRN Administration Fever >100.3 or pain 1-3 Aspirin 81 mg 06/17/24 17:00 06/23/24 09:02 Aspirin Ec 81 Mg Tabec PO 07/17/24 16:59 Not Given QDAY [facility] Atorvastatin Calcium 80 mg 06/16/24 21:00 06/22/24 21:57 Atorvastatin Calcium 20 Mg Tablet PO 07/16/24 20:59 Not Given HS [facility] Carvedilol 6.25 mg 06/17/24 16:45 06/23/24 09:02 Carvedilol 3.125 Mg Tablet PO 07/17/24 16:44 Not Given BIDWM [facility] Clopidogrel Bisulfate 75 mg 06/17/24 09:00 06/23/24 09:02 Clopidogrel Bisulfate 75 Mg Tablet PO 07/17/24 08:59 Not Given QDAY [facility] Dextrose 25 ml 06/16/24 17:04 Dextrose 50%-Water Inj 50 Ml Syringe IV 07/16/24 17:03 Q15MIN PRN BG 50-70 responsive npo pt Dextrose 50 ml 06/16/24 17:04 Dextrose 50%-Water Inj 50 Ml Syringe IV 07/16/24 17:03 Q15MIN PRN BG <50 OR BG <70 & pt unresponsive Glucagon 1 mg 06/16/24 17:04 Glucagon Inj 1 Mg Vial IM Q15MIN PRN BG <70, and no IV access Haloperidol Lactate 2.5 mg 06/22/24 17:46 06/23/24 09:31 Haloperidol Lact Inj 5 Mg/Ml Vial IV 06/27/24 17:45 2.5 mg Q6HR PRN Administration AGITATION (SEVERE) Heparin Sodium (Porcine) 5,000 unit 06/16/24 21:00 06/23/24 08:59 Heparin Sod Inj 5000 Unit/Ml Vial SC 06/30/24 20:59 5,000 unit Q12HR [facility]MON Administration Insulin Glargine 20 unit 06/21/24 09:00 06/23/24 08:59 Insulin Glargine (Lantus) 5 Unit/0.05 Ml (Per 5 Units) SC 07/21/24 08:59 20 unit QDAY [facility] Administration Insulin Human Lispro 3 unit 06/21/24 11:30 06/22/24 22:33 Insulin Lispro (Admelog) 1 Unit/0.01 Ml Unit SC 07/21/24 11:29 3 unit ACHS [facility] Administration Insulin Human Lispro 0 unit 06/23/24 06:00 06/23/24 12:06 Insulin Lispro (Admelog) 1 Unit/0.01 Ml Unit SC 07/23/24 05:59 Not Given Q6HR [facility] Protocol Labetalol HCl 10 mg 06/16/24 18:27 Labetalol Inj 5 Mg/Ml Vial 20 Ml IVP 07/16/24 19:59 Q2HR PRN SBP >160, hold if HR<60 Levalbuterol HCl 0.63 mg 06/17/24 16:43 06/18/24 20:55 Levalbuterol Rt 0.63 Mg/3 Ml Nebu INH 07/17/24 16:42 0.63 mg Q8HR PRN Administration WHEEZING Magnesium Hydroxide 30 ml 06/20/24 14:06 06/20/24 15:36 Milk Of Magnesia Susp 30 Ml Udc PO 07/20/24 14:05 30 ml QDAY PRN Administration CONSTIPATION Protocol Melatonin 3 mg 06/22/24 21:00 06/22/24 21:57 Melatonin 3 Mg Tablet PO 07/22/24 20:59 Not Given HS [facility] Ondansetron HCl 4 mg 06/16/24 16:33 Ondansetron Inj 2 Mg/Ml Inj 2 Ml IV 07/16/24 16:32 Q6H PRN NAUSEA OR VOMITING Protocol Quetiapine Fumarate 25 mg 06/22/24 21:00 06/22/24 21:57 Quetiapine Fumarate 25 Mg Tablet PO 07/22/24 20:59 Not Given HS [facility] Sacubitril/Valsartan 1 tab 06/19/24 09:00 06/23/24 09:02 Sacubitril 24 Mg/Valsartan 26 Mg Tablet PO 07/19/24 08:59 Not Given BID [facility] Scopolamine 1 mg 06/23/24 10:00 06/23/24 09:58 Scopolamine 1 Mg Tdsy TOP 07/23/24 09:59 1 mg Q3D@0900 [facility] Administration Sennosides 1 tab 06/16/24 16:33 06/20/24 12:07 Senna Tablet PO 07/16/24 16:32 1 tab BID PRN Administration CONSTIPATION Protocol Tamsulosin HCl 0.4 mg 06/17/24 09:00 06/23/24 09:02 Tamsulosin Hcl 0.4 Mg Capsule PO 07/17/24 08:59 Not Given QDAY [facility] Trazodone HCl 50 mg 06/22/24 21:00 06/22/24 21:57 Trazodone Hcl 50 Mg Tablet PO 07/22/24 20:59 Not Given HS [facility]AY[facility] Plan The patient is a 69-year-old male with a previous medical history of vascular dementia, status post CVA, multiple TIAs, hypertension, diabetes, hyperlipidemia, CAD status post PCI with stent placement, BPH who was brought to the ED due to altered mental status and was admitted for the acute stroke. #Acute CVA #Valcular dementia #Cognitive deficit #Right sided hemianopsia #Total aphasia #Left MCA stroke #Right MCA stroke Patient's reported that on Thursday morning patient started having altered mental status, slurred speech, face numbness. He has a history of previous stroke, TIAs and diagnosed with vascular dementia. Patient was getting outpatient MRI when he was recommended by radiologist to go to the ED. MRI/MRA brain without contrast showed: Proximal occlusion of the left posterior cerebral artery resulting in ischemia of most of the remaining left occipital and posterior medial temporal lobes, as well as portions of the left thalamus and internal capsule. Encephalomalacia from old left occipital/temporal infarction. DDx: Atherothrombotic versus embolic stroke 06/17/2024: A1c 13.7% TSH 0.90. Head CT was negative for acute bleeding, showed posterior communicating artery distribution ischemic changes. Speech eval recommended dysphagia 2 diet. TTE showed ejection fraction 30 to 35%. Global hypokinesis. Stage II diastolic dysfunction. Moderate aortic stenosis. CHARMAINE: Ejection fraction 30 to 35%. No evidence for PFO or ASD. No left atrial or left atrial appendage thrombus. Moderate aortic stenosis. Plan: ? comfort care #Hospital delirium In the setting of stroke, vascular dementia and hospital admission. - comfort care #History of CAD, status post multiple stent placement #History of CHF (EF 30-35%) #History if hypertension At this moment of time no signs on CHF exacerbation. Plan: - comfot care #BPH #Type 2 diabetes 06/17/2024: A1c 13.7% Plan: - comfort care Health maintenance: FEN: comfort feedings DVT prophylaxis: none, comfort care GI prophylaxis: none Dispo: telemetry CODE STATUS: DNR/DNI Plan of care discussed with attending Dr. Brandt, PGY-[address] Rosario and PGY-[address] Grier. Cheryl Wallace MD, PGY 1. -- ATTESTATION: I saw and examined the patient this morning, and I agree with current management stated by the resident. Will continue to monitor patient during their stay. Disclaimer: Despite multiple revisions, due to the dictation software being used, the document bellow may not be free of grammatical errors including phonetic/typographic errors. However, this does not deter from our commitment to providing health care in the patient's best interest in mind. Dr. Obed Grier, PGY-3 Attending Provider Attestation/Addendum I, Radha Brandt DO, attest that I was physically present for the ballard portions of the service and evaluated the patient with the resident and I reviewed and discussed the case with the resident and agree with the resident's findings and plans of care as documented above Patient seen and evaluated this AM. Patient has left hemiplegia, moaning, unable to follow commands. Patient is moving his RUE and RLE spontaneously. He is unable to open eyes and noted to be snoring and gurgling. Patient was found to have new onset left hemiplegia overnight during which stroke alert was called. Patient was found to have LVO of Right MCA. Per teleneuro, patient was not a candidate for tPA due to concern for hemorrhagic conversion. Transfer for thrombectomy was attempted, but solar pv installer discussed case with neurosurgeon at [facility] who felt that the risk of bleeding was very high. Family had opted to cancel transfer. Spoke with and patient's decision maker who stated that the patient was lucid prior to his stroke symptoms. Patient had expressed that he would not any aggressive measures due to the poor quality of life due to his hx of vascular dementia and strokes. Patient was not able to move his tongue or follow commands with speech therapy. stated that the patient would not want a PEG tube and understood the patient's overall poor prognosis. Case discussed with neurology as well and recommended goals of care discussion. states that patient's wishes would be to be placed on comfort measures/ hospice care given his current condition. Explained the procedures of comfort measurs with which she is agreeable. Will start comfort measures as per patient and family's wishes
--- NOTE | 2024-06-23 15:11 | PC.SS ---
SS received call from bedside nurse who explained is requesting to speak with SS. SS met with pt, , and 's sister, Odalis who had conerns about patient's family receiving information. explained patient's son, Aidan was only to be contacted incase of an emergency if she was unavailable. expressed Aidan is not to be provided with updates on patient's status. is also requesting pt to have 1 visitor when she is not at bedside. is aware patient's son, Aidan is on patient's facesheet. SS has informed them to speak with charge nurse. SS has informed charge nurseAnthony about 's concerns.
--- NOTE | 2024-06-23 15:46 | PD.RESEVENT ---
Documentation for date of: 06/23/24 Event Note Event Note: We had a goals of care discussion with the patient's family today and decision maker, his , Talisha Palacio. Unfortunately patient had a large right-sided infarct yesterday evening for which teleneuro was consulted and did not recommend tPA or thrombolectomy due to the high risk of hemorrhagic conversion. Patient's symptoms now include left-sided weakness and flaccid paralysis as well as dysphagia and dysarthria. Patient's conditions continue to worsen as he is gurgling secretions and is very incoherent appearing very somnolent. MRI was finalized this afternoon and the report read: Interval very large acute infarct in the right middle cerebral artery distribution. At this time family decided to stop any further interventions or studies and transition the patient to comfort care. I discussed patient's care with attending physician, Dr Karly Grier PGY3
[2024-06-23] MEDS: Morphine IV Drip 100mg/100ml 100 ML IV (16:53)
[2024-06-23] MEDS: MORPHINE SULF INJ 10 MG/ML VIAL 2 MG IVP (18:06)
--- NOTE | 2024-06-23 21:36 | PD.NEUROPROG ---
Documentation for date of: 06/23/24 Subjective Subjective Interval history: Patient was seen in telemetry at the bedside at the bedside. He got agitated this morning and received a dose of Haldol and he is under the effect of it at present time. He is moving his right upper and lower extremities but not the left. Exam - Neurology Vital Signs Temp Pulse Resp BP Pulse Ox O2 Del Method O2 Flow Rate 98.3 F 86 18 134/88 H 96 Nasal Cannula 1 06/23/24 20:00 06/23/24 20:00 06/23/24 20:00 06/23/24 20:00 06/23/24 20:00 06/23/24 20:00 06/23/24 20:00 Narrative Exam GENERAL APPEARANCE: Well hydrated, well-nourished in mild distress. HEENT: Normocephalic, atraumatic, extraocular movements intact. Pupils: Equal reacting to light NECK: Supple, no JVD or bruits. CARDIOVASULAR: Heart: S1, S2 heard, regular without S3-S4 or murmur no rubs or gallops. LUNGS/CHEST: Clear to auscultation bilaterally. No rails, rhonchi, or wheezing. Normal inspection. ABDOMEN: Soft, nontender, with normal bowel sounds. No pulsatile masses. No rebound, rigidity, or guarding. Normal inspection and palpation. EXTREMITIES: Normal inspection and palpation. No edema, clubbing or cyanosis. SKIN: Warm and dry without rashes. Normal inspection. MUSCULOSKELETAL: No cervical, thoracic, lumbar or midline bony tenderness. Normal inspection. NEURO: Under the effect of Haldol, purposeful movements noted in the right upper and lower extremities but not on commands, brainstem function: Intact. No signs of meningeal irritation noted. PSYCHIATRIC: Limited Objective Labs 06/23/24 05:48 06/23/24 05:48 Labs: Laboratory Results - last 24 hr 06/22/24 06/23/24 19:30 05:48 WBC 10.4 RBC 4.90 Hgb 15.2 Hct 44.8 MCV 91 MCH 31.0 MCHC 33.9 RDW Std Deviation 42.2 Plt Count 237 263 Neut % (Auto) 79 Lymph % (Auto) 12 [place] % (Auto) 8 Eos % (Auto) 1 Baso % (Auto) 1 Neut # (Auto) 8.2 H Lymph # (Auto) 1.2 [place] # (Auto) 0.8 Eos # (Auto) 0.1 Baso # (Auto) 0.1 Immature Gran # (Auto) 0.03 H Absolute Nucleated RBC 0.00 Immature Gran % 0 Nucleated RBC % 0 Sodium 139 Potassium 4.3 Chloride 105 Carbon Dioxide 21.8 Anion Gap 12 BUN 11 Creatinine 1.1 Estim Creat Clear Calc 70.7 eGFR > 60 BUN/Creatinine Ratio 10 L Glucose 167 H Calculated Osmolality 280 Calcium 8.9 Phosphorus 3.2 Magnesium 2.0 Ammonia < 10 L Assessment & Plan Additional Assessment & Plan Additional Plan: Patient is a 69-year-old male with a previous medical history of vascular dementia, status post CVA, multiple TIAs, hypertension, diabetes, hyperlipidemia, CAD status post PCI with stent placement, BPH who was brought to the ED due to altered mental status. Neurology consulted due to acute ischemic stroke noted on imaging. #Acute left occipital and posterior medial temporal lobes stroke, as well as portions of the left thalamus and internal capsule stroke he does have vascular dementia at baseline from the previous left MCA ischemic infarction Repeat CT head overnight after the rapid response: Showed large infarct in the right middle cerebral artery territory with complete occlusion of the M1 seg of MCA. Transfer could not happen for thrombectomy with risk of hemorrhagic transformation. Patient failed the swallow evaluation. Will keep him n.p.o. for now. As his prognosis is poor with significant neurological deficit including functional dysphagia, goals of care discussion has to be made with family. #History of CAD, status post multiple stent placement #History of CHF #History if hypertension #BPH #Diabetes mellitus Continue management per primary team
--- NOTE | 2024-06-24 01:17 | PC.NURSE ---
Assumed care for patient presented self as primary nurse. Pt GCS of 6 on comfort care morphine IV 1mg/hr. Pt appears comfortable no s/s of pain or discomfort. Suction in room. Sitter at bedside.
[2024-06-24] MEDS: MORPHINE SULF INJ 10 MG/ML VIAL 2 MG IVP (04:00)
[2024-06-24 05:32] VITALS: BMI 27.8
[2024-06-24 08:00] VITALS: BP 146/76; PULSE 103; RESP 16; TEMP 36.1; O2SAT 96
--- NOTE | 2024-06-24 09:05 | PD.RESPRO ---
Documentation for date of: 06/24/24 Subjective Subjective Interval history: MRI Brain shows interval very large acute infarct in the right middle cerebral artery distribution Patient is on comfort care, started by primary team. Exam Vital Signs Temp Pulse Resp BP Pulse Ox O2 Del Method O2 Flow Rate 96.9 F 103 H 16 146/76 H 96 Nasal Cannula 2 06/24/24 08:00 06/24/24 08:00 06/24/24 08:00 06/24/24 08:00 06/24/24 08:00 06/24/24 08:00 06/24/24 08:00 Narrative Exam Gen: Elderly male. Resting in bed. CVS: Regular rate and rhythm, no murmurs, rubs, or gallops. Resp: Rhonchi on auscultation bilateral lobes. Objective Labs 06/23/24 05:48 06/23/24 05:48 Quality Measures Quality Measures none (comfort care) Advance care planning discussed with:: patient Assessment & Plan Assessment Current Active Medications: Generic Name Dose Route Start Last Admin Trade Name Freq PRN Reason Stop Dose Admin Artificial Tears 1 drop 06/23/24 15:14 Artificial Tears 225 Drop/15 Ml Btl BOTH EYES 07/23/24 15:13 Q4HR PRN Dry eyes Morphine Sulfate 100 mls @ 1 mls/hr 06/23/24 15:14 06/23/24 16:53 Morphine Sulfate Iv Drip 100mg/100ml IV 06/28/24 15:13 1 mg/hr .Q24H PRN 1 mls/hr PAIN (COMFORT CARE) Administration Protocol 1 MG/HR Lorazepam 1 mg 06/23/24 15:14 Lorazepam 2 Mg/Ml Vial IVP 06/28/24 15:13 Q6HR PRN ANXIETY Morphine Sulfate 2 mg 06/23/24 16:41 06/24/24 04:00 Morphine Sulf Inj 10 Mg/Ml Vial IVP 06/28/24 16:40 2 mg Q30M PRN Administration PAIN Plan Assessment and plan: Summary: Mr. 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 Amador secondary to abnormal MRI. Most of the history is obtained from patient's chart as patient is confused unable to provide history has difficulty word finding. MRI ordered outpatient by neurologist done earlier in a.m. today showed Proximal occlusion of the left posterior cerebral artery resulting in ischemia of most of the remaining left occipital and posterior medial temporal lobes, as well as portions of the left thalamus and internal capsule. Encephalomalacia from old left occipital/temporal infarction. Extensive global parenchymal volume loss and chronic small vessel ischemic changes. Small focus of susceptibility right semicentrum ovale may represent area of microhemorrhage. Patient admitted for acute CVA workup, cardiology consulted for TTE and possible CHARMAINE due to concern of embolic stroke to complete workup. #Large MCA infarct #Acute CVA #Vascular dementia #History of CVA, multiple TIAs Patient initially evaluated in ED on 06/14 for acute confusion, symptoms resolved per ED physician's note and patient was discharged home with a diagnosis of exacerbation of dementia, underlying vascular dementia. Patient followed neurology outpatient for vascular dementia, was scheduled for a MRI earlier this morning which showed proximal occlusion of the left posterior cerebral artery resulting in ischemia of most of the remaining left occipital and posterior medial temporal lobes, as well as portions of the left thalamus and internal capsule. Encephalomalacia from old left occipital/temporal infarction. Extensive global parenchymal volume loss and chronic small vessel ischemic changes. Small focus of susceptibility right semicentrum ovale may represent area of microhemorrhage. Patient admitted for further workup per neurology recommendations for acute CVA, last known well time more than 24 hours. Patient does have history of CVA in the past, last one in 2020 and does endorse history of multiple TIAs. CT scan of the head was negative in ED on 06/14. Repeat CT scan of head showed evolving left posterior communicating artery distribution ischemic changes. Patient's repeat MRI today showed interval very large acute infarct in the right middle cerebral artery, primary team discussed correction goals of care today and patient was started on comfort care per family's wishes. 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 Patient presented as a STEMI and had 100% occlusion of the proximal to mid LCx and as well as 90% occlusion of the distal RCA and had 2 stents placed. He did have a repeat cardiac cath in 2014 at [facility] did show moderate residual disease diffuse in the LAD, OM1 as well as the mid RCA. No other cardiac catheterization since then. Patient used to follow-up with Dr. Fitzgerald in [place]. Per chart review he last followed up with them in 2021 looks like patient has been lost to follow-up since then. Regarding his CHF patient does have a history of EF of 40% but no new recent echo that has been noted. As per Recommendation from the last cardiology notes in 2021 he had mild systolic CHF. He was on Entresto and goal-directed medical therapy at that point of time but patient is not oriented the present point of time and unclear why. Strict input output Daily weights and 2 g sodium diet. Does not appear to be fluid overloaded at the present point of time and is not on any kind of diuretics. Will need GDMT with Entresto, beta-susanne, SGLT inhibitors. Aortic stenosis-echo and CHARMAINE showed at least moderate aortic stenosis by pressure gradient but the valve area was less than 1 cm? indicating possibly underestimation of the aortic stenosis and given the low ejection fraction. Patient mostly has low-flow low gradient severe . TTE shows severely reduced LV function with an EF of around 30 to 35%. Global hypokinesis. Mildly dilated LV. Diastolic dysfunction stage II. Normal RV size and function. RVSP mildly elevated at 35 mmHg. Moderate aortic stenosis with a mean PG of 22 mm hg. Possibly underestimated due to the low ejection fraction and mostly low-flow low gradient severe aortic stenosis as a DANTE is less than 1 cm?. Moderately calcified aortic valve.Mild MAC with moderate MR as well as mild TR. CHARMAINE shows severely reduced LV function with an EF of around 30 to 35%. Global hypokinesis. Mildly dilated LV. Normal RV size and function. Moderate aortic stenosis. Possibly underestimated due to the low ejection fraction and mostly low-flow low gradient severe aortic stenosis . Moderately calcified aortic valve. Mild MAC with moderate MR as well as mild TR. systolic blunting of pulmonary vein flow. Patient's repeat MRI today showed interval very large acute infarct in the right middle cerebral artery, primary team discussed assistant terminal manager goals of care today and patient was started on comfort care per family's wishes. #Hyperlipidemia #Hypertension #Diabetes mellitus type 2 #Benign prostate hyperplasia Case discussed with Attending Dr. Vega. Lizzy Benjamin PGY1 Disclaimer: This note was dictated by speech recognition. Minor errors in technical services assistant may be present due to voice recognition software. Attending Provider Attestation/Addendum I have personally seen and examined the patient separately on the above date of service and discussed the plan of care with the resident. I reviewed the resident Dr. Lizzy Benjamin consultation progress note and agree with the resident findings and plan in the note above and have also edited the documentation to reflect my findings and plan. Darren Vega M.D. Interventional Cardiology
--- NOTE | 2024-06-24 11:33 | PD.RESPRO ---
Documentation for date of: 06/24/24 Subjective Subjective Interval history: Patient was seen and examined in [facility] today. Patient's comfortable with some gurgling sounds present. Patient's was at bedside and all questions were answered. Will continue to monitor Exam Vital Signs Temp Pulse Resp BP Pulse Ox O2 Del Method O2 Flow Rate 96.9 F 103 H 16 146/76 H 96 Nasal Cannula 2 06/24/24 08:00 06/24/24 08:00 06/24/24 08:00 06/24/24 08:00 06/24/24 08:00 06/24/24 08:00 06/24/24 08:00 Narrative Exam Constitutional: Patient sleeping with his mouth open CVS: RRR, S1 and S2 present, no murmurs, rubs or gallops . RESP: CTAB, no SOB, no rales, rhonchi or wheezing. No respiratory Distress GI: Normal BS, Nontender/Nondistended. Neuro: Deferred Psych: Deferred Objective Labs 06/23/24 05:48 06/23/24 05:48 Quality Measures Quality Measures none (comfort care) Advance care planning discussed with:: spouse Assessment & Plan Assessment Current Active Medications: Generic Name Dose Route Start Last Admin Trade Name Freq PRN Reason Stop Dose Admin Artificial Tears 1 drop 06/23/24 15:14 Artificial Tears 225 Drop/15 Ml Btl BOTH EYES 07/23/24 15:13 Q4HR PRN Dry eyes Morphine Sulfate 100 mls @ 1 mls/hr 06/23/24 15:14 06/23/24 16:53 Morphine Sulfate Iv Drip 100mg/100ml IV 06/28/24 15:13 1 mg/hr .Q24H PRN 1 mls/hr PAIN (COMFORT CARE) Administration Protocol 1 MG/HR Lorazepam 1 mg 06/23/24 15:14 Lorazepam 2 Mg/Ml Vial IVP 06/28/24 15:13 Q6HR PRN ANXIETY Morphine Sulfate 2 mg 06/23/24 16:41 06/24/24 04:00 Morphine Sulf Inj 10 Mg/Ml Vial IVP 06/28/24 16:40 2 mg Q30M PRN Administration PAIN Plan The patient is a 69-year-old male with a previous medical history of vascular dementia, status post CVA, multiple TIAs, hypertension, diabetes, hyperlipidemia, CAD status post PCI with stent placement, BPH who was brought to the ED due to altered mental status and was admitted for the acute stroke. Patient's reported that on Thursday (06/14/24) morning patient started having altered mental status, slurred speech, face numbness. He has a history of previous stroke, TIAs and diagnosed with vascular dementia. Patient was getting outpatient MRI when he was recommended by radiologist to go to the ED. MRI/MRA brain without contrast showed: Proximal occlusion of the left posterior cerebral artery resulting in ischemia of most of the remaining left occipital and posterior medial temporal lobes, as well as portions of the left thalamus and internal capsule. Encephalomalacia from old left occipital/temporal infarction. Head CT was negative for acute bleeding, showed posterior communicating artery distribution ischemic changes. TTE showed ejection fraction 30 to 35%. Global hypokinesis. Stage II diastolic dysfunction. Moderate aortic stenosis. CHARMAINE: Ejection fraction 30 to 35%. No evidence for PFO or ASD. No left atrial or left atrial appendage thrombus. Moderate aortic stenosis. Patient began working with speech therapy and physical therapy however his hospital stay was complicated by worsening delirium. Unfortunately despite appropriate medical management patient developed another large stroke on 06/22/2024 for which teleneuro was consulted and did not recommend tPA or thrombolectomy due to the high risk of hemorrhagic conversion. Patient's symptoms now include left-sided weakness and flaccid paralysis as well as dysphagia and dysarthria. Patient's conditions continued to worsen as he is gurgling secretions and is very incoherent appearing very somnolent. Repeat MRI was finalized and the report read: Interval very large acute infarct in the right middle cerebral artery distribution. At this time family decided to stop any further interventions or studies and transition the patient to comfort care. #Acute CVA #Valcular dementia #Cognitive deficit #Right sided hemianopsia #Total aphasia #Left MCA stroke #Right MCA stroke #Hospital delirium #History of CAD, status post multiple stent placement #History of CHF (EF 30-35%) #History if hypertension #BPH #Type 2 diabetes Plan: ? comfort care Health maintenance: FEN: comfort feedings DVT prophylaxis: none, comfort care GI prophylaxis: none Dispo: telemetry CODE STATUS: DNR/DNI I discussed patient's care with attending physician, Dr Karly Grier PGY3 Attending Provider Attestation/Addendum I, Radha Brandt DO, attest that I was physically present for the ballard portions of the service and evaluated the patient with the resident and I reviewed and discussed the case with the resident and agree with the resident's findings and plans of care as documented above Patient seen and evaluated this AM. He remains on morphine drip and appears comfortable. at bedside. No acute events overnight otherwise.
--- NOTE | 2024-06-24 11:37 | PD.RESPRO ---
Documentation for date of: 06/24/24 Subjective Subjective Interval history: Patient seen and assessed at bedside this morning with family present in room. Patient has been transitioned to comfort care. Exam Vital Signs Temp Pulse Resp BP Pulse Ox O2 Del Method O2 Flow Rate 96.9 F 103 H 16 146/76 H 96 Nasal Cannula 2 06/24/24 08:00 06/24/24 08:00 06/24/24 08:00 06/24/24 08:00 06/24/24 08:00 06/24/24 08:00 06/24/24 08:00 Narrative Exam Gen: Elderly male. Resting in bed. CVS: Regular rate and rhythm, no murmurs, rubs, or gallops. Resp: Rhonchi on auscultation bilateral lobes. Objective Labs 06/23/24 05:48 06/23/24 05:48 Quality Measures Quality Measures none (comfort care) Advance care planning discussed with:: patient Assessment & Plan Assessment Current Active Medications: Generic Name Dose Route Start Last Admin Trade Name Freq PRN Reason Stop Dose Admin Artificial Tears 1 drop 06/23/24 15:14 Artificial Tears 225 Drop/15 Ml Btl BOTH EYES 07/23/24 15:13 Q4HR PRN Dry eyes Morphine Sulfate 100 mls @ 1 mls/hr 06/23/24 15:14 06/23/24 16:53 Morphine Sulfate Iv Drip 100mg/100ml IV 06/28/24 15:13 1 mg/hr .Q24H PRN 1 mls/hr PAIN (COMFORT CARE) Administration Protocol 1 MG/HR Lorazepam 1 mg 06/23/24 15:14 Lorazepam 2 Mg/Ml Vial IVP 06/28/24 15:13 Q6HR PRN ANXIETY Morphine Sulfate 2 mg 06/23/24 16:41 06/24/24 04:00 Morphine Sulf Inj 10 Mg/Ml Vial IVP 06/28/24 16:40 2 mg Q30M PRN Administration PAIN Plan #Comfort care Patient on comfort measures with IV morphine Case discussed with attending Dr Marjorie Bai MD PGY3 Attending Provider Attestation/Addendum I personally have seen and examined the patient at the bedside and agree with resident's findings, assessment and plan of care we will continue with the comfort measures
[2024-06-24 16:29] VITALS: PULSE 84; RESP 20; RESP 96; O2SAT 96
--- NOTE | 2024-06-24 17:30 | PC.PT ---
Patient has been moved to comfort care measures. Patient will be D/C from PT as a result of the comfort care orders.
[2024-06-24 20:00] VITALS: BP 130/82; PULSE 98; RESP 14; TEMP 37.2; O2SAT 91
[2024-06-25 01:42] VITALS: PULSE 95; RESP 20; RESP 93
[2024-06-25 06:00] VITALS: BMI 27.8
[2024-06-25 08:00] VITALS: BP 131/78; PULSE 78; RESP 19; TEMP 36.3; O2SAT 98
[2024-06-25 09:36] VITALS: PULSE 89; RESP 20; O2SAT 95
[2024-06-25] MEDS: GLYCOPYRROLATE INJ 0.2 MG/ML VIAL 0.1 MG IV ×2 (13:30→22:22)
--- NOTE | 2024-06-25 15:09 | PD.RESPRO ---
Documentation for date of: 06/25/24 Subjective Subjective Interval history: No acute events overnight.?Patient seen and examined at bedside this AM.?Patient is on comfort care with morphine drip at 1 mg/hr. He appears sleeping, with some oropharyngeal gurgling. Will add glycopyrrolate and hyoscyamine for secretions. Review of systems otherwise negative except what is mentioned above. Exam Vital Signs Temp Pulse Resp BP Pulse Ox O2 Del Method O2 Flow Rate 97.3 F 89 20 131/78 H 95 Room Air 3 06/25/24 08:00 06/25/24 09:36 06/25/24 09:36 06/25/24 08:00 06/25/24 09:36 06/25/24 08:00 06/25/24 09:36 Narrative Exam Constitutional: Patient sleeping with his mouth open CVS: RRR, S1 and S2 present, no murmurs, rubs or gallops . RESP: CTAB, no SOB, no rales, rhonchi or wheezing. No respiratory Distress GI: Normal BS, Nontender/Nondistended. Neuro: Deferred Psych: Deferred Objective Labs 06/23/24 05:48 06/23/24 05:48 Quality Measures Quality Measures none (comfort care) Advance care planning discussed with:: patient and child Assessment & Plan Assessment Current Active Medications: Generic Name Dose Route Start Last Admin Trade Name Freq PRN Reason Stop Dose Admin Artificial Tears 1 drop 06/23/24 15:14 Artificial Tears 225 Drop/15 Ml Btl BOTH EYES 07/23/24 15:13 Q4HR PRN Dry eyes Glycopyrrolate 0.1 mg 06/25/24 12:03 06/25/24 13:30 Glycopyrrolate Inj 0.2 Mg/Ml Vial IV 07/25/24 12:02 0.1 mg QID PRN Administration SECRETIONS Hyoscyamine 0.25 mg 06/25/24 12:03 Hyoscyamine Sulf 0.125 Mg Tab.Subl PO 07/25/24 12:02 Q4HR PRN SECRETIONS Morphine Sulfate 100 mls @ 1 mls/hr 06/23/24 15:14 06/23/24 16:53 Morphine Sulfate Iv Drip 100mg/100ml IV 06/28/24 15:13 1 mg/hr .Q24H PRN 1 mls/hr PAIN (COMFORT CARE) Administration Protocol 1 MG/HR Lorazepam 1 mg 06/23/24 15:14 Lorazepam 2 Mg/Ml Vial IVP 06/28/24 15:13 Q6HR PRN ANXIETY Morphine Sulfate 2 mg 06/23/24 16:41 06/24/24 04:00 Morphine Sulf Inj 10 Mg/Ml Vial IVP 06/28/24 16:40 2 mg Q30M PRN Administration PAIN Plan The patient is a 69-year-old male with a previous medical history of vascular dementia, status post CVA, multiple TIAs, hypertension, diabetes, hyperlipidemia, CAD status post PCI with stent placement, BPH who was brought to the ED due to altered mental status and was admitted for the acute stroke. Patient's reported that on Thursday (06/14/24) morning patient started having altered mental status, slurred speech, face numbness. He has a history of previous stroke, TIAs and diagnosed with vascular dementia. Patient was getting outpatient MRI when he was recommended by radiologist to go to the ED. MRI/MRA brain without contrast showed: Proximal occlusion of the left posterior cerebral artery resulting in ischemia of most of the remaining left occipital and posterior medial temporal lobes, as well as portions of the left thalamus and internal capsule. Encephalomalacia from old left occipital/temporal infarction. Head CT was negative for acute bleeding, showed posterior communicating artery distribution ischemic changes. TTE showed ejection fraction 30 to 35%. Global hypokinesis. Stage II diastolic dysfunction. Moderate aortic stenosis. CHARMAINE: Ejection fraction 30 to 35%. No evidence for PFO or ASD. No left atrial or left atrial appendage thrombus. Moderate aortic stenosis. Patient began working with speech therapy and physical therapy however his hospital stay was complicated by worsening delirium. Unfortunately despite appropriate medical management patient developed another large stroke on 06/22/2024 for which teleneuro was consulted and did not recommend tPA or thrombolectomy due to the high risk of hemorrhagic conversion. Patient's symptoms now include left-sided weakness and flaccid paralysis as well as dysphagia and dysarthria. Patient's conditions continued to worsen as he is gurgling secretions and is very incoherent appearing very somnolent. Repeat MRI was finalized and the report read: Interval very large acute infarct in the right middle cerebral artery distribution. At this time family decided to stop any further interventions or studies and transition the patient to comfort care. #Acute CVA #Valcular dementia #Cognitive deficit #Right sided hemianopsia #Total aphasia #Left MCA stroke #Right MCA stroke #Hospital delirium #History of CAD, status post multiple stent placement #History of CHF (EF 30-35%) #History if hypertension #BPH #Type 2 diabetes Plan: ? comfort care Health maintenance: FEN: comfort feedings DVT prophylaxis: none, comfort care GI prophylaxis: none Dispo: telemetry CODE STATUS: DNR/DNI Patient plan of care was discussed with the attending physician, Dr. Brandt. Mariella Rosario, PGY-2 Attending Provider Attestation/Addendum Radha Parra, DO, attest that I was physically present for the ballard portions of the service and evaluated the patient with the resident and I reviewed and discussed the case with the resident and agree with the resident's findings and plans of care as documented above Patient seen and evaluated this AM. Patient is resting comfortably. Will move right UE and LE spontaneously. Does not open eyes or follow commands. GCS6. He is in no respiratory distress, but noted to have more secretions. Will add glycopyrolate. is at bedside. Patient remains on morphine drip.
[2024-06-25] MEDS: MORPHINE SULF INJ 10 MG/ML VIAL 2 MG IVP ×2 (18:45→23:40)
[2024-06-25 20:00] VITALS: BP 140/86; PULSE 61; RESP 15; TEMP 36.3; O2SAT 94
[2024-06-25] MEDS: LORazepam 2 MG/ML VIAL 1 MG IVP (20:08)
[2024-06-25] MEDS: HYOSCYAMINE SULF 0.125 MG TAB.SUBL 0.25 MG PO (22:21)
--- NOTE | 2024-06-25 23:55 | PD.VPROG1 ---
Telemedicine visit statement This visit was conducted with the use of interactive audio and video telecommunications system that permits real time communication between the patient and the provider. Patient's verbal consent for virtual visit was obtained on 06/25/24 at 2355. Documentation for date of: 06/25/24 Subjective Subjective Interval history: [facility], on morphine. Virtual exam Vital Signs Temp Pulse Resp BP Pulse Ox O2 Del Method O2 Flow Rate 97.3 F 61 15 140/86 H 94 L Nasal Cannula 1.5 06/25/24 20:00 06/25/24 20:00 06/25/24 20:00 06/25/24 20:00 06/25/24 20:00 06/25/24 20:00 06/25/24 20:00 Objective Labs 06/23/24 05:48 06/23/24 05:48 Assessment & Plan Assessment Patient is a 69-year-old male with a previous medical history of vascular dementia, status post CVA, multiple TIAs, hypertension, diabetes, hyperlipidemia, CAD status post PCI with stent placement, BPH who was brought to the ED due to altered mental status. Neurology consulted due to acute ischemic stroke noted on imaging. Now with both hemispherical strokes. Patient developed acute onset of left-sided weakness with functional dysphagia and altered mental status secondary to recurrent stroke despite being on dual antiplatelet agents. Now patient is on comfort care as his prognosis is poor for meaningful neurological recovery. Continue with the comfort care #History of CAD, status post multiple stent placement #History of CHF #History if hypertension #BPH #Diabetes mellitus
[2024-06-26] MEDS: MORPHINE SULF INJ 10 MG/ML VIAL 2 MG IVP ×5 (01:08→06:30)
[2024-06-26] MEDS: LORazepam 2 MG/ML VIAL 1 MG IVP ×2 (02:16→21:21)
[2024-06-26] MEDS: HYOSCYAMINE SULF 0.125 MG TAB.SUBL 0.25 MG PO ×2 (04:17→21:10)
[2024-06-26] MEDS: GLYCOPYRROLATE INJ 0.2 MG/ML VIAL 0.1 MG IV ×2 (04:17→21:09)
[2024-06-26 06:00] VITALS: BMI 27.1
[2024-06-26 07:40] VITALS: BP 99/72; PULSE 142; RESP 18; TEMP 36.6; O2SAT 93
[2024-06-26] MEDS: SCOPOLAMINE 1 MG TDSY TOP (09:30)
--- NOTE | 2024-06-26 09:47 | ESPR_ITS ---
Documentation for date of: 06/26/24 Subjective Subjective Interval history: Patient was seen and examined in [facility] today. Patient's comfortable with some gurgling sounds present. Patient's was at bedside and all questions were answered. Will continue to monitor Exam Vital Signs Temp Pulse Resp BP Pulse Ox O2 Del Method O2 Flow Rate 97.8 F 142 H 18 99/72 93 L Nasal Cannula 1.5 06/26/24 07:40 06/26/24 07:40 06/26/24 07:40 06/26/24 07:40 06/26/24 07:40 06/25/24 20:00 06/25/24 20:00 Narrative Exam Constitutional: Patient sleeping with his mouth open CVS: RRR, S1 and S2 present, no murmurs, rubs or gallops . RESP: CTAB, no SOB, no rales, rhonchi or wheezing. No respiratory Distress GI: Normal BS, Nontender/Nondistended. Neuro: Deferred Psych: Deferred Objective Labs 06/23/24 05:48 06/23/24 05:48 Quality Measures Quality Measures none (comfort care) Advance care planning discussed with:: spouse Assessment & Plan Assessment Current Active Medications: Generic Name Dose Route Start Last Admin Trade Name Freq PRN Reason Stop Dose Admin Artificial Tears 1 drop 06/23/24 15:14 Artificial Tears 225 Drop/15 Ml Btl BOTH EYES 07/23/24 15:13 Q4HR PRN Dry eyes Glycopyrrolate 0.1 mg 06/25/24 12:03 06/26/24 04:17 Glycopyrrolate Inj 0.2 Mg/Ml Vial IV 07/25/24 12:02 0.1 mg QID PRN Administration SECRETIONS Hyoscyamine 0.25 mg 06/25/24 12:03 06/26/24 04:17 Hyoscyamine Sulf 0.125 Mg Tab.Subl PO 07/25/24 12:02 0.25 mg Q4HR PRN Administration SECRETIONS Morphine Sulfate 100 mls @ 1 mls/hr 06/23/24 15:14 06/26/24 06:32 Morphine Sulfate Iv Drip 100mg/100ml IV 06/28/24 15:13 4 mg/hr .Q24H PRN 4 mls/hr PAIN (COMFORT CARE) Titration Protocol 1 MG/HR Lorazepam 1 mg 06/23/24 15:14 06/26/24 02:16 Lorazepam 2 Mg/Ml Vial IVP 06/28/24 15:13 1 mg Q6HR PRN Administration ANXIETY Morphine Sulfate 2 mg 06/23/24 16:41 06/26/24 06:30 Morphine Sulf Inj 10 Mg/Ml Vial IVP 06/28/24 16:40 2 mg Q30M PRN Administration PAIN Scopolamine 1 mg 06/26/24 09:15 06/26/24 09:30 Scopolamine 1 Mg Tdsy TOP 07/26/24 09:14 1 mg Q3D RAYMON Administration Plan The patient is a 69-year-old male with a previous medical history of vascular dementia, status post CVA, multiple TIAs, hypertension, diabetes, hyperlipidemia, CAD status post PCI with stent placement, BPH who was brought to the ED due to altered mental status and was admitted for the acute stroke. Patient's reported that on Thursday (06/14/24) morning patient started having altered mental status, slurred speech, face numbness. He has a history of previous stroke, TIAs and diagnosed with vascular dementia. Patient was getting outpatient MRI when he was recommended by radiologist to go to the ED. MRI/MRA brain without contrast showed: Proximal occlusion of the left posterior cerebral artery resulting in ischemia of most of the remaining left occipital and posterior medial temporal lobes, as well as portions of the left thalamus and internal capsule. Encephalomalacia from old left occipital/temporal infarction. Head CT was negative for acute bleeding, showed posterior communicating artery distribution ischemic changes. TTE showed ejection fraction 30 to 35%. Global hypokinesis. Stage II diastolic dysfunction. Moderate aortic stenosis. CHARMAINE: Ejection fraction 30 to 35%. No evidence for PFO or ASD. No left atrial or left atrial appendage thrombus. Moderate aortic stenosis. Patient began working with speech therapy and physical therapy however his hospital stay was complicated by worsening delirium. Unfortunately despite appropriate medical management patient developed another large stroke on 06/22/2024 for which teleneuro was consulted and did not recommend tPA or thrombolectomy due to the high risk of hemorrhagic conversion. Patient's symptoms now include left-sided weakness and flaccid paralysis as well as dysphagia and dysarthria. Patient's conditions continued to worsen as he is gurgling secretions and is very incoherent appearing very somnolent. Repeat MRI was finalized and the report read: Interval very large acute infarct in the right middle cerebral artery distribution. At this time family decided to stop any further interventions or studies and transition the patient to comfort care. #Acute CVA #Valcular dementia #Cognitive deficit #Right sided hemianopsia #Total aphasia #Left MCA stroke #Right MCA stroke #Hospital delirium #History of CAD, status post multiple stent placement #History of CHF (EF 30-35%) #History if hypertension #BPH #Type 2 diabetes Plan: ? comfort care Health maintenance: FEN: comfort feedings DVT prophylaxis: none, comfort care GI prophylaxis: none Dispo: telemetry CODE STATUS: DNR/DNI ATTESTATION: I discussed patient's care with attending physician, Dr Karly Grier PGY3 Attending Provider Attestation/Addendum I, Radha Brandt DO, attest that I was physically present for the ballard portions of the service and evaluated the patient with the resident and I reviewed and discussed the case with the resident and agree with the resident's findings and plans of care as documented above
[2024-06-26 10:30] VITALS: PULSE 124; RESP 18; O2SAT 93
[2024-06-26 20:00] VITALS: BP 115/72; PULSE 123; RESP 19; TEMP 37.8; O2SAT 91
--- NOTE | 2024-06-26 23:23 | VVPN_ITS ---
Telemedicine visit statement This visit was conducted with the use of interactive audio and video telecommunications system that permits real time communication between the patient and the provider. Patient's verbal consent for virtual visit was obtained on 06/26/24 at 2323. Documentation for date of: 06/26/24 Subjective Subjective Interval history: [facility], on morphine. Virtual exam Vital Signs Temp Pulse Resp BP Pulse Ox O2 Del Method O2 Flow Rate 100.1 F 123 H 19 115/72 91 L Oxy Mask 4 06/26/24 20:00 06/26/24 20:00 06/26/24 20:00 06/26/24 20:00 06/26/24 20:00 06/26/24 20:00 06/26/24 20:00 Objective Labs 06/23/24 05:48 06/23/24 05:48 Assessment & Plan Assessment Patient is a 69-year-old male with a previous medical history of vascular dementia, status post CVA, multiple TIAs, hypertension, diabetes, hyperlipidemia, CAD status post PCI with stent placement, BPH who was brought to the ED due to altered mental status. Neurology consulted due to acute ischemic stroke noted on imaging. Now with both hemispherical strokes. Patient developed acute onset of left-sided weakness with functional dysphagia and altered mental status secondary to recurrent stroke despite being on dual antiplatelet agents. Now patient is on comfort care as his prognosis is poor for meaningful neurological recovery. Continue with the comfort care #History of CAD, status post multiple stent placement #History of CHF #History if hypertension #BPH #Diabetes mellitus
[2024-06-27] MEDS: MORPHINE SULF INJ 10 MG/ML VIAL 2 MG IVP ×4 (00:14→04:21)
[2024-06-27] MEDS: LORazepam 2 MG/ML VIAL 1 MG IVP (03:03)
[2024-06-27] MEDS: GLYCOPYRROLATE INJ 0.2 MG/ML VIAL 0.1 MG IV (03:04)
--- NOTE | 2024-06-27 04:41 | PD.DPN ---
Documentation for date of: 06/27/24 Pronouncement Note Date and Time of Date of : 06/27/24 Time of : 04:35 Contributing Factors (1) Cardiopulmonary arrest: Summary Additional details: Around 0428 AM, it was stated that patient had possibly had passed as he was on comfort care. I went to examine the patient as family was present at bedside and she declined to be present in the room during pronouncement. Pt's pupils were fixed and dilated with no pupillary reflex bilat. Gag absent was absent. There was no chest rise, and no heart sounds were auscultated. Peripheral pulses including dorsalis pedis and radial pulses were not palpated. At 0435 AM, pt's was pronounced. Patient seen and care discussed with my attending physician, Dr. Lillian Power, PGY-1 Additional Data Confirmation of : no pulse, no respirations, no heart sounds and pupils fixed and dilated Family: at bedside Attending/PCP notified?: No Attending physician: Radha Brandt, DO Was code activated?: No
--- NOTE | 2024-06-27 07:17 | DES_ITS ---
<Statement entered by Radha Brandt DO - 06/28/24 07:35> I, Radha Brandt DO, attest that I was physically present for the ballard portions of the service and evaluated the patient with the resident and I reviewed and discussed the case with the resident and agree with the resident's findings and plans of care as documented above Documentation for date of: 06/27/24 Summary Date and Time Date of admission: 06/16/24 16:30 Summary Hospital Course: The patient is a 69-year-old male with a previous medical history of vascular dementia, status post CVA, multiple TIAs, hypertension, diabetes, hyperlipidemia, CAD status post PCI with stent placement, BPH who was brought to the ED due to altered mental status and was admitted for the acute stroke. Patient's reported that on Thursday (06/14/24) morning patient started having altered mental status, slurred speech, face numbness. He has a history of previous stroke, TIAs and diagnosed with vascular dementia. Patient was getting outpatient MRI when he was recommended by radiologist to go to the ED. MRI/MRA brain without contrast showed: Proximal occlusion of the left posterior cerebral artery resulting in ischemia of most of the remaining left occipital and posterior medial temporal lobes, as well as portions of the left thalamus and internal capsule. Encephalomalacia from old left occipital/temporal infarction. Head CT was negative for acute bleeding, showed posterior communicating artery distribution ischemic changes. TTE showed ejection fraction 30 to 35%. Global hypokinesis. Stage II diastolic dysfunction. Moderate aortic stenosis. CHARMAINE: Ejection fraction 30 to 35%. No evidence for PFO or ASD. No left atrial or left atrial appendage thrombus. Moderate aortic stenosis. Patient began working with speech therapy and physical therapy however his hospital stay was complicated by worsening delirium. Unfortunately despite appropriate medical management patient developed another large stroke on 06/22/2024 for which teleneuro was consulted and did not recommend tPA or thrombolectomy due to the high risk of hemorrhagic conversion. Patient's symptoms now include left-sided weakness and flaccid paralysis as well as dysphagia and dysarthria. Patient's conditions continued to worsen as he is gurgling secretions and is very incoherent appearing very somnolent. Repeat MRI was finalized and the report read: Interval very large acute infarct in the right middle cerebral artery distribution. At the time family decided to stop any further interventions or studies and transition the patient to comfort care. Patient comfortably on 06/27/24 at 4:35 am. #Acute CVA #Valcular dementia #Cognitive deficit #Right sided hemianopsia #Total aphasia #Left MCA stroke #Right MCA stroke #Hospital delirium #History of CAD, status post multiple stent placement #History of CHF (EF 30-35%) #History if hypertension #BPH #Type 2 diabetes Thank you for allowing us the opportunity to care for Mr Herzog during his stay with us. I discussed patient's care with attending physician, Dr Karly Grier PGY3 Additional Data Attending physician: Radha Brandt, DO Visit Providers Provider Primary care physician: Physician Meggan Primary/Family Consults: 06/16/24 16:39 Referral Speech Therapy Stat Comment: 06/16/24 17:15 Consult to Neurology / Tele-Neurology Routine Comment: acute/subacute stroke Consulting Provider: Kristofer Amador 06/16/24 17:21 Consult to Cardiology Routine Comment: susp thromboembolic stroke Consulting Provider: Darren Vega Instructions: Patient has a history of CAD s/p stent placement, HTN, HLP 06/20/24 07:50 Referral Physical Therapy Stat Comment: Physician Instructions: 06/23/24 09:54 Referral Speech Therapy Urgent Comment: New evaluation new stroke 06/26/24 23:22 Referral [place] Routine Comment: Diagnosis Contributing Factors (1) Cardiopulmonary arrest: Discharge Plan Plan Patient Disposition: Patient condition on transfer: Stable Care Plan Goals: Please schedule the following appointments: - Follow-up with your PCP in 1-2 weeks - Follow-up with Neurology Dr. Amador in 1-2 weeks for stroke management - Follow-up with Cardiology Dr. Vega in 2 weeks for heart failure management For diabetes: - Increase metformin to 1000 mg twice a week - Continue insulin glargine (Lantus) 10 U once daily - Start insulin aspart sliding scale with meal times, 3 times a day according to the following scale: BG 150-200: Administer 2 units. BG 201-250: Administer 3 units. BG 251-300: Administer 4 units. BG >300: Administer 5 units. - Continue glipizide 2.5 mg once daily - Continue empagliflozin (Jardiance) 10 mg once daily For stroke prevention: - Continue aspirin 81 mg once daily for 17 more days (21 days total of dual- antiplatelet therapy) - Continue clopidogrel (Plavix) 75 mg once daily indefinitely For cholesterol: - Continue atorvastatin 80 mg once daily For heart failure: - Continue sacubitril-valsartan 24-26 mg once daily - Please ensure you have a weighing scale, 2 gram sodium restriction, 2L fluid restriction - Please note your weight on the discharge paperwork prior to leaving - Every morning after you wake up and urinate, please weigh yourself, and document the date and the weight. - If your weight increases by 2 pounds in 1 day or by 5 pounds in a week, call your [employer]. - If you notice shortness of breath, having to use more pillows to prop your head up when you sleep, waking up short of breath, clothes fitting tighter, swelling your legs, decreased urination, please call. If any symptoms are severe, go to the Emergency Department. - Avoid using medications called NSAIDs (also known as nonsteroidal anti- inflammatory drugs), such as ibuprofen, Motrin, Aleve, Advil, naproxen. - Avoid using canned vegetables, canned soups, frozen dinners as these tend to have a lot of salt. For blood pressure: - Continue carvedilol 6.25 mg twice daily with meals For BPH: - Continue tamsulosin 0.4 mg once daily Prescriptions/Referrals Referrals: Darren Vega MD [Physician] - No Primary/Family,Physician [Primary Care Provider] - Kristofer Amador MD [Physician] - 07/04/24 Patient/Caregiver Discharge Instructions Print Language: Armenian Stand Alone Forms: [employer] List Info., Patient Portal Info Letter Discharge Order Discharge Orders: Discharge (Routine); Ordered 06/20/24 Ordered By: Mariella Rosario
--- NOTE | 2024-06-29 15:34 | PC.SS ---
KNITTING TEACHER received transferred call from [facility] deputy, officer Aden; requesting update on patient's discharge disposition. KNITTING TEACHER relayed to deputy that the patient on 06-27-24.
== END 2024-06-27 04:35 | disposition expired | DRG 65 ==
LOC: SERX 16:51 → SERHOLD 16:59 → S2NX 20:53 → S3NX 06-24 01:04
PROVIDERS: Student in an Organized Health Care Education/Training Program; Admitting Provider Student in an Organized Health Care Education/Training Program; Emergency Provider Emergency Medicine; Visit Provider Internal Medicine
DX: I63.532 Cerebral infarction due to unspecified occlusion or stenosis of left posterior cerebral artery (principal); F05 Delirium due to known physiological condition; G81.91 Hemiplegia, unspecified affecting right dominant side; G93.40 Encephalopathy, unspecified; I50.42 Chronic combined systolic (congestive) and diastolic (congestive) heart failure; G81.04 Flaccid hemiplegia affecting left nondominant side; I63.511 Cerebral infarction due to unspecified occlusion or stenosis of right middle cerebral artery; R47.01 Aphasia; E78.5 Hyperlipidemia, unspecified; R13.10 Dysphagia, unspecified; I69.398 Other sequelae of cerebral infarction; F01.50 Vascular dementia, unspecified severity, without behavioral disturbance, psychotic disturbance, mood disturbance, and anxiety; I11.0 Hypertensive heart disease with heart failure; E11.65 Type 2 diabetes mellitus with hyperglycemia; I46.9 Cardiac arrest, cause unspecified; I25.10 Atherosclerotic heart disease of native coronary artery without angina pectoris; R29.810 Facial weakness; G93.89 Other specified disorders of brain; I25.2 Old myocardial infarction; R47.1 Dysarthria and anarthria; I35.0 Nonrheumatic aortic (valve) stenosis; N40.0 Benign prostatic hyperplasia without lower urinary tract symptoms; R29.731 NIHSS score 31; R41.89 Other symptoms and signs involving cognitive functions and awareness; Z66 Do not resuscitate; Z79.02 Long term (current) use of antithrombotics/antiplatelets; Z79.4 Long term (current) use of insulin; Z79.84 Long term (current) use of oral hypoglycemic drugs; Z79.899 Other long term (current) drug therapy; Z87.891 Personal history of nicotine dependence; Z95.5 Presence of coronary angioplasty implant and graft; Z79.82 Long term (current) use of aspirin; Z51.5 Encounter for palliative care; Z78.1 Physical restraint status
CPT/HCPCS: 36415; 70450; 70496; 70498; 70544; 80048; 80053; 81001; 82140; 83036; 83605; 83735; 84100; 84443; 84484; 85025; 85610; 85730; 87811; 92526; 92610; 93005; 93306; 93312; 94640; 97162; 99152; 99285; A4216; A4649; J1200; J1630; J1643; J1815; J2060; J2250; J2270; J2358; J3010; J3490; J7030; Q9967; A9270; J1596; J2359

== ENCOUNTER → 2024-06-16 | Outpatient (CLI) | payer MEDICARE, BC, SELFPAY ==
--- NOTE | 2024-06-16 11:16 | XR_ITS ---
EXAMINATION: MR brain o MRA ramez wo mario w ORDERING PROVIDER: Kristofer Amador MD HISTORY: Headaches, dizziness, right-sided numbness and weakness, right-sided vision loss x3 days. History of cerebrovascular incident 2020. TECHNIQUE: Multiplanar multisequence magnetic resonance images were obtained of the brain and neck with and without IV contrast. Vascular imaging was performed of the neck and head through the [place] of [place]. Imaging is motion degraded. COMPARISON: 06/14/2024, CT head. FINDINGS: Large area of restricted diffusion involving most of the remaining left occipital lobe, with extension into the posterior medial inferior temporal lobe. Additional foci of restricted diffusion involving the left thalamus and internal capsule. Again seen is significant encephalomalacia involving the peripheral aspect of the left occipital and temporal lobes, with associated cortical/subcortical susceptibility and cortical enhancement. There is an additional focus of abnormal susceptibility involving the right semicentrum ovale, likely representing an area of microhemorrhage. There is prominence of the right parieto-occipital sulcus, without adjacent abnormal T2 signal, which may be due to atrophy. There is no mass effect or midline shift. No extra-axial fluid collection is identified. There is advanced global cerebral atrophy with resultant prominence of the sulci and ventricles. Extensive periventricular and subcortical white matter T2/FLAIR hyperintensities are seen. No enhancing mass is identified. Orbits are grossly unremarkable. There is extensive mucosal paranasal inflammatory sinus disease primarily affecting a common sphenoid paranasal sinus. There is a moderate amount of fluid in the right mastoid air cells. Anterior, middle, and right posterior cerebral arteries are proximally patent without large aneurysm visualized. Anterior communicating artery is seen. The patient's right posterior communicating artery is dominant. Small left posterior communicating artery is present. The left posterior cerebral artery is not visible from its origin (P1) distally. Bilateral superior cerebellar arteries are proximally patent. Anterior inferior cerebral arteries are proximally identified. The patient is left vertebral artery dominant, with the right vertebral artery being extremely diminutive, and possibly terminating as a posterior inferior cerebellar artery. The proximal left posterior inferior cerebellar artery is identified. No basilar tip aneurysm is seen. Imaging of the neck is limited due to patient motion and coronal views only. Cervical vertebral and carotid arteries are tortuous. Left vertebral artery is again seen to be dominant. Potential stenosis is not well evaluated given lack of axial and sagittal imaging. IMPRESSION: 1. Proximal occlusion of the left posterior cerebral artery resulting in ischemia of most of the remaining left occipital and posterior medial temporal lobes, as well as portions of the left thalamus and internal capsule. 2. Encephalomalacia from old left occipital/temporal infarction. 3. Extensive global parenchymal volume loss and chronic small vessel ischemic changes. 4. Small focus of susceptibility right semicentrum ovale may represent area of microhemorrhage. 5. Partial right mastoid air cell effusion. Recommend correlation with history and physical exam to exclude mastoiditis. This case was discussed with the emergency room at 2:08 PM 06/16/2024, and patient was taken to the emergency room by radiology staff at 2:10 PM 06/16/2024.
== END | disposition home or self-care (01) ==
PROVIDERS: PCP Internal Medicine; Referring Provider Psychiatry & Neurology Neurology; Visit Provider Psychiatry & Neurology Neurology
DX: I67.82 Cerebral ischemia (principal); G93.6 Cerebral edema
CPT/HCPCS: 70546; 70548; 70553; A9579; Z7610